=== PATIENT | female | born 1965 | race Caucasian/White ===

== ENCOUNTER → 2019-05-11 12:37 | Outpatient (BNVA) | payer MEDICAID, SELFPAY | PROVIDERS: PCP Family Medicine; Visit Provider Nurse Practitioner | DX: F43.12 Post-traumatic stress disorder, chronic (principal); F15.21 Other stimulant dependence, in remission; F31.81 Bipolar II disorder | CPT/HCPCS: 99214 ==

== ENCOUNTER 2019-11-08 09:47 | Outpatient (CLI) | payer MEDICAID, SELFPAY ==
--- NOTE | 2019-11-08 10:15 | CT_ITS ---
WS: [id number] CT ANGIOGRAPHY OF THE ABDOMINAL AORTA WITH RUNOFF TO THE ANKLES HISTORY: AORTOILIAC OCCLUSIVE DISEASE, ATHEROSCLEROSIS BILAT LOWER EXTREMITIES TECHNIQUE: Arterial injection is performed during imaging to evaluate the aorta and runoff vessels to the ankles. MIP and volume rendering imaging has also been performed. All images are reviewed. CT sc ans at [facility] use at least one of these dose optimization techniques: automated exposu re control; mA and/or kV adjustment per patient size (includes targeted exams where dose is matched t o clinical indication); or iterative reconstruction. Contrast: Omnipaque 350; 95 mL IV. DLP: 1487.16 mGycm COMPARISON: None available. Subsegmental atelectasis RIGHT middle lobe with emphysematous changes at the lung bases. Heart size i s normal. Small hiatal hernia. Liver, gallbladder, pancreas, spleen, adrenal glands and gallbladder are negative. Cortical scarring involving each kidney. There is no obstruction or solid mass. No ascites or adenopathy. No GI tract o bstruction. Abdominal aorta: Small caliber aorta with no aneurysmal dilatation. Calcified plaque is partially enc asing the distal aorta. Diameter of the aorta 8 mm distally. Celiac axis and SMA are intact. No signi ficant renal artery stenosis. RIGHT lower extremity arterial system: Soft appearing plaque or thrombus in the proximal LEFT common iliac artery. Greater than 50% stenosis approaching near occlusion. High-grade stenosis with occlusio n and thrombus extend into the RIGHT external iliac artery. Partial occlusion of the proximal RIGHT i nternal iliac artery. External iliac artery reconstitutes at the femoral artery. Small caliber but pa tent SFA and deep profunda. Popliteal artery is intact. Anterior tibial artery is visualized proximal ly. Below the proximal tibia there is very limited and poor runoff to the ankle with intermittent vis ualization. LEFT lower extremity arterial system: Small amount of plaque in the LEFT common, internal and externa l iliac arteries. Small caliber SFA and deep profunda, SFA and popliteal arteries are intact although small caliber. At the tibioperoneal trunk and distally there is very poor and intermittent visualiza tion of the runoff to the ankle. Anterior and posterior tibial arteries are probably patent. CT/CT angio abd aorta runof 72978 IMPRESSION: 1. Significant thrombus/soft plaque throughout the RIGHT common iliac artery a nd external iliac artery with occlusion of the external iliac artery. Reconstit ution at the femoral artery. 2. Small caliber but patent bilateral superficial femoral arteries and poplite al arteries. 3. Poor runoff to the ankle via a small caliber arteries below the knees. Inte rmittently visualized and small caliber arteries. 4. Mild atherosclerosis aorta with stenosis distally. Minimum diameter distal aorta is 8 mm.
[2019-11-08] MEDS: iohexol 300 mg/mL 100 mL Btl IV (10:54)
[2019-11-08 12:22] LABS: Glomerular Filtration Rate 57.4 mL/min (90-130)
== END 2019-11-08 09:48 | disposition home or self-care (01) ==
PROVIDERS: Family Provider Family Medicine; PCP Family Medicine; Visit Provider Surgery Vascular Surgery
DX: I74.09 Other arterial embolism and thrombosis of abdominal aorta (principal); I70.213 Atherosclerosis of native arteries of extremities with intermittent claudication, bilateral legs; I70.90 Unspecified atherosclerosis
CPT/HCPCS: 75635; 82565; Q9967

== ENCOUNTER → 2020-01-25 08:59 | Outpatient (BNVA) | payer MEDICAID, SELFPAY | PROVIDERS: Family Provider Family Medicine; PCP Family Medicine; Visit Provider Psychiatry & Neurology Psychiatry | DX: F31.81 Bipolar II disorder (principal); F15.21 Other stimulant dependence, in remission; F43.12 Post-traumatic stress disorder, chronic | CPT/HCPCS: 99214 ==

== ENCOUNTER 2020-03-18 13:51 | Outpatient (CLI) | payer MEDICAID, SELFPAY ==
--- NOTE | 2020-03-18 14:03 | CT_ITS ---
WS: [id number] CT scan of the abdominal aorta and its distal branches.. Additional two-dimensional coronal and sagit yomaira reconstruction was performed. MIP images were also performed. 03/18/2020 Clinical Data: AORTOILIAC OCCLUSIVE DISEASE Comparison: CT abdominal aorta and runoff, 11/08/2019. DLP: 1021.[address] scans at [facility] use at least one of these dose optimization techniques: automat ed exposure control; mA and/or kV adjustment per patient size (includes targeted exams where dose is matched to clinical indication); or iterative reconstruction. Findings: Abdominal aorta: The abdominal aorta is normal in size with minimal calcification in the wall. Distally the abdominal aorta and renal arteries, celiac artery, superior mesenteric and inferior mesenteric arteries are see n. Branches into the common iliac vessels. There is a right common iliac artery stent. The left commo n iliac artery is smaller. In both common iliac arteries go to divide into the internal and external iliacs and in the external iliacs become the common femoral arteries. The celiac artery, renal arteries, superior mesenteric and inferior mesenteric arteries are patent. Abdominal and pelvic findings: The right middle lobe, right lower lobe and left lower lobe show minimal patchy opacities which could represent atelectasis and/or minimal pneumonia. There is a groundglass appearance to the opacity in the right middle lobe. The liver, spleen, pancreas and adrenal glands are normal. The gallbladder is unremarkable. The kidneys showed excellent bilateral contrast excretion with a small left cortical cy st. The renal cortical surfaces are irregular from a old infection. The stomach, small bowel and col on show only a large amount of fecal material in the colon. No appendicitis or diverticulitis seen. N o abscess, adenopathy, ascites, mass, obstruction or free air is seen. The bladder shows a thick wall ed but may be underdistended. The uterus is absent. The bones of the lumbar spine show minimal blasti c change and clinical workup may be indicated. CT/CT angio abdomen pelvis 55479 Impression: 1. Atherosclerotic changes of the abdominal aorta without aneurysm. 2. Right iliac artery stent. 3. Small left common iliac artery unchanged. 4. Groundglass and patchy opacifications in the right middle lobe and lower lob es which can indicate mild pneumonia and/or atelectasis. 5. Irregular bilateral renal cortical margins and old infection. 6. Blastic change of the lumbar vertebral bodies and clinical workup to rule ou t metastatic disease is recommended.
[2020-03-18] MEDS: iohexol 350 mg/mL 100 mL Btl IV (14:36)
== END 2020-03-18 13:52 | disposition home or self-care (01) ==
PROVIDERS: PCP Family Medicine; Visit Provider Surgery
DX: I74.09 Other arterial embolism and thrombosis of abdominal aorta (principal); I74.5 Embolism and thrombosis of iliac artery
CPT/HCPCS: 74174; Q9967

== ENCOUNTER → 2020-04-17 07:47 | Outpatient (BNVA) | payer MEDICAID, SELFPAY | PROVIDERS: PCP Family Medicine; Visit Provider Psychiatry & Neurology Psychiatry | DX: F31.81 Bipolar II disorder (principal); F43.12 Post-traumatic stress disorder, chronic | CPT/HCPCS: 99213 ==

== ENCOUNTER → 2020-05-02 12:17 | Outpatient (BNVA) | payer MEDICAID, SELFPAY | PROVIDERS: PCP Family Medicine; Visit Provider Surgery | DX: Z20.828 Contact with and (suspected) exposure to other viral communicable diseases (principal) | CPT/HCPCS: 87635 ==

== ENCOUNTER 2020-05-08 07:30 | Day surgery (SDC) | payer MEDICAID, SELFPAY ==
[2020-05-06 12:04] VITALS: BMI 33.5
[2020-05-08 07:53] VITALS: BP 104/73; PULSE 84; RESP 18; TEMP 36.1; O2SAT 95
[2020-05-08 07:59] LABS: Glucose Point of Care 158 mg/dL (70-110)
[2020-05-08] MEDS: sodium chloride 0.9% 1,000 ML 30 ML IV (08:00)
--- NOTE | 2020-05-08 10:19 | ANES.PREANE2 ---
Pre-Anesthetic Assessment Pre-Anesthetic Assessment: Height/Weight: Height 1.68 m Weight 94.347 kg Temp Pulse Resp BP Pulse Ox 97 F L 84 18 104/73 95 05/08/20 07:53 05/08/20 07:53 05/08/20 07:53 05/08/20 07:53 05/08/20 07:53 Preop Diagnosis: Abdominal pain Proposed Procedure: Operation Date: 05/08/20 08:30 Proposed Procedures p EGD/Colon 56733 R10.9(Not Applicable) - Jerardo Bethea MD s Colonoscopy 42959 R19.4(Not Applicable) - Jerardo Bethea MD Was Beta Lamar taken within 24 hours: N/A Last intake: Intake Last Liquid Date 05/07/20 Last Liquid Time 23:30 Last Solid Date 05/06/20 Last Solid Time 22:00 Social: Social History: Tobacco and No alcohol Exam: Pre-Anes Outpt Exam: alert, oriented x 3 and regular rate & rhythm Additional Exam Findings (including area of procedure): rhonchi Airway: Submandibular: WNL Cervical ROM: WNL MP: 2 Additional comments: Poor dentition, missing several Pulmonary: Pulmonary: COPD CV/HEM: CV/HEM: None reported : : None reported Hepatic: Hepatic: None reported GI: Comments: Chronic abd pain Metabolic: Metabolic: None reported Musc/skel: Comments: Chronic pain Neuropsych: Neuropsych: Anxiety and Bipolar Comments: PTSD Anesthetic Plan: ASA status: 3 Anesthesia: MAC Risk of > 500 ml blood loss (7ml/kg in children): No Meds/Allergies Current Medications: Current Medications Generic Name Dose Route Start Last Admin Trade Name Freq PRN Reason Stop Dose Admin Sodium Chloride 1,000 mls @ 30 ml s/hr 05/08/20 07:45 05/08/20 08:00 Sodium Chloride 0.9% IV 05/09/20 07:44 30 mls/hr .Q24H KATRIN Administration PFSH Anesthesia PFSH: Medical History Adderall use disorder, moderate, in sustained remission, dependence Bipolar II disorder Chronic post-traumatic stress disorder (PTSD) Family History Father Cancer colon Family/Other Cancer maternal grandmother colon Denies family history of CAD (coronary artery disease) Anesthesia complication Bleeding disorder Social History Smoking and tobacco status: current every day smoker Alcohol intake: never Household members: spouse Marital status: Current occupational status: disabled History of recent travel: No Data Anesthesia Other Labs: Laboratory Results - last 48 hr 05/08/20 07:52 POC Glucose 158 H Cardiac Studies: No Data to Display
--- NOTE | 2020-05-08 10:34 | W.PM.OPSUD ---
Surgery/Procedure H&P Update DATE OF PROCEDURE: May 08, 2020 DATE H&P PERFORMED: 04/15/20 H&P UPDATE INFORMATION: I have reviewed H&P completed within last 30 days, I have examined patient prior to procedure and No changes to prior documentation PREOP DIAGNOSIS: Abdominal pain and change in bowel habits PRIMARY INDICATION FOR PROCEDURE: The same PLANNED PROCEDURE: Operation Date: 05/08/20 08:30 Proposed Procedures p EGD/Colon 54144 R10.9(Not Applicable) - Jerardo Bethea MD s Colonoscopy 20395 R19.4(Not Applicable) - Jerardo Bethea MD
[2020-05-08 11:42] VITALS: BP 120/69; PULSE 98; RESP 18; TEMP 36.3; O2SAT 96
--- NOTE | 2020-05-08 11:49 | P.PCN_ITS ---
PACU note PACU note: VSS, Good respiratory effort, report to ECOLOGICAL TECHNICAL OFFICER Post-Anesthesia Exam: awake
--- NOTE | 2020-05-08 11:49 | PM.PACU ---
PACU note PACU note: VSS, Good respiratory effort, report to AGRICULTURAL ENGINEERING TECHNICIANS Post-Anesthesia Exam: awake
--- NOTE | 2020-05-08 11:50 | ANE.PACU2 ---
Inpatient post-anesthesia follow up: Airway intact: Yes Vital signs: Temperature 97 F Pulse Rate 84 Respiratory Rate 18 Blood Pressure 104/73 Pulse Oximetry 95 Oxygen Delivery Me thod Room Air Oxygen Flow Rate Fraction of Inspir ed Oxygen Hydration adequate: Yes Nausea and vomiting: No Pain level: 1 Mental status: Baseline
[2020-05-08 12:04] VITALS: BP 147/70; PULSE 72; RESP 18; O2SAT 96
--- NOTE | 2020-05-08 12:08 | FL_ITS ---
WS: [id number] INDICATION: Unable to complete colonoscopy TECHNIQUE: Single contrast barium enema FLUOROSCOPY TIME 2.9 minutes FINDINGS: Reel Cutter imaging demonstrates adequate bowel prep. Right common iliac and external iliac stent . Pelvic phleboliths. Mild spondylitic changes lumbar spine. Single contrast barium enema was performed under fluoroscopic guidance. Low-lying transverse colon. N o high-grade filling defects or strictures. Contrast rapidly progresses to the ileocecal valve. Monae l hepatic and splenic flexures. Sigmoid diverticulosis. No flow-limiting structures. Ovoid filling defect in the distal one third transverse colon likely represents a pedunculated polyp. This measures approximately 5 mm. Normal postevacuation images. Normal ileocecal valve. No other sig nificant findings. FL/FL barium enema [id number] IMPRESSION: 1. No evidence of high-grade stricture or obstructing mass. 2. Sigmoid diverticulosis. 3. Suspected pedunculated polyp in the distal one third transverse colon measu ring 5 mm. 4. Normal ileocecal valve. 5. Tortuous sigmoid colon. Low-lying transverse colon.
[2020-05-09 10:59] LABS: H. Pylori / CLO Test Negative
== END 2020-05-08 12:30 | disposition home or self-care (01) ==
PROVIDERS: PCP Family Medicine; Visit Provider Surgery
PROC: 0DJ08ZZ Inspection of Upper Intestinal Tract, Via Natural or Artificial Opening Endoscopic (ICD-10-PCS; CPT 43235; 2020-05-08 08:30)
DX: R10.9 Unspecified abdominal pain (principal); R19.4 Change in bowel habit; K31.7 Polyp of stomach and duodenum; K29.70 Gastritis, unspecified, without bleeding; J44.9 Chronic obstructive pulmonary disease, unspecified; F17.210 Nicotine dependence, cigarettes, uncomplicated
CPT/HCPCS: 12345; 36416; 43251; 74270; 82962; 87077; J2704; J7030

== ENCOUNTER → 2020-06-12 08:33 | Outpatient (BNVA) | payer MEDICAID, SELFPAY | PROVIDERS: PCP Family Medicine; Visit Provider Psychiatry & Neurology Psychiatry | DX: F31.81 Bipolar II disorder (principal); F43.12 Post-traumatic stress disorder, chronic; F15.21 Other stimulant dependence, in remission | CPT/HCPCS: 99213 ==

== ENCOUNTER → 2020-10-17 13:14 | Outpatient (BNVA) | payer MEDICAID, SELFPAY | PROVIDERS: PCP Family Medicine; Visit Provider Psychiatry & Neurology Psychiatry | DX: F31.81 Bipolar II disorder (principal); F43.12 Post-traumatic stress disorder, chronic; F15.21 Other stimulant dependence, in remission | CPT/HCPCS: 99214 ==

== ENCOUNTER → 2020-12-03 07:22 | Outpatient (BNVA) | payer MEDICAID, SELFPAY | PROVIDERS: PCP Family Medicine; Visit Provider Psychiatry & Neurology Psychiatry | DX: F31.81 Bipolar II disorder (principal); F15.21 Other stimulant dependence, in remission; F43.12 Post-traumatic stress disorder, chronic | CPT/HCPCS: 99213 ==

== ENCOUNTER 2021-01-02 15:30 | Inpatient (IN) | payer MEDICAID, SELFPAY ==
[2021-01-02 15:48] VITALS: BP 149/63; PULSE 87; RESP 16; TEMP 37; O2SAT 95; BMI 24.2
--- NOTE | 2021-01-02 17:24 | PC.PHAR ---
pt unable to verify medications-medications entered are meds that show has been filled recently on ext med history-notes are made in the pharmacy comments
[2021-01-02 18:23] LABS: Basophils # 0.1 10^3/uL (0.0-0.1); Basophils % 0.5 %; Eosinophils # 0.2 10^3/uL (0.0-0.8); Eosinophils % 1.3 %; Hematocrit 41.2 % (37.0-47.0); Hemoglobin 13.3 g/dL (11.5-15.3); Lymphocytes # 2.8 10^3/uL (0.8-4.8); Lymphocytes % 21.7 %; Mean Corpuscular HGB Conc 32.3 g/dL (30.0-36.0); Mean Corpuscular Hemoglobin 28.4 pg (28.0-34.0); Mean Platelet Volume 9.2 fL (7.4-10.4); Monocytes # 0.8 10^3/uL (0.2-0.9); Monocytes % 6.3 %; Neutrophils # 9.02 10^3/uL (1.8-7.7); Neutrophils % 69.7 %; Nucleated Red Blood Cells % 0 %; Platelet Count 444 10^3/cmm (130-400); Red Blood Count 4.68 10^6/uL (4.1-5.3); Red Cell Distribution Width 14.1 % (12.1-15.1); White Blood Count 12.9 10^3/uL (4.0-10.0)
[2021-01-02 18:49] LABS: Alanine Aminotransferase 22 U/L (0-33); Alkaline Phosphatase 129 IU/L (35-105); Aspartate Amino Transferase 18 U/L (0-32); Blood Urea Nitrogen 11 mg/dL (6-20); Calcium 9.7 mg/dL (8.5-10.5); Carbon Dioxide 22 mmol/L (22-29); Chloride 103 mmol/L (98-107); Globulin 2.7 g/dL (1.3-4.6); Glomerular Filtration Rate 64.5 mL/min (90-130); Glucose 162 mg/dL (65-115); Osmolality Calculated 285 mOsm/kg (285-295); Sodium 136 mmol/L (136-145); Total Bilirubin 0.3 mg/dL (0.15-1.2); Total Protein 6.7 g/dL (6.6-8.7)
[2021-01-02 18:55] LABS: Acetaminophen < 5.0 ug/mL (10-30); Alcohol Level < 10 mg/dL (0-10); Salicylate < 0.3 mg/dL (3-10)
--- NOTE | 2021-01-02 19:58 | PC.NURSE ---
Bedside commode taken into room for urine specimen.
[2021-01-02 20:00] VITALS: BP 130/74; PULSE 86; RESP 16; O2SAT 93
[2021-01-02 20:33] LABS: Add Urine Microscopic? YES; Bilirubin Urine 1+ (Negative); Blood Urine Neg (Negative); Glucose Urine UA Norm (Normal); Ketones Urine 1+ (Negative); Leukocyte Esterase Urine 1+ (Negative); Nitrate Urine Negative (Negative); Protein Urine Neg (Negative); Specific Gravity, Urine 1.025 (1.005-1.030); Urine Appearance Hazy (CLEAR); Urine Color Yellow (Yellow); Urobilinogen Urine Norm (Negative); pH Urine 5 (5-7)
[2021-01-02 20:42] LABS: Amphetamines Screen Urine Negative (Negative); Barbiturates Screen Urine Negative (Negative); Benzodiazepines Screen Urine Negative (Negative); Cocaine Screen Urine Negative (Negative); Opiate Screen Urine Negative (Negative); PCP Screen Urine Negative (Negative); THC Screen Urine Positive (Negative)
[2021-01-02 20:46] LABS: RBC Urine 0-4 /hpf (0-2); WBC Urine >100 /hpf (0-5)
[2021-01-02 20:47] LABS: Add Urine Culture? No; Bacteria Urine 4+ /hpf; Squamous Epithelial Cell Urine 55-80 /hpf (0-5)
--- NOTE | 2021-01-02 21:19 | PC.NURSE ---
FSBS performed; glucose 170
[2021-01-02 21:21] LABS: Glucose Point of Care 170 mg/dL (70-110)
[2021-01-02 21:55] VITALS: BP 131/76; PULSE 80; RESP 16; O2SAT 95
--- NOTE | 2021-01-02 22:44 | W.ED.PSYCH ---
HPI - Psych General: Chief Complaint: Psychiatric Symptoms Stated Complaint: no real complaints/MHE? Time Seen by Provider: 01/02/21 15:33 Source: patient, EMS, RN notes reviewed and old records reviewed Mode of arrival: EMS Limitations: altered mental status History of Present Illness: HPI Narrative: This 55-year-old female patient was brought in by EMS from the [facility] in [place]. They stated that they wanted a mental health evaluation on this patient and that she had mentioned homicidal ideation to them. The patient denied any homicidal ideation to the ambulance crew. The patient is unable to give a coherent history as she cannot maintain a train of thought. She did state that her primary care provider called her today and asked that she go to the hospital to be evaluated or she will . She had been seen at [facility] in [place] emergency department earlier today and while she was there had expressed to the nurse that she did not feel safe at home so did discharge her to the [facility]. While at the [facility] they noted her behavior and so called for an ambulance. The patient states that she got a call from her primary care provider's office and was told she needed to be in the hospital. She does not know why they asked her to come to the hospital, she has no real complaints at this time. She denies suicidal ideation but states that she feels like hurting her . She states that her has dementia and does not recognize her and sometimes is mean to her. She states that he tells lies and so because of all these she has thoughts of hurting him. MD complaint: altered mental status Review of Systems General: Reports: 10 or more systems reviewed and unremarkable except in HPI and below [facility] PFSH: Medical History Adderall use disorder, moderate, in sustained remission, dependence Bipolar II disorder Chronic post-traumatic stress disorder (PTSD) Family History Father Cancer colon Family/Other Cancer maternal grandmother colon Denies family history of CAD (coronary artery disease) Anesthesia complication Bleeding disorder Social History Smoking and tobacco status: current every day smoker Alcohol intake: never Household members: spouse Marital status: Current occupational status: disabled History of recent travel: No Physical Exam Const: COMMON NORMALS: no acute distress, average body habitus, patient oriented x3, no limitations, healthy appearing, alert and well nourished HENMT: COMMON NORMALS: normocephalic, atraumatic and moist oral mucous membranes HEAD & SCALP: normocephalic and atraumatic Neck/C-Spine: COMMON NORMALS: no meningeal signs and no JVD Resp: COMMON NORMALS: normal respiratory effort, No retractions, No use of accessory muscles, clear to auscultation bilaterally and percussion normal AUSCULTATION: clear to auscultation bilaterally PERCUSSION: percussion normal Cardio: COMMON NORMALS: no JVD, regular rate, regular rhythm, S1 normal heart sound present, S2 normal heart sound present, No gallops present (Cardio), No clicks present (Cardio), No murmurs present (Cardio), No rub (Cardio) and Peripheral pulses 2+ throughout RATE: regular rate RHYTHM: regular rhythm HEART SOUNDS: S1 normal heart sound present and S2 normal heart sound present PERIPHERAL PULSES: Peripheral pulses 2+ throughout GI: COMMON NORMALS: Normal to inspection, nondistended, normoactive bowel sounds present, Soft to palpation, non-tender, No hepatosplenomegaly present, no masses and no bruits PALPATION: Yes Soft to palpation and Yes No hepatosplenomegaly present Extremity: COMMON NORMALS: normal to inspection, full ROM, capillary refill normal, no calf tenderness and no pedal edema Neuro: COMMON NORMALS: patient oriented x3 SENSORIUM/ORIENTATION: Yes alert MENINGEAL SIGNS: Yes no meningeal signs Skin: COMMON NORMALS: no rashes or lesions noted, no wounds, turgor normal, no jaundice, no petechiae and no mottling GENERAL SKIN EXAM: no rashes or lesions noted and turgor normal Course Consultations: Consultation #1: Discussed with the patient's primary care provider, Chris Kaur, nurse practitioner. He stated that a nurse at this practice attempted to call the patient because she has bipolar disorder and she has been having frequent episodes of bizarre and abnormal behavior recently. She has been noncompliant with her office visits, noncompliant with her specialist visits, noncompliant with her medications. He feels like at this time she is unstable and will need to be stabilized in the psychiatric unit. Time: 16:09 Consultation #2: Discussed the patient with Dr. Hines, psychiatrist and he kindly accepted the patient to his service. Time: 20:59 Vital Signs: Vital signs: Vital Signs Temperature 98.6 F 01/02/21 15:48 Pulse Rate 80 01/02/21 21:55 Respiratory Rate 16 01/02/21 21:55 Blood Pressure 131/76 01/02/21 21:55 Pulse Oximetry 95 01/02/21 21:55 MDM - Psych MDM Narrative: Medical decision making narrative: This 55-year-old female patient was brought into the emergency department for psychiatric evaluation. Next the patient has bizarre thoughts and is unable to have a linear train of thought. Her speech and ideas are all over the place. She also expressed desires to hurt her who has dementia. She is admitted to the neuropsychiatric unit for further evaluation and management. Medical Records: Attestation: I reviewed the patient's medical records. Lab Data: Attestation: I reviewed the patient's lab results. Labs: Lab Results 01/02/21 01/02/21 01/02/21 Range/Units 18:10 18:10 20:05 WBC 12.9 H (4.0-10.0) 10^3/ uL RBC 4.68 (4.1-5.3) 10^6/u L Hgb 13.3 (11.5-15.3) g/dL Hct 41.2 (37.0-47.0) % MCV 88.0 (81-99) fl MCH 28.4 (28.0-34.0) pg MCHC 32.3 (30.0-36.0) g/dL RDW 14.1 (12.1-15.1) % Plt Count 444 H (130-400) 10^3/c mm MPV 9.2 (7.4-10.4) fL Neut % (Auto) 69.7 % Lymph % (Auto) 21.7 % Scurry % (Auto) 6.3 % Eos % (Auto) 1.3 % Baso % (Auto) 0.5 % Neut # (Auto) 9.02 H (1.8-7.7) 10^3/u L Lymph # (Auto) 2.8 (0.8-4.8) 10^3/u L Scurry # (Auto) 0.8 (0.2-0.9) 10^3/u L Eos # (Auto) 0.2 (0.0-0.8) 10^3/u L Baso # (Auto) 0.1 (0.0-0.1) 10^3/u L Nucleated RBC % (a uto) 0 % Nucleated RBCs # 0.0 /100WBC Sodium 136 (136-145) mmol/L Potassium 4.0 (3.5-5.1) mmol/L Chloride 103 (98-107) mmol/L Carbon Dioxide 22 (22-29) mmol/L Anion Gap 15.0 (5-19) BUN 11 (6-20) mg/dL Creatinine 0.9 (0.5-0.9) mg/dL GFR Calculation 64.5 L (90-130) mL/min Glucose 162 H (65-115) mg/dL POC Glucose (70-110) mg/dL Calculated Osmolal ity 285 (285-295) mOsm/k g Calcium 9.7 (8.5-10.5) mg/dL Total Bilirubin 0.3 (0.15-1.2) mg/dL AST 18 (0-32) U/L ALT 22 (0-33) U/L Alkaline Phosphata se 129 H (35-105) IU/L Total Protein 6.7 (6.6-8.7) g/dL Albumin 4.0 (3.5-5.2) g/dL Globulin 2.7 (1.3-4.6) g/dL Urine Color Yellow (Yellow) Urine Appearance Hazy A (CLEAR) Urine pH 5 (5-7) Ur Specific Gravit y 1.025 (1.005-1.030) Urine Protein Neg (Negative) Urine Glucose (UA) Norm (Normal) Urine Ketones 1+ H (Negative) Urine Blood Neg (Negative) Urine Nitrate Negative (Negative) Urine Bilirubin 1+ H (Negative) Urine Urobilinogen Norm (Negative) mg/dL Ur Leukocyte Pushpa ase 1+ H (Negative) Urine RBC 0-4 H (0-2) /hpf Urine WBC >100 H (0-5) /hpf Ur Squamous Epith Cells 55-80 H (0-5) /hpf Amorphous Sediment Not Reportable Urine Bacteria 4+ H (NONE) /hpf Salicylates < 0.3 L (3-10) mg/dL Urine Opiates Scre en (Negative) ng/mL Acetaminophen < 5.0 L (10-30) ug/mL Ur Barbiturates Sc reen (Negative) ng/mL Ur Phencyclidine S crn (Negative) ng/mL Ur Amphetamines Sc reen (Negative) ng/mL U Benzodiazepines Scrn (Negative) ng/mL Urine Cocaine Scre en (Negative) ng/mL U Marijuana (THC) Screen (Negative) ng/mL Ethyl Alcohol < 10 (0-10) mg/dL 01/02/21 01/02/21 Range/Units 20:05 21:17 WBC (4.0-10.0) 10^3/ uL RBC (4.1-5.3) 10^6/u L Hgb (11.5-15.3) g/dL Hct (37.0-47.0) % MCV (81-99) fl MCH (28.0-34.0) pg MCHC (30.0-36.0) g/dL RDW (12.1-15.1) % Plt Count (130-400) 10^3/c mm MPV (7.4-10.4) fL Neut % (Auto) % Lymph % (Auto) % Scurry % (Auto) % Eos % (Auto) % Baso % (Auto) % Neut # (Auto) (1.8-7.7) 10^3/u L Lymph # (Auto) (0.8-4.8) 10^3/u L Scurry # (Auto) (0.2-0.9) 10^3/u L Eos # (Auto) (0.0-0.8) 10^3/u L Baso # (Auto) (0.0-0.1) 10^3/u L Nucleated RBC % (a uto) % Nucleated RBCs # /100WBC Sodium (136-145) mmol/L Potassium (3.5-5.1) mmol/L Chloride (98-107) mmol/L Carbon Dioxide (22-29) mmol/L Anion Gap (5-19) BUN (6-20) mg/dL Creatinine (0.5-0.9) mg/dL GFR Calculation (90-130) mL/min Glucose (65-115) mg/dL POC Glucose 170 H (70-110) mg/dL Calculated Osmolal ity (285-295) mOsm/k g Calcium (8.5-10.5) mg/dL Total Bilirubin (0.15-1.2) mg/dL AST (0-32) U/L ALT (0-33) U/L Alkaline Phosphata se (35-105) IU/L Total Protein (6.6-8.7) g/dL Albumin (3.5-5.2) g/dL Globulin (1.3-4.6) g/dL Urine Color (Yellow) Urine Appearance (CLEAR) Urine pH (5-7) Ur Specific Gravit y (1.005-1.030) Urine Protein (Negative) Urine Glucose (UA) (Normal) Urine Ketones (Negative) Urine Blood (Negative) Urine Nitrate (Negative) Urine Bilirubin (Negative) Urine Urobilinogen (Negative) mg/dL Ur Leukocyte Pushpa ase (Negative) Urine RBC (0-2) /hpf Urine WBC (0-5) /hpf Ur Squamous Epith Cells (0-5) /hpf Amorphous Sediment Urine Bacteria (NONE) /hpf Salicylates (3-10) mg/dL Urine Opiates Scre en Negative (Negative) ng/mL Acetaminophen (10-30) ug/mL Ur Barbiturates Sc reen Negative (Negative) ng/mL Ur Phencyclidine S crn Negative (Negative) ng/mL Ur Amphetamines Sc reen Negative (Negative) ng/mL U Benzodiazepines Scrn Negative (Negative) ng/mL Urine Cocaine Scre en Negative (Negative) ng/mL U Marijuana (THC) Screen Positive H (Negative) ng/mL Ethyl Alcohol (0-10) mg/dL Discharge Plan Discharge Patient Disposition: Admitted As Inpatient Admit Provider: Edgardo Hines Clinical Impression: Acute psychosis, Bipolar II disorder Condition: Stable Coding Level of Care Code ED Analog Device Designer for Kaushik Ahuja
[2021-01-02 22:59] VITALS: BP 147/70; PULSE 93; RESP 18; TEMP 36.5; O2SAT 96
--- NOTE | 2021-01-03 02:54 | PC.NURSE ---
55/F Psychosis pt is in [facility], was evaluated at [facility] and sent to [facility] for mental evaluation.Pt hears voices. Pt is making unclear statements. In the ED, I want to eat, I'm hungry but I am not allowed to eat, I can't eat. Pt is diabetic and states she takes her blood sugars twice a day. Pt is acting as if she is unable to walk and transfer. She can do her ADL's but is refusing. She will attempt to show you she can not do things but do them anyway.
[2021-01-03 06:00] VITALS: BP 147/70; PULSE 93; RESP 18; TEMP 36.5; O2SAT 96
--- NOTE | 2021-01-03 07:11 | PC.NURSE ---
Accu check refusal pt refused a blood gloucose check at this time. will try again later this morning.
[2021-01-03 07:54] LABS: Glucose Point of Care 174 mg/dL (70-110)
[2021-01-03] MEDS: fluoxetine 20 mg Capsule 80 MG PO (09:00)
[2021-01-03] MEDS: cetirizine 10 mg Tablet PO (09:00)
[2021-01-03] MEDS: FUROsemide 20 mg Tablet PO (09:00)
[2021-01-03] MEDS: duloxetine 30 mg Capsule PO (09:00)
--- NOTE | 2021-01-03 10:36 | P.HP_ITS ---
Providers/Chief Complaint Admitting Physician: Edgardo Hines MD Primary Care Provider: Flaco Gresham Chief Complaint: PSYCH EVAL HPI NPU History of Present Illness Dorina Gamble is a 55 year old female who presented to the emergency department the following report: Chief Complaint: Psychiatric Symptoms Stated Complaint: no real complaints/MHE? Time Seen by Provider: 01/02/21 15:33 Source: patient, EMS, RN notes reviewed and old records reviewed Mode of arrival: EMS Limitations: altered mental status History of Present Illness: HPI Narrative: This 55-year-old female patient was brought in by EMS from the [facility] in [place]. They stated that they wanted a mental health evaluation on this patient and that she had mentioned homicidal ideation to them. The patient denied any homicidal ideation to the ambulance crew. The patient is unable to give a coherent history as she cannot maintain a train of thought. She did state that her primary care provider called her today and asked that she go to the hospital to be evaluated or she will . She had been seen at [facility] in [place] emergency department earlier today and while she was there had expressed to the nurse that she did not feel safe at home so did discharge her to the [facility]. While at the [facility] they noted her behavior and so called for an ambulance. The patient states that she got a call from her primary care provider's office and was told she needed to be in the hospital. She does not know why they asked her to come to the hospital, she has no real complaints at this time. She denies suicidal ideation but states that she feels like hurting her . She states that her has dementia and does not recognize her and sometimes is mean to her. She states that he tells lies and so because of all these she has thoughts of hurting him. complaint: altered mental status. Presented to the neuropsychiatric unit for definitive treatment of those issues. She presents today reporting that she is never been hospitalized psychiatrically but she does not appear to be an accurate historian as she had hospitalization here back in 2007. She seems somewhat confused. She reports that she goes to outpatient treatment at [facility] and denies being on medication though we can clearly see that she is taking Prozac and Cymbalta. She reports she smokes 1 cigarette a day, denies alcohol marijuana or any other illicit drugs, however her UDS was positive for cannabis. She denies ever going to rehab or having a DUI. She reports that her doctor said she should come over here but she did not know why. She did report she felt sick. She answered I do not know a lot and just overall seemed confused. She had told someone that her had dementia and she struggled to take care of them but she told this mortgage underwriter that her 2 or 3 days ago. She denies any history of suicide attempts. Psychiatric history: As above. In May of last year she resumed treatment outpatient at [facility] and has been consistent as recently as last month Substance history: As above. Family history: Patient denies mental health or addiction issues on either side of the family and denies suicide attempts or completions in the family. Developmental history: There were no problems with the , or delivery, learned to walk and talk and met developmental milestones on time, and denies need for speech therapy, learning support, emotional support or special education classes. Psychosocial history: Patient reports that her parents were together she was born but that she is on a product of that union. She reports her mother had 2 girls and a boy other than her and her father and 2 other children. She reports that she is unsure about her childhood and reports the family moved a lot. She denies emotional physical or sexual abuse. She graduated high school and had 2 years of college. She endorsed being heterosexual as well as relation being 25 years. He reports he 4 times 3 times and suggest that he is just . She reports that she has 3 children ages 3130 and 25, has never been in the reports being a Spiritism. She endorses he lives in a trailer with her but not anymore. Legal history: Denied. Medical history: Please see ED note for full details. Meds NPU Home Medications Medication Instructions Recorded Confirmed Last Taken Type cholecalciferol (vitamin D3) 1,250 50,000 unit PO Q7D tab 11/29/19 01/03/21 12/27/20 History mcg (50,000 unit) tablet epinephrine 0.3 mg/0.3 mL 0.3 mg IM ONCE PRN 01/24/20 01/03/21 01/02/21 History injection, auto-injector insulin admin supplies 12/02/20 01/02/21 Unknown History duloxetine 30 mg capsule,delayed 30 mg PO DAILY #30 cap 12/03/20 01/03/21 01/02/21 Rx release albuterol sulfate [ProAir HFA] 2 puff INHALATION Q6H PRN 01/02/21 01/03/21 01/02/21 History cetirizine [Zyrtec] 10 mg PO DAILY 01/02/21 01/03/21 01/02/21 History exenatide microspheres [Bydureon 2 mg SUBCUT Q7D 01/02/21 01/02/21 Unknown History BCise] fluoride (sodium) [Sodium Fluoride 1 applic PO BID 01/02/21 01/02/21 Unknown History 5000 Plus] fluoxetine [Prozac] 80 mg PO DAILY 01/02/21 01/03/21 01/02/21 History furosemide [Lasix] 20 mg PO DAILY 01/02/21 01/03/21 01/02/21 History Allergies Allergy/AdvReac Type Severity Reaction Status Date / Time amoxicillin Allergy Intermediate Hives Verified 12/02/20 11:59 azithromycin Allergy Intermediate Hives Verified 12/02/20 11:59 carbamazepine [From Tegretol] Allergy Intermediate Hives Verified 12/02/20 11:59 cephalexin [From Keflex] Allergy Intermediate Hives Verified 12/02/20 11:59 divalproex sodium Allergy Intermediate Hives Verified 12/02/20 11:59 [From Depakote] erythromycin base Allergy Intermediate hIVES Verified 12/02/20 11:59 lamotrigine [Lamictal] Allergy Unknown Unknown Verified 12/02/20 11:59 metformin Allergy Unknown Unknown Verified 12/02/20 11:59 nystatin Allergy Unknown Unknown Verified 12/02/20 11:59 Sulfa (Sulfonamide Allergy Unknown Unknown Verified 12/02/20 11:59 Antibiotics) tetracycline Allergy Unknown Unknown Verified 12/02/20 11:59 Tricyclic Compounds Allergy Unknown Unknown Verified 12/02/20 11:59 zolpidem [From Ambien] AdvReac Severe Hallucinati Verified 12/02/20 11:59 ons PFSH NPU PFSH: Medical History (Reviewed 01/02/21 @ 22:50 by Carlos Friedman MD, [facility] [place]) Adderall use disorder, moderate, in sustained remission, dependence Bipolar II disorder Chronic post-traumatic stress disorder (PTSD) Family History (Reviewed 01/02/21 @ 22:50 by Carlos Friedman MD, [facility] [place]) Father Cancer colon Family/Other Cancer maternal grandmother colon Denies family history of CAD (coronary artery disease) Anesthesia complication Bleeding disorder Social History (Reviewed 01/02/21 @ 22:50 by Carlos Friedman MD, [facility] [place]) Smoking and tobacco status: current every day smoker Alcohol intake: never Household members: spouse Marital status: Current occupational status: disabled History of recent travel: No Mental Status Exam MSE Comments: This is an overweight white female with hospital scrubs on with limited grooming and eye contact. No abnormal movements but an odd finger wiggling tapping motion. Mostly cooperative with exam in mild to moderate distress. Speech was decreased rate and volume. Mood described as depressed, affect anxious and nervous. Thought process somewhat disorganized, thought content: Patient denied suicidal or homicidal ideation, there were no delusions reported or noted, she denied any auditory or visual hallucinations. Attention and concentration are impaired and memory seems unreliable at times but never formally tested. She is alert and oriented to person and place but not purpose. Insight and judgment are impaired and impulse control impaired. Vitals/I&O/Wt Last Vital Signs Temp 97.7 F 01/02/21 22:59 Pulse 93 01/02/21 22:59 Resp 18 01/02/21 22:59 BP 147/70 01/02/21 22:59 Pulse Ox 96 01/02/21 22:59 Weight last 48 hrs Weight 68.039 kg Data NPU : 01/02/21 18:10 01/02/21 18:10 A&P Assessment and plan (1) Acute psychosis: Status: Acute (2) Adderall use disorder, moderate, in sustained remission, dependence: Status: Acute (3) Chronic post-traumatic stress disorder (PTSD): Status: Acute (4) Bipolar II disorder: Status: Acute (5) Polyp of duodenum: Status: Resolved (6) Gastritis: Status: Chronic (7) Left sided abdominal pain: Status: Acute (8) Change in bowel habits: Status: Acute (9) Cannabis abuse: Status: Acute Additional A&P Information This is a 55-year-old white female with a long history of mental health issues and prescription addiction who presented to her outside doctor with some confusion to a referral to the emergency department and admission who presents now continuing with confusion of unknown etiology. 1. Continue current medication. 2. Continue every 15 minute checks for safety. 3. Encourage individual, group and milieu therapies. 4. Encourage sober living treatment after discharge at the highest level of care to which he is willing to commit. Involuntary Hold Information 96 Hour Hold: 96 Hour Involuntary Admission: No Attestations NPU Medical Necessity Statement*: Inpatient hospitalization is medically necessary and the clinically appropriate intervention at this time. We will monitor medications and make changes as indicated. Patient will be in the hospital for over two midnights. Likely length of stay 3 to 5 days. 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
[2021-01-03 11:30] LABS: Glucose Point of Care 288 mg/dL (70-110)
[2021-01-03 14:00] VITALS: BP 137/78; PULSE 86; RESP 17; TEMP 37.4; O2SAT 94
[2021-01-03 16:54] LABS: Glucose Point of Care 174 mg/dL (70-110)
--- NOTE | 2021-01-03 18:37 | PC.RESP ---
Smoking Cessation information sent to patient.
[2021-01-03 21:24] VITALS: BP 137/78; PULSE 86; RESP 17; TEMP 37.4; O2SAT 94
[2021-01-04 06:00] VITALS: BP 137/78; PULSE 86; RESP 17; TEMP 37.4; O2SAT 94
[2021-01-04 07:21] LABS: Glucose Point of Care 178 mg/dL (70-110)
--- NOTE | 2021-01-04 11:46 | P.PN_ITS ---
Subjective NPU Subjective: Interval history: Patient presents today continuing to the somewhat confused and unclear. She continues to endorse not knowing why she is here or what happened that led her to feeling some sort of way. She had explanation for positive drug screen for cannabis and denied any recent amphetamine use given her history. We agreed that we review the chart and identified her any clear red flags as to what might be causing her current altered mental status. Mental Status Exam MSE Comments: This is an overweight white female with hospital scrubs on with limited grooming and eye contact. No abnormal movements but an odd finger wiggling tapping motion. Mostly cooperative with exam in mild to moderate distress. Speech was decreased rate and volume. Mood described as sad, affect anxious and nervous. Thought process somewhat disorganized, thought content: Patient denied suicidal or homicidal ideation, there were no delusions reported or noted, she denied any auditory or visual hallucinations. Attention and concentration are impaired and memory seems unreliable at times but never formally tested. She is alert and oriented to person and place but not purpose. Insight and judgment are impaired and impulse control impaired. Vitals/I&O/Wt Last Vital Signs Temp 97.8 F 01/04/21 21:40 Pulse 91 01/04/21 21:40 Resp 15 01/04/21 21:40 BP 129/63 01/04/21 21:40 Pulse Ox 96 01/04/21 21:40 Weight last 48 hrs Weight 80.399 kg Data NPU : 01/02/21 18:10 01/02/21 18:10 A&P Additional A&P Information (1) Acute psychosis: (2) Adderall use disorder, moderate, in sustained remission, dependence: (3) Chronic post-traumatic stress disorder (PTSD): (4) Bipolar II disorder: (5) Polyp of duodenum: (6) Gastritis: (7) Left sided abdominal pain: (8) Change in bowel habits: (9) Cannabis abuse: Additional A&P Information This is a 55-year-old white female with a long history of mental health issues and prescription addiction who presented to her outside doctor with some confusion to a referral to the emergency department and admission who presents now continuing with confusion of unknown etiology. 1. Continue current medication. 2. Continue every 15 minute checks for safety. 3. Encourage individual, group and milieu therapies. 4. Encourage sober living treatment after discharge at the highest level of care to which she is willing to commit. Involuntary Hold Information 96 Hour Hold: 96 Hour Involuntary Admission: No Attestations NPU Medical Necessity Statement*: Inpatient hospitalization is medically necessary and the clinically appropriate intervention at this time. We will monitor medications and make changes as indicated. Likely length of stay 3 to 5 days. Coding Level of Care Code Acute Regulatory Services Consultant for Kaushik Ahuja
[2021-01-04 14:00] VITALS: BP 131/69; PULSE 80; RESP 17; TEMP 36.5; O2SAT 95
[2021-01-04 17:03] LABS: Glucose Point of Care 145 mg/dL (70-110)
[2021-01-04 20:21] LABS: Glucose Point of Care 195 mg/dL (70-110)
[2021-01-04 21:40] VITALS: BP 129/63; PULSE 91; RESP 15; TEMP 36.6; O2SAT 96
[2021-01-05 06:00] VITALS: BP 136/80; PULSE 71; RESP 17; TEMP 36.8; O2SAT 96
[2021-01-05 06:56] LABS: Glucose Point of Care 161 mg/dL (70-110)
[2021-01-05] MEDS: duloxetine 30 mg Capsule PO (08:55)
[2021-01-05] MEDS: cetirizine 10 mg Tablet PO (08:55)
[2021-01-05] MEDS: FUROsemide 20 mg Tablet PO (08:55)
[2021-01-05] MEDS: fluoxetine 20 mg Capsule 80 MG PO (08:55)
[2021-01-05 10:10] LABS: Basophils # 0.1 10^3/uL (0.0-0.1); Basophils % 0.4 %; Eosinophils # 0.2 10^3/uL (0.0-0.8); Eosinophils % 1.8 %; Hematocrit 40.8 % (37.0-47.0); Hemoglobin 12.9 g/dL (11.5-15.3); Lymphocytes # 2.5 10^3/uL (0.8-4.8); Lymphocytes % 19.4 %; Mean Corpuscular HGB Conc 31.6 g/dL (30.0-36.0); Mean Corpuscular Hemoglobin 28.5 pg (28.0-34.0); Mean Corpuscular Volume 90.3 fl (81-99); Mean Platelet Volume 9.4 fL (7.4-10.4); Monocytes # 0.8 10^3/uL (0.2-0.9); Monocytes % 6.1 %; Neutrophils # 9.35 10^3/uL (1.8-7.7); Neutrophils % 71.7 %; Nucleated Red Blood Cells % 0 %; Platelet Count 408 10^3/cmm (130-400); Red Blood Count 4.52 10^6/uL (4.1-5.3); Red Cell Distribution Width 14.1 % (12.1-15.1)
[2021-01-05 10:32] LABS: Ammonia 36 umol/L (11-51)
[2021-01-05 11:34] LABS: Glucose Point of Care 243 mg/dL (70-110)
--- NOTE | 2021-01-05 11:49 | P.PN_ITS ---
Subjective NPU Subjective: Interval history: Patient presents today continuing to have significant limitations in her medications. She continued to demonstrate and discuss her being confused as to why she is here. We discussed respite alternatives getting some labs were taken to make sure that the questionable urinalysis with the significant hyaline casts does represent part of the cause of the confusion here. Additionally identified that she is on Seroquel at night and get that restarted. After discussing the risk benefits and alternatives. Mental Status Exam MSE Comments: This is an overweight white female with hospital scrubs on with limited grooming and eye contact. No abnormal movements but an odd finger wiggling tapping motion. Mostly cooperative with exam in mild to moderate dis tress. Speech was decreased rate and volume. Mood described as I do not know, affect anxious and nervous. Thought process somewhat disorganized, thought content: Patient denied suicidal or homicidal ideation, there were no delusions reported or noted, she denied any auditory or visual hallucinations. Attention and concentration are impaired and memory seems unreliable at times but never formally tested. She is alert and oriented to person and place but not purpose. Insight and judgment are impaired and impulse control impaired. Vitals/I&O/Wt Last Vital Signs Temp 98.3 F 01/05/21 06:00 Pulse 71 01/05/21 06:00 Resp 17 01/05/21 06:00 BP 136/80 01/05/21 06:00 Pulse Ox 96 01/05/21 06:00 Weight last 48 hrs Weight 80.739 kg Weight 80.739 kg Data NPU : 01/05/21 09:53 01/02/21 18:10 A&P Additional A&P Information (1) Cannabis abuse: (2) Acute psychosis: (3) Adderall use disorder, moderate, in sustained remission, dependence: (4) Chronic post-traumatic stress disorder (PTSD): (5) Bipolar II disorder: Additional A&P Information This is a 55-year-old white female with a long history of mental health issues a nd prescription addiction who presented to her outside doctor with some confusion to a referral to the emergency department and admission who presents now continuing with confusion of unknown etiology. 1. Continue current medication. 2. Continue every 15 minute checks for safety. 3. Encourage individual, group and milieu therapies. 4. Encourage sober living treatment after discharge at the highest level of care to which she is willing to commit. 5. We will get laboratory studies and evaluate whether or not there is a comorbid medical connection to her current presentation. Involuntary Hold Information 96 Hour Hold: 96 Hour Involuntary Admission: No Attestations NPU Medical Necessity Statement*: Inpatient hospitalization is medically necessary and the clinically appropriate intervention at this time. We will monitor medications and make changes as indicated. Likely length of stay 2 to 4 days. Coding Level of Care Code Acute Bullet Charging Machine Operator for Kaushik Ahuja
[2021-01-05 14:00] VITALS: BP 129/76; PULSE 85; RESP 17; TEMP 36.3; O2SAT 97
[2021-01-05 16:45] LABS: Glucose Point of Care 191 mg/dL (70-110)
[2021-01-05 20:28] LABS: Glucose Point of Care 220 mg/dL (70-110)
[2021-01-05 20:59] VITALS: BP 138/76; PULSE 100; RESP 17; TEMP 36.6; O2SAT 96
[2021-01-05] MEDS: quetiapine 100 mg Tablet 200 MG PO (21:57)
[2021-01-06] MEDS: hyDROXYzine 25 mg Capsule 50 MG PO (00:22)
[2021-01-06] MEDS: OLANZapine 5 mg ODT PO (00:22)
[2021-01-06 06:00] VITALS: BP 130/60; PULSE 105; RESP 16; TEMP 36.6; O2SAT 98
[2021-01-06 06:34] LABS: Glucose Point of Care 152 mg/dL (70-110)
[2021-01-06] MEDS: cetirizine 10 mg Tablet PO (08:52)
[2021-01-06] MEDS: duloxetine 30 mg Capsule PO (08:52)
[2021-01-06] MEDS: FUROsemide 20 mg Tablet PO (08:52)
[2021-01-06] MEDS: fluoxetine 20 mg Capsule 80 MG PO (08:53)
[2021-01-06 11:43] LABS: Glucose Point of Care 176 mg/dL (70-110)
[2021-01-06 14:00] VITALS: BP 96/61; PULSE 87; RESP 16; TEMP 36.2; O2SAT 95
--- NOTE | 2021-01-06 16:57 | PM.NPN ---
Subjective NPU Subjective: Interval history: I discussed the patient's progress with Dr. Hines and then with the multidisciplinary team. She says she is not exactly sure why she is here. However she does feel she is more in touch with reality and yesterday. She says, I am not sure why I said my was . She talked about deciding to split up with her , and that she has made up her mind to do so. This is a painful decision for her, and we talked about how people do not really want to face painful situations. She says that her is different now, mean, and hateful. She says her mood has been a little frazzled. She likes to sleep in cold surroundings, and it is warmer here than she prefers. She does not like the food here. She denies suicidal and homicidal ideation. She denies auditory and visual hallucinations. She says that Prozac causes some heartburn, but otherwise she has no medication side effects. She was quite concerned about how she would get a ride home. She does not have anybody's phone numbers, because they were all in her phone, which she left at home. Finally, as we explored, she remembered that her [id number], Corona Laughlin, works at [employer] nearby. She can look up his phone number and he can help arrange for transportation. Mental Status Exam MSE Comments: This is an overweight white female with hospital scrubs on with improved grooming and eye contact. No abnormal movements. Cooperative with exam in mild distress. Speech was at a normal rate and volume. Mood described as sad, affect anxious and nervous. Thought process more disorganized today. Thought content: Patient denied suicidal or homicidal ideation, there were no delusions reported or noted, she denied any auditory or visual hallucinations. Attention. concentration and memory are improving but not formally tested. She is alert and oriented to person and place and purpose. Insight and judgment are improving and impulse control is improving too. Vitals/I&O/Wt Last Vital Signs Temp 97.8 F 01/07/21 06:00 Pulse 82 01/07/21 06:00 Resp 17 01/07/21 06:00 BP 115/58 01/07/21 06:00 Pulse Ox 95 01/07/21 06:00 Weight last 48 hrs Weight 80.739 kg Data NPU : 01/05/21 09:53 01/02/21 18:10 A&P Assessment and plan (1) Cannabis abuse: Status: Acute (2) Acute psychosis: Status: Acute (3) Adderall use disorder, moderate, in sustained remission, dependence: Status: Acute (4) Chronic post-traumatic stress disorder (PTSD): Status: Acute (5) Bipolar II disorder: Status: Acute Additional A&P Information This is a 55-year-old white female with a long history of mental health issues and prescription addiction who presented to her outside doctor with some confusion to a referral to the emergency department and admission who presents now continuing with confusion of unknown etiology. 1. Continue current medication. 2. Continue every 15 minute checks for safety. 3. Encourage individual, group and milieu therapies. 4. Encourage sober living treatment after discharge at the highest level of care to which she is willing to commit. Involuntary Hold Information 96 Hour Hold: 96 Hour Involuntary Admission: No Attestations NPU Medical Necessity Statement*: Inpatient hospitalization is medically necessary and the clinically appropriate intervention at this time. We will monitor medications and make changes as indicated. Likely length of stay 2 to 4 days. Coding Level of Care Code Acute External Grinder for Kaushik Ahuja Diagnoses Cannabis abuse F12.10 Acute psychosis F23 Adderall use disorder, moderate, in sustained remission, dependence F15.21 Chronic post-traumatic stress disorder (PTSD) F43.12 Bipolar II disorder F31.81
[2021-01-06 16:59] LABS: Glucose Point of Care 175 mg/dL (70-110)
[2021-01-06 21:51] LABS: Glucose Point of Care 245 mg/dL (70-110)
[2021-01-06 21:54] VITALS: BP 147/80; PULSE 102; RESP 14; TEMP 36.4; O2SAT 95
[2021-01-06] MEDS: quetiapine 100 mg Tablet 200 MG PO (22:45)
[2021-01-07 06:00] VITALS: BP 115/58; PULSE 82; RESP 17; TEMP 36.6; O2SAT 95
[2021-01-07 06:44] LABS: Glucose Point of Care 132 mg/dL (70-110)
[2021-01-07] MEDS: fluoxetine 20 mg Capsule 80 MG PO (08:31)
[2021-01-07] MEDS: duloxetine 30 mg Capsule PO (08:31)
[2021-01-07] MEDS: cetirizine 10 mg Tablet PO (08:31)
[2021-01-07] MEDS: FUROsemide 20 mg Tablet PO (08:31)
[2021-01-07 11:53] LABS: Glucose Point of Care 228 mg/dL (70-110)
--- NOTE | 2021-01-07 12:26 | NPU.GN ---
[facility] Group Topic:Thought Processing General Mood of Group: Patient did not go to group today.
[2021-01-07 14:00] VITALS: BP 134/79; PULSE 106; RESP 20; TEMP 36.5; O2SAT 96
--- NOTE | 2021-01-07 15:54 | PM.NPN ---
Subjective NPU Subjective: Interval history: I met with the treatment team to discuss the patient's progress. She says her mood has been okay, and she is feeling better because her indicated that he missed her. She has been feeling like he hates her and has been being mean to her. However she is starting to see that he is impaired and not functioning. She talks about his changes, she becomes quite tearful. She says, at least there is enough of him there to still miss me. We discussed ways of helping him to get evaluated. She says she has been trying to figure things out on her own. She denies suicidal and homicidal ideation. She has no auditory or visual hallucinations. She denies medication side effects. Talked about adding Zyprexa to 7.5 mg at bedtime and discontinuing Seroquel. She would like to do that. Mental Status Exam MSE Comments: This is an overweight white female with hospital scrubs on with improved grooming and eye contact. No abnormal movements. Cooperative with exam in mild distress. Speech was at a normal rate and volume. Mood described as sad, affect anxious and nervous. Thought process more disorganized today. Thought content: Patient denied suicidal or homicidal ideation, there were no delusions reported or noted, she denied any auditory or visual hallucinations. Attention. concentration and memory are improving but not formally tested. She is alert and oriented to person and place and purpose. Insight and judgment are improving and impulse control is improving too. Vitals/I&O/Wt Last Vital Signs Temp 98.1 F 01/08/21 09:43 Pulse 59 L 01/08/21 09:43 Resp 18 01/08/21 09:43 BP 116/66 01/08/21 09:43 Pulse Ox 94 01/08/21 09:43 Data NPU : 01/05/21 09:53 01/02/21 18:10 A&P Assessment and plan (1) Cannabis abuse: Status: Acute (2) Polyp of duodenum: Status: Resolved (3) Gastritis: Status: Chronic (4) Bipolar II disorder: Status: Acute (5) Chronic post-traumatic stress disorder (PTSD): Status: Acute Additional A&P Information This is a 55-year-old white female with a long history of mental health issues and prescription addiction who presented to her outside doctor with some confusion to a referral to the emergency department and admission who presents now continuing with confusion of unknown etiology. 1. Continue current medication. 2. Continue every 15 minute checks for safety. 3. Encourage individual, group and milieu therapies. 4. Encourage sober living treatment after discharge at the highest level of care to which she is willing to commit. Involuntary Hold Information 96 Hour Hold: 96 Hour Involuntary Admission: No Attestations NPU Medical Necessity Statement*: Inpatient hospitalization is medically necessary and the clinically appropriate intervention at this time. We will monitor medications and make changes as indicated. Likely length of stay 1-3 days. Coding Level of Care Code Acute Drilling Plant Operator for [facility] Fwd Diagnoses Cannabis abuse F12.10 Polyp of duodenum K31.7 Gastritis K29.70 Bipolar II disorder F31.81 Chronic post-traumatic stress disorder (PTSD) F43.12
[2021-01-07 16:55] LABS: Glucose Point of Care 252 mg/dL (70-110)
[2021-01-07 20:17] LABS: Glucose Point of Care 147 mg/dL (70-110)
[2021-01-07 20:49] VITALS: BP 114/73; PULSE 88; RESP 14; TEMP 37.2; O2SAT 95
[2021-01-07] MEDS: OLANZapine 5 mg TABLET 7.5 MG PO (21:31)
[2021-01-07] MEDS: hyDROXYzine 25 mg Capsule 50 MG PO (21:31)
[2021-01-08] MEDS: acetaminophen 325 mg Tablet 650 MG PO (01:50)
[2021-01-08 06:00] VITALS: BP 116/66; PULSE 59; RESP 18; TEMP 36.7; O2SAT 94
[2021-01-08 06:59] LABS: Glucose Point of Care 129 mg/dL (70-110)
[2021-01-08] MEDS: fluoxetine 20 mg Capsule 80 MG PO (07:58)
[2021-01-08] MEDS: FUROsemide 20 mg Tablet PO (07:58)
[2021-01-08] MEDS: cetirizine 10 mg Tablet PO (07:58)
[2021-01-08] MEDS: duloxetine 30 mg Capsule PO (07:58)
[2021-01-08] MEDS: ciprofloxacin 500 mg Tablet 250 MG PO (09:34)
[2021-01-08 09:43] VITALS: BP 116/66; PULSE 59; RESP 18; TEMP 36.7; O2SAT 94
[2021-01-08 11:19] LABS: Glucose Point of Care 267 mg/dL (70-110)
--- NOTE | 2021-01-08 15:01 | P.DS_ITS ---
Diagnoses at Discharge Discharge Diagnosis (1) Cannabis abuse: Status: Acute (2) Polyp of duodenum: Status: Resolved (3) Gastritis: Status: Chronic (4) Bipolar II disorder: Status: Acute (5) Chronic post-traumatic stress disorder (PTSD): Status: Acute Reason for Visit Reason for Visit: PSYCH EVAL Brief History: Dorina Gamble is a 55 year old female who presented to the emergency department the following report: Chief Complaint: Psychiatric Symptoms Stated Complaint: no real complaints/MHE? Time Seen by Provider: 01/02/21 15:33 Source: patient, EMS, RN notes reviewed and old records reviewed Mode of arrival: EMS Limitations: altered mental status History of Present Illness: HPI Narrative: This 55-year-old female patient was brought in by EMS from the [facility] in [place]. They stated that they wanted a mental health evaluation on this patient and that she had mentioned homicidal ideation to them. The patient denied any homicidal ideation to the ambulance crew. The patient is unable to give a coherent history as she cannot maintain a train of thought. She did state that her primary care provider called her today and asked that she go to the hospital to be evaluated or she will . She had been seen at [facility] in [place] emergency department earlier today and while she was there had expressed to the nurse that she did not feel safe at home so did discharge her to the [facility]. While at the [facility] they noted her behavior and so called for an ambulance. The patient states that she got a call from her primary care provider's office and was told she needed to be in the hospital. She does not know why they asked her to come to the hospital, she has no real complaints at this time. She denies suicidal ideation but states that she feels like hurting her . She states that her has dementia and does not recognize her and sometimes is mean to her. She states that he tells lies and so because of all these she has thoughts of hurting him. complaint: altered mental status. Presented to the neuropsychiatric unit for definitive treatment of those issues. She presents today reporting that she is never been hospitalized psychiatrically but she does not appear to be an accurate historian as she had hospitalization here back in 2007. She seems somewhat confused. She reports that she goes to outpatient treatment at [facility] and denies being on medication though we can clearly see that she is taking Prozac and Cymbalta. She reports she smokes 1 cigarette a day, denies alcohol marijuana or any other illicit drugs, however her UDS was positive for cannabis. She denies ever going to rehab or having a DUI. She reports that her doctor said she should come over here but she did not know why. She did report she felt sick. She answered I do not know a lot and just overall seemed confused. She had told someone that her had dementia and she struggled to take care of them but she told this creative services writer that her 2 or 3 days ago. She denies any history of suicide attempts. Psychiatric history: As above. In May of last year she resumed treatment outpatient at [facility] and has been consistent as recently as last month Substance history: As above. Family history: Patient denies mental health or addiction issues on either side of the family and denies suicide attempts or completions in the family. Developmental history: There were no problems with the , or delivery, learned to walk and talk and met developmental milestones on time, and denies need for speech therapy, learning support, emotional support or special education classes. Psychosocial history: Patient reports that her parents were together she was born but that she is on a product of that union. She reports her mother had 2 girls and a boy other than her and her father and 2 other children. She reports that she is unsure about her childhood and reports the family moved a lot. She denies emotional physical or sexual abuse. She graduated high school and had 2 years of college. She endorsed being heterosexual as well as relation being 25 years. He reports he 4 times 3 times and suggest that he is just . She reports that she has 3 children ages 3130 and 25, has never been in the reports being a [employer]. She endorses he lives in a trailer with her but not anymore. Legal history: Denied. Medical history: Please see ED note for full details. Hospital Course Hospital Course She was admitted to the neuropsychiatric unit for definitive treatment of these issues. On the unit she slowly acclimated to the individual, group and milieu therapies. There were some depression-induced psychotic symptoms present initially, for example saying that her was , which resolved within the hospital structure and with the medication being restarted and adjusted. She was switched from Seroquel 200 mg daily to Zyprexa 7.5 mg daily She was receptive to treatment team recommendations and showed modest improvement and was able to contract for safety prior to discharge. During the hospitalization, patient had routine laboratory studies which were within normal limits except for few outliers. Additionally there was a general medical evaluation which was also within normal limits and revealed no new acute processes. Discharge Summary: At the time of discharge, psychosis and lethality were denied. Mood and anxiety were well managed. Patient endorsed a plan to avoid all drugs of abuse and follow-up with the aftercare recommendations of the treatment team. Patient was evaluated and deemed to be absent credible lethality, and had achieved the maximum benefit from an inpatient hospitalization, so was discharged. Involuntary Hold Information 96 Hour Hold: 96 Hour Involuntary Admission: No Mental Status Exam MSE Comments: This is an overweight white female with hospital scrubs on with improved grooming and eye contact. No abnormal movements. Cooperative with exam in mild distress. Speech was at a normal rate and volume. Mood described as sad, affect tearful at times. Thought process more organized today. Thought content: Patient denied suicidal or homicidal ideation, there were no delusions reported or noted, she denied any auditory or visual hallucinations. Attention. concentration and memory are improving but not formally tested. She is alert and oriented to person and place and purpose. Insight and judgment are much better and impulse control is improving too. She is now able to make plans to get her evaluated for dementia and to manage his behavior. Discharge Data Data Completed and Pending: Labs from last 24 hours 01/08/21 11:11 POC Glucose 267 H Vitals: Last Vital Signs Temp 98.1 F 01/08/21 09:43 Pulse 59 L 01/08/21 09:43 Resp 18 01/08/21 09:43 BP 116/66 01/08/21 09:43 Pulse Ox 94 01/08/21 09:43 Discharge Plan Discharge Patient Disposition: Home Condition: Stable Prescriptions: New ciprofloxacin HCl 500 mg Tablet 250 mg PO BID@0900,2100 3 Days Qty: 5 RF: 0 olanzapine 5 mg Tablet 7.5 mg PO BEDTIME Qty: 30 RF: 0 Continued (DME) insulin admin supplies Insulin Pen See Rx Instructions .ROUTE RF: 0 duloxetine [Cymbalta] 30 mg capsule,delayed release(DR/EC) 30 mg PO DAILY Qty: 30 RF: 2 cholecalciferol (vitamin D3) 1,250 mcg (50,000 unit) tablet 50,000 unit PO Q7D RF: 0 epinephrine 0.3 mg/0.3 mL auto-injector 0.3 mg IM ONCE PRN (Reason: anaphylaxis) RF: 0 albuterol sulfate [ProAir HFA] 90 mcg/actuation HFA aerosol inhaler 2 puff INHALATION Q6H PRN (Reason: Shortness Of Breath) RF: 0 fluoxetine [Prozac] 40 mg Capsule 80 mg PO DAILY RF: 0 cetirizine [Zyrtec] 10 mg Tablet 10 mg PO DAILY RF: 0 furosemide [Lasix] 20 mg Tablet 20 mg PO DAILY RF: 0 Sodium Fluoride 5000 Plus 1.1 % cream 1 applic PO BID RF: 0 Bydureon BCise 2 mg/0.85 mL Auto-Injector 2 mg SUBCUT Q7D RF: 0 Discharge Orders: Discharge Order (Routine); Ordered 01/08/21 Ordered By: Chaka Jones Referrals: Lino Hollis MD [Physician] - 01/23/21 11:30 am (Follow up appointment with Dr. Hollis on 01/23/21 @ 11:30am. Please check in at 11:15am) Discharge Diet: Usual diet Discharge Activity: Resume usual activity Patient Instructions: Generalized Anxiety Disorder (DC), Opioid Safety Discharge Attestations NPU Time Spent in Discharge Care*: greater than 30 min Specific Discharge Activities: Specific discharge activities: educating patient, discussing with corrections caseworker/social workers/dc planners, documenting/other paperwork and evaluating patient/reviewing data Status at Discharge: Cognitive status at discharge: cognitively intact , Behavioral status at discharge: cooperative , Functional status at discharge: independent ambulation Overall status at discharge: patient is back to baseline Coding Level of Care Code Acute Chg FW DC note Diagnoses Cannabis abuse F12.10 Polyp of duodenum K31.7 Gastritis K29.70 Bipolar II disorder F31.81 Chronic post-traumatic stress disorder (PTSD) F43.12
== END 2021-01-08 11:40 | disposition home or self-care (01) | DRG 885 ==
LOC: ER 15:42 → NP 21:34
PROVIDERS: Admitting Provider Psychiatry & Neurology Psychiatry; Emergency Provider Family Medicine; PCP Family Medicine; Visit Provider Psychiatry & Neurology Child & Adolescent Psychiatry
DX: F31.81 Bipolar II disorder (principal); F43.12 Post-traumatic stress disorder, chronic; F12.10 Cannabis abuse, uncomplicated; F17.210 Nicotine dependence, cigarettes, uncomplicated; F15.21 Other stimulant dependence, in remission; Z63.0 Problems in relationship with spouse or partner
CPT/HCPCS: 36415; 36416; 80053; 80306; 80307; 81001; 82140; 82962; 85025; 96372; 99285; J1815

== ENCOUNTER → 2021-06-04 08:35 | Outpatient (BNVA) | payer MEDICAID, SELFPAY | PROVIDERS: PCP Family Medicine; Visit Provider Psychiatry & Neurology Psychiatry | DX: F31.81 Bipolar II disorder (principal); F43.12 Post-traumatic stress disorder, chronic; F41.1 Generalized anxiety disorder | CPT/HCPCS: 99214 ==

== ENCOUNTER 2021-07-05 09:11 | Inpatient (IN) | payer MEDICAID, SELFPAY ==
[2021-07-05] VITALS (11 sets, daily range): BP systolic 127–169; BP diastolic 49–88; PULSE 84–104; RESP 16–28; TEMP 36.5–37; O2SAT 91–100; BMI 29.0
--- NOTE | 2021-07-05 09:20 | CTR_ITS ---
PROCEDURE INFORMATION: Exam: CT Head Without Contrast Exam date and time: 07/05/2021 9:20 AM Age: 56 years old Clinical indication: Altered mental status/memory loss; Confusion or disorientation; Additional info: AMS TECHNIQUE: Imaging protocol: Computed tomography of the head without contrast. Radiation optimization: All CT scans at this facility use at least one of these dose optimization techniques: automated exposure control; mA and/or kV adjustment per patient size (includes targeted exams where dose is matched to clinical indication); or iterative reconstruction. COMPARISON: CT head wo con* [id number] 11/08/2018 9:47 AM RADIATION DOSE METRICS: Total DLP (mGy-cm): 699.71 FINDINGS: Brain: Normal. No hemorrhage. Unremarkable white matter. No mass effect. Cerebral ventricles: No ventriculomegaly. Paranasal sinuses: Visualized sinuses are unremarkable. No fluid levels. Mastoid air cells: Visualized mastoid air cells are well aerated. Bones/joints: Unremarkable. No acute fracture. Soft tissues: Unremarkable. CT/CT head wo con* [id number] IMPRESSION: No acute intracranial abnormality.
--- NOTE | 2021-07-05 09:20 | W.ED.AMS ---
HPI - Altered Mental Status General: Chief Complaint: Altered Mental Status Stated Complaint: AMS; HYPERGLYCEMIA Time Seen by Provider: 07/05/21 09:17 Source: patient Mode of arrival: EMS Limitations: altered mental status History of Present Illness: 56-year-old female who presents emergency room via EMS. Altered mental status. When initially seen the patient there is no family at the bedside. Report was of was following EMS. When I asked her what was wrong she states the FBI is looking for her when asked her why she simply states her name repeatedly. The nurse was only able to get answers of I don't know from the patient. MD complaint: altered mental status and confusion Onset (ago): unknown Severity: severe Associated symptoms: Reports delusions Review of Systems Const: Denies: fever(s), chills, body aches, change in appetite, fatigue or malaise ENMT: Denies: throat pain, ear or mastoid pain, nasal discharge or nasal congestion Card: Denies: chest pain, edema, dyspnea on exertion or orthopnea Resp: Denies: dyspnea, productive cough or non-productive cough GI: Denies: abdominal pain, nausea, vomiting, hematemesis, coffee ground emesis, diarrhea, constipation, bloating, hematochezia or melena : Denies: flank pain, difficulty voiding, dysuria, urinary frequency or urinary urgency Skin/Breast: Denies: rash or pruritus PFSH ED PFSH: Medical History Adderall use disorder, moderate, in sustained remission, dependence Bipolar II disorder Chronic post-traumatic stress disorder (PTSD) Family History Father Cancer colon Family/Other Cancer maternal grandmother colon Denies family history of CAD (coronary artery disease) Anesthesia complication Bleeding disorder Social History Smoking and tobacco status: current every day smoker Alcohol intake: never Household members: spouse Marital status: Current occupational status: disabled History of recent travel: No Physical Exam Const: EXAM LIMITATIONS: altered mental status GENERAL APPEARANCE: cooperative and comfortable ORIENTATION/CONSCIOUSNESS: Yes awake; not oriented to person, not oriented to place and not oriented to time HENMT: COMMON NORMALS: normocephalic, hearing grossly normal bilaterally, external ears normal, EAC's normal, TM's normal bilaterally and oropharynx normal HEAD & SCALP: normocephalic FACE & SINUS: normal facial exam and face symmetric EXTERNAL EAR: Yes external ears normal EXTERNAL AUDITORY CANAL: EAC's normal TYMPANIC MEMBRANE: TM's normal bilaterally MOUTH: Normal oral and palatal mucosa present Eye: COMMON NORMALS: Equal, round and reactive pupils present, EOMs intact bilaterally and conjunctivae normal CONJUNCTIVA: Yes conjunctivae normal PUPIL: Yes Equal, round and reactive pupils present Neck/C-Spine: COMMON NORMALS: no JVD Lymph: LYMPHATIC: no lymphadenopathy noted Resp: COMMON NORMALS: normal respiratory effort, No retractions, No use of accessory muscles and clear to auscultation bilaterally AUSCULTATION: clear to auscultation bilaterally Cardio: COMMON NORMALS: no JVD, regular rate, regular rhythm, No gallops present (Cardio) and No murmurs present (Cardio) RATE: regular rate RHYTHM: regular rhythm GI: COMMON NORMALS: Normal to inspection, nondistended, normoactive bowel sounds present and No hepatosplenomegaly present PALPATION: Yes Tenderness to palpation present (GI), No Guarding due to palpation present (GI) and Yes No hepatosplenomegaly present : COMMON NORMALS: Yes no CVA tenderness BLADDER/KIDNEY EXAM: Yes no CVA tenderness Back/Pelvis: COMMON NORMALS: no CVA tenderness Extremity: COMMON NORMALS: normal to inspection, full ROM, capillary refill normal, no joint enlargement, no clubbing, cyanosis or edema, no calf tenderness and no pedal edema Neuro: SENSORIUM/ORIENTATION: No oriented to person, No oriented to place, No oriented to time and No Orientation impaired Psych: COMMON NORMALS: speech normal SPEECH: Yes normal speech THOUGHT PROCESS: disorganized, confused and Illogical thought process present THOUGHT CONTENT: Yes delusions Skin: COMMON NORMALS: no rashes or lesions noted GENERAL SKIN EXAM: no rashes or lesions noted Course Vital Signs: Vital signs: Vital Signs Temperature 98.6 F 07/05/21 09:27 Pulse Rate 93 07/05/21 16:24 Respiratory Rate 19 H 07/05/21 16:24 Blood Pressure 161/82 07/05/21 15:25 Pulse Oximetry 96 07/05/21 16:24 MDM - Altered Mental Status Medical Decision Making Patient improved after Geodon and Ativan as well as the fluids. Discussed with the hospitalist he felt that the patient would be appropriate for [facility]. Discussed with Dr. Hines who gave her some fluids and then rechecked her lactate is going down nearly normalized. Discussed Dr. Hines will admit to [facility]. Medical Records I reviewed the patient's medical records. Lab Data I reviewed the patient's lab results. : 07/05/21 11:32 07/05/21 11:[address] 07/05/21 09:20 IMPRESSION: No acute intracranial abnormality. Chest X-Ray 07/05/21 11:57 IMPRESSION: Subsegmental atelectasis in the lung bases. Laboratory Results WBC 13.3 10^3/uL (4.0-10.0) H 07/05/21 11:32 RBC 4.95 10^6/uL (4.1-5.3) 07/05/21 11:32 Hgb 11.7 g/dL (11.5-15.3) 07/05/21 11:32 Hct 39.0 % (37.0-47.0) 07/05/21 11:32 MCV 78.8 fl (81-99) L 07/05/21 11:32 MCH 23.6 pg (28.0-34.0) L 07/05/21 11:32 MCHC 30.0 g/dL (30.0-36.0) 07/05/21 11:32 RDW 17.4 % (12.1-15.1) H 07/05/21 11:32 Plt Count 513 10^3/cmm (130-400) H 07/05/21 11:32 MPV 8.9 fL (7.4-10.4) 07/05/21 11:32 Neut % (Auto) 75.6 % 07/05/21 11:32 Lymph % (Auto) 17.5 % 07/05/21 11:32 [place] % (Auto) 5.0 % 07/05/21 11:32 Eos % (Auto) 1.1 % 07/05/21 11:32 Baso % (Auto) 0.5 % 07/05/21 11:32 Neut # (Auto) 10.01 10^3/uL (1.8-7.7) H 07/05/21 11:32 Lymph # (Auto) 2.3 10^3/uL (0.8-4.8) 07/05/21 11:32 [place] # (Auto) 0.7 10^3/uL (0.2-0.9) 07/05/21 11:32 Eos # (Auto) 0.2 10^3/uL (0.0-0.8) 07/05/21 11:32 Baso # (Auto) 0.1 10^3/uL (0.0-0.1) 07/05/21 11:32 Nucleated RBC % (auto) 0 % 07/05/21 11:32 Nucleated RBCs # 0.0 /100WBC 07/05/21 11:32 Specimen Type Arterial 07/05/21 09:36 Sample Site Radial, right 07/05/21 09:36 ABG pH 7.42 (7.35-7.45) 07/05/21 09:36 ABG pCO2 33.2 mmHg (35-45) L 07/05/21 09:36 ABG pO2 78.0 mmHg (80.0-100.0) L 07/05/21 09:36 ABG HCO3 21.4 mmol/L (22-26) L 07/05/21 09:36 ABG O2 Saturation 97.2 07/05/21 09:36 ABG Base Excess -2.4 mmol/L (-2.0-2.0) L 07/05/21 09:36 Mohsen Test Pos 07/05/21 09:36 A-a O2 Gradient 4.2 mmHg (5-10) L 07/05/21 09:36 Hematocrit 37.5 % (37-47) 07/05/21 09:36 Hgb O2 Saturation 92.4 % (95-100) L 07/05/21 09:36 Carboxyhemoglobin 3.8 %THgb (0.4-20.1) 07/05/21 09:36 Methemoglobin 1.1 % (0.4-1.5) 07/05/21 09:36 Total Hemoglobin 12.2 g/dL (12-16) 07/05/21 09:36 Sodium 136.0 mmol/L (131-143) 07/05/21 09:36 Potassium 4.0 mmol/L (3.5-5.0) 07/05/21 09:36 Glucose 329.0 mg/dL (70-115) H 07/05/21 09:36 Ionized Calcium 1.2 mmol/L (1.1-1.4) 07/05/21 09:36 O2 Delivery Device Room air 07/05/21 09:36 FiO2 21.0 % 07/05/21 09:36 Vibration Engineer ID Ed 07/05/21 09:36 Sodium 135 mmol/L (136-145) L 07/05/21 11:32 Potassium 3.9 mmol/L (3.5-5.1) 07/05/21 11:32 Chloride 100 mmol/L (98-107) 07/05/21 11:32 Carbon Dioxide 22 mmol/L (22-29) 07/05/21 11:32 Anion Gap 16.9 (5-19) 07/05/21 11:32 BUN 11 mg/dL (6-20) 07/05/21 11:32 Creatinine 0.7 mg/dL (0.5-0.9) 07/05/21 11:32 GFR Calculation 85.9 mL/min (90-130) L 07/05/21 11:32 Glucose 317 mg/dL (65-115) H 07/05/21 11:32 POC Glucose 360 mg/dL (70-110) H 07/05/21 09:48 Calculated Osmolality 292 mOsm/kg (285-295) 07/05/21 11:32 Lactic Acid 2.9 mmol/L (0.5-2.2) H 07/05/21 11:32 Lactic Acid (Sepsis) 2.3 mmol/L (0.5-2.2) H 07/05/21 14:10 Calcium 9.6 mg/dL (8.5-10.5) 07/05/21 11:32 Magnesium 1.9 mg/dL (1.7-2.3) 07/05/21 11:32 Total Bilirubin 0.4 mg/dL (0.15-1.2) 07/05/21 11:32 AST 23 U/L (0-32) 07/05/21 11:32 ALT 23 U/L (0-33) 07/05/21 11:32 Alkaline Phosphatase 203 IU/L (35-105) H 07/05/21 11:32 Troponin T Baseline 6 ng/L (0-10) 07/05/21 11:32 Troponin T 120 Minute 6.17 ng/L (0-10) 07/05/21 14:10 Delta Troponin T 0.17 ABS# (0-10) 07/05/21 14:10 Total Protein 6.7 g/dL (6.6-8.7) 07/05/21 11:32 Albumin 4.2 g/dL (3.5-5.2) 07/05/21 11:32 Globulin 2.5 g/dL (1.3-4.6) 07/05/21 11:32 Lipase 63 U/L (13-60) H 07/05/21 11:32 Urine Color Straw (Yellow) 07/05/21 11:17 Urine Appearance Clear (CLEAR) 07/05/21 11:17 Urine pH 7 (5-7) 07/05/21 11:17 Ur Specific [place] 1.000 (1.005-1.030) L 07/05/21 11:17 Urine Protein Neg (Negative) 07/05/21 11:17 Urine Glucose (UA) 4+ (Normal) H 07/05/21 11:17 Urine Ketones 1+ (Negative) H 07/05/21 11:17 Urine Blood Neg (Negative) 07/05/21 11:17 Urine Nitrate Negative (Negative) 07/05/21 11:17 Urine Bilirubin Neg (Negative) 07/05/21 11:17 Urine Urobilinogen Norm mg/dL (Negative) 07/05/21 11:17 Ur Leukocyte Esterase Trace (Negative) H 07/05/21 11:17 Urine RBC None /hpf (0-2) 07/05/21 11:17 Urine WBC 5-10 /hpf (0-5) H 07/05/21 11:17 Ur Squamous Epith Cells 5-10 /hpf (0-5) H 07/05/21 11:17 Amorphous Sediment Not Reportable 07/05/21 11:17 Urine Bacteria Trace /hpf (NONE) 07/05/21 11:17 Urine Opiates Screen Positive ng/mL (Negative) H 07/05/21 11:17 Ur Barbiturates Screen Negative ng/mL (Negative) 07/05/21 11:17 Ur Phencyclidine Scrn Negative ng/mL (Negative) 07/05/21 11:17 Ur Amphetamines Screen Negative ng/mL (Negative) 07/05/21 11:17 U Benzodiazepines Scrn Negative ng/mL (Negative) 07/05/21 11:17 Urine Cocaine Screen Negative ng/mL (Negative) 07/05/21 11:17 U Marijuana (THC) Screen Negative ng/mL (Negative) 07/05/21 11:17 Serum Ketones Negative (Negative) 07/05/21 11:32 Discharge Plan Discharge Patient Disposition: Admitted As Inpatient Clinical Impression: Acute psychosis, Mild dehydration Condition: Stable Prescriptions: No Action (DME) insulin admin supplies Insulin Pen See Rx Instructions .Route 0RF Rx Instructions: As directed cholecalciferol (vitamin D3) 1,250 mcg (50,000 unit) tablet 50,000 unit PO Q7D 0RF epinephrine 0.3 mg/0.3 mL auto-injector 0.3 mg IM ONCE PRN (Reason: anaphylaxis) 0RF olanzapine 5 mg tablet 7.5 mg PO BEDTIME Qty: 45 2RF hydroxyzine HCl 50 mg tablet 50 mg PO QID PRN (Reason: insomnia) Qty: 120 2RF duloxetine [Cymbalta] 30 mg capsule,delayed release(DR/EC) 30 mg PO DAILY Qty: 30 2RF albuterol sulfate [ProAir HFA] 90 mcg/actuation HFA aerosol inhaler 2 puff INHALATION Q6H PRN (Reason: Shortness Of Breath) 0RF cetirizine [Zyrtec] 10 mg Tablet 10 mg PO DAILY 0RF furosemide [Lasix] 20 mg Tablet 20 mg PO DAILY 0RF fluoride (sodium) [Sodium Fluoride 5000 Plus] 1.1 % cream 1 applic PO BID 0RF benzonatate 200 mg capsule 200 mg PO TID PRN (Reason: Cough) 0RF glipizide 10 mg tablet 20 mg PO BID 0RF quetiapine 200 mg tablet 200 mg PO BEDTIME 0RF ciprofloxacin HCl 500 mg tablet 500 mg PO BID 0RF Rx Instructions: x 7 days simvastatin 5 mg tablet 5 mg PO DAILY 0RF omeprazole 20 mg capsule,delayed release(DR/EC) 20 mg PO DAILY 0RF polyethylene glycol 3350 17 gram/dose powder 17 g PO DAILY PRN (Reason: Constipation) 0RF scopolamine base 1 mg over 3 days patch 3 day 1 mg transdermal Q72H PRN (Reason: Nausea) 0RF Novolog Flexpen U-100 Insulin 100 unit/mL (3 mL) insulin pen See Rx Instructions .ROUTE .COMPLEX 0RF Rx Instructions: per sliding scale pregabalin 200 mg capsule 200 mg PO Q8H 0RF Eliquis 5 mg tablet 5 mg PO BID 0RF Mucus Relief ER 600 mg tablet extended release 12hr 600 mg PO BID 0RF Trulicity 0.75 mg/0.5 mL pen injector 0.75 mg SUBCUT Q7D 0RF prazosin 5 mg capsule 5 mg PO BEDTIME 0RF Referrals: Flaco Gresham [Primary Care Provider] - Coding Level of Care Code ED Donation Specialist for Chg Fwd Exam Comprehensive
--- NOTE | 2021-07-05 09:21 | ECG_ITS ---
[facility] Test Date: 2021-07-05 Pat Name: Dorina Gamble Department: Room: Gender: Female Admitting Officer: : 1965 Requested By: Dayday Almaraz Order Number: [id number] Keysha MD: Davina Null M.D. Measurements Intervals Hessel Rate: 87 P: 75 OH: 143 QRS: 7 QRSD: 78 T: 24 QT: 365 QTc: 440 Interpretive Statements SINUS RHYTHM Compared to ECG 11/08/2018 10:15:58 No significant changes Electronically Signed On 07-05-2021 18:03:41 PEDIATRIC DIETICIAN by Davina Null M.D. [id number]
[2021-07-05 09:52] LABS: Glucose Point of Care 360 mg/dL (70-110)
[2021-07-05 09:56] LABS: ABG PCO2 33.2 mmHg (35-45); ABG PH Result 7.42 (7.35-7.45); Alveolar-Arterial Oxygen Gradi 4.2 mmHg (5-10); Arterial Blood Gas Hematocrit 37.5 % (37-47); Base Excess ABG -2.4 mmol/L (-2.0-2.0); Blood Gas Allen Test Pos; Blood Gas Sample Type Arterial; Carboxyhemoglobin 3.8 %THgb (0.4-20.1); HCO3 ABG 21.4 mmol/L (22-26); HGB O2 Sat 92.4 % (95-100); Ionized Calcium Level - ABG 1.2 mmol/L (1.1-1.4); Methemoglobin 1.1 % (0.4-1.5); Oxygen Saturation ABG 97.2; Total Hemoglobin 12.2 g/dL (12-16)
[2021-07-05 09:57] LABS: Blood Gas Operator Identificat ED; Blood Gas Sample Site Radial, right; Oxygen Device ROOM AIR
[2021-07-05] MEDS: LORazepam 2 mg/mL INJ 1 mL IM (10:39)
[2021-07-05] MEDS: ziprasidone 20 mg/mL SDV 5 MG IM (10:39)
--- NOTE | 2021-07-05 10:45 | PC.NURSE ---
IV ATTEMPTED 7 TIMES BY 4 SEPARATE NURSES. IV ULTRASOUND ATTEMPTED BY 5TH NURSE. NOT SUCCESSFUL. PROVIDER NOTIFIED THAT PATIENT IS TO JUMPY TO START IV AND JERKS AT ANY ATTEMPT TO START IV. PROVIDER MEDICATIONS ORDERED.
[2021-07-05 11:35] LABS: Blood Urine Neg (Negative); Glucose Urine UA 4+ (Normal); Ketones Urine 1+ (Negative); Protein Urine Neg (Negative); Urine Appearance Clear (CLEAR); Urine Color Straw (Yellow); pH Urine 7 (5-7)
[2021-07-05 11:36] LABS: Add Urine Culture? No; Add Urine Microscopic? YES; Bacteria Urine TRACE /hpf; Bilirubin Urine Neg (Negative); Leukocyte Esterase Urine Trace (Negative); Nitrate Urine Negative (Negative); Urobilinogen Urine Norm (Negative)
[2021-07-05 11:48] LABS: Basophils # 0.1 10^3/uL (0.0-0.1); Basophils % 0.5 %; Eosinophils # 0.2 10^3/uL (0.0-0.8); Eosinophils % 1.1 %; Hemoglobin 11.7 g/dL (11.5-15.3); Lymphocytes # 2.3 10^3/uL (0.8-4.8); Lymphocytes % 17.5 %; Mean Corpuscular Hemoglobin 23.6 pg (28.0-34.0); Mean Corpuscular Volume 78.8 fl (81-99); Mean Platelet Volume 8.9 fL (7.4-10.4); Monocytes # 0.7 10^3/uL (0.2-0.9); Neutrophils # 10.01 10^3/uL (1.8-7.7); Neutrophils % 75.6 %; Nucleated Red Blood Cells % 0 %; Platelet Count 513 10^3/cmm (130-400); Red Blood Count 4.95 10^6/uL (4.1-5.3); Red Cell Distribution Width 17.4 % (12.1-15.1); White Blood Count 13.3 10^3/uL (4.0-10.0)
[2021-07-05 11:55] LABS: Ketone (Acetest) Serum Negative (Negative)
--- NOTE | 2021-07-05 11:57 | XRR_ITS ---
PROCEDURE INFORMATION: Exam: XR Chest Exam date and time: 07/05/2021 11:57 AM Age: 56 years old Clinical indication: Cough and dyspnea; Additional info: Dyspnea/cough TECHNIQUE: Imaging protocol: XR of the chest. Views: 1 view. COMPARISON: CR Chest 1 view [id number] 11/09/2018 6:19 AM FINDINGS: Lungs: There is mild hazy opacity in the lung bases which is most likely due to subsegmental atelectasis. The upper lung zones are clear. Pleural spaces: Unremarkable. No pleural effusion. No pneumothorax. Heart/Mediastinum: Unremarkable. No cardiomegaly. Bones/joints: Unremarkable. XR/XR chest 1V portable [id number] IMPRESSION: Subsegmental atelectasis in the lung bases.
[2021-07-05 12:09] LABS: Lactic Sepsis W/Reflex 2.9 mmol/L (0.5-2.2)
[2021-07-05 12:10] LABS: Alanine Aminotransferase 23 U/L (0-33); Albumin Level 4.2 g/dL (3.5-5.2); Alkaline Phosphatase 203 IU/L (35-105); Anion Gap 16.9 (5-19); Aspartate Amino Transferase 23 U/L (0-32); Blood Urea Nitrogen 11 mg/dL (6-20); Calcium 9.6 mg/dL (8.5-10.5); Carbon Dioxide 22 mmol/L (22-29); Chloride 100 mmol/L (98-107); Globulin 2.5 g/dL (1.3-4.6); Glomerular Filtration Rate 85.9 mL/min (90-130); Glucose 317 mg/dL (65-115); Lipase 63 U/L (13-60); Magnesium 1.9 mg/dL (1.7-2.3); Osmolality Calculated 292 mOsm/kg (285-295); Potassium 3.9 mmol/L (3.5-5.1); Sodium 135 mmol/L (136-145); Total Bilirubin 0.4 mg/dL (0.15-1.2); Total Protein 6.7 g/dL (6.6-8.7); Troponin(5th) Baseline 6 ng/L (0-10)
[2021-07-05 12:32] LABS: Reflex Lactate Order REFLEX LACTIC ORDERD
[2021-07-05] MEDS: lactated ringers 1,000 ML 999 ML IV ×3 (12:36→17:10)
[2021-07-05 12:38] LABS: Amphetamines Screen Urine Negative (Negative); Barbiturates Screen Urine Negative (Negative); Benzodiazepines Screen Urine Negative (Negative); Cocaine Screen Urine Negative (Negative); Opiate Screen Urine Positive (Negative); PCP Screen Urine Negative (Negative); THC Screen Urine Negative (Negative)
[2021-07-05] MEDS: cefTRIAXone 1,000 MG in sodium chloride 0.9% (plus) 50 ML 100 MG IV (13:12)
--- NOTE | 2021-07-05 13:13 | PC.PHAR ---
pt unable to verify medications due to AMS. pt ext med history has many variances from medication list entered. Added Cipro 500mg BID, Seroquel 200mg at bedtime, Omeprazole 20mg once daily, Mucus Relief 600mg BID, Eliquis 5mg BID, Benzonatate 200mg TID PRN Cough, Glipizide 10mg 2 tablets BID, Miralax 17gm once daily, Simvastatin 5mg once daily, Novolog Per sliding scale, Lyrica 200mg Q8H, Trulicity 0.75mg Q7D, Scopolamine Patch 1mg Q72H. Medications have all been noted on last fill dates and added to patient's home med list. Patient unable to verify if she is actually taking these medications but are current by [facility].
[2021-07-05 14:52] LABS: Lactic Acid level (Lactate) 2.3 mmol/L (0.5-2.2)
[2021-07-05 14:54] LABS: Troponin 5 2HR 6.17 ng/L (0-10)
--- NOTE | 2021-07-05 15:21 | ECG_ITS ---
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 Measurements Intervals [place] Rate: 97 P: 66 MN: 148 QRS: 11 QRSD: 77 T: 14 QT: 358 QTc: 456 Interpretive Statements SINUS RHYTHM LOW QRS VOLTAGE IN PRECORDIAL LEADS [QRS DEFLECTION < 1.0 mV IN CHEST LEADS] Compared to ECG 07/05/2021 09:38:49 Low QRS voltage now present Electronically Signed On 07-05-2021 18:09:30 ENGAGEMENT MGR by Davina Null M.D. [id number]
[2021-07-05 15:38] LABS: Troponin 5 2HR Delta 0.17 ABS# (0-10)
[2021-07-06] MEDS: pregabalin 100 mg Capsule 200 MG PO ×4 (00:37→20:16)
[2021-07-06] MEDS: OLANZapine 5 mg TABLET 7.5 MG PO ×2 (00:37→20:16)
[2021-07-06] MEDS: prazosin 5 mg Capsule PO ×2 (00:38→20:16)
[2021-07-06] MEDS: quetiapine 100 mg Tablet 200 MG PO ×2 (00:39→20:16)
[2021-07-06] MEDS: benzonatate 100 mg Capsule 200 MG PO (00:44)
[2021-07-06 05:59] LABS: Glucose Point of Care 300 mg/dL (70-110)
[2021-07-06 06:00] VITALS: BP 140/74; PULSE 118; RESP 20; TEMP 36.5; O2SAT 94
--- NOTE | 2021-07-06 07:34 | P.NPUHP_ITS ---
Providers/Chief Complaint Admitting Physician: Edgardo Hines MD Primary Care Provider: Flaco Gresham Chief Complaint: AMS; HYPERGLYCEMIA HPI NPU History of Present Illness Dorina Gamble is a 56 year old female who presented to the emergency department the following report: Chief Complaint: Altered Mental Status Stated Complaint: AMS; HYPERGLYCEMIA Time Seen by Provider: 07/05/21 09:17 Source: patient Mode of arrival: EMS Limitations: altered mental status History of Present Illness:??L 56-year-old female who presents emergenc y room via EMS. Altered mental status. When initially seen the patient there is no family at the bedside. Report was of was following EMS. When I asked her what was wrong she states the FBI is looking for her when asked her why she simply states her name repeatedly. The nurse was only able to get answers of I don't know from the patient. complaint: altered mental status and confusion Onset (ago): unknown Severity: severe Associated symptoms: Reports delusions She was admitted to the neuropsychiatric unit for definitive treatment of those issues. She presents today as a poor historian having not eaten today on the unit, had a blood sugar reading of over 300. She could not give good information on why she was here. This is very similar to a hospitalization that she had over a year ago where she presented and was confused and had been brought in by someone at one of the medical buildings that she goes to. We reached out to her who reports she is back in this mode of not taking her medication. He said that she does this from time to time, that he is not sure if she has really eaten or taken her diabetes or any other medication for about a week. She was evaluated and given fluids in the emergency department due to concerns about her presentation, but at that point she was much clearer. Now she is somewhat confused about the circumstances of anything, why she came in, reporting that she just came in for some medical checkup which was not what she reported in the emergency department. We discussed the risks, benefits, and alternatives of getting a medical consult to make some decisions about what to do with her me dications that are not formulary, as well as to get some instruction as to what to do when she does not eat, which sliding scale to use, etc. The had some insight into the medication she had been on and not, but we agreed that we would restart the medications that were appropriate if it has been several days since starting, and then work with the outpatient treatment team tomorrow at [facility] to determine what to do otherwise. An excerpt from her last note is included, but in that note as well, she was having difficulty giving history and throughout that hospitalization she had limited cognitive abilities to assist as a historian. It improved over time, but based on her outpatient documentation, she does have periods of clarity when she is taking her medication as prescribed. Per her 01/03/2021 [facility] inpatient psychiatric evaluation: History of Present Illness Dorina Gamble is a 55 year old female who presented to the emergency department the following report: Chief Complaint: Psychiatric Symptoms Stated Complaint: no real complaints/MHE? Time Seen by Provider: 01/02/21 15:33 Source: patient, EMS, RN notes reviewed and old records reviewed Mode of arrival: EMS Limitations: altered mental status History of Present Illness:?? HPI Narrative: This 55-year-old female patient was brought in by EMS from the [facility] in [place].? They stated that they wanted a mental health evaluation on this patient and that she had mentioned homicidal ideation to them.? The patient denied any homicidal ideation to the ambulance crew.? The patient is unable to give a coherent history as she cannot maintain a train of thought.? She did state that her primary care provider called her today and asked that she go to the hospital to be evaluated or she will . She had been seen at [facility] in [place] emergency department earlier today and while she was there had expressed to the nurse that she did not feel safe at home so did discharge her to the [facility].? While at the [facility] they noted her behavior and so called for an ambulance. The patient states that she got a call from her primary care provider's office and was told she needed to be in the hospital.? She does not know why they asked her to come to the hospital, she has no real complaints at this time.? She denies suicidal ideation but states that she feels like hurting her .? She states that her has dementia and does not recognize her and sometimes is mean to her.? She states that he tells lies and so because of all these she has thoughts of hurting him. complaint: altered mental status. Presented to the neuropsychiatric unit for definitive treatment of those issues.? She presents today reporting that she is never been hospitalized psychiatrically but she does not appear to be an accurate historian as she had hospitalization here back in 2007.? She seems somewhat confused.? She reports that she goes to outpatient treatment at [facility] and denies being on medication th ough we can clearly see that she is taking Prozac and Cymbalta.? She reports she smokes 1 cigarette a day, denies alcohol marijuana or any other illicit drugs, however her UDS was positive for cannabis.? She denies ever going to rehab or having a DUI.? She reports that her doctor said she should come over here but she did not know why.? She did report she felt sick.? She answered I do not know a lot and just overall seemed confused.? She had told someone that her had dementia and she struggled to take care of them but she told this sheet writer that her 2 or 3 days ago.? She denies any history of suicide attempts. Psychiatric history: As above.? In May of last year she resumed treatment outpatient at [facility] and has been consistent as recently as last month Substance history: As above. Family history: Patient denies mental health or addiction issues on either side of the family and denies suicide attempts or completions in the family. Developmental history: There were no problems with the , or delivery, learned to walk and talk and met developmental milestones on time, and denies need for speech therapy, learning support, emotional support or special education classes. Psychosocial history: Patient reports that her parents were together she was born but that she is on a product of that union.? She reports her mother had 2 girls and a boy other than her and her father and 2 other children.? She reports that she is unsure about her childhood and reports the family moved a lot.? She denies emotional physical or sexual abuse.? She graduated high school and had 2 years of college.? She endorsed being heterosexual as well as relation being 25 years.? He reports he 4 times 3 times and suggest that he is just .? She reports that she has 3 children ages 3130 and 25, has never been in the reports being a Latter-[employer].? She endorses he lives in a trailer with her but not anymore. Legal history: Denied. Medical history: Please see ED note for full details. Meds NPU Home Medications Medication Instructions Recorded Confirmed Last Taken Type cholecalciferol (vitamin D3) 1,250 50,000 unit PO Q7D tab 11/29/19 07/05/21 12/27/20 History mcg (50,000 unit) tablet epinephrine 0.3 mg/0.3 mL 0.3 mg IM ONCE PRN 01/24/20 07/05/21 01/02/21 History injection, auto-injector insulin admin supplies 12/02/20 07/05/21 Unknown History albuterol sulfate 90 mcg/actuation 2 puff INHALATION Q6H PRN 01/02/21 07/05/21 01/02/21 History aerosol inhaler (ProAir HFA) cetirizine 10 mg tablet (Zyrtec) 10 mg PO DAILY 01/02/21 07/05/21 01/02/21 History fluoride (sodium) 1.1 % dental 1 applic PO BID 01/02/21 07/05/21 Unknown History cream (Sodium Fluoride 5000 Plus) furosemide 20 mg tablet (Lasix) 20 mg PO DAILY 01/02/21 07/05/21 01/02/21 History duloxetine 30 mg capsule,delayed 30 mg PO DAILY #30 cap 06/04/21 07/05/21 Unknown Rx release (Cymbalta) hydroxyzine HCl 50 mg tablet 50 mg PO QID PRN #120 tab 06/04/21 07/05/21 Unknown Rx olanzapine 5 mg tablet 7.5 mg PO BEDTIME #45 tab 06/04/21 07/05/21 Unknown Rx apixaban 5 mg tablet (Eliquis) 5 mg PO BID 07/05/21 07/05/21 Unknown History benzonatate 200 mg capsule 200 mg PO TID PRN 07/05/21 07/05/21 Unknown History ciprofloxacin HCl 500 mg tablet 500 mg PO BID 07/05/21 07/05/21 Unknown History dulaglutide 0.75 mg/0.5 mL 0.75 mg SUBCUT Q7D 07/05/21 07/05/21 Unknown History subcutaneous pen injector (Trulicity) glipizide 10 mg tablet 20 mg PO BID 07/05/21 07/05/21 Unknown History guaifenesin 600 mg tablet, 600 mg PO BID 07/05/21 07/05/21 Unknown History extended release 12 hr (Mucus Relief ER) insulin aspart U-100 100 unit/mL See Rx Instructions .ROUTE .COMPLEX 07/05/21 07/05/21 Unknown History (3 mL) subcutaneous pen (Novolog Flexpen U-100 Insulin aspart) omeprazole 20 mg capsule,delayed 20 mg PO DAILY 07/05/21 07/05/21 Unknown History release polyethylene glycol 3350 17 17 g PO DAILY PRN 07/05/21 07/05/21 Unknown History gram/dose oral powder prazosin 5 mg capsule 5 mg PO BEDTIME 07/05/21 07/05/21 Unknown History pregabalin 200 mg capsule 200 mg PO Q8H 07/05/21 07/05/21 Unknown History quetiapine 200 mg tablet 200 mg PO BEDTIME 07/05/21 07/05/21 Unknown History scopolamine base 1 mg over 3 days 1 mg TRANSDERMAL Q72H PRN 07/05/21 07/05/21 U nknown History transdermal patch simvastatin 5 mg tablet 5 mg PO DAILY 07/05/21 07/05/21 Unknown History Allergies Allergy/AdvReac Type Severity Reaction Status Date / Time amoxicillin Allergy Intermediate Hives Verified 06/03/21 15:50 azithromycin Allergy Intermediate Hives Verified 06/03/21 15:50 carbamazepine [From Tegretol] Allergy Intermediate Hives Verified 06/03/21 15:50 cephalexin [From Keflex] Allergy Intermediate Hives Verified 06/03/21 15:50 divalproex sodium Allergy Intermediate Hives Verified 06/03/21 15:50 [From Depakote] erythromycin base Allergy Intermediate hIVES Verified 06/03/21 15:50 lamotrigine [Lamictal] Allergy Unknown Unknown Verified 06/03/21 15:50 metformin Allergy Unknown Unknown Verified 06/03/21 15:50 nystatin Allergy Unknown Unknown Verified 06/03/21 15:50 Sulfa (Sulfonamide Allergy Unknown Unknown Verified 06/03/21 15:50 Antibiotics) tetracycline Allergy Unknown Unknown Verified 06/03/21 15:50 Tricyclic Compounds Allergy Unknown Unknown Verified 06/03/21 15:50 zolpidem [From Ambien] AdvReac Severe Hallucinati Verified 06/03/21 15:50 ons PFSH NPU PFSH: Medical History (Updated 07/06/21 @ 14:23 by Randall Bang MD) Adderall use disorder, moderate, in sustained remission, dependence Bipolar II disorder Chronic post-traumatic stress disorder (PTSD) Surgical History (Updated 07/06/21 @ 14:23 by Randall Bang MD) H/O colonoscopy 15-20 yrs ago H/O esophagogastroduodenoscopy 15-20 yrs ago H/O hernia repair Hx of tubal ligation Family History Father Cancer colon Family/Other Cancer maternal grandmother colon Denies family history of CAD (coronary artery disease) Anesthesia complication Bleeding disorder Social History Smoking and tobacco status: current every day smoker Alcohol intake: never Household members: spouse Marital status: Current occupational status: disabled History of recent travel: No Mental Status Exam MSE Comments: This is an obese, white female, looking older than her stated age, with limited grooming, and eye contact. No abnormal movements. She had instability of gait and needed assistance to the bathroom. Semi- cooperative with exam in no acute distress. Mild hirsutism identified; mood described as okay; affect confused. Thought process, linear at times. Thought content: patient denied any suicidal or homicidal ideation, there were no delusions reported but she had some strange thoughts that could represent delusion versus delirium, patient denied any auditory or visual hallucinations but at times appeared she might be having perceptual disturbances. Attention and concentration were limited, and memory was unreliable, but none were formally tested. She is alert and oriented to persons and place. Insight and judgment are impaired. Impulse control is impaired. Vitals/I&O/Wt Last Vital Signs Temp 97.7 F 07/06/21 06:00 Pulse 118 H 07/06/21 06:00 Resp 20 H 07/06/21 06:00 BP 140/74 07/06/21 06:00 Pulse Ox 94 07/06/21 06:00 Weight last 48 hrs Weight 81.647 kg Data NPU : 07/06/21 14:38 07/06/21 14:38 Micro: Microbiology 07/05/21 11:32 Blood Culture - Preliminary Blood SPECIMEN COLLECTED 07/05/21 11:34 Blood Culture - Preliminary Blood SPECIMEN COLLECTED Microbiology 07/05/21 11:32 Blood Blood Culture - Preliminary SPECIMEN COLLECTED 07/05/21 11:34 Blood Blood Culture - Preliminary SPECIMEN COLLECTED A&P Assessment and plan (1) Insulin dependent type 2 diabetes mellitus: Status: Acute (2) UTI (urinary tract infection): Status: Acute (3) Acute encephalopathy: Status: Acute (4) Acute psychosis: Status: Acute (5) Mild dehydration: Status: Acute (6) Generalized anxiety disorder: Status: Acute (7) Cannabis abuse: Status: Acute (8) Bipolar II disorder: Status: Acute (9) Chronic post-traumatic stress disorder (PTSD): Status: Acute Plan This is a 56-year-old, white female, with a documented mental health history, previous hospitalizations here, but once again, presents likely after discontinuing her medication with lack of clarity and medical comorbidities. RECOMMENDATION AND PLAN: 1. Continue current medication, as appropriate. 2. We will work with outpatient team on restarting her regular psychiatric medications by contacting them tomorrow. 3. Encourage individual, group, and milieu therapy. 4. Obtain hospitalist consult to make sure that her medical comorbidities are managed well enough that we can be clear they are not responsible for this decompensation and will follow their recommendations as indicated. Involuntary Hold Information 96 Hour Hold: 96 Hour Involuntary Admission: No Attestations NPU Medical Necessity Statement*: Inpatient hospitalization is medically necessary and the clinically appropriate intervention, at this time. We will monitor medications and make changes as indicated. Patient will be in the hospital for over two midnights. Likely length of stay is four to six days. Coding Level of Care Code Acute Wood Model Builder for Kaushik Parekhd Diagnoses Insulin dependent type 2 diabetes mellitus E11.9; Z79.4 UTI (urinary tract infection) N39.0 Acute encephalopathy G93.40 Acute psychosis F23 Mild dehydration E86.0 Generalized anxiety disorder F41.1 Cannabis abuse F12.10 Bipolar II disorder F31.81 Chronic post-traumatic stress disorder (PTSD) F43.12
[2021-07-06 08:30] LABS: Blood Urea Nitrogen 10 mg/dL (6-20); Calcium 9.5 mg/dL (8.5-10.5); Carbon Dioxide 21 mmol/L (22-29); Chloride 103 mmol/L (98-107); Glomerular Filtration Rate 85.9 mL/min (90-130); Glucose 321 mg/dL (65-115); Osmolality Calculated 293 mOsm/kg (285-295); Sodium 136 mmol/L (136-145)
[2021-07-06 08:31] LABS: Lactate (Lactic Acid level) 2.2 mmol/L (0.5-2.2)
[2021-07-06] MEDS: apixaban 5 mg Tablet PO ×2 (09:05→19:14)
[2021-07-06] MEDS: insulin lispro 100 unit/1 mL SUBCUT (09:06)
[2021-07-06] MEDS: FUROsemide 20 mg Tablet PO (09:06)
[2021-07-06] MEDS: pantoprazole DR 40 mg Tablet PO (09:06)
[2021-07-06] MEDS: cetirizine 10 mg Tablet PO (09:06)
[2021-07-06] MEDS: atorvastatin 40 mg Tablet 20 MG PO (09:06)
[2021-07-06] MEDS: duloxetine 30 mg Capsule PO (09:06)
--- NOTE | 2021-07-06 10:23 | PC.NURSE ---
pt has loose cough, been in bed lethargic, pt mumbles but does not open eyes. rapid covid test obtained, pt sasha well did not wake up for test
[2021-07-06 11:19] LABS: Glucose Point of Care 257 mg/dL (70-110)
[2021-07-06 11:59] LABS: SARS Covid-2 Antigen Negative (Negative)
--- NOTE | 2021-07-06 11:59 | PC.NURSE ---
covid test negative
[2021-07-06 14:00] VITALS: BP 118/72; PULSE 106; RESP 16; TEMP 36.5; O2SAT 96
--- NOTE | 2021-07-06 14:04 | ECG_ITS ---
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 Measurements Intervals [place] Rate: 95 P: 75 MS: 140 QRS: 12 QRSD: 81 T: 11 QT: 361 QTc: 456 Interpretive Statements SINUS RHYTHM LOW QRS VOLTAGE IN PRECORDIAL LEADS [QRS DEFLECTION < 1.0 mV IN CHEST LEADS] Compared to ECG 07/05/2021 14:55:13 No significant changes Electronically Signed On 07-06-2021 21:53:52 STUDIO SET UP WORKER by Davina Null M.D. [id number]
--- NOTE | 2021-07-06 14:18 | P.CONIM_ITS ---
Providers/Reason For Consult Consulting Physician/Specialty*: Psychiatry Reason for Consult*: Poor appetite, hyperglycemia, Attending Physician: Edgardo Hines MD Primary Care Provider: Flaco Gresham History of Present Illness History of Present Illness Dorina Gamble is a 56 year old female with a past medical history of insulin-dependent type 2 diabetes mellitus, history of lower extremity DVT status post IVC filter placement, currently on Eliquis?, Bipolar disorder, PTSD who presents [facility] neuropsychiatric unit for altered mental status, concerns for acute psychosis. Hospitalist team was called as patient does not taking in p.o. medications, she has multiple diabetic medications she cannot take as she is now taking p.o. medications, and they are concerned about giving her insulin as she is not eating. Patient also has had generalized weakness, persistent confusion. Currently patient alert to person, to place, not to time, she tells me that she recently was at [facility] in [place] was diagnosed with a lower extremity DVT, she is put on a blood thinner and what it sounds like she had a surgery she tells me that it was a filter, sounds like an IVC filter, she tells me. Denies any history of strokes. Denies a history of CVA. Does have type 2 diabetes mellitus. Denies any drug use. Does smoke. No shortness of breath. No chest discomfort. Does report decreased urination, increased urinary retention. No fevers. No chills. Does have a cough. Does feel lightheaded currently, nursing staff have helped her up to the commode, during my examination, time she does doze off, does sway due to lightheadedness, no facial droop, slurring of words, no paresthesias Review of Systems Const: Denies: fever(s) or chills Eyes: Denies: change in vision ENMT: Denies: nasal congestion Resp: Denies: dyspnea or wheezing GI: Denies: abdominal pain, nausea, vomiting, hematemesis or diarrhea : Denies: flank pain, dysuria or urinary frequency Skin/Breast: Denies: rash Neuro: Denies: headache(s) Endo: Denies: polyuria or polydipsia Medications/Allergies Home Medications Medication Instructions Recorded Confirmed Last Taken Type cholecalciferol (vitamin D3) 1,250 50,000 unit PO Q7D tab 11/29/19 07/05/21 12/27/20 History mcg (50,000 unit) tablet epinephrine 0.3 mg/0.3 mL 0.3 mg IM ONCE PRN 01/24/20 07/05/21 01/02/21 History injection, auto-injector insulin admin supplies 12/02/20 07/05/21 Unknown History albuterol sulfate 90 mcg/actuation 2 puff INHALATION Q6H PRN 01/02/21 07/05/21 01/02/21 History aerosol inhaler (ProAir HFA) cetirizine 10 mg tablet (Zyrtec) 10 mg PO DAILY 01/02/21 07/05/21 01/02/21 History fluoride (sodium) 1.1 % dental 1 applic PO BID 01/02/21 07/05/21 Unknown History cream (Sodium Fluoride 5000 Plus) furosemide 20 mg tablet (Lasix) 20 mg PO DAILY 01/02/21 07/05/21 01/02/21 Hist ory duloxetine 30 mg capsule,delayed 30 mg PO DAILY #30 cap 06/04/21 07/05/21 Unknown Rx release (Cymbalta) hydroxyzine HCl 50 mg tablet 50 mg PO QID PRN #120 tab 06/04/21 07/05/21 Unknown Rx olanzapine 5 mg tablet 7.5 mg PO BEDTIME #45 tab 06/04/21 07/05/21 Unknown Rx apixaban 5 mg tablet (Eliquis) 5 mg PO BID 07/05/21 07/05/21 Unknown History benzonatate 200 mg capsule 200 mg PO TID PRN 07/05/21 07/05/21 Unknown History ciprofloxacin HCl 500 mg tablet 500 mg PO BID 07/05/21 07/05/21 Unknown History dulaglutide 0.75 mg/0.5 mL 0.75 mg SUBCUT Q7D 07/05/21 07/05/21 Unknown History subcutaneous pen injector (Trulicity) glipizide 10 mg tablet 20 mg PO BID 07/05/21 07/05/21 Unknown History guaifenesin 600 mg tablet, 600 mg PO BID 07/05/21 07/05/21 Unknown History extended release 12 hr (Mucus Relief ER) insulin aspart U-100 100 unit/mL See Rx Instructions .ROUTE .COMPLEX 07/05/21 07/05/21 Unknown History (3 mL) subcutaneous pen (Novolog Flexpen U-100 Insulin aspart) omeprazole 20 mg capsule,delayed 20 mg PO DAILY 07/05/21 07/05/21 Unknown History release polyethylene glycol 3350 17 17 g PO DAILY PRN 07/05/21 07/05/21 Unknown History gram/dose oral powder prazosin 5 mg capsule 5 mg PO BEDTIME 07/05/21 07/05/21 Unknown History pregabalin 200 mg capsule 200 mg PO Q8H 07/05/21 07/05/21 Unknown History quetiapine 200 mg tablet 200 mg PO BEDTIME 07/05/21 07/05/21 Unknown History scopolamine base 1 mg over 3 days 1 mg TRANSDERMAL Q72H PRN 07/05/21 07/05/21 Unknown History transdermal patch simvastatin 5 mg tablet 5 mg PO DAILY 07/05/21 07/05/21 Unknown History Allergies Allergy/AdvReac Type Severity Reaction Status Date / Time amoxicillin Allergy Intermediate Hives Verified 06/03/21 15:50 azithromycin Allergy Intermediate Hives Verified 06/03/21 15:50 carbamazepine [From Tegretol] Allergy Intermediate Hives Verified 06/03/21 15:50 cephalexin [From Keflex] Allergy Intermediate Hives Verified 06/03/21 15:50 divalproex sodium Allergy Intermediate Hives Verified 06/03/21 15:50 [From Depakote] erythromycin base Allergy Intermediate hIVES Verified 06/03/21 15:50 lamotrigine [Lamictal] Allergy Unknown Unknown Verified 06/03/21 15:50 metformin Allergy Unknown Unknown Verified 06/03/21 15:50 nystatin Allergy Unknown Unknown Verified 06/03/21 15:50 Sulfa (Sulfonamide Allergy Unknown Unknown Verified 06/03/21 15:50 Antibiotics) tetracycline Allergy Unknown Unknown Verified 06/03/21 15:50 Tricyclic Compounds Allergy Unknown Unknown Verified 06/03/21 15:50 zolpidem [From Ambien] AdvReac Severe Hallucinati Verified 06/03/21 15:50 ons Current Medications Generic Name Dose Route Start Last Admin Trade Name Freq PRN Reason Stop Dose Admin Apixaban 5 mg 07/06/21 09:00 07/06/21 09:05 Apixaban 5 Mg Tablet PO 5 mg BID KATRIN Administration Atorvastatin Calcium 20 mg 07/06/21 09:00 07/06/21 09:06 Atorvastatin 40 Mg Tablet PO 20 mg DAILY KATRIN Administration Benzonatate 200 mg 07/05/21 21:05 07/06/21 00:44 Benzonatate 100 Mg Capsule PO 200 mg TID PRN Administration COUGH Cetirizine HCl 10 mg 07/06/21 09:00 07/06/21 09:06 Cetirizine 10 Mg Tablet PO 10 mg DAILY KATRIN Administration Duloxetine HCl 30 mg 07/06/21 09:00 07/06/21 09:06 Duloxetine 30 Mg Capsule PO 30 mg DAILY KATRIN Administration Furosemide 20 mg 07/06/21 09:00 07/06/21 09:06 Furosemide 20 Mg Tablet PO 20 mg DAILY KATRIN Administration Insulin Human Lispro 0 unit 07/06/21 08:00 07/06/21 12:19 Insulin Lispro 100 Unit/1 Ml SUBCUT Not Given WM&BEDTIME KATRIN Protocol Olanzapine 7.5 mg 07/05/21 21:00 07/06/21 00:37 Olanzapine 5 Mg Tablet PO 7.5 mg BEDTIME KATRIN Administration Pantoprazole Sodium 40 mg 07/06/21 09:00 07/06/21 09:[address] 40 Mg Tablet PO 40 mg DAILY KATRIN Administration Prazosin HCl 5 mg 07/05/21 21:00 07/06/21 00:38 Prazosin 5 Mg Capsule PO 5 mg BEDTIME KATRIN Administration Pregabalin 200 mg 07/05/21 21:15 07/06/21 13:15 Pregabalin 100 Mg Capsule PO 200 mg Q8H KATRIN Administration Quetiapine Fumarate 200 mg 07/06/21 00:34 07/06/21 00:39 Quetiapine 100 Mg Tablet PO 200 mg BEDTIME KATRIN Administration PFSH Acute PFSH: Medical History (Updated 07/06/21 @ 14:23 by Randall Bang MD) Adderall use disorder, moderate, in sustained remission, dependence Bipolar II disorder Chronic post-traumatic stress disorder (PTSD) Surgical History (Updated 07/06/21 @ 14:23 by Randall Bang MD) H/O colonoscopy 15-20 yrs ago H/O esophagogastroduodenoscopy 15-20 yrs ago H/O hernia repair Hx of tubal ligation Family History Father Cancer colon Family/Other Cancer maternal grandmother colon Denies family history of CAD (coronary artery disease) Anesthesia complication Bleeding disorder Social History Smoking and tobacco status: current every day smoker Alcohol intake: never Household members: spouse Marital status: Current occupational status: disabled History of recent travel: No Vitals/I&O/Wt Last Vital Signs Temp 97.7 F 07/06/21 06:00 Pulse 118 H 07/06/21 06:00 Resp 20 H 07/06/21 06:00 BP 140/74 07/06/21 06:00 Pulse Ox 94 07/06/21 06:00 Weight last 48 hrs Weight 81.647 kg Physical Exam Const: COMMON NORMALS: no acute distress EXAM LIMITATIONS: altered mental status ORIENTATION/CONSCIOUSNESS: Yes awake and Yes oriented to person; not oriented to place and not oriented to time HENMT: COMMON NORMALS: normocephalic HEAD & SCALP: normocephalic Eye: COMMON NORMALS: Equal, round and reactive pupils present PUPIL: Yes Equal, round and reactive pupils present Resp: COMMON NORMALS: normal respiratory effort, No retractions, No use of accessory muscles and clear to auscultation bilaterally AUSCULTATION: clear to auscultation bilaterally Cardio: COMMON NORMALS: regular rate, regular rhythm, S1 normal heart sound present and S2 normal heart sound present RATE: regular rate RHYTHM: regular rhythm HEART SOUNDS: S1 normal heart sound present and S2 normal heart sound present GI: COMMON NORMALS: Normal to inspection, nondistended, normoactive bowel sounds present, Soft to palpation and non-tender PALPATION: Yes Soft to palpation Extremity: COMMON NORMALS: no pedal edema Neuro: SENSORIUM/ORIENTATION: Yes oriented to person, No oriented to place and No oriented to time Data : 07/05/21 11:32 07/06/21 07:53 Micro: Microbiology 07/05/21 11:32 Blood Culture - Preliminary Blood SPECIMEN COLLECTED 07/05/21 11:34 Blood Culture - Preliminary Blood SPECIMEN COLLECTED A&P Assessment and plan (1) Acute psychosis: Status: Acute (2) Mild dehydration: Status: Acute (3) Acute encephalopathy: Status: Acute (4) UTI (urinary tract infection): Status: Acute (5) Insulin dependent type 2 diabetes mellitus: Status: Acute Plan Acute encephalopathy -Etiology unclear at this point -Concern for underlying psychosis -Does have UA evidence of UTI start Cipro -Repeat blood work -No evidence of CVA, facial droop, slurring her words, able to ambulate on her own -Does have a UTI, -Chest x-ray no evidence of pneumonia Dehydration, encourage p.o. intake, will consider movement to [facility] for IV fluids depending on blood work Hyperglycemia -Monitor blood sugars closely -Blood work for possible HHS -Levemir 5 units every 24 hours -Moderate dose sliding scale -Blood work Lower extremity VT on Eliquis -Also reports IVC filter placement? Consult Attestations Medical Necessity Statement: Patient requires hospitalization for dehydration, acute encephalopathy, hyperglycemia Coding Level of Care Code Acute Road Boss for [facility] Fwd Diagnoses Acute psychosis F23 Mild dehydration E86.0 Acute encephalopathy G93.40 UTI (urinary tract infection) N39.0 Insulin dependent type 2 diabetes mellitus E11.9; Z79.4
[2021-07-06 15:17] LABS: Ketone (Acetest) Serum Negative (Negative)
--- NOTE | 2021-07-06 15:22 | PC.NURSE ---
Dr. Hines ordered a hospitalist consult for pt experiencing lower extremities weakness, pt is a poor historian, Dr. Paula has ordered a full work up, will review results. Pt has had very poor food and fluid intake this shift. Verbal prompts needed for pt to drink fluids.
[2021-07-06 15:26] LABS: NT Pro B Type Natriuretic Pept 65 pg/mL (0-125); Procalcitonin 0.08 ng/mL (0-0.5)
[2021-07-06 15:37] LABS: Alanine Aminotransferase 24 U/L (0-33); Albumin Level 3.9 g/dL (3.5-5.2); Alkaline Phosphatase 182 IU/L (35-105); Blood Urea Nitrogen 10 mg/dL (6-20); C Reactive Protein 11.7 mg/L (0.0-4.9); Carbon Dioxide 18 mmol/L (22-29); Chloride 104 mmol/L (98-107); Creatinine Clr Calc Pharmacy 82.5737; Globulin 2.5 g/dL (1.3-4.6); Glomerular Filtration Rate 73.7 mL/min (90-130); Glucose 219 mg/dL (65-115); Lipase 56 U/L (13-60); Magnesium 1.8 mg/dL (1.7-2.3); Osmolality Calculated 292 mOsm/kg (285-295); Phosphorus 4.1 mg/dL (2.5-4.5); Sodium 138 mmol/L (136-145); Total Bilirubin 0.2 mg/dL (0.15-1.2); Total Protein 6.4 g/dL (6.6-8.7)
[2021-07-06 15:49] LABS: Estmated Average Glucose 214; Hemoglobin A1C 9.1 % (4.0-6.0)
[2021-07-06 15:58] LABS: Aspartate Amino Transferase 33 U/L (0-32); Troponin(5th) Baseline 7 ng/L (0-10)
--- NOTE | 2021-07-06 16:04 | ECG_ITS ---
[facility] Test Date: 2021-07-06 Pat Name: Dorina Gamble Department: Room: 151 Gender: Female Health Service Worker: : 1965 Requested By: Randall Bang Order Number: [id number] Keysha MD: Davina Null M.D. Measurements Intervals [place] Rate: 95 P: 68 NE: 139 QRS: 9 QRSD: 77 T: 9 QT: 360 QTc: 453 Interpretive Statements SINUS RHYTHM LOW QRS VOLTAGE IN PRECORDIAL LEADS [QRS DEFLECTION < 1.0 mV IN CHEST LEADS] Compared to ECG 07/06/2021 14:28:16 No significant changes Electronically Signed On 07-07-2021 17:17:48 JUNIOR GRAPHIC DESIGNER by Davina Null M.D. [id number]
[2021-07-06 16:45] LABS: Basophils # 0.1 10^3/uL (0.0-0.1); Basophils % 0.7 %; Eosinophils # 0.3 10^3/uL (0.0-0.8); Eosinophils % 2.4 %; Hematocrit 42.3 % (37.0-47.0); Hemoglobin 13.1 g/dL (11.5-15.3); Lymphocytes # 3.4 10^3/uL (0.8-4.8); Lymphocytes % 32.9 %; Mean Corpuscular Volume 77.6 fl (81-99); Mean Platelet Volume 9.3 fL (7.4-10.4); Monocytes # 0.6 10^3/uL (0.2-0.9); Monocytes % 5.3 %; Neutrophils # 6.07 10^3/uL (1.8-7.7); Neutrophils % 58.4 %; Nucleated Red Blood Cells % 0 %; Platelet Count 382 10^3/cmm (130-400); Red Blood Count 5.45 10^6/uL (4.1-5.3); Red Cell Distribution Width 18.4 % (12.1-15.1); White Blood Count 10.4 10^3/uL (4.0-10.0)
[2021-07-06 18:11] LABS: Troponin 5 2HR 8.49 ng/L (0-10)
[2021-07-06 18:17] LABS: Glucose Point of Care 205 mg/dL (70-110)
[2021-07-06] MEDS: ciprofloxacin 500 mg Tablet PO (19:14)
[2021-07-06 19:26] LABS: Bilirubin Urine Neg (Negative); Blood Urine 2+ (Negative); Glucose Urine UA 4+ (Normal); Ketones Urine Negative (Negative); Leukocyte Esterase Urine 2+ (Negative); Nitrate Urine Negative (Negative); Protein Urine Neg (Negative); Specific Gravity, Urine 1.015 (1.005-1.030); Urine Color Yellow (Yellow); Urobilinogen Urine Norm (Negative); pH Urine 6.5 (5-7)
[2021-07-06 19:27] LABS: Add Urine Microscopic? YES
[2021-07-06 19:29] LABS: Squamous Epithelial Cell Urine 80-100 /hpf (0-5); WBC Urine 55-80 /hpf (0-5)
[2021-07-06 19:30] LABS: Add Urine Culture? No; Amorphous Sediment Urine 1+ /hpf; Bacteria Urine 3+ /hpf
--- NOTE | 2021-07-06 20:04 | ECG_ITS ---
[facility] Test Date: 2021-07-06 Pat Name: Dorina Gamble Department: Room: 151 Gender: Female Metalworking Instructor: : 1965 Requested By: Randall Bang Order Number: [id number] Keysha MD: Davina Null M.D. Measurements Intervals [place] Rate: 92 P: 74 [place]: 141 QRS: 15 QRSD: 82 T: 31 QT: 360 QTc: 447 Interpretive Statements SINUS RHYTHM LOW QRS VOLTAGE IN PRECORDIAL LEADS [QRS DEFLECTION < 1.0 mV IN CHEST LEADS] Compared to ECG 07/06/2021 16:02:09 No significant changes Electronically Signed On 07-07-2021 17:17:59 VACUUM CLEANER ASSEMBLER by Davina Null M.D. [id number]
[2021-07-06 20:16] VITALS: BP 152/81; PULSE 88; RESP 20; TEMP 36.9; O2SAT 95
[2021-07-06 20:21] LABS: Glucose Point of Care 205 mg/dL (70-110)
[2021-07-06 20:26] VITALS: PULSE 95; RESP 16; O2SAT 97
[2021-07-06 20:44] LABS: Troponin 5 6HR 9.33 ng/L (0-10)
[2021-07-07 00:53] LABS: Glucose Point of Care 210 mg/dL (70-110)
--- NOTE | 2021-07-07 03:12 | PC.NURSE ---
Patient lethargic throughout assessment, barely able to keep eyes open and hold a conversation. Did give short answers to questions. Endorsed trouble eating solid food and requested soft diet. Patients short-acting insulin was held due to reports from previous nurse that patient had not eaten all day due to lethargy. Patient did sit up after assessment and ate yogurt, sugar free jello, steamed broccoli and a roll, drank water and diet sprite and took medications. Encouraged fluid intake but patient fell asleep soon after eating and slept throughout night.
[2021-07-07] MEDS: ciprofloxacin 500 mg Tablet PO ×2 (05:26→17:27)
[2021-07-07] MEDS: pregabalin 100 mg Capsule 200 MG PO ×3 (05:26→19:46)
[2021-07-07 06:00] VITALS: BP 141/76; PULSE 93; RESP 22; TEMP 36.6; O2SAT 93
[2021-07-07 06:35] LABS: Glucose Point of Care 293 mg/dL (70-110)
[2021-07-07] MEDS: duloxetine 30 mg Capsule PO (08:12)
[2021-07-07] MEDS: atorvastatin 40 mg Tablet 20 MG PO (08:13)
[2021-07-07] MEDS: cetirizine 10 mg Tablet PO (08:13)
[2021-07-07] MEDS: FUROsemide 20 mg Tablet PO (08:13)
[2021-07-07] MEDS: insulin lispro 100 unit/1 mL SUBCUT ×4 (08:14→19:56)
[2021-07-07] MEDS: pantoprazole DR 40 mg Tablet PO (08:14)
[2021-07-07] MEDS: apixaban 5 mg Tablet PO ×2 (08:14→17:27)
--- NOTE | 2021-07-07 09:52 | PC.OT ---
OT EVALUATION ATTEMPTED TWICE; PATIENT SLEEPING SOUNDLY; SNORING. WILL ATTEMPT AGAIN AT A LATER TIME.
[2021-07-07 11:47] LABS: Glucose Point of Care 274 mg/dL (70-110)
[2021-07-07 14:00] VITALS: BP 120/58; PULSE 110; RESP 20; TEMP 37.4; O2SAT 93
--- NOTE | 2021-07-07 15:47 | P.PN_ITS ---
Subjective Subjective: States she is very thirsty and hungry. She is not sure whether she had urinated, but her roommate states she has gone at least several times since overnight/the morning. Vitals/I&O/Wt Last Vital Signs Temp 99.4 F 07/07/21 14:00 Pulse 110 H 07/07/21 14:00 Resp 20 H 07/07/21 14:00 BP 120/58 07/07/21 14:00 Pulse Ox 93 07/07/21 14:00 Physical Exam Const: GENERAL APPEARANCE: cooperative NUTRITIONAL APPEARANCE: overweight ORIENTATION/CONSCIOUSNESS: Yes awake OTHER: Napping. Wakes up to voice. HENMT: COMMON NORMALS: oropharynx normal Neck/C-Spine: COMMON NORMALS: no JVD Resp: COMMON NORMALS: normal respiratory effort and clear to auscultation bilaterally AUSCULTATION: clear to auscultation bilaterally Cardio: COMMON NORMALS: no JVD, regular rhythm, S1 normal heart sound present, S2 normal heart sound present and No murmurs present (Cardio) RHYTHM: regular rhythm HEART SOUNDS: S1 normal heart sound present and S2 normal heart sound present GI: COMMON NORMALS: Normal to inspection, nondistended, normoactive bowel sounds present and Soft to palpation PALPATION: Yes Soft to palpation and Yes Tenderness to palpation present (GI) (Multiple occasions, reports worst right mid abdomen) Extremity: COMMON NORMALS: no joint enlargement and no pedal edema Neuro: COMMON NORMALS: moves all extremities Skin: COMMON NORMALS: no rashes or lesions noted GENERAL SKIN EXAM: no rashes or lesions noted Data : 07/06/21 14:38 07/06/21 14:38 Micro: Microbiology 07/05/21 11:34 Blood Culture - Preliminary Blood NEGATIVE TO DATE 07/05/21 11:32 Blood Culture - Preliminary Blood NEGATIVE TO DATE A&P Assessment and plan (1) Acute psychosis: Continue assessment of management of acute psychosis, neuropsychiatric and, with possible superimposed encephalopathy due to urinary tract infection. Status: Acute (2) Mild dehydration: Status: Acute (3) Acute encephalopathy: Perhaps doing slightly better. Has been drinking water. Has eaten a bit earlier today. Continue assessment management of acute psychosis. With encephalopathy possible secondary to urinary tract infection, continue treatment for this. Follow-up urine culture. Status: Acute (4) UTI (urinary tract infection): Continue current antibiotic. Follow-up urine culture. Some abdominal tenderness noted, but nonspecific, will reassess. Has been producing urine. Will recheck chemistry. Status: Acute (5) Insulin dependent type 2 diabetes mellitus: Continue sliding scale insulin, consistent carbohydrate diet. Status: Acute Plan Abdominal tenderness: Mild tenderness in multiple locations. Nonspecific, she states worst in her right mid abdomen. Dehydration: she is drinking water Lower extremity VT on Eliquis -Also reports IVC filter placement? Attestations Medical Necessity Statement*: Continue admission for assessment management of acute psychosis, acute encephalopathy. Coding Level of Care Code Acute Ride Assembly Supervisor for [facility] Fwd Diagnoses Acute psychosis F23 Mild dehydration E86.0 Acute encephalopathy G93.40 UTI (urinary tract infection) N39.0 Insulin dependent type 2 diabetes mellitus E11.9; Z79.4
--- NOTE | 2021-07-07 16:49 | W.PM.NPUPNS ---
Subjective NPU Subjective: Interval history: Patient presents today again as a limited historian she is expressing not feeling well, feeling hungry and tired. Denies any plaints. Her roommate had a rough time because she is clearly confused she took a number off of her roommates nightstand and call that friend, touching her food in toiletries and at one point had urinated on the floor. 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 She expressed no answers for or recollection of these behaviors. Mental Status Exam MSE Comments: This is an obese, white female, looking older than her stated age, with limited grooming, and eye contact. No abnormal movements. She had instability of gait and needed assistance to the bathroom. Semi-cooperative with exam in no acute distress. Mild hirsutism identified; mood described as not good; affect confused. Thought process, linear at times. Thought content: patient denied any suicidal or homicidal ideation, there were no delusions reported but she had some strange thoughts that could represent delusion versus delirium, patient denied any auditory or visual hallucinations but at times appeared she might be having perceptual disturbances.? Attention and concentration were limited, and memory was unreliable, but none were formally tested. She is alert and oriented to persons and place. Insight and judgment are impaired. Impulse control is impaired. Vitals/I&O/Wt Last Vital Signs Temp 98.4 F 07/07/21 20:07 Pulse 110 H 07/07/21 20:07 Resp 20 H 07/07/21 20:07 BP 114/63 07/07/21 20:07 Pulse Ox 95 07/07/21 20:07 Data NPU : 07/06/21 14:38 07/06/21 14:38 A&P Assessment and plan (1) Insulin dependent type 2 diabetes mellitus: Status: Acute (2) UTI (urinary tract infection): Status: Acute (3) Acute encephalopathy: Status: Acute (4) Acute psychosis: Status: Acute (5) Mild dehydration: Status: Acute (6) Generalized anxiety disorder: Status: Acute (7) Cannabis abuse: Status: Acute (8) Polyp of duodenum: Status: Resolved (9) Bipolar II disorder: Status: Acute (10) Chronic post-traumatic stress disorder (PTSD): Status: Acute Plan This is a 56-year-old, white female, with a documented mental health history, previous hospitalizations here, but once again, presents likely after discontinuing her medication with lack of clarity and medical comorbidities. RECOMMENDATION AND PLAN: 1. Continue current medication, as appropriate. 2. We will work with outpatient team on restarting her regular psychiatric medications by contacting them tomorrow. 3. Encourage individual, group, and milieu therapy. 4. Appreciate hospitalist consult and will follow their recommendations as indicated. We'll explore today whether she might not need to be a hospital patient with a psychiatric consult instead of the current psychiatric patient with a hospitalist consult. Involuntary Hold Information 96 Hour Hold: 96 Hour Involuntary Admission: No Attestations NPU Medical Necessity Statement*: Inpatient hospitalization is medically necessary and the clinically appropriate intervention, at this time. We will monitor medications and make changes as indicated. Likely length of stay is 3-5 days. Coding Level of Care Code Acute Guard Dance Hall for g Fwd Diagnoses Insulin dependent type 2 diabetes mellitus E11.9; Z79.4 UTI (urinary tract infection) N39.0 Acute encephalopathy G93.40 Acute psychosis F23 Mild dehydration E86.0 Generalized anxiety disorder F41.1 Cannabis abuse F12.10 Polyp of duodenum K31.7 Bipolar II disorder F31.81 Chronic post-traumatic stress disorder (PTSD) F43.12
[2021-07-07 17:25] LABS: Glucose Point of Care 209 mg/dL (70-110)
[2021-07-07] MEDS: quetiapine 100 mg Tablet 200 MG PO (19:46)
[2021-07-07] MEDS: prazosin 5 mg Capsule PO (19:46)
[2021-07-07] MEDS: OLANZapine 5 mg TABLET 7.5 MG PO (19:46)
[2021-07-07 19:56] LABS: Glucose Point of Care 238 mg/dL (70-110)
[2021-07-07 20:07] VITALS: BP 114/63; PULSE 110; RESP 20; TEMP 36.9; O2SAT 95
[2021-07-08] MEDS: pregabalin 100 mg Capsule 200 MG PO ×3 (05:26→19:57)
[2021-07-08] MEDS: ciprofloxacin 500 mg Tablet PO ×2 (05:26→17:31)
[2021-07-08 06:00] VITALS: BP 128/77; PULSE 94; RESP 20; TEMP 36.5; O2SAT 93
[2021-07-08 06:53] LABS: Glucose Point of Care 265 mg/dL (70-110)
[2021-07-08] MEDS: insulin lispro 100 unit/1 mL SUBCUT ×4 (07:49→21:44)
[2021-07-08] MEDS: apixaban 5 mg Tablet PO ×2 (08:07→17:32)
[2021-07-08] MEDS: duloxetine 30 mg Capsule PO (08:07)
[2021-07-08] MEDS: pantoprazole DR 40 mg Tablet PO (08:07)
[2021-07-08] MEDS: cetirizine 10 mg Tablet PO (08:07)
[2021-07-08] MEDS: FUROsemide 20 mg Tablet PO (08:07)
[2021-07-08] MEDS: atorvastatin 40 mg Tablet 20 MG PO (08:07)
[2021-07-08 08:27] LABS: Basophils # 0.1 10^3/uL (0.0-0.1); Basophils % 0.8 %; Eosinophils # 0.3 10^3/uL (0.0-0.8); Eosinophils % 3.9 %; Hematocrit 39.4 % (37.0-47.0); Hemoglobin 11.4 g/dL (11.5-15.3); Lymphocytes # 2.2 10^3/uL (0.8-4.8); Lymphocytes % 30.1 %; Mean Corpuscular HGB Conc 28.9 g/dL (30.0-36.0); Mean Corpuscular Hemoglobin 23.6 pg (28.0-34.0); Mean Corpuscular Volume 81.4 fl (81-99); Mean Platelet Volume 9.7 fL (7.4-10.4); Monocytes # 0.7 10^3/uL (0.2-0.9); Monocytes % 9.5 %; Neutrophils # 4.09 10^3/uL (1.8-7.7); Neutrophils % 55.4 %; Nucleated Red Blood Cells % 0 %; Platelet Count 399 10^3/cmm (130-400); Red Blood Count 4.84 10^6/uL (4.1-5.3); Red Cell Distribution Width 17.6 % (12.1-15.1); White Blood Count 7.4 10^3/uL (4.0-10.0)
[2021-07-08 10:02] LABS: Alanine Aminotransferase 30 U/L (0-33); Albumin Level 3.6 g/dL (3.5-5.2); Alkaline Phosphatase 156 IU/L (35-105); Anion Gap 17.9 (5-19); Aspartate Amino Transferase 29 U/L (0-32); Blood Urea Nitrogen 15 mg/dL (6-20); Calcium 9.3 mg/dL (8.5-10.5); Carbon Dioxide 21 mmol/L (22-29); Chloride 100 mmol/L (98-107); Creatinine Clr Calc Pharmacy 82.5737; Globulin 2.6 g/dL (1.3-4.6); Glomerular Filtration Rate 73.7 mL/min (90-130); Glucose 331 mg/dL (65-115); Osmolality Calculated 294 mOsm/kg (285-295); Potassium 3.9 mmol/L (3.5-5.1); Sodium 135 mmol/L (136-145); Total Bilirubin 0.2 mg/dL (0.15-1.2); Total Protein 6.2 g/dL (6.6-8.7)
[2021-07-08 10:16] VITALS: PULSE 106; RESP 16; O2SAT 97
--- NOTE | 2021-07-08 10:37 | CT_ITS ---
WS: [id number] CT ABDOMEN PELVIS TECHNIQUE: Noncontrast CT of the abdomen and pelvis with coronal and sagittal reformatted images. CLINICAL INFORMATION: uti, poor oral intake, abdominal discomfort COMPARISON: CT abdomen pelvis March 18, 2020 DLP: 1687.[address] scans at [facility] use at least one of these dose optimization techniques: automated e xposure control; mA and/or kV adjustment per patient size (includes targeted exams where dose is matc hed to clinical indication); or iterative reconstruction. FINDINGS: Subsegmental atelectasis in the lung bases. Bronchiectasis in the lung bases. Noncontrast liver is no rmal. Gallbladder is contracted. Small esophageal hiatal hernia. Fatty atrophy of the pancreas. Monae l noncontrast spleen. Normal caliber abdominal aorta. Mild aortic calcification aortic endograft with biiliac extension. RIGHT iliac stent. Adrenal glands are normal. No hydronephrosis in either kidney. No obstructing renal or ureteral calcu li calculi. A few pelvic phleboliths. Urine distended bladder. Normal sigmoid colon. A few diverticul i. Inspissated secretions in the appendix. No evidence of acute appendicitis. Appendicolith in distal appendix. No evidence of acute diverticulitis. Normal lumbar spine. CT/CT kidney stone [id number] IMPRESSION: 1. No hydronephrosis in either kidney. No obstructing renal or ureteral calcul i. 2. Small esophageal hiatal hernia. 3. Mild hepatomegaly. 4. Aortic endograft with biiliac extension. No evidence of abdominal aortic an eurysm. RIGHT iliac artery stent. 5. Urine distended bladder. 6. Sigmoid diverticuli. 7. No acute findings in the abdomen or pelvis.
[2021-07-08 10:48] LABS: Glucose Point of Care 319 mg/dL (70-110)
[2021-07-08 14:00] VITALS: BP 120/70; PULSE 101; RESP 17; TEMP 37.4; O2SAT 94
--- NOTE | 2021-07-08 14:22 | P.NPUPN_ITS ---
Subjective NPU Subjective: Interval history: Patient presents today continuing to have the same symptoms and reports. She reports being thirsty, hungry and not feeling well. She is taking her me dication including her antibiotic. She is mostly listless and laying in bed. Continue to collaborate with hospitalist on best location for her treatment. We discussed with her that we are trying to decide whether she would be better served on the hospital floor with a psychiatric consult or on the psychiatric floor with a hospital consult but that there is a plan for CT scan and we will make that decision once the CT scan is resulted. Otherwise there is no changes reported. Mental Status Exam MSE Comments: This is an obese, white female, looking older than her stated age, with limited grooming, and eye contact. No abnormal movements. She had less instability of gait but still somewhat unsteady. More cooperative with exam in no acute distress. Mild hirsutism identified; mood described as not feeling great; affect somewhat confused. Thought process, linear at times. Thought content: patient denied any suicidal or homicidal ideation, there were no delusions reported but she had some strange thoughts that could represent delusion versus delirium, patient denied any auditory or visual hallucinations but at times appeared she might be having perceptual disturbances.? Attention and concentration were limited, and memory was unreliable, but none were formally tested. She is alert and oriented to persons and place. Insight and judgment are impaired. Impulse control is impaired. Vitals/I&O/Wt Last Vital Signs Temp 99.4 F 07/08/21 18:07 Pulse 101 H 07/08/21 18:07 Resp 17 07/08/21 18:07 BP 120/70 07/08/21 18:07 Pulse Ox 94 07/08/21 18:07 Data NPU : 07/09/21 04:43 07/09/21 04:43 Micro: Microbiology 07/06/21 18:28 Urine Culture - Final Urine Catheterized Microbiology 07/06/21 18:28 Urine Catheterized Urine Culture - Final A&P Assessment and plan (1) Insulin dependent type 2 diabetes mellitus: Status: Acute (2) UTI (urinary tract infection): Status: Acute (3) Acute encephalopathy: Status: Acute (4) Acute psychosis: Status: Acute (5) Mild dehydration: Status: Acute (6) Generalized anxiety disorder: Status: Acute (7) Cannabis abuse: Status: Acute (8) Polyp of duodenum: Status: Resolved (9) Bipolar II disorder: Status: Acute (10) Chronic post-traumatic stress disorder (PTSD): Status: Acute Plan This is a 56-year-old, white female, with a documented mental health history, previous hospitalizations here, but once again, presents likely after disc ontinuing her medication with lack of clarity and medical comorbidities. RECOMMENDATION AND PLAN: 1. Continue current medication, as appropriate. 2. We will work with outpatient team on restarting her regular psychiatric medications by contacting them tomorrow. 3. Encourage individual, group, and milieu therapy. 4. Appreciate hospitalist consult and will follow their recommendations as indicated.? We'll explore today whether she might not need to be a hospital patient with a psychiatric consult instead of the current psychiatric patient with a hospitalist consult based on the findings of the CT. Involuntary Hold Information 96 Hour Hold: 96 Hour Involuntary Admission: No Attestations NPU Medical Necessity Statement*: Inpatient hospitalization is medically necessary and the clinically appropriate intervention, at this time. We will monitor medications and make changes as indicated.? Likely length of stay is 2-4 days. But we will work with the hospitalist on medical necessity with possible transfer to medical floor for primary care. Coding Level of Care Code Acute Special Loan Officer for g Fwd Diagnoses Insulin dependent type 2 diabetes mellitus E11.9; Z79.4 UTI (urinary tract infection) N39.0 Acute encephalopathy G93.40 Acute psychosis F23 Mild dehydration E86.0 Generalized anxiety disorder F41.1 Cannabis abuse F12.10 Polyp of duodenum K31.7 Bipolar II disorder F31.81 Chronic post-traumatic stress disorder (PTSD) F43.12
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
[2021-07-08 16:55] LABS: Glucose Point of Care 357 mg/dL (70-110)
[2021-07-08 18:07] VITALS: BP 120/70; PULSE 101; RESP 17; TEMP 37.4; O2SAT 94
[2021-07-08 18:52] VITALS: BP 137/76; PULSE 101; RESP 18; TEMP 37.4; O2SAT 97
[2021-07-08] MEDS: OLANZapine 5 mg TABLET 7.5 MG PO (19:56)
[2021-07-08] MEDS: quetiapine 100 mg Tablet 200 MG PO (19:56)
[2021-07-08] MEDS: trazodone 50 mg Tablet PO (19:57)
[2021-07-08] MEDS: acetaminophen 325 mg Tablet 650 MG PO (19:57)
[2021-07-08 20:00] VITALS: BP 129/53; PULSE 97; RESP 20; TEMP 36.8; O2SAT 97
[2021-07-08] MEDS: nicotine 21 mg Patch 1 PATCH TRANSDERMA (20:08)
[2021-07-08] MEDS: prazosin 5 mg Capsule PO (21:45)
[2021-07-09] VITALS (7 sets, daily range): BP systolic 110–145; BP diastolic 72–86; PULSE 84–96; RESP 18–20; TEMP 36.6–37; O2SAT 94–97
[2021-07-09 05:07] LABS: Basophils # 0.1 10^3/uL (0.0-0.1); Basophils % 1.2 %; Eosinophils # 0.2 10^3/uL (0.0-0.8); Eosinophils % 4.3 %; Hematocrit 34.8 % (37.0-47.0); Hemoglobin 10.3 g/dL (11.5-15.3); Lymphocytes % 39.6 %; Mean Corpuscular HGB Conc 29.6 g/dL (30.0-36.0); Mean Corpuscular Hemoglobin 23.8 pg (28.0-34.0); Mean Corpuscular Volume 80.4 fl (81-99); Mean Platelet Volume 9.4 fL (7.4-10.4); Monocytes # 0.6 10^3/uL (0.2-0.9); Neutrophils # 2.21 10^3/uL (1.8-7.7); Neutrophils % 43.5 %; Nucleated Red Blood Cells % 0 %; Platelet Count 350 10^3/cmm (130-400); Red Blood Count 4.33 10^6/uL (4.1-5.3); Red Cell Distribution Width 17.5 % (12.1-15.1); White Blood Count 5.1 10^3/uL (4.0-10.0)
[2021-07-09 05:23] LABS: Alanine Aminotransferase 26 U/L (0-33); Albumin Level 3.5 g/dL (3.5-5.2); Alkaline Phosphatase 146 IU/L (35-105); Anion Gap 19.4 (5-19); Aspartate Amino Transferase 20 U/L (0-32); Blood Urea Nitrogen 16 mg/dL (6-20); Calcium 8.9 mg/dL (8.5-10.5); Carbon Dioxide 22 mmol/L (22-29); Chloride 100 mmol/L (98-107); Creatinine Clr Calc Pharmacy 82.5737; Globulin 2.5 g/dL (1.3-4.6); Glomerular Filtration Rate 73.7 mL/min (90-130); Glucose 357 mg/dL (65-115); Osmolality Calculated 300 mOsm/kg (285-295); Potassium 4.4 mmol/L (3.5-5.1); Sodium 137 mmol/L (136-145); Total Bilirubin 0.2 mg/dL (0.15-1.2)
[2021-07-09] MEDS: ciprofloxacin 500 mg Tablet PO ×2 (05:50→17:45)
[2021-07-09] MEDS: pregabalin 100 mg Capsule 200 MG PO ×3 (05:50→20:34)
[2021-07-09 06:06] LABS: Glucose Point of Care 313 mg/dL (70-110)
[2021-07-09 06:06] LABS: Glucose Point of Care 285 mg/dL (70-110)
[2021-07-09] MEDS: cetirizine 10 mg Tablet PO (08:05)
[2021-07-09] MEDS: apixaban 5 mg Tablet PO ×2 (08:05→17:45)
[2021-07-09] MEDS: atorvastatin 40 mg Tablet 20 MG PO (08:05)
[2021-07-09] MEDS: duloxetine 30 mg Capsule PO (08:05)
[2021-07-09] MEDS: pantoprazole DR 40 mg Tablet PO (08:06)
[2021-07-09] MEDS: insulin lispro 100 unit/1 mL SUBCUT ×3 (08:06→20:35)
[2021-07-09] MEDS: acetaminophen 325 mg Tablet 650 MG PO ×2 (08:07→17:45)
[2021-07-09 09:21] LABS: Ketone (Acetest) Serum Negative (Negative)
[2021-07-09 09:30] LABS: Lactate (Lactic Acid level) 2.2 mmol/L (0.5-2.2)
[2021-07-09 10:19] LABS: Add Urine Microscopic? YES; Bilirubin Urine Neg (Negative); Blood Urine Neg (Negative); Glucose Urine UA 4+ (Normal); Ketones Urine Negative (Negative); Leukocyte Esterase Urine Trace (Negative); Nitrate Urine Negative (Negative); Protein Urine Neg (Negative); Specific Gravity, Urine 1.015 (1.005-1.030); Urine Appearance Clear (CLEAR); Urine Color Yellow (Yellow); Urobilinogen Urine Norm (Negative); pH Urine 6 (5-7)
[2021-07-09] MEDS: lactated ringers 1,000 ML 75 ML IV ×2 (10:21→22:04)
[2021-07-09 10:22] LABS: Add Urine Culture? Yes; Bacteria Urine 1+ /hpf; RBC Urine 0-4 /hpf (0-2); Transitional Epi Cells Urine 0-4 /hpf; WBC Urine 15-25 /hpf (0-5)
[2021-07-09 11:25] LABS: Glucose Point of Care 112 mg/dL (70-110)
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
[2021-07-09 17:41] LABS: Creatine Phosphokinase 44 U/L (26-192)
[2021-07-09] MEDS: OLANZapine 5 mg TABLET 7.5 MG PO (20:33)
[2021-07-09] MEDS: quetiapine 100 mg Tablet 200 MG PO (20:34)
--- NOTE | 2021-07-09 20:55 | W.PM.NPUPNS ---
Subjective NPU Subjective: Interval history: Patient presents today reporting that the day went fine. She continued to say the pain she is been saying the last few days which is that she is thirsty and hungry. However today she did not report not feeling well. She reports that it is been good not having a full bladder. She denies having any major issues. She reports that eating and sleeping fine. She reports that she spoke with her and that he seemed to think she was doing better as well. Mental Status Exam MSE Comments: This is an obese, white female, looking older than her stated age, with limited grooming, and eye contact. No abnormal movements. She had less instability of gait but still somewhat unsteady.? More cooperative with exam in no acute distress. Mild hirsutism identified; mood described as feeling better; affect somewhat confused. Thought process, linear at times. Thought content: patient denied any suicidal or homicidal ideation, there were no delusions reported but she had some strange thoughts that could represent delusion versus delirium, patient denied any auditory or visual hallucinations but at times appeared she might be having perceptual disturbances.? Attention and concentration were limited, and memory was unreliable, but none were formally tested. She is alert and oriented to persons and place. Insight and judgment are impaired. Impulse control is impaired. Vitals/I&O/Wt Last Vital Signs Temp 98.2 F 07/09/21 20:28 Pulse 86 07/09/21 20:28 Resp 18 07/09/21 20:28 BP 145/86 07/09/21 20:28 Pulse Ox 96 07/09/21 20:28 07/09/21 14:59 Intake Total 360 / 360 Output Total 350 / 350 Balance Physical Exam Urinary Catheter Management: Sanchez: Cath Placed During This Visit: yes Reason for Continuing Indwelling Catheter: Acute Urinary Retention or Obstruction Urinary Catheter Date of Insertion: 07/08/21 Urinary Catheter Time of Insertion: 18:26 Data NPU : 07/10/21 02:45 07/10/21 02:45 A&P Assessment and plan (1) Generalized muscle ache: Status: Acute (2) Muscle ache: Status: Acute (3) Insulin dependent type 2 diabetes mellitus: Status: Acute (4) UTI (urinary tract infection): Status: Acute (5) Acute encephalopathy: Status: Acute (6) Acute psychosis: Status: Acute (7) Mild dehydration: Status: Acute (8) Generalized anxiety disorder: Status: Acute (9) Cannabis abuse: Status: Acute (10) Polyp of duodenum: Status: Resolved (11) Bipolar II disorder: Status: Acute (12) Chronic post-traumatic stress disorder (PTSD): Status: Acute Plan This is a 56-year-old, white female, with a documented mental health history, previous hospitalizations here, but once again, presents likely after discontinuing her medication with lack of clarity and medical comorbidities. RECOMMENDATION AND PLAN: 1. Continue current medication, as appropriate. 2. We will work with outpatient team on restarting her regular psychiatric medications by contacting them tomorrow. 3. Encourage individual, group, and milieu therapy. Involuntary Hold Information 96 Hour Hold: 96 Hour Involuntary Admission: No Attestations NPU Medical Necessity Statement*: N/A. Please see primary team note for medical necessity but will continue to follow. Coding Level of Care Code Acute Delivery Crew Member for [facility] Diagnoses Generalized muscle ache M79.10 Muscle ache M79.10 Insulin dependent type 2 diabetes mellitus E11.9; Z79.4 UTI (urinary tract infection) N39.0 Acute encephalopathy G93.40 Acute psychosis F23 Mild dehydration E86.0 Generalized anxiety disorder F41.1 Cannabis abuse F12.10 Polyp of duodenum K31.7 Bipolar II disorder F31.81 Chronic post-traumatic stress disorder (PTSD) F43.12
[2021-07-09] MEDS: prazosin 5 mg Capsule PO (21:54)
[2021-07-09] MEDS: nicotine 21 mg Patch 1 PATCH TRANSDERMA (21:59)
[2021-07-09] MEDS: benzonatate 100 mg Capsule 200 MG PO (22:03)
[2021-07-10] VITALS (8 sets, daily range): BP systolic 107–150; BP diastolic 45–82; PULSE 85–106; RESP 16–18; TEMP 36.3–37.1; O2SAT 93–96
[2021-07-10 03:06] LABS: Basophils # 0.1 10^3/uL (0.0-0.1); Basophils % 1.1 %; Eosinophils # 0.3 10^3/uL (0.0-0.8); Eosinophils % 4.7 %; Hematocrit 33.5 % (37.0-47.0); Hemoglobin 9.8 g/dL (11.5-15.3); Lymphocytes # 2.7 10^3/uL (0.8-4.8); Lymphocytes % 49.3 %; Mean Corpuscular HGB Conc 29.3 g/dL (30.0-36.0); Mean Corpuscular Hemoglobin 23.6 pg (28.0-34.0); Mean Corpuscular Volume 80.7 fl (81-99); Mean Platelet Volume 9.6 fL (7.4-10.4); Monocytes # 0.6 10^3/uL (0.2-0.9); Monocytes % 10.6 %; Neutrophils # 1.86 10^3/uL (1.8-7.7); Neutrophils % 33.9 %; Nucleated Red Blood Cells % 0 %; Platelet Count 344 10^3/cmm (130-400); Red Blood Count 4.15 10^6/uL (4.1-5.3); Red Cell Distribution Width 17.2 % (12.1-15.1); White Blood Count 5.5 10^3/uL (4.0-10.0)
[2021-07-10 03:11] LABS: Erythrocyte Sedimentation Rate 19 mm/hr (0-15)
[2021-07-10 03:30] LABS: Alanine Aminotransferase 28 U/L (0-33); Albumin Level 3.5 g/dL (3.5-5.2); Alkaline Phosphatase 148 IU/L (35-105); Anion Gap 15.7 (5-19); Aspartate Amino Transferase 24 U/L (0-32); Blood Urea Nitrogen 18 mg/dL (6-20); Calcium 9.2 mg/dL (8.5-10.5); Carbon Dioxide 24 mmol/L (22-29); Chloride 103 mmol/L (98-107); Globulin 2.5 g/dL (1.3-4.6); Glomerular Filtration Rate 64.3 mL/min (90-130); Glucose 217 mg/dL (65-115); Osmolality Calculated 294 mOsm/kg (285-295); Potassium 4.7 mmol/L (3.5-5.1); Sodium 138 mmol/L (136-145); Total Bilirubin 0.2 mg/dL (0.15-1.2)
[2021-07-10] MEDS: acetaminophen 325 mg Tablet 650 MG PO ×2 (04:58→12:40)
[2021-07-10] MEDS: pregabalin 100 mg Capsule 200 MG PO ×3 (04:58→21:30)
[2021-07-10] MEDS: ciprofloxacin 500 mg Tablet PO ×2 (05:00→17:30)
[2021-07-10 07:46] LABS: Glucose Point of Care 195 mg/dL (70-110)
[2021-07-10 07:46] LABS: Glucose Point of Care 291 mg/dL (70-110)
[2021-07-10] MEDS: apixaban 5 mg Tablet PO ×2 (08:49→17:31)
[2021-07-10] MEDS: cetirizine 10 mg Tablet PO (08:49)
[2021-07-10] MEDS: pantoprazole DR 40 mg Tablet PO (08:49)
[2021-07-10] MEDS: insulin lispro 100 unit/1 mL SUBCUT ×4 (08:49→21:28)
[2021-07-10] MEDS: duloxetine 30 mg Capsule PO (08:49)
[2021-07-10 12:19] LABS: Glucose Point of Care 331 mg/dL (70-110)
[2021-07-10 12:21] LABS: Glucose Point of Care 251 mg/dL (70-110)
--- NOTE | 2021-07-10 15:14 | P.PN_ITS ---
Subjective Subjective: Says she still does not feel well. Generalized ache has improved. Still abdominal discomfort. Feels thirsty. Has been drinking quite a bit. States she has not been to work because she has a Sanchez. Discussed with her Sanchez was placed to prevent urinary retention, and that we want her to get up and get around. Encouraged to work with therapy. Vitals/I&O/Wt Last Vital Signs Temp 97.6 F 07/10/21 11:57 Pulse 89 07/10/21 11:57 Resp 16 07/10/21 11:57 BP 126/81 07/10/21 11:57 Pulse Ox 95 07/10/21 11:57 07/10/21 07/10/21 07/10/21 06:59 14:59 22:59 Intake Total 960 / 2678.75 1840 / 1840 Output Total 1450 / 3130 2049 / 2049 Balance -490 / -451.25 -210 / -210 Physical Exam Const: GENERAL APPEARANCE: cooperative NUTRITIONAL APPEARANCE: overweight ORIENTATION/CONSCIOUSNESS: Yes awake OTHER: Awake, finishing breakfast. HENMT: COMMON NORMALS: oropharynx normal Neck/C-Spine: COMMON NORMALS: no JVD Resp: COMMON NORMALS: normal respiratory effort and clear to auscultation bilaterally AUSCULTATION: clear to auscultation bilaterally Cardio: COMMON NORMALS: no JVD, regular rhythm, S1 normal heart sound present, S2 normal heart sound present and No murmurs present (Cardio) RHYTHM: regular rhythm HEART SOUNDS: S1 normal heart sound present and S2 normal heart sound present GI: COMMON NORMALS: Normal to inspection, nondistended, normoactive bowel sounds present and Soft to palpation PALPATION: Yes Soft to palpation and Yes Tenderness to palpation present (GI) (Mild general) Extremity: COMMON NORMALS: no joint enlargement and no pedal edema Neuro: COMMON NORMALS: moves all extremities Skin: COMMON NORMALS: no rashes or lesions noted GENERAL SKIN EXAM: no rashes or lesions noted Urinary Catheter Management: Sanchez: Cath Placed During This Visit: yes Reason for Continuing Indwelling Catheter: Acute Urinary Retention or Obstruction Urinary Catheter Date of Insertion: 07/08/21 Urinary Catheter Time of Insertion: 18:26 Data : 07/10/21 02:45 07/10/21 02:45 Micro: Microbiology 07/05/21 11:32 Blood Culture - Final Blood NO GROWTH AFTER 5 DAYS 07/05/21 11:34 Blood Culture - Final Blood NO GROWTH AFTER 5 DAYS A&P Assessment and plan (1) Polyuria: UOP 4830. Lasix had been held. Received IV fluid infusion. Will discontinue infusion. Monitor urine output. She has still been drinking quite a bit. If still polyuria after holding IV fluids and Lasix will request additional urine studies. Possible hospice or psychogenic polydipsia. Osmotic diuresis secondary to hyperglycemia possible as well, although glucose highest was 357 this morning. Insulin level increased, continue to optimize. Status: Acute (2) Acute psychosis: Discussed with psychiatry. At this time is not felt to be due to primary psychiatric illness, but she does have some bizarre ideation as discussed. Consideration of acute encephalopathy possibly due to infection, UTI, or metabolic. Scheduled to review her medications in case anything can be causing anticholinergic symptoms. With some persistent abdominal discomfort assessed by CT abdomen pelvis largely unremarkable, with noted urine distended bladder. The same time she reports feeling dry/thirsty. We will moved to medical floor, decompressed with Sanchez, continue treatment of UTI. Psychiatry will adjust her medicines. Status: Acute (3) Acute encephalopathy: Somewhat more alert. Mostly staying bed. Encouraged her to mobilize, work with PT, OT Had previously reported bizarre ideation feeling like she has been stomped on by somebody at home. Not felt to be primary psychiatric problem by psychiatry with more consideration of delirium. As above. Denies any visual or auditory hallucinations. Anion improving. Bicarb improved.. Check lactic acid, 2.2. No urine or serum ketones. Status: Acute (4) Generalized muscle ache: Possible statin induced myopathy. Statin stopped. Generalized body ache improved. Still reports abdominal tenderness/discomfort. No obvious causes noted on CT abdomen pelvis. CK normal ESR mildly elevated at 15. Status: Acute (5) Mild dehydration: Continues to complain that she is thirsty, drinking quite a lot, tremor of wa ter, multiple soda cans, Glucerna. Lasix have been held. Received day off IV hydration with LR. Stopped. Additional assessment of polyuria as above. Status: Acute (6) UTI (urinary tract infection): Discontinue antibiotic from tomorrow. Urine culture unrevealing. Urine distended bladder. Decompressed with Sanchez. Some persistence of abdominal tenderness, but with improvement. Status: Acute (7) Insulin dependent type 2 diabetes mellitus: Continue sliding scale insulin, consistent carbohydrate diet. Status: Acute Plan Abdominal tenderness: With improvement. Possibly in part from urine distended bladder. Decompressed with Sanchez. No hydronephrosis. But appears to have diffuse muscle ache, as above. Lower extremity VT on Eliquis -Also reports IVC filter placement? Attestations Medical Necessity Statement*: Continue admission for additional assessment and management of acute psychosis/encephalopathy, polyuria. Coding Level of Care Code Acute Band Bias Machine Operator for g Fwd Exam Comprehensive Diagnoses Acute psychosis F23 Acute encephalopathy G93.40 Generalized muscle ache M79.10 Mild dehydration E86.0 UTI (urinary tract infection) N39.0 Insulin dependent type 2 diabetes mellitus E11.9; Z79.4 Polyuria R35.89
[2021-07-10 17:20] LABS: Glucose Point of Care 221 mg/dL (70-110)
--- NOTE | 2021-07-10 19:00 | W.PM.NPUPNS ---
Subjective NPU Subjective: Interval history: Patient presents today seeming much more with her dad several days ago we met the neuropsychiatric unit. The first time she did not report being thirsty or hungry during the interview. She spoke very recently about her and their communications. She talked very recently about her son and their interactions. She talked about her wondering about when she would be able to come home and her reporting that it would be up to the doctors at her continued recovery from her urinary tract infection. No negative speak about anybody in her cervical or anybody being a problem to her. Mental Status Exam MSE Comments: This is an obese, white female, looking older than her stated age, with limited grooming, and eye contact. No abnormal movements. Not observed ambulating so unsure of any change in gait. More cooperative with exam in no acute distress. Mild hirsutism identified; mood described as better; affect appeared congruent. Thought process, more organized. Thought content: patient denied any suicidal or homicidal ideation, there were no delusions reported or noted, patient denied any auditory or visual hallucinations.? Attention and concentration were improving, and memory was more reliable, but none were formally tested. She is alert and oriented x3. Insight and judgment are improving. Impulse control is improving. Vitals/I&O/Wt Last Vital Signs Temp 98.8 F 07/10/21 16:00 Pulse 85 07/10/21 16:00 Resp 16 07/10/21 16:00 BP 136/79 07/10/21 16:00 Pulse Ox 95 07/10/21 16:00 07/10/21 14:59 Intake Total 1840 / 1840 Output Total 2049 / 2049 Balance -210 / -210 Physical Exam Urinary Catheter Management: Sanchez: Cath Placed During This Visit: yes Reason for Continuing Indwelling Catheter: Acute Urinary Retention or Obstruction Urinary Catheter Date of Insertion: 07/08/21 Urinary Catheter Time of Insertion: 18:26 Data NPU : 07/11/21 01:50 07/11/21 01:50 Micro: Microbiology 07/05/21 11:32 Blood Culture - Final Blood NO GROWTH AFTER 5 DAYS 07/05/21 11:34 Blood Culture - Final Blood NO GROWTH AFTER 5 DAYS Microbiology 07/05/21 11:32 Blood Blood Culture - Final NO GROWTH AFTER 5 DAYS 07/05/21 11:34 Blood Blood Culture - Final NO GROWTH AFTER 5 DAYS A&P Assessment and plan (1) Polyuria: Status: Acute (2) Generalized muscle ache: Status: Acute (3) Insulin dependent type 2 diabetes mellitus: Status: Acute (4) UTI (urinary tract infection): Status: Acute (5) Acute encephalopathy: Status: Acute (6) Acute psychosis: Status: Acute (7) Mild dehydration: Status: Acute (8) Generalized anxiety disorder: Status: Acute (9) Cannabis abuse: Status: Acute (10) Polyp of duodenum: Status: Resolved (11) Bipolar II disorder: Status: Acute (12) Chronic post-traumatic stress disorder (PTSD): Status: Acute Plan This is a 56-year-old, white female, with a documented mental health history, previous hospitalizations here, but once again, presents likely after discontinuing her medication with lack of clarity and medical comorbidities. 1. Continue current medication. 2. Appears delirious resolving. 3. Likely can go home when medically cleared. 4. We will continue to follow. Involuntary Hold Information 96 Hour Hold: 96 Hour Involuntary Admission: No Attestations NPU Medical Necessity Statement*: N/A. Please see primary team note for medical necessity but will continue to follow. 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
[2021-07-10 20:59] LABS: Glucose Point of Care 220 mg/dL (70-110)
[2021-07-10] MEDS: OLANZapine 5 mg TABLET 7.5 MG PO (21:29)
[2021-07-10] MEDS: prazosin 5 mg Capsule PO (21:30)
[2021-07-10] MEDS: quetiapine 100 mg Tablet 200 MG PO (21:30)
[2021-07-10] MEDS: hyDROXYzine 25 mg Capsule 50 MG PO (21:54)
[2021-07-11] VITALS (8 sets, daily range): BP systolic 115–160; BP diastolic 56–88; PULSE 80–109; RESP 16–18; TEMP 36.4–36.8; O2SAT 93–98
[2021-07-11] MEDS: acetaminophen 325 mg Tablet 650 MG PO ×2 (00:10→09:03)
[2021-07-11 03:01] LABS: Basophils # 0.1 10^3/uL (0.0-0.1); Basophils % 0.7 %; Eosinophils # 0.3 10^3/uL (0.0-0.8); Eosinophils % 3.7 %; Hematocrit 35.1 % (37.0-47.0); Hemoglobin 10.3 g/dL (11.5-15.3); Lymphocytes # 3.1 10^3/uL (0.8-4.8); Lymphocytes % 39.9 %; Mean Corpuscular HGB Conc 29.3 g/dL (30.0-36.0); Mean Corpuscular Hemoglobin 23.8 pg (28.0-34.0); Mean Corpuscular Volume 81.3 fl (81-99); Mean Platelet Volume 9.8 fL (7.4-10.4); Monocytes # 0.6 10^3/uL (0.2-0.9); Monocytes % 7.7 %; Neutrophils # 3.65 10^3/uL (1.8-7.7); Neutrophils % 47.6 %; Nucleated Red Blood Cells % 0 %; Platelet Count 357 10^3/cmm (130-400); Red Blood Count 4.32 10^6/uL (4.1-5.3); Red Cell Distribution Width 17.1 % (12.1-15.1); White Blood Count 7.7 10^3/uL (4.0-10.0)
[2021-07-11 03:23] LABS: Alanine Aminotransferase 26 U/L (0-33); Albumin Level 3.5 g/dL (3.5-5.2); Alkaline Phosphatase 154 IU/L (35-105); Anion Gap 17.5 (5-19); Aspartate Amino Transferase 19 U/L (0-32); Blood Urea Nitrogen 18 mg/dL (6-20); Calcium 9.5 mg/dL (8.5-10.5); Carbon Dioxide 24 mmol/L (22-29); Chloride 101 mmol/L (98-107); Creatinine Clr Calc Pharmacy 82.5737; Globulin 2.8 g/dL (1.3-4.6); Glomerular Filtration Rate 73.7 mL/min (90-130); Glucose 217 mg/dL (65-115); Osmolality Calculated 294 mOsm/kg (285-295); Potassium 4.5 mmol/L (3.5-5.1); Sodium 138 mmol/L (136-145); Total Bilirubin 0.2 mg/dL (0.15-1.2); Total Protein 6.3 g/dL (6.6-8.7)
[2021-07-11] MEDS: ciprofloxacin 500 mg Tablet PO (06:26)
[2021-07-11] MEDS: pregabalin 100 mg Capsule 200 MG PO ×2 (06:26→16:16)
[2021-07-11 06:38] LABS: Glucose Point of Care 204 mg/dL (70-110)
[2021-07-11] MEDS: duloxetine 30 mg Capsule PO (08:16)
[2021-07-11] MEDS: cetirizine 10 mg Tablet PO (08:16)
[2021-07-11] MEDS: insulin lispro 100 unit/1 mL SUBCUT ×2 (08:17→12:17)
[2021-07-11] MEDS: pantoprazole DR 40 mg Tablet PO (08:17)
[2021-07-11] MEDS: apixaban 5 mg Tablet PO (08:17)
[2021-07-11 11:02] LABS: Glucose Point of Care 292 mg/dL (70-110)
[2021-07-11] MEDS: nicotine 21 mg Patch 1 PATCH TRANSDERMA (12:17)
[2021-07-11 17:04] LABS: Glucose Point of Care 339 mg/dL (70-110)
--- NOTE | 2021-07-11 18:18 | PC.NURSE ---
discussed discharge paperwork and follow up appointments patient needs to call and make. Medications and further issues. Verbalized understanding.
--- NOTE | 2021-07-11 22:33 | PM.DCS ---
Discharge Providers Date of Admission: 07/05/21 16:45 Date of Discharge: July 11, 2021 Attending Provider at Admission: Edgardo Hines MD Attending Provider at Discharge: Edgardo Hines MD Primary Care Provider: Flaco Gresham Diagnoses at Discharge Discharge Diagnosis (1) Polyuria: Status: Acute (2) Generalized muscle ache: Status: Acute (3) Insulin dependent type 2 diabetes mellitus: Status: Acute (4) UTI (urinary tract infection): Status: Acute (5) Acute encephalopathy: Status: Acute (6) Acute psychosis: Status: Acute (7) Mild dehydration: Status: Acute (8) Generalized anxiety disorder: Status: Acute (9) Cannabis abuse: Status: Acute (10) Polyp of duodenum: Status: Resolved (11) Bipolar II disorder: Status: Acute (12) Chronic post-traumatic stress disorder (PTSD): Status: Acute Reason for Visit Reason for Visit: AMS; HYPERGLYCEMIA Hospital Course Hospital Course 56-year-old lady with history of bipolar disorder, PTSD, remote history of Adderall dependence, DM2, no history of DVT, status post IVC filter, on Eliquis, MANOLO was admitted on 07/06, to neuropsychiatric antibiotic ER after presenting with confusion, bizarre ideation, concerns of psychosis, stating [employer] was looking for her, poor historian, with also noted hyperglycemia over 300, similar presentation to ER earlier at which time was also confused, with reporting she is acting similarly, has not been taking her medications. Received IV hydration for dehydration. Was restarted on her psychiatric medicines. Medicine was consulted for hyperglycemia, was restarted on insulin sliding scale and started on long-acting insulin with detemir. During hospitalization complaining of generalized weakness, noted with poor motivation, not getting out of bed, persistent confusional statements, stating she was hurting all over, and that she remembers somebody stomping on her at home, although denies that her would ever do that. Later did not remember the statements. Repeatedly reiterated she was not in harm's way for her and felt safe at home. CT of the head on presentation without acute abnormality. Nonacute chest x-ray with some atelectasis. On initial assessment also found to have signs of urinary tract infection on UA. Underwent 5-day course of treatment with ciprofloxacin. Urine culture ultimately unrevealing. Endorsed feeling hungry, dry, was drinking quite a bit. Endorsed abdominal tenderness for which was additionally assessed by CT abdomen pelvis. No noted hydronephrosis or obstructing renal calculi. Small esophageal hiatal hernia. Mild hepatomegaly. Aortic endograft with by iliac extensions. No evidence of abdominal aortic aneurysm. Right iliac artery stent. Noted urine distended bladder. Sigmoid diverticuli. With possible anticholinergic symptoms considered. With scopolamine patch at home. This was not continued. Was transferred to medical floor for additional decompression of urinary bladder with Sanchez catheter, IV hydration. With generalized body ache statin was discontinued due to possible statin induced myopathy. CK was normal. Statin discontinued for now at discharge until reassessment, discussed with her at a later date may consider initiating different/lower intensity agent. Transient metabolic acidosis noted, lactic acid negative, not in ketoacidosis. This resolved. Her mental status was gradually clearing up. Etiology still unclear. In the hospital dehydration noted resolving. Today she is feeling better, weight is thirsty. History noted polyuria, today slightly better. He is not continued on Lasix, please appear to have improved after stopping IV fluids. Today we did collect urine osmolality and serum osmolality. However, these are send out test will not be available for several days. She has been tolerating food and drink without issue. Today she is more alert, much more interactive. Relays information regarding her prior condition and medical history. is at bedside. Earlier assessment by PT yielded recommendation for return home as she is noted mostly independent, with minimal standby assist. Her is not in the best health, and would not be able to assist in case needing significant assistance, but she is doing quite well. He knows to seek help in case of worsening condition. Currently she is replacing her fluid losses it appears. Abdominal tenderness is gone. However, the cause of the polyuria is not entirely clear. Please follow-up osmolality lab work, and in case of persistence of polyuria consider additional assessment to assess DI versus possible psychogenic polydipsia. She is asked to follow-up with nephrology. Likely also component secondary to hyperglycemia, with glucose now improving. Given prescription for also long-acting insulin. Home health is requested for help with restorative therapy, reassessment of mental status, help with medications. She is asked to resume follow-up with behavioral health care. provides his phone number for the future, cell phone [phone]. home [phone]. Physical Exam Narrative: at bedside. Const: GENERAL APPEARANCE: cooperative NUTRITIONAL APPEARANCE: overweight ORIENTATION/CONSCIOUSNESS: Yes awake OTHER: Awake, more energetic and interactive. HENMT: COMMON NORMALS: oropharynx normal Neck/C-Spine: COMMON NORMALS: no JVD Resp: COMMON NORMALS: normal respiratory effort and clear to auscultation bilaterally AUSCULTATION: clear to auscultation bilaterally Cardio: COMMON NORMALS: no JVD, regular rhythm, S1 normal heart sound present, S2 normal heart sound present and No murmurs present (Cardio) RHYTHM: regular rhythm HEART SOUNDS: S1 normal heart sound present and S2 normal heart sound present GI: COMMON NORMALS: Normal to inspection, nondistended, normoactive bowel sounds present, Soft to palpation and non-tender (Abdominal tenderness resolved.) PALPATION: Yes Soft to palpation Extremity: COMMON NORMALS: no joint enlargement and no pedal edema Neuro: COMMON NORMALS: moves all extremities Skin: COMMON NORMALS: no rashes or lesions noted GENERAL SKIN EXAM: no rashes or lesions noted Urinary Catheter Management: Sanchez: Cath Placed During This Visit: yes, but has since been removed by the nurse Reason for Continuing Indwelling Catheter: Other Urinary Catheter Date of Insertion: 07/08/21 Urinary Catheter Time of Insertion: 18:26 Date Urinary Catheter Removed: 07/11/21 Time Urinary Catheter Discontinued: 17:54 Discharge Data Studies Completed and Pending Completed Studies During Hospitalization Category Date Time Status CT abdomen renal stone [CT kidney stone [id number]] Routine Cat Scan 07/08/21 10:[address] head wo con* [id number] Stat Cat Scan 07/05/21 09:20 Completed XR chest 1V portable [id number] Stat Exams 07/05/21 11:57 Completed Pending at discharge Category Date Time Status Osmolality Serum Routine Lab 07/11/21 08:50 Received Osmolality Urine Routine Lab 07/11/21 15:40 Received Radiology Impressions Head CT 07/05/21 09:20 IMPRESSION: No acute intracranial abnormality. Chest X-Ray 07/05/21 11:57 IMPRESSION: Subsegmental atelectasis in the lung bases. Abdomen/Pelvis CT 07/08/21 10:37 IMPRESSION: 1. No hydronephrosis in either kidney. No obstructing renal or ureteral calculi. 2. Small esophageal hiatal hernia. 3. Mild hepatomegaly. 4. Aortic endograft with biiliac extension. No evidence of abdominal aortic aneurysm. RIGHT iliac artery stent. 5. Urine distended bladder. 6. Sigmoid diverticuli. 7. No acute findings in the abdomen or pelvis. Laboratory Results WBC 7.7 10^3/uL (4.0-10.0) 07/11/21 01:50 RBC 4.32 10^6/uL (4.1-5.3) 07/11/21 01:50 Hgb 10.3 g/dL (11.5-15.3) L 07/11/21 01:50 Hct 35.1 % (37.0-47.0) L 07/11/21 01:50 MCV 81.3 fl (81-99) 07/11/21 01:50 MCH 23.8 pg (28.0-34.0) L 07/11/21 01:50 MCHC 29.3 g/dL (30.0-36.0) L 07/11/21 01:50 RDW 17.1 % (12.1-15.1) H 07/11/21 01:50 Plt Count 357 10^3/cmm (130-400) 07/11/21 01:50 MPV 9.8 fL (7.4-10.4) 07/11/21 01:50 Neut % (Auto) 47.6 % 07/11/21 01:50 Lymph % (Auto) 39.9 % 07/11/21 01:50 [place] % (Auto) 7.7 % 07/11/21 01:50 Eos % (Auto) 3.7 % 07/11/21 01:50 Baso % (Auto) 0.7 % 07/11/21 01:50 Neut # (Auto) 3.65 10^3/uL (1.8-7.7) 07/11/21 01:50 Lymph # (Auto) 3.1 10^3/uL (0.8-4.8) 07/11/21 01:50 [place] # (Auto) 0.6 10^3/uL (0.2-0.9) 07/11/21 01:50 Eos # (Auto) 0.3 10^3/uL (0.0-0.8) 07/11/21 01:50 Baso # (Auto) 0.1 10^3/uL (0.0-0.1) 07/11/21 01:50 Nucleated RBC % (auto) 0 % 07/11/21 01:50 Nucleated RBCs # 0.0 /100WBC 07/11/21 01:50 ESR 19 mm/hr (0-15) H 07/10/21 02:45 Specimen Type Arterial 07/05/21 09:36 Sample Site Radial, right 07/05/21 09:36 ABG pH 7.42 (7.35-7.45) 07/05/21 09:36 ABG pCO2 33.2 mmHg (35-45) L 07/05/21 09:36 ABG pO2 78.0 mmHg (80.0-100.0) L 07/05/21 09:36 ABG HCO3 21.4 mmol/L (22-26) L 07/05/21 09:36 ABG O2 Saturation 97.2 07/05/21 09:36 ABG Base Excess -2.4 mmol/L (-2.0-2.0) L 07/05/21 09:36 Mohsen Test Pos 07/05/21 09:36 A-a O2 Gradient 4.2 mmHg (5-10) L 07/05/21 09:36 Hematocrit 37.5 % (37-47) 07/05/21 09:36 Hgb O2 Saturation 92.4 % (95-100) L 07/05/21 09:36 Carboxyhemoglobin 3.8 %THgb (0.4-20.1) 07/05/21 09:36 Methemoglobin 1.1 % (0.4-1.5) 07/05/21 09:36 Total Hemoglobin 12.2 g/dL (12-16) 07/05/21 09:36 Sodium 136.0 mmol/L (131-143) 07/05/21 09:36 Potassium 4.0 mmol/L (3.5-5.0) 07/05/21 09:36 Glucose 329.0 mg/dL (70-115) H 07/05/21 09:36 Ionized Calcium 1.2 mmol/L (1.1-1.4) 07/05/21 09:36 O2 Delivery Device Room air 07/05/21 09:36 FiO2 21.0 % 07/05/21 09:36 Mop Worker ID Ed 07/05/21 09:36 Sodium 138 mmol/L (136-145) 07/11/21 01:50 Potassium 4.5 mmol/L (3.5-5.1) 07/11/21 01:50 Chloride 101 mmol/L (98-107) 07/11/21 01:50 Carbon Dioxide 24 mmol/L (22-29) 07/11/21 01:50 Anion Gap 17.5 (5-19) 07/11/21 01:50 BUN 18 mg/dL (6-20) 07/11/21 01:50 Creatinine 0.8 mg/dL (0.5-0.9) 07/11/21 01:50 GFR Calculation 73.7 mL/min (90-130) L 07/11/21 01:50 Glucose 217 mg/dL (65-115) H 07/11/21 01:50 POC Glucose 339 mg/dL (70-110) H 07/11/21 16:52 Estimat Average Glucose 214 07/06/21 14:38 Hemoglobin A1c 9.1 % (4.0-6.0) H 07/06/21 14:38 Calculated Osmolality 294 mOsm/kg (285-295) 07/11/21 01:50 Lactic Acid 2.9 mmol/L (0.5-2.2) H 07/05/21 11:32 Lactic Acid (Sepsis) 2.3 mmol/L (0.5-2.2) H 07/05/21 14:10 Lactate 2.2 mmol/L (0.5-2.2) 07/09/21 08:56 Calcium 9.5 mg/dL (8.5-10.5) 07/11/21 01:50 Phosphorus 4.1 mg/dL (2.5-4.5) 07/06/21 14:38 Magnesium 1.8 mg/dL (1.7-2.3) 07/06/21 14:38 Total Bilirubin 0.2 mg/dL (0.15-1.2) 07/11/21 01:50 AST 19 U/L (0-32) 07/11/21 01:50 ALT 26 U/L (0-33) 07/11/21 01:50 Alkaline Phosphatase 154 IU/L (35-105) H 07/11/21 01:50 Creatine Kinase 44 U/L (26-192) 07/09/21 08:56 Troponin T Baseline 7 ng/L (0-10) 07/06/21 14:38 Troponin T 120 Minute 8.49 ng/L (0-10) 07/06/21 17:26 Delta Troponin T Not Reportable 07/06/21 17:26 Troponin T Hi Sens 6Hr 9.33 ng/L (0-10) 07/06/21 20:10 Troponin T Hi Sens 6Hr Delta Not Reportable 07/06/21 20:10 C-Reactive Protein 11.7 mg/L (0.0-4.9) H 07/06/21 14:38 NT-Pro-B Natriuret Pep 65 pg/mL (0-125) 07/06/21 14:38 Total Protein 6.3 g/dL (6.6-8.7) L 07/11/21 01:50 Albumin 3.5 g/dL (3.5-5.2) 07/11/21 01:50 Globulin 2.8 g/dL (1.3-4.6) 07/11/21 01:50 Lipase 56 U/L (13-60) 07/06/21 14:38 Procalcitonin 0.08 ng/mL (0-0.5) 07/06/21 14:38 Urine Color Yellow (Yellow) 07/09/21 Unknown Urine Appearance Clear (CLEAR) 07/09/21 Unknown Urine pH 6 (5-7) 07/09/21 Unknown Ur Specific [place] 1.015 (1.005-1.030) 07/09/21 Unknown Urine Protein Neg (Negative) 07/09/21 Unknown Urine Glucose (UA) 4+ (Normal) H 07/09/21 Unknown Urine Ketones Negative (Negative) 07/09/21 Unknown Urine Blood Neg (Negative) 07/09/21 Unknown Urine Nitrate Negative (Negative) 07/09/21 Unknown Urine Bilirubin Neg (Negative) 07/09/21 Unknown Urine Urobilinogen Norm mg/dL (Negative) 07/09/21 Unknown Ur Leukocyte Esterase Trace (Negative) H 07/09/21 Unknown Urine RBC 0-4 /hpf (0-2) H 07/09/21 Unknown Urine WBC 15-25 /hpf (0-5) H 07/09/21 Unknown Ur Squamous Epith Cells 5-10 /hpf (0-5) H 07/09/21 Unknown Ur Transition Epith Cell 0-4 /hpf 07/09/21 Unknown Amorphous Sediment Not Reportable 07/09/21 Unknown Urine Bacteria 1+ /hpf (NONE) H 07/09/21 Unknown Urine Yeast 2+ /hpf H 07/09/21 Unknown Urine Opiates Screen Positive ng/mL (Negative) H 07/05/21 11:17 Ur Barbiturates Screen Negative ng/mL (Negative) 07/05/21 11:17 Ur Phencyclidine Scrn Negative ng/mL (Negative) 07/05/21 11:17 Ur Amphetamines Screen Negative ng/mL (Negative) 07/05/21 11:17 U Benzodiazepines Scrn Negative ng/mL (Negative) 07/05/21 11:17 Urine Cocaine Screen Negative ng/mL (Negative) 07/05/21 11:17 U Marijuana (THC) Screen Negative ng/mL (Negative) 07/05/21 11:17 Serum Ketones Negative (Negative) 07/09/21 08:56 SARS-CoV-2 Ag (Rapid) Negative (Negative) 07/06/21 10:25 Vitals Last Vital Signs Temp 98.2 F 07/11/21 11:21 Pulse 109 H 07/11/21 18:41 Resp 18 07/11/21 18:41 BP 134/79 07/11/21 18:41 Pulse Ox 96 07/11/21 18:41 Discharge Plan Discharge Patient Disposition: Home Health Service Condition: Stable Prescriptions: New acetaminophen 325 mg Tablet 650 mg PO Q4H PRN (Reason: Mild Pain) Qty: 90 0RF nicotine 21 mg/24 hr Patch 24 Hour 1 patch transdermal DAILY PRN (Reason: Nicotine Withdrawal) Qty: 90 0RF nicotine (polacrilex) 2 mg Gum 2 mg buccal Q2H PRN (Reason: Nicotine Withdrawal) Qty: 90 2RF insulin detemir U-100 100 unit/mL (3 mL) insulin pen 15 unit SUBCUT QPM Qty: 15 0RF Continued (DME) insulin admin supplies Insulin Pen See Rx Instructions .Route 0RF Rx Instructions: As directed cholecalciferol (vitamin D3) 1,250 mcg (50,000 unit) tablet 50,000 unit PO Q7D 0RF epinephrine 0.3 mg/0.3 mL auto-injector 0.3 mg IM ONCE PRN (Reason: anaphylaxis) 0RF olanzapine 5 mg tablet 7.5 mg PO BEDTIME Qty: 45 2RF hydroxyzine HCl 50 mg tablet 50 mg PO QID PRN (Reason: insomnia) Qty: 120 2RF duloxetine [Cymbalta] 30 mg capsule,delayed release(DR/EC) 30 mg PO DAILY Qty: 30 2RF albuterol sulfate [ProAir HFA] 90 mcg/actuation HFA aerosol inhaler 2 puff INHALATION Q6H PRN (Reason: Shortness Of Breath) 0RF cetirizine [Zyrtec] 10 mg Tablet 10 mg PO DAILY 0RF fluoride (sodium) [Sodium Fluoride 5000 Plus] 1.1 % cream 1 applic PO BID 0RF benzonatate 200 mg capsule 200 mg PO TID PRN (Reason: Cough) 0RF glipizide 10 mg tablet 20 mg PO BID 0RF quetiapine 200 mg tablet 200 mg PO BEDTIME 0RF omeprazole 20 mg capsule,delayed release(DR/EC) 20 mg PO DAILY 0RF polyethylene glycol 3350 17 gram/dose powder 17 g PO DAILY PRN (Reason: Constipation) 0RF insulin aspart U-100 [Novolog Flexpen U-100 Insulin] 100 unit/mL (3 mL) insulin pen See Rx Instructions .ROUTE .COMPLEX 0RF Rx Instructions: per sliding scale pregabalin 200 mg capsule 200 mg PO Q8H 0RF Eliquis 5 mg tablet 5 mg PO BID 0RF guaifenesin [Mucus Relief ER] 600 mg tablet extended release 12hr 600 mg PO BID 0RF Trulicity 0.75 mg/0.5 mL pen injector 0.75 mg SUBCUT Q7D 0RF prazosin 5 mg capsule 5 mg PO BEDTIME 0RF Discontinued furosemide [Lasix] 20 mg Tablet 20 mg PO DAILY 0RF ciprofloxacin HCl 500 mg tablet 500 mg PO BID 0RF Rx Instructions: x 7 days simvastatin 5 mg tablet 5 mg PO DAILY 0RF scopolamine base 1 mg over 3 days patch 3 day 1 mg transdermal Q72H PRN (Reason: Nausea) 0RF Discharge Orders: Discharge Order (Routine); Ordered 07/11/21 Ordered By: Virgil Felipe Other Ambulatory Orders: DME: Jaime (Order) Location: None Selected Ordered By: Virgil Felipe Referrals: [facility] [place] [Outside] [facility] – [place] [facility] [Outside] (REFERRAL MADE FOR THERAPY SERVICES) [facility] – [place] Home Care ([facility]) [Outside] Rob Brush DO [Referring] - 4-7 days Chinedu Dodd MD [Referring] - 1 week (Dr. Dodd's office will call you with an appointment. If you haven't heard from them by Wednesday07/16/21, please call them. Polyuria) Flaco Gresham [Primary Care Provider] - (Please call and schedule an appointment to see Dr. Gresham) Lino Hollis MD [Physician] - 07/23/21 10:15 am (FOR AN IN OFFICE VISIT) Discharge Diet: Cardiac and Diabetic Discharge Activity: Resume usual activity, Increase activity as tolerated, Use walker/crutches as instructed and As per PT/OT instructions Patient Instructions: Nicotine (Absorbed through the skin), Insulin Glargine (By injection), How to Stop Smoking (GEN), Cigarette Smoking and Your Health (GEN), How to Give an Insulin Injection (GEN), Diabetic Hyperglycemia (GEN), Type 2 Diabetes Management for Adults (GEN), Opioid Safety Activity Restrictions/Additional Instructions: Please monitor blood glucose at home 4 times daily, write down values to bring to your appointment. Continue to target blood glucose 100-150. You are started on long-acting insulin in addition to sliding scale as discussed. Continue consistent carbohydrate diet. Optimize blood glucose control will help avoid dehydration, excessive urination among other complications. Due to large amount of urine produced, when thirsty stay hydrated, please do follow-up with with your primary doctor and nephrology For additional assessment. Urine osmolality and serum osmolality have been requested, but the studies are send outs and takes several days. Additional studies may be needed if you still have persistence of large amount of urine production. Return to the hospital in case of any worsening her condition any confusion, lethargy, or other concerning symptoms. Continue follow-up with behavioral health care. Please stop smoking, continued smoking increases your risk of lung disease, heart attack, stroke, cancer and other complications. Discharge Attestations Time Spent in Discharge Care*: greater than 30 min Status at Discharge: Cognitive status at discharge: cognitively intact, Behavioral status at discharge: cooperative, Quality Metrics Clinical Quality Measures [ No reported AMI, CVA or VTE this stay] Coding Level of Care Code Acute Chg FW DC note Diagnoses Polyuria R35.89 Generalized muscle ache M79.10 Insulin dependent type 2 diabetes mellitus E11.9; Z79.4 UTI (urinary tract infection) N39.0 Acute encephalopathy G93.40 Acute psychosis F23 Mild dehydration E86.0 Generalized anxiety disorder F41.1 Cannabis abuse F12.10 Polyp of duodenum K31.7 Bipolar II disorder F31.81 Chronic post-traumatic stress disorder (PTSD) F43.12
[2021-07-14 16:17] LABS: Osmolality Urine 251 mOsm/kg (50-1200)
[2021-07-14 16:17] LABS: Osmolality Serum 292 mOsm/kg (278-305)
== END 2021-07-11 18:10 | disposition home health service (06) | DRG 637 ==
LOC: ER 17:20 → NP 07-06 07:01 → MEDSURG 07-08 18:20
PROVIDERS: Family Medicine; Internal Medicine; Admitting Provider Psychiatry & Neurology Psychiatry; Emergency Provider Family Medicine; PCP Family Medicine; Visit Provider Psychiatry & Neurology Psychiatry
DX: E11.65 Type 2 diabetes mellitus with hyperglycemia (principal); G93.41 Metabolic encephalopathy; F31.81 Bipolar II disorder; N39.0 Urinary tract infection, site not specified; F05 Delirium due to known physiological condition; F43.12 Post-traumatic stress disorder, chronic; F17.210 Nicotine dependence, cigarettes, uncomplicated; E86.0 Dehydration; Z79.4 Long term (current) use of insulin; F41.1 Generalized anxiety disorder; F12.10 Cannabis abuse, uncomplicated; Z86.718 Personal history of other venous thrombosis and embolism; Z95.828 Presence of other vascular implants and grafts; Z79.01 Long term (current) use of anticoagulants; Z79.84 Long term (current) use of oral hypoglycemic drugs; N32.89 Other specified disorders of bladder; M79.10 Myalgia, unspecified site; R33.9 Retention of urine, unspecified
CPT/HCPCS: 36415; 36416; 51701; 51702; 70450; 71045; 74176; 80048; 80051; 80053; 80306; 81001; 82009; 82330; 82550; 82805; 82962; 83036; 83605; 83690; 83735; 83880; 83930; 83935; 84100; 84145; 84484; 85025; 85651; 86140; 87040; 87086; 87426; 93005; 96361; 96365; 96372; 97116; 97161; 97165; 97530; 99285; J0696; J1815; J2060; J3486

== ENCOUNTER 2021-07-16 11:06 | Inpatient (IN) | payer MEDICAID, SELFPAY ==
[2021-07-16] VITALS (9 sets, daily range): BP systolic 107–180; BP diastolic 63–90; PULSE 71–107; RESP 16–20; TEMP 36.6–36.8; O2SAT 94–99; BMI 28.7
--- NOTE | 2021-07-16 11:29 | ECG_ITS ---
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 Measurements Intervals [place] Rate: 63 P: 40 RI: 148 QRS: 13 QRSD: 82 T: 27 QT: 407 QTc: 418 Interpretive Statements SINUS RHYTHM Compared to ECG 07/06/2021 20:21:26 No significant changes Electronically Signed On 07-16-2021 23:08:19 VP COMMUNICATIONS by Davina Null M.D. [id number]
--- NOTE | 2021-07-16 11:29 | XR_ITS ---
WS: [id number] PORTABLE CHEST HISTORY: dyspnea/cough COMPARISON: 07/05/2021 Curvilinear atelectasis or scar over the medial RIGHT lower lung field. Nodule in the central LEFT chloé ng corresponds to a prominent vessel seen on end. Normal on 07/05/2021. No pneumonia. No pleural effus ion or pneumothorax. Cardiac size: Normal. Mediastinum/Aorta: Mild atherosclerosis aorta. No osseous abnormality seen. XR/XR chest 1V portable [id number] IMPRESSION: 1. No pneumonia. 2. Curvilinear atelectasis or scar over the medial RIGHT lower lung field.
--- NOTE | 2021-07-16 11:30 | ED_ITS ---
HPI - Abdominal Pain General: Chief Complaint: Abdominal Pain Stated Complaint: Abd Pain, cant eat or use restroom Time Seen by Provider: 07/16/21 11:26 Source: patient Mode of arrival: ambulatory Limitations: altered mental status History of Present Illness: 48-year-old female presents emergency roomWith complaints of altered mental status and nausea and vomiting. No chest pain no respiratory distress. Patient has had similar presentations in the past once previously was admitted to psych and then ended up being transferred to the medical floor. She denies chest pain. Patient refers to abdominal pain. She repeatedly states that she is having chronic kidney disease and also tells me she has liver disease. As per kidney disease she states she has stage III kidney disease and that she is not urinated or had a bowel movement in the last few weeks. Patient has other delusional thoughts which she is quite adamant of. Her is at the bedside and she has not been taking her medications at home on any kind of regular basis. MD elicited complaint: abdominal pain Onset (ago): hour(s) Location: Diffuse Severity: severe Quality: cramping Radiation: none Migration to: no migration Exacerbating factors: nothing Relieving factors: nothing Associated Symptoms: Reports anorexia, GI cramping and loose stools; Denies belching, change in bowel habits, change in stool character, chills, coffee ground emesis, constipation, diarrhea, dyspepsia, dysuria, excessive flatus, fever(s), heartburn, hematochezia, hematuria, hematemesis, fecal incontinence, melena, nausea, poor appetite, syncope and vomiting Review of Systems General: Reports: Other (Limited due to altered mental status unreliable, assisted) Const: Denies: fever(s) or chills Card: Denies: chest pain or syncope Resp: Denies: dyspnea, productive cough, non-productive cough or wheezing GI: Reports: GI cramping; Denies: nausea, vomiting, hematemesis, coffee ground emesis, heartburn, diarrhea, constipation, belching, excessive flatus, fecal incontinence, change in bowel habits, change in stool character, hematochezia or melena : Denies: dysuria or hematuria PFSH ED PFSH: Medical History Acute encephalopathy Adderall use disorder, moderate, in sustained remission, dependence Bipolar II disorder Cannabis abuse Chronic post-traumatic stress disorder (PTSD) Generalized anxiety disorder Generalized muscle ache Polyp of duodenum Psychiatric care Surgical History H/O colonoscopy 15-20 yrs ago H/O esophagogastroduodenoscopy 15-20 yrs ago H/O hernia repair Hx of tubal ligation Family History Father Cancer colon Family/Other Cancer maternal grandmother colon Denies family history of CAD (coronary artery disease) Anesthesia complication Bleeding disorder Social History Smoking and tobacco status: current every day smoker Alcohol intake: never Household members: spouse Marital status: Current occupational status: disabled History of recent travel: No Physical Exam Const: GENERAL APPEARANCE: cooperative ORIENTATION/CONSCIOUSNESS: Yes awake HENMT: COMMON NORMALS: normocephalic, atraumatic, hearing grossly normal bilaterally, external ears normal, EAC's normal, TM's normal bilaterally, Normal nasal mucous membranes and turbinates present, moist oral mucous membranes and oropharynx normal HEAD & SCALP: normocephalic and atraumatic NOSE: Normal nasal mucous membranes and turbinates present EXTERNAL EAR: Yes external ears normal EXTERNAL AUDITORY CANAL: EAC's normal TYMPANIC MEMBRANE: TM's normal bilaterally Eye: COMMON NORMALS: Equal, round and reactive pupils present, EOMs intact bilaterally, conjunctivae normal and no scleral icterus CONJUNCTIVA: Yes conjunctivae normal PUPIL: Yes Equal, round and reactive pupils present Neck/C-Spine: COMMON NORMALS: full ROM, no lymphadenopathy, supple and no JVD Lymph: LYMPHATIC: no lymphadenopathy noted and no lymphedema noted Resp: COMMON NORMALS: normal respiratory effort, No retractions, No use of accessory muscles and clear to auscultation bilaterally AUSCULTATION: clear to auscultation bilaterally Cardio: COMMON NORMALS: no JVD, regular rate, regular rhythm and No murmurs present (Cardio) RATE: regular rate RHYTHM: regular rhythm GI: COMMON NORMALS: Soft to palpation and No hepatosplenomegaly present AUSCULTATION: Yes normoactive bowel sounds PALPATION: Yes Soft to palpation, No Tenderness to palpation present (GI), No Guarding due to palpation present ( GI) and Yes No hepatosplenomegaly present Extremity: COMMON NORMALS: normal to inspection, capillary refill normal, no clubbing, cyanosis or edema, no calf tenderness and no pedal edema Skin: COMMON NORMALS: no rashes or lesions noted GENERAL SKIN EXAM: no rashes or lesions noted Course Vital Signs: Vital signs: Vital Signs Temperature 97.8 F 07/17/21 14:54 Pulse Rate 94 07/17/21 14:54 Respiratory Rate 17 07/17/21 14:54 Blood Pressure 155/87 07/17/21 14:54 Pulse Oximetry 97 07/17/21 14:54 MDM - Abdominal Pain Medical Decision Making Patient has altered mental status positive ketones elevated blood sugars her lactic acid is elevated but her pH is normal. She could be in early DKA some this may just be dehydration will admit. Discussed with hospitalist orders written she has been given fluids and insulin. One-point patient crawled out of bed and then sat on the floor essentially crawled to the door of the exam room and then laid down on the floor. Eyewitnesses directly we called for help and got her back into the bed and then had a sitter watch her from that point on while she was in the emergency room. Because of her history of previous similar presentation will consult psychiatry as well. Although she will need her lactic acidosis and hyperglycemia corrected prior to seeing them to get a meaningful evaluation. Medical Records I reviewed the patient's medical records. Lab Data I reviewed the patient's lab results. : 07/17/21 04:08 07/17/21 04:08 Labs/Radiology: Radiology Impressions Chest X-Ray 07/16/21 11:29 IMPRESSION: 1. No pneumonia. 2. Curvilinear atelectasis or scar over the medial RIGHT lower lung field. Abdomen/Pelvis CT 07/16/21 14:12 IMPRESSION: 1. No acute abdominal or pelvic abnormalities are identified. Next line small hiatal hernia. 2. Bilateral cortical thinning and scarring lower poles of each kidney. 3. 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 4. Moderate diffuse constipation and fecal retention. 5. Small amount of air in the urinary bladder is probably from a recent catheterization. Alternative etiologies are gas producing organisms or fistula. 6. No ascites or adenopathy. Head CT 07/16/21 15:57 IMPRESSION: 1. No acute intracranial abnormality. 2. Evaluation is limited by motion artifact. Laboratory Results WBC 9.6 10^3/uL (4.0-10.0) 07/16/21 12:00 RBC 4.92 10^6/uL (4.1-5.3) 07/16/21 12:00 Hgb 11.7 g/dL (11.5-15.3) 07/16/21 12:00 Hct 39.2 % (37.0-47.0) 07/16/21 12:00 MCV 79.7 fl (81-99) L 07/16/21 12:00 MCH 23.8 pg (28.0-34.0) L 07/16/21 12:00 MCHC 29.8 g/dL (30.0-36.0) L 07/16/21 12:00 RDW 17.1 % (12.1-15.1) H 07/16/21 12:00 Plt Count 448 10^3/cmm (130-400) H 07/16/21 12:00 MPV 9.4 fL (7.4-10.4) 07/16/21 12:00 Neut % (Auto) 65.2 % 07/16/21 12:00 Lymph % (Auto) 26.8 % 07/16/21 12:00 [place] % (Auto) 5.1 % 07/16/21 12:00 Eos % (Auto) 2.0 % 07/16/21 12:00 Baso % (Auto) 0.6 % 07/16/21 12:00 Neut # (Auto) 6.29 10^3/uL (1.8-7.7) 07/16/21 12:00 Lymph # (Auto) 2.6 10^3/uL (0.8-4.8) 07/16/21 12:00 [place] # (Auto) 0.5 10^3/uL (0.2-0.9) 07/16/21 12:00 Eos # (Auto) 0.2 10^3/uL (0.0-0.8) 07/16/21 12:00 Baso # (Auto) 0.1 10^3/uL (0.0-0.1) 07/16/21 12:00 Nucleated RBC % (auto) 0 % 07/16/21 12:00 Nucleated RBCs # 0.0 /100WBC 07/16/21 12:00 ESR 58 mm/hr (0-15) H 07/16/21 12:00 Specimen Type Arterial 07/16/21 14:04 Sample Site Radial, left 07/16/21 14:04 ABG pH 7.44 (7.35-7.45) 07/16/21 14:04 ABG pCO2 28.6 mmHg (35-45) L 07/16/21 14:04 ABG pO2 92.5 mmHg (80.0-100.0) 07/16/21 14:04 ABG HCO3 19.5 mmol/L (22-26) L 07/16/21 14:04 ABG O2 Saturation 98.2 07/16/21 14:04 ABG Base Excess -3.6 mmol/L (-2.0-2.0) L 07/16/21 14:04 Mohsen Test Pos 07/16/21 14:04 A-a O2 Gradient 2.6 mmHg (5-10) L 07/16/21 14:04 Hematocrit 33.8 % (37-47) L 07/16/21 14:04 Hgb O2 Saturation 95.8 % (95-100) 07/16/21 14:04 Carboxyhemoglobin 2.2 %THgb (0.4-20.1) 07/16/21 14:04 Methemoglobin 0.4 % (0.4-1.5) 07/16/21 14:04 Total Hemoglobin 11.0 g/dL (12-16) L 07/16/21 14:04 Sodium 139.0 mmol/L (131-143) 07/16/21 14:04 Potassium 4.4 mmol/L (3.5-5.0) 07/16/21 14:04 Glucose 254.0 mg/dL (70-115) H 07/16/21 14:04 Ionized Calcium 1.2 mmol/L (1.1-1.4) 07/16/21 14:04 O2 Delivery Device Room air 07/16/21 14:04 FiO2 21.0 % 07/16/21 14:04 Religious Assistant ID Ed 07/16/21 14:04 Sodium 135 mmol/L (136-145) L 07/16/21 12:00 Potassium 4.8 mmol/L (3.5-5.1) 07/16/21 12:00 Chloride 100 mmol/L (98-107) 07/16/21 12:00 Carbon Dioxide 20 mmol/L (22-29) L 07/16/21 12:00 Anion Gap 19.8 (5-19) H 07/16/21 12:00 BUN 10 mg/dL (6-20) 07/16/21 12:00 Creatinine 0.7 mg/dL (0.5-0.9) 07/16/21 12:00 GFR Calculation 85.9 mL/min (90-130) L 07/16/21 12:00 Glucose 319 mg/dL (65-115) H 07/16/21 12:00 POC Glucose 274 mg/dL (70-110) H 07/16/21 13:04 Calculated Osmolality 291 mOsm/kg (285-295) 07/16/21 12:00 Lactic Acid 4.7 mmol/L (0.5-2.2) H* 07/16/21 12:00 Lactic Acid (Sepsis) 1.9 mmol/L (0.5-2.2) 07/16/21 15:10 Calcium 10.0 mg/dL (8.5-10.5) 07/16/21 12:00 Magnesium 2.1 mg/dL (1.7-2.3) 07/16/21 12:00 Total Bilirubin 0.2 mg/dL (0.15-1.2) 07/16/21 12:00 AST 28 U/L (0-32) 07/16/21 12:00 ALT 29 U/L (0-33) 07/16/21 12:00 Alkaline Phosphatase 179 IU/L (35-105) H 07/16/21 12:00 Creatine Kinase 41 U/L (26-192) 07/16/21 12:00 Total Protein 7.3 g/dL (6.6-8.7) 07/16/21 12:00 Albumin 4.2 g/dL (3.5-5.2) 07/16/21 12:00 Globulin 3.1 g/dL (1.3-4.6) 07/16/21 12:00 Lipase 89 U/L (13-60) H 07/16/21 12:00 Serum Ketones Positive (Negative) H 07/16/21 12:00 Discharge Plan Discharge Patient Disposition: Admitted As Inpatient Admit Provider: Randall Bang Clinical Impression: DKA (diabetic ketoacidosis), Insulin dependent type 2 diabetes mellitus, Acidosis, lactic, Altered mental status Condition: Stable Discharge Diet: Diabetic Discharge Activity: Resume usual activity Coding Level of Care Code ED Director Software Quality Assurance for Kaushik Ahuja
[2021-07-16 12:10] LABS: Basophils # 0.1 10^3/uL (0.0-0.1); Basophils % 0.6 %; Eosinophils # 0.2 10^3/uL (0.0-0.8); Hematocrit 39.2 % (37.0-47.0); Hemoglobin 11.7 g/dL (11.5-15.3); Lymphocytes # 2.6 10^3/uL (0.8-4.8); Lymphocytes % 26.8 %; Mean Corpuscular HGB Conc 29.8 g/dL (30.0-36.0); Mean Corpuscular Hemoglobin 23.8 pg (28.0-34.0); Mean Corpuscular Volume 79.7 fl (81-99); Mean Platelet Volume 9.4 fL (7.4-10.4); Monocytes # 0.5 10^3/uL (0.2-0.9); Monocytes % 5.1 %; Neutrophils # 6.29 10^3/uL (1.8-7.7); Neutrophils % 65.2 %; Nucleated Red Blood Cells % 0 %; Platelet Count 448 10^3/cmm (130-400); Red Blood Count 4.92 10^6/uL (4.1-5.3); Red Cell Distribution Width 17.1 % (12.1-15.1); White Blood Count 9.6 10^3/uL (4.0-10.0)
[2021-07-16] MEDS: sodium chloride 0.9% 1,000 ML 999 ML IV ×2 (12:17→14:57)
[2021-07-16 12:41] LABS: Alanine Aminotransferase 29 U/L (0-33); Albumin Level 4.2 g/dL (3.5-5.2); Alkaline Phosphatase 179 IU/L (35-105); Anion Gap 19.8 (5-19); Aspartate Amino Transferase 28 U/L (0-32); Blood Urea Nitrogen 10 mg/dL (6-20); Carbon Dioxide 20 mmol/L (22-29); Chloride 100 mmol/L (98-107); Creatine Phosphokinase 41 U/L (26-192); Globulin 3.1 g/dL (1.3-4.6); Glomerular Filtration Rate 85.9 mL/min (90-130); Glucose 319 mg/dL (65-115); Lipase 89 U/L (13-60); Magnesium 2.1 mg/dL (1.7-2.3); Osmolality Calculated 291 mOsm/kg (285-295); Potassium 4.8 mmol/L (3.5-5.1); Sodium 135 mmol/L (136-145); Total Bilirubin 0.2 mg/dL (0.15-1.2); Total Protein 7.3 g/dL (6.6-8.7)
[2021-07-16 12:44] LABS: Ketone (Acetest) Serum Positive (Negative)
[2021-07-16 12:46] LABS: Lactic Sepsis W/Reflex 4.7 mmol/L (0.5-2.2)
[2021-07-16] MEDS: quetiapine 25 mg Tablet 200 MG PO (12:52)
--- NOTE | 2021-07-16 13:05 | PC.NURSE ---
PATIENT REFUSES INSULIN AND WANTS TO LEAVE AMA. PROVIDER NOTIFIED.
[2021-07-16 13:55] LABS: Reflex Lactate Order REFLEX LACTIC ORDERD
--- NOTE | 2021-07-16 13:56 | PC.NURSE ---
PATIENT GIVEN SEROQUEL. PATIENT REFUSES INTERVENTIONS BY NURSE AND RT. PATIENT STATES THAT SHE WILL NOT DO ANYTHING WITHOUT HER PRESENT. PROVIDER NOTIFIED.
--- NOTE | 2021-07-16 14:03 | PC.NURSE ---
NURSE IN SEPARATE ROOM WHEN PROVIDER ASKED FOR HELP. PATIENT LAYING IN FLOOR BETWEEN ROOM AND HALLWAY. SHEET ROLLED UNDER PATIENT. PATIENT LIFTED BACK ON BED.
--- NOTE | 2021-07-16 14:12 | CT_ITS ---
WS: [id number] CT ABDOMEN AND PELVIS WITH CONTRAST HISTORY: Abdominal pain. TECHNIQUE: Imaging performed of the abdomen and pelvis with IV contrast. Single phase imaging of the abdomen. Coronal and sagittal reformats are submitted. All CT scans at [facility] use at [address] one of these dose optimization techniques: automated exposure control; mA and/or kV adjustment per patient size (includes targeted exams where dose is matched to clinical indication); or iterative re construction. IV CONTRAST: Omnipaque 300; 95 mL IV. Oral contrast: No DLP: 1910.6 mGy.cm COMPARISON: 07/08/2021 Lower thorax: Dependent changes at the lung bases. Heart is normal size. Moderate size hiatal hernia. Liver/biliary system: Normal size with no intrahepatic dilatation. Normal portal vein. Gallbladder: Normal. No gallstones or wall thickening. No pericholecystic fluid. Pancreas: Normal size pancreas and pancreatic duct. No adjacent inflammation. Spleen: Normal size spleen. No mass or infarct. Adrenal glands: Normal. Right kidney: Normal size kidney. Numerous areas of cortical thinning and scarring. No mass or obstru ction. Left kidney: Normal size kidney with mild cortical thinning and scarring in the lower pole. Cortical cyst at the lower pole measures 16 mm. No hydronephrosis. 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 SMA and celiac axi s are patent. Renal arteries are patent. Lymphadenopathy: None. Free fluid: None. GI tract: Normal distended stomach. Normal small bowel. The appendix is not definitely identified. No inflammatory process in the RIGHT lower quadrant or secondary findings of appendicitis. There is mod erate diffuse fecal retention and constipation but greatest in the sigmoid and rectum. There is also significant fecal retention at the cecum. No inflammation or wall thickening. There are a few scatter ed diverticula in the distal colon. Abdominal wall: Unremarkable abdominal wall. No hernia. Pelvis: Well-distended urinary bladder. There is air in the urinary bladder which may be from recent catheterization. No free fluid in the pelvis. The uterus has been removed. Bones: Unremarkable. CT/CT abdomen pelvis w con* [id number] IMPRESSION: 1. No acute abdominal or pelvic abnormalities are identified. Next line small hiatal hernia. 2. Bilateral cortical thinning and scarring lower poles of each kidney. 3. 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 4. Moderate diffuse constipation and fecal retention. 5. Small amount of air in the urinary bladder is probably from a recent cathet erization. Alternative etiologies are gas producing organisms or fistula. 6. No ascites or adenopathy.
[2021-07-16 14:13] LABS: ABG PCO2 28.6 mmHg (35-45); ABG PH Result 7.44 (7.35-7.45); Alveolar-Arterial Oxygen Gradi 2.6 mmHg (5-10); Arterial Blood Gas Hematocrit 33.8 % (37-47); Base Excess ABG -3.6 mmol/L (-2.0-2.0); Blood Gas Allen Test Pos; Blood Gas Sample Type Arterial; Carboxyhemoglobin 2.2 %THgb (0.4-20.1); HCO3 ABG 19.5 mmol/L (22-26); HGB O2 Sat 95.8 % (95-100); Ionized Calcium Level - ABG 1.2 mmol/L (1.1-1.4); Methemoglobin 0.4 % (0.4-1.5); Oxygen Saturation ABG 98.2; PO2 ABG 92.5 mmHg (80.0-100.0); Potassium Level - ABG 4.4 mmol/L (3.5-5.0)
[2021-07-16 14:14] LABS: Blood Gas Operator Identificat ED; Blood Gas Sample Site Radial, left; Oxygen Device ROOM AIR
[2021-07-16] MEDS: iohexol 300 mg/mL 100 mL Btl IV (14:27)
[2021-07-16] MEDS: insulin regular-human 100 units/1 mL 15 UNIT IVP (14:56)
--- NOTE | 2021-07-16 15:07 | PC.PHAR ---
pt unable to verify - unavailable via phone. Pravastatin 10mg once daily filled on 07/11/21. pt dc'd lasix on 07/11/21.
[2021-07-16 15:30] LABS: Lactic Acid level (Lactate) 1.9 mmol/L (0.5-2.2)
--- NOTE | 2021-07-16 15:57 | CTR_ITS ---
PROCEDURE INFORMATION: Exam: CT Head Without Contrast Exam date and time: 07/16/2021 3:57 PM Age: 56 years old Clinical indication: Altered mental status/memory loss; Additional info: AMS TECHNIQUE: Imaging protocol: Computed tomography of the head without contrast. Radiation optimization: All CT scans at this facility use at least one of these dose optimization techniques: automated exposure control; mA and/or kV adjustment per patient size (includes targeted exams where dose is matched to clinical indication); or iterative reconstruction. COMPARISON: CT head wo con* [id number] 07/05/2021 11:02 AM RADIATION DOSE METRICS: Total DLP (mGy-cm): 1684.7 FINDINGS: Brain: Normal. No hemorrhage. Unremarkable white matter. No mass effect. Cerebral ventricles: No ventriculomegaly. Paranasal sinuses: Visualized sinuses are unremarkable. No fluid levels. Mastoid air cells: Visualized mastoid air cells are well aerated. Bones/joints: Unremarkable. No acute fracture. Soft tissues: Unremarkable. CT/CT head wo con* [id number] IMPRESSION: 1. No acute intracranial abnormality. 2. Evaluation is limited by motion artifact.
--- NOTE | 2021-07-16 16:06 | P.HP_ITS ---
Providers/Chief Complaint Primary Care Provider: Flaco Gresham Chief Complaint: Abd Pain, cant eat or use restroom History of Present Illness Dorina Gamble is a 56 year old female with a past medical history of insulin-dependent type 2 diabetes mellitus, anxiety and depression, history of acute psychosis, history of cannabis abuse, history of bipolar disorder, history of PTSD who had a recent hospitalization for acute psychosis, who presents to [facility] due to decreased oral intake, generalized weakness, increased confusion, not taking her medication for the last 2 weeks, and threats against her . Currently patient is alert to person, not to place, not to time, she does follow commands, her reason for coming to the hospital is because she is in chronic kidney disease stage III she tells me, that she is here to fix that, she tells me that the last time she was here in the hospital, she was given the wrong diet, she would like chili while she is here in the hospital, she tells me that that has only thing that she can need, she wants us to fix her kidneys, she tells me she hurts all over, she is weak, she is not eating well, she tells me that she has not urinated in 2 weeks, she has not stooled in 2 weeks, she denies suicidal ideation, denies homicidal ideation, her at bedside tells me that today she made homicidal threats towards him. She actively denies suicidal ideation, denies homicidal ideation, denies seeing or hearing things are not there. tells me that she has not taken her medications since her hospital discharge. She tells me that she does check her blood sugars at home, typically they run in the 200s. Prior to her last admission typically the run in the 500s. Denies any cough. No fevers. In the emergency room she was found to have blood sugars in the 319's, ketones positive, pH within normal limits, anion gap 19, she was given 30 units of insulin, her anion gap is now 17.4. Hospitalist team was called for admission to general medical floors as she is likely dehydrated, she did have an elevated lactic acid 4.7, but now it is 1.9. In addition the psychiatry service has been consulted given her acute psychosis. Her review of system is all positive, she she gives a yes answer to all the review of systems Review of Systems Const: Reports: body aches and fatigue Eyes: Reports: change in vision Card: Reports: chest pain, edema, lightheadedness and pre-syncope Resp: Reports: dyspnea and non-productive cough GI: Reports: abdominal pain, nausea, vomiting, diarrhea and constipation : Reports: flank pain, difficulty voiding and dysuria Musc: Reports: neck pain, back pain, joint pain and muscle weakness Skin/Breast: Reports: rash Neuro: Reports: headache(s), weakness in extremities and dizziness Medications/Allergies Home Medications Medication Instructions Recorded Confirmed Last Taken Type cholecalciferol (vitamin D3) 1,250 50,000 unit PO Q7D tab 11/29/19 07/16/21 12/27/20 History mcg (50,000 unit) tablet epinephrine 0.3 mg/0.3 mL 0.3 mg IM ONCE PRN 01/24/20 07/16/21 01/02/21 History injection, auto-injector insulin admin supplies 12/02/20 07/16/21 Unknown History albuterol sulfate 90 mcg/actuation 2 puff INHALATION Q6H PRN 01/02/21 07/16/21 01/02/21 History aerosol inhaler (ProAir HFA) cetirizine 10 mg tablet (Zyrtec) 10 mg PO DAILY 01/02/21 07/16/21 01/02/21 History fluoride (sodium) 1.1 % dental 1 applic PO BID 01/02/21 07/16/21 Unknown History cream (Sodium Fluoride 5000 Plus) duloxetine 30 mg capsule,delayed 30 mg PO DAILY #30 cap 06/04/21 07/16/21 Unknown Rx release (Cymbalta) hydroxyzine HCl 50 mg tablet 50 mg PO QID PRN #120 tab 06/04/21 07/16/21 Unknown Rx olanzapine 5 mg tablet 7.5 mg PO BEDTIME #45 tab 06/04/21 07/16/21 Unknown Rx apixaban 5 mg tablet (Eliquis) 5 mg PO BID 07/05/21 07/16/21 Unknown History benzonatate 200 mg capsule 200 mg PO TID PRN 07/05/21 07/16/21 Unknown History dulaglutide 0.75 mg/0.5 mL 0.75 mg SUBCUT Q7D 07/05/21 07/16/21 Unknown History subcutaneous pen injector (Trulicity) glipizide 10 mg tablet 20 mg PO BID 07/05/21 07/16/21 Unknown History guaifenesin 600 mg tablet, 600 mg PO BID 07/05/21 07/16/21 Unknown History extended release 12 hr (Mucus Relief ER) insulin aspart U-100 100 unit/mL See Rx Instructions .ROUTE .COMPLEX 07/05/21 07/16/21 Unknown History (3 mL) subcutaneous pen (Novolog Flexpen U-100 Insulin aspart) omeprazole 20 mg capsule,delayed 20 mg PO DAILY 07/05/21 07/16/21 Unknown History release polyethylene glycol 3350 17 17 g PO DAILY PRN 07/05/21 07/16/21 Unknown History gram/dose oral powder prazosin 5 mg capsule 5 mg PO BEDTIME 07/05/21 07/16/21 Unknown History pregabalin 200 mg capsule 200 mg PO Q8H 07/05/21 07/16/21 Unknown History quetiapine 200 mg tablet 200 mg PO BEDTIME 07/05/21 07/16/21 Unknown History acetaminophen 325 mg tablet 650 mg PO Q4H PRN #90 tab 07/11/21 07/16/21 Unknown Rx insulin detemir U-100 100 unit/mL 15 unit (0.15 mL) SUBCUT QPM #15 ml 07/11/21 07/16/21 Unknown Rx (3 mL) subcutaneous pen nicotine (polacrilex) 2 mg gum 2 mg BUCCAL Q2H PRN #90 ea 07/11/21 07/16/21 Unknown Rx nicotine 21 mg/24 hr daily 1 patch TRANSDERMAL DAILY PRN #90 07/11/21 07/16/21 Unknown Rx transdermal patch ea pravastatin 10 mg tablet 10 mg PO DAILY 07/16/21 07/16/21 Unknown History Allergies Allergy/AdvReac Type Severity Reaction Status Date / Time amoxicillin Allergy Intermediate Hives Verified 07/16/21 10:17 azithromycin Allergy Intermediate Hives Verified 07/16/21 10:17 carbamazepine [From Tegretol] Allergy Intermediate Hives Verified 07/16/21 10:17 cephalexin [From Keflex] Allergy Intermediate Hives Verified 07/16/21 10:17 divalproex sodium Allergy Intermediate Hives Verified 07/16/21 10:17 [From Depakote] erythromycin base Allergy Intermediate hIVES Verified 07/16/21 10:17 lamotrigine [Lamictal] Allergy Unknown Unknown Verified 07/16/21 10:17 metformin Allergy Unknown Unknown Verified 07/16/21 10:17 nystatin Allergy Unknown Unknown Verified 07/16/21 10:17 Sulfa (Sulfonamide Allergy Unknown Unknown Verified 07/16/21 10:17 Antibiotics) tetracycline Allergy Unknown Unknown Verified 07/16/21 10:17 Tricyclic Compounds Allergy Unknown Unknown Verified 07/16/21 10:17 zolpidem [From Ambien] AdvReac Severe Hallucinati Verified 07/16/21 10:17 ons PFSH Acute PFSH: Medical History (Updated 07/16/21 @ 16:13 by Randall Bang MD) Acute encephalopathy Adderall use disorder, moderate, in sustained remission, dependence Bipolar II disorder Cannabis abuse Chronic post-traumatic stress disorder (PTSD) Generalized anxiety disorder Generalized muscle ache Polyp of duodenum Psychiatric care Surgical History H/O colonoscopy 15-20 yrs ago H/O esophagogastroduodenoscopy 15-20 yrs ago H/O hernia repair Hx of tubal ligation Family History Father Cancer colon Family/Other Cancer maternal grandmother colon Denies family history of CAD (coronary artery disease) Anesthesia complication Bleeding disorder Social History Smoking and tobacco status: current every day smoker Alcohol intake: never Household members: spouse Marital status: Current occupational status: disabled History of recent travel: No Vitals/I&O/Wt Last Vital Signs Temp 98.3 F 07/16/21 11:12 Pulse 71 07/16/21 13:55 Resp 20 H 07/16/21 13:55 BP 168/81 07/16/21 13:55 Pulse Ox 95 07/16/21 13:55 07/16/21 07/16/21 07/16/21 06:59 14:59 22:59 Intake Total 1000 / 1000 Balance 1000 / 1000 Weight last 48 hrs Weight 80.739 kg Physical Exam Const: COMMON NORMALS: no acute distress ORIENTATION/CONSCIOUSNESS: Yes awake, Yes oriented to person and Yes confused; not oriented to place and not oriented to time HENMT: COMMON NORMALS: normocephalic HEAD & SCALP: normocephalic Neck/C-Spine: COMMON NORMALS: no JVD Resp: COMMON NORMALS: normal respiratory effort, No retractions, No use of accessory muscles and clear to auscultation bilaterally AUSCULTATION: clear to auscultation bilaterally Cardio: COMMON NORMALS: no JVD, regular rate, regular rhythm, S1 normal heart sound present and S2 normal heart sound present RATE: regular rate RHYTHM: regular rhythm HEART SOUNDS: S1 normal heart sound present and S2 normal heart sound present GI: COMMON NORMALS: Normal to inspection, nondistended, normoactive bowel sounds present, Soft to palpation, non-tender, No hepatosplenomegaly present, no masses and no bruits PALPATION: Yes Soft to palpation and Yes No hepatosplenomegaly present Extremity: COMMON NORMALS: capillary refill normal, no clubbing, cyanosis or edema, no calf tenderness and no pedal edema Psych: APPEARANCE: Yes unkempt ATTITUDE: Yes bizarre ACTIVITY/MOTOR BEHAVIOR: Yes psychomotor agitation and Yes hyperactivity SPEECH: Yes excessive MOOD & AFFECT: Yes elevated mood THOUGHT PROCESS: disorganized ATTENTION/CONCENTRATION: Yes attention grossly impaired and Yes concentration grossly impaired Data : 07/16/21 12:00 07/16/21 12:00 A&P Assessment and plan (1) Altered mental status: Status: Acute (2) Insulin dependent type 2 diabetes mellitus: Status: Acute (3) DKA (diabetic ketoacidosis): Status: Acute (4) Generalized anxiety disorder: Status: Acute (5) Cannabis abuse: Status: Acute (6) Bipolar II disorder: Status: Acute Plan Diabetic ketoacidosis versus dehydration -Ketones are positive, likely dehydration, however cannot fully rule out DKA -Patient has borderline clinical criteria, her serum blood sugars have improved with insulin, anion gap has improved to 17.4, ketones are positive, pH 7.44 -For now we will hold off on insulin drip -Start subcu insulin -Levemir 8 units twice daily -Monitor blood sugars every hour -Monitor anion gap, serum potassium -We will avoid insulin drip for now Altered mental status -Likely secondary acute psychosis -Chest x-ray no focal pneumonia -CT head ordered -UA pending Type 2 diabetes mellitus, as above Dehydration, IV fluids Lactic acidosis likely secondary to dehydration, resolved to 1.9 Acute psychosis, psychiatry on consult, given her reported homicidal ideation, no active suicidal ideation, no active homicidal ideation, denies feeling down depressed or sad, denies hearing or hearing things are not there has a o ne-to-one sitter Attestations Medical Necessity Statement*: Patient requires hospitalization, inpatient, greater than 2 midnights, for acute psychosis, altered mental status, hyperglycemia, dehydration Coding Level of Care Code 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
[2021-07-16 16:07] LABS: Anion Gap 17.4 (5-19); Blood Urea Nitrogen 10 mg/dL (6-20); Calcium 9.3 mg/dL (8.5-10.5); Carbon Dioxide 19 mmol/L (22-29); Chloride 103 mmol/L (98-107); Glomerular Filtration Rate 73.7 mL/min (90-130); Glucose 242 mg/dL (65-115); Osmolality Calculated 287 mOsm/kg (285-295); Potassium 4.4 mmol/L (3.5-5.1); Sodium 135 mmol/L (136-145)
[2021-07-16 16:31] LABS: Erythrocyte Sedimentation Rate 58 mm/hr (0-15)
[2021-07-16 16:38] LABS: C Reactive Protein 13.8 mg/L (0.0-4.9)
[2021-07-16 16:45] LABS: Procalcitonin 0.08 ng/mL (0-0.5)
[2021-07-16 20:18] LABS: Glucose Point of Care 274 mg/dL (70-110)
[2021-07-16 20:27] LABS: Glucose Point of Care 71 mg/dL (70-110)
[2021-07-16] MEDS: apixaban 5 mg Tablet PO (20:29)
[2021-07-16] MEDS: famotidine 20 mg Tablet PO (20:29)
[2021-07-16] MEDS: docusate sodium 100 mg Capsule PO (20:30)
[2021-07-16] MEDS: pregabalin 100 mg Capsule 200 MG PO (20:30)
[2021-07-16] MEDS: quetiapine 100 mg Tablet 200 MG PO (20:30)
[2021-07-16] MEDS: OLANZapine 5 mg TABLET 7.5 MG PO (20:31)
[2021-07-16] MEDS: sodium chloride 0.9% 1,000 ML 100 ML IV (20:32)
[2021-07-16 21:15] LABS: Glucose Point of Care 162 mg/dL (70-110)
[2021-07-16] MEDS: albuterol 8 gm MDI 2 PUFF INHALATION (21:28)
[2021-07-16] MEDS: lanolin oint 7 gm 1 APPLIC TOPICAL (23:08)
[2021-07-16 23:10] LABS: Anion Gap 16.6 (5-19); Blood Urea Nitrogen 8 mg/dL (6-20); Calcium 9.1 mg/dL (8.5-10.5); Carbon Dioxide 22 mmol/L (22-29); Chloride 106 mmol/L (98-107); Glomerular Filtration Rate 73.7 mL/min (90-130); Glucose 191 mg/dL (65-115); Osmolality Calculated 295 mOsm/kg (285-295); Potassium 3.6 mmol/L (3.5-5.1); Sodium 141 mmol/L (136-145); Thyroid Stimulating Hormone 1.02 uIU/mL (0.27-4.20)
[2021-07-17] MEDS: pregabalin 100 mg Capsule 200 MG PO ×2 (04:05→12:02)
[2021-07-17 04:28] LABS: Basophils # 0.1 10^3/uL (0.0-0.1); Basophils % 0.9 %; Eosinophils # 0.3 10^3/uL (0.0-0.8); Eosinophils % 3.7 %; Hematocrit 31.4 % (37.0-47.0); Hemoglobin 9.4 g/dL (11.5-15.3); Lymphocytes # 2.7 10^3/uL (0.8-4.8); Lymphocytes % 39.5 %; Mean Corpuscular HGB Conc 29.9 g/dL (30.0-36.0); Mean Corpuscular Hemoglobin 23.8 pg (28.0-34.0); Mean Corpuscular Volume 79.5 fl (81-99); Mean Platelet Volume 9.3 fL (7.4-10.4); Monocytes # 0.4 10^3/uL (0.2-0.9); Monocytes % 6.2 %; Neutrophils # 3.34 10^3/uL (1.8-7.7); Neutrophils % 49.4 %; Nucleated Red Blood Cells % 0 %; Platelet Count 332 10^3/cmm (130-400); Red Blood Count 3.95 10^6/uL (4.1-5.3); Red Cell Distribution Width 17.2 % (12.1-15.1); White Blood Count 6.8 10^3/uL (4.0-10.0)
[2021-07-17 04:46] LABS: Alanine Aminotransferase 23 U/L (0-33); Albumin Level 3.6 g/dL (3.5-5.2); Alkaline Phosphatase 135 IU/L (35-105); Anion Gap 14.1 (5-19); Aspartate Amino Transferase 22 U/L (0-32); Blood Urea Nitrogen 8 mg/dL (6-20); Calcium 9.4 mg/dL (8.5-10.5); Carbon Dioxide 22 mmol/L (22-29); Chloride 110 mmol/L (98-107); Globulin 2.1 g/dL (1.3-4.6); Glomerular Filtration Rate 73.7 mL/min (90-130); Glucose 247 mg/dL (65-115); Magnesium 1.9 mg/dL (1.7-2.3); Osmolality Calculated 301 mOsm/kg (285-295); Phosphorus 4.1 mg/dL (2.5-4.5); Potassium 4.1 mmol/L (3.5-5.1); Sodium 142 mmol/L (136-145); Total Bilirubin 0.2 mg/dL (0.15-1.2); Total Protein 5.7 g/dL (6.6-8.7)
[2021-07-17 06:20] LABS: Glucose Point of Care 251 mg/dL (70-110)
[2021-07-17 07:24] VITALS: BP 160/72; PULSE 100; RESP 17; TEMP 37.1; O2SAT 94
[2021-07-17 09:13] VITALS: BP 160/72
[2021-07-17] MEDS: duloxetine 30 mg Capsule PO (09:13)
[2021-07-17] MEDS: cloNIDine 0.1 mg Tablet PO (09:13)
[2021-07-17] MEDS: atorvastatin 40 mg Tablet 10 MG PO (09:13)
[2021-07-17] MEDS: ciprofloxacin 500 mg Tablet PO (09:13)
[2021-07-17] MEDS: famotidine 20 mg Tablet PO (09:14)
[2021-07-17] MEDS: apixaban 5 mg Tablet PO (09:19)
--- NOTE | 2021-07-17 09:49 | PC.NURSE ---
Patient is not Suicidal.
--- NOTE | 2021-07-17 09:51 | PC.NURSE ---
Patient pulled out her IV.
[2021-07-17] MEDS: insulin lispro 100 unit/1 mL SUBCUT ×2 (10:08→13:13)
[2021-07-17 10:20] LABS: Protein Urine Neg (Negative); Urine Appearance Clear (CLEAR); Urine Color Yellow (Yellow); pH Urine 6.5 (5-7)
[2021-07-17 10:21] LABS: Add Urine Microscopic? YES; Bilirubin Urine Neg (Negative); Blood Urine Neg (Negative); Glucose Urine UA 2+ (Normal); Ketones Urine Negative (Negative); Leukocyte Esterase Urine Trace (Negative); Nitrate Urine Negative (Negative); Urobilinogen Urine Norm (Negative)
[2021-07-17 10:32] LABS: Bacteria Urine TRACE /hpf; RBC Urine 0-4 /hpf (0-2)
[2021-07-17 10:33] LABS: Add Urine Culture? No
--- NOTE | 2021-07-17 10:57 | PC.CHAP ---
Pastoral Care Encounter/Spiritual Assessment Type of Contact [] Declined metal gauge maker visit [] Patient/Family/Request visit [] Outpatient visit [] Follow-up visit [] Physician referral [] Code/Alert [x] Routine visit [] Staff referral [] Actively dying [] Patient sleeping [] Family support [] [] Out of room [] Palliative care [] [x] Receiving care in room [] Pre-surgical visit [] Trauma [x] Long length of stay [] ICU visit [] Other: Relational/Emotional Strength [x] Patient feels connected with others/family/visitors/staff [] Distress [] Loneliness/isolation [] Abandonment Spirituality of Patient [x] Person of Romana [] Attends Scientology of their Romana [x] Believes in Prayer [] Reads Bible or Evangelical materials [] There are Spiritual issues to be addressed Sheet Ironworker Interventions [x] Prayer [x] Active listening [x] Non-anxious presence [x] Spiritual/emotional support [] Crisis/trauma care [x] Spiritual counseling [] Bereavement support [] Provided bereavement packet [] Provided Bible/devotional materials [] Provided toy/stuffed animal, coloring book to patient or family member [] Provided Communion [] Anointing/[place] [] Salvation [x] Completed spiritual assessment [] Other: Impact on Illness or Injury [] Angry [] Fearful [] Anxious [] Often cries [] Exhaustion [] Unable to work [] Unable to attend adventist [] Unable to walk/stand [] Unable to read [] Unable to drive [] Unable to eat/drink [] Unable to sleep [] Unable to be with family [] Patient intubated [] Other: Summary has been dealing with stonack problems ror about a year, this someting new she is with staff care negative health Time spent with patient 10 mins
--- NOTE | 2021-07-17 11:23 | P.PN_ITS ---
Subjective Subjective: Patient was seen this morning, she is alert to person, to place, to time, her speech is pressured, she tells me that why is she here in the hospital, she wants to go home, but is holding her discharge, she denies suicidal ideation, denies homicidal ideation, denies seeing or hearing things are not there, she tells me that she was only joking when she said that she would stab her , she tells me that she does not want to see psychiatry, she wants to see her psychiatrist who [place] Vitals/I&O/Wt Last Vital Signs Temp 98.7 F 07/17/21 07:24 Pulse 100 07/17/21 07:24 Resp 17 07/17/21 07:24 BP 160/72 07/17/21 09:13 Pulse Ox 94 07/17/21 07:24 07/16/21 07/17/21 07/17/21 22:59 06:59 14:59 Intake Total 1240 / 2240 480 / 480 Output Total 620 / 620 Balance 1240 / 2240 -620 / 1620 480 / 480 Weight last 48 hrs Weight 80.739 kg Physical Exam Const: COMMON NORMALS: no acute distress and patient oriented x3 Resp: COMMON NORMALS: normal respiratory effort, No retractions, No use of accessory muscles and clear to auscultation bilaterally AUSCULTATION: clear to auscultation bilaterally Cardio: COMMON NORMALS: regular rate, regular rhythm, S1 normal heart sound present and S2 normal heart sound present RATE: regular rate RHYTHM: regular rhythm HEART SOUNDS: S1 normal heart sound present and S2 normal heart sound present GI: COMMON NORMALS: Normal to inspection, nondistended, normoactive bowel sounds present, Soft to palpation, non-tender and No hepatosplenomegaly present PALPATION: Yes Soft to palpation and Yes No hepatosplenomegaly present Extremity: COMMON NORMALS: no pedal edema Neuro: COMMON NORMALS: patient oriented x3 Psych: COMMON NORMALS: denies hallucinations, denies homicidal ideation and denies suicidal ideation ACTIVITY/MOTOR BEHAVIOR: Yes psychomotor agitation and Yes hyperactivity SPEECH: Yes excessive and Yes rapid Data : 07/17/21 04:08 07/17/21 04:08 Micro: Microbiology 07/16/21 16:37 Blood Culture - Preliminary Blood SPECIMEN COLLECTED 07/16/21 16:37 Blood Culture - Preliminary Blood SPECIMEN COLLECTED A&P Assessment and plan (1) Altered mental status: Status: Acute (2) Insulin dependent type 2 diabetes mellitus: Status: Acute (3) DKA (diabetic ketoacidosis): Status: Acute (4) Generalized anxiety disorder: Status: Acute (5) Cannabis abuse: Status: Acute (6) Bipolar II disorder: Status: Acute Plan Diabetic ketoacidosis versus dehydration likely DKA -Ketones are positive, likely dehydration, unlikely DKA -Patient has borderline clinical criteria, her serum blood sugars have improved with insulin, anion gap has improved to 17.4, ketones are positive, pH 7.44 -Start subcu insulin -Levemir 12 units twice daily -Monitor blood sugars every hour -Monitor anion gap, serum potassium -We will avoid insulin drip for now Altered mental status, resolved -Likely secondary acute psychosis -Chest x-ray no focal pneumonia -CT head ordered -UA UTI, on Cipro stop IV fluids Type 2 diabetes mellitus, as above Dehydration, stop Lactic acidosis likely secondary to dehydration, resolved to 1.9 Acute psychosis, psychiatry on consult, given her reported homicidal ideation, no active suicidal ideation, no active homicidal ideation, denies feeling down depressed or sad, denies hearing or hearing things are not there has a one-to-one sitter patient okay to proceed to discharge or n.p.u. 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
[2021-07-17 11:47] VITALS: BP 155/87; PULSE 94; RESP 17; TEMP 36.6; O2SAT 97
--- NOTE | 2021-07-17 12:32 | P.NPUCON_ITS ---
Providers/Reason for Consult Consulting Physican/Specialty*: Tonny Resendiz MD/Psychiatist Reason for Consult*: Altered mental status Attending Physician: Randall Bang MD Primary Care Provider: [facility] Psych Consult HPI History of Present Illness Dorina Gamble is a 56 year old female who is admitted to the medical surgical floor with the following report: Dorina Gamble is a 56 year old female with a past medical history of insulin-dependent type 2 diabetes mellitus, anxiety and depression, history of acute psychosis, history of cannabis abuse, history of bipolar disorder, history of PTSD who had a recent hospitalization for acute psychosis, who presents to [facility] due to decreased oral intake, generalized weakness, increased confusion, not taking her medication for the last 2 weeks, and threats against her .? Currently patient is alert to person, not to place, not to time, she does follow commands, her reason for coming to the hospital is because she is in chronic kidney disease stage III she tells me, that she is here to fix that, she tells me that the last time she was here in the hospital, she was given the wrong diet, she would like chili while she is here in the hospital, she tells me that that has only thing that she can need, she wants us to fix her kidneys, she tells me she hurts all over, she is weak, she is not eating well, she tells me that she has not urinated in 2 weeks, she has not stooled in 2 weeks, she denies suicidal ideation, denies homicidal ideation, her at bedside tells me that today she made homicidal threats towards him.? She actively denies suicidal ideation, denies homicidal ideation, denies seeing or hearing things are not there.? tells me that she has not taken her medi cations since her hospital discharge.? She tells me that she does check her blood sugars at home, typically they run in the 200s.? Prior to her last admission typically the run in the 500s.? Denies any cough.? No fevers.? In the emergency room she was found to have blood sugars in the 319's, ketones positive, pH within normal limits, anion gap 19, she was given 30 units of insulin, her anion gap is now 17.4.? Hospitalist team was called for admission to general medical floors as she is likely dehydrated, she did have an elevated lactic acid 4.7, but now it is 1.9.? In addition the psychiatry service has been consulted given her acute psychosis.? Her review of system is all positive, she she gives a yes answer to all the review of systems She is doing much better. She was pleasant and cooperative with the evaluation. He says that she has been compliant with the olanzapine 7.5 mg daily and Cymbalta 30 mg daily. She says that the Seroquel has been discontinued by her psychiatrist about 6 months ago. She says that the prazosin was just started last week and she has not taken it because she wants to get clearance from her primary care provider. She says that she talks with a psychiatrist on the phone about every 3 months but would like to start seeing a provider in person again. She also would like to see a therapist. She promised to call the clinic to schedule an appointment with the therapist and try to see if she could see one of the psychotropic medication providers in person rather than the virtual doctor. She denies ever having any intention of harming her . She says that he has his own mental health problems. She says that the Zyprexa and Cymbalta are helpful for her anxiety and depression. She would like for the Cymbalta would be increased to 60 mg daily. Meds Home Medications and Allergies Home Medications Medication Instructions Recorded Confirmed Last Taken Type cholecalciferol (vitamin D3) 1,250 50,000 unit PO Q7D tab 11/29/19 07/16/21 0 12/27/20 History mcg (50,000 unit) tablet epinephrine 0.3 mg/0.3 mL 0.3 mg IM ONCE PRN 01/24/20 07/16/21 01/02/21 History injection, auto-injector insulin admin supplies 12/02/20 07/16/21 Unknown History albuterol sulfate 90 mcg/actuation 2 puff INHALATION Q6H PRN 01/02/21 07/16/21 01/02/21 History aerosol inhaler (ProAir HFA) cetirizine 10 mg tablet (Zyrtec) 10 mg PO DAILY 01/02/21 07/16/21 01/02/21 History fluoride (sodium) 1.1 % dental 1 applic PO BID 01/02/21 07/16/21 Unknown History cream (Sodium Fluoride 5000 Plus) duloxetine 30 mg capsule,delayed 30 mg PO DAILY #30 cap 06/04/21 07/16/21 Unknown Rx release (Cymbalta) hydroxyzine HCl 50 mg tablet 50 mg PO QID PRN #120 tab 06/04/21 07/16/21 Unknown Rx olanzapine 5 mg tablet 7.5 mg PO BEDTIME #45 tab 06/04/21 07/16/21 Unknown Rx apixaban 5 mg tablet (Eliquis) 5 mg PO BID 07/05/21 07/16/21 Unknown History benzonatate 200 mg capsule 200 mg PO TID PRN 07/05/21 07/16/21 Unknown History dulaglutide 0.75 mg/0.5 mL 0.75 mg SUBCUT Q7D 07/05/21 07/16/21 Unknown History subcutaneous pen injector (Trulicity) glipizide 10 mg tablet 20 mg PO BID 07/05/21 07/16/21 Unknown History guaifenesin 600 mg tablet, 600 mg PO BID 07/05/21 07/16/21 Unknown History extended release 12 hr (Mucus Relief ER) insulin aspart U-100 100 unit/mL See Rx Instructions .ROUTE .COMPLEX 07/05/21 07/16/21 Unknown History (3 mL) subcutaneous pen (Novolog Flexpen U-100 Insulin aspart) omeprazole 20 mg capsule,delayed 20 mg PO DAILY 07/05/21 07/16/21 Unknown History release polyethylene glycol 3350 17 17 g PO DAILY PRN 07/05/21 07/16/21 Unknown History gram/dose oral powder prazosin 5 mg capsule 5 mg PO BEDTIME 07/05/21 07/16/21 Unknown History pregabalin 200 mg capsule 200 mg PO Q8H 07/05/21 07/16/21 Unknown History quetiapine 200 mg tablet 200 mg PO BEDTIME 07/05/21 07/16/21 Unknown History acetaminophen 325 mg tablet 650 mg PO Q4H PRN #90 tab 07/11/21 07/16/21 Unknown Rx insulin detemir U-100 100 unit/mL 15 unit (0.15 mL) SUBCUT QPM #15 ml 07/11/21 07/16/21 Unknown Rx (3 mL) subcutaneous pen nicotine (polacrilex) 2 mg gum 2 mg BUCCAL Q2H PRN #90 ea 07/11/21 07/16/21 Unknown Rx nicotine 21 mg/24 hr daily 1 patch TRANSDERMAL DAILY PRN #90 07/11/21 07/16/21 Unknown Rx transdermal patch ea pravastatin 10 mg tablet 10 mg PO DAILY 07/16/21 07/16/21 Unknown History Allergies Allergy/AdvReac Type Severity Reaction Status Date / Time amoxicillin Allergy Intermediate Hives Verified 07/16/21 10:17 azithromycin Allergy Intermediate Hives Verified 07/16/21 10:17 carbamazepine [From Tegretol] Allergy Intermediate Hives Verified 07/16/21 10:17 cephalexin [From Keflex] Allergy Intermediate Hives Verified 07/16/21 10:17 divalproex sodium Allergy Intermediate Hives Verified 07/16/21 10:17 [From Depakote] erythromycin base Allergy Intermediate hIVES Verified 07/16/21 10:17 lamotrigine [Lamictal] Allergy Unknown Unknown Verified 07/16/21 10:17 metformin Allergy Unknown Unknown Verified 07/16/21 10:17 nystatin Allergy Unknown Unknown Verified 07/16/21 10:17 Sulfa (Sulfonamide Allergy Unknown Unknown Verified 07/16/21 10:17 Antibiotics) tetracycline Allergy Unknown Unknown Verified 07/16/21 10:17 Tricyclic Compounds Allergy Unknown Unknown Verified 07/16/21 10:17 zolpidem [From Ambien] AdvReac Severe Hallucinati Verified 07/16/21 10:17 ons Current Medications Current Medications Generic Name Dose Route Start Last Admin Trade Name Freq PRN Reason Stop Dose Admin Albuterol Sulfate 2 puff 07/16/21 18:34 07/16/21 21:28 Albuterol 8 Gm Mdi INHALATION 2 puff Q6H PRN Administration Shortness Of Breath Apixaban 5 mg 07/16/21 18:34 07/17/21 09:19 Apixaban 5 Mg Tablet PO 5 mg BID KATRIN Administration Atorvastatin Calcium 10 mg 07/17/21 09:00 07/17/21 09:13 Atorvastatin 40 Mg Tablet PO 10 mg DAILY KATRIN Administration Ciprofloxacin HCl 500 mg 07/17/21 09:00 07/17/21 09:13 Ciprofloxacin 500 Mg Tablet PO 500 mg BID@0900,2100 KATRIN Administration Protocol Clonidine HCl 0.1 mg 07/17/21 09:00 07/17/21 09:13 Clonidine 0.1 Mg Tablet PO 0.1 mg BID KATRIN Administration Docusate Sodium 100 mg 07/16/21 18:34 07/17/21 09:14 Docusate Sodium 100 Mg Capsule PO Not Given BID KATRIN Duloxetine HCl 30 mg 07/17/21 09:00 07/17/21 09:13 Duloxetine 30 Mg Capsule PO 30 mg DAILY KATRIN Administration Famotidine 20 mg 07/16/21 18:34 07/17/21 09:14 Famotidine 20 Mg Tablet PO 20 mg BID KATRIN Administration Sodium Chloride 1,000 mls @ 100 mls/hr 07/16/21 18:34 07/17/21 10:09 Sodium Chloride 0.9% IV Not Given .Q10H KATRIN Insulin Detemir 12 unit 07/17/21 09:00 07/17/21 09:20 Insulin Detemir 100 Units/1 Ml SUBCUT 12 unit Q12H KATRIN Administration Insulin Human Lispro 0 unit 07/17/21 08:00 07/17/21 10:08 Insulin Lispro 100 Unit/1 Ml SUBCUT 8 unit WM&BEDTIME KATRIN Administration Protocol Lanolin 1 applic 07/16/21 22:43 07/16/21 23:08 Lanolin Oint 7 Gm TOPICAL 1 tube PRN PRN Administration DRYNESS Olanzapine 7.5 mg 07/16/21 21:00 07/16/21 20:31 Olanzapine 5 Mg Tablet PO 7.5 mg BEDTIME KATRIN Administration Polyethylene Glycol 17 gm 07/16/21 18:34 07/17/21 09:27 Polyethylene Glycol 3350 Pkt 17 Gm PO Not Given DAILY KATRIN Prazosin HCl 5 mg 07/16/21 21:00 07/16/21 21:56 Prazosin 5 Mg Capsule PO Not Given BEDTIME KATRIN Pregabalin 200 mg 07/16/21 19:00 07/17/21 12:02 Pregabalin 100 Mg Capsule PO 200 mg Q8H KATRIN Administration Quetiapine Fumarate 200 mg 07/16/21 21:00 07/16/21 20:30 Quetiapine 100 Mg Tablet PO 200 mg BEDTIME KATRIN Administration PFSH NPU PFSH: Medical History (Updated 07/17/21 @ 12:43 by Tonny Resendiz MD) Acute encephalopathy Adderall use disorder, moderate, in sustained remission, dependence Bipolar II disorder Cannabis abuse Chronic post-traumatic stress disorder (PTSD) Generalized anxiety disorder Generalized muscle ache Polyp of duodenum Psychiatric care Surgical History H/O colonoscopy 15-20 yrs ago H/O esophagogastroduodenoscopy 15-20 yrs ago H/O hernia repair Hx of tubal ligation Family History Father Cancer colon Family/Other Cancer maternal grandmother colon Denies family history of CAD (coronary artery disease) Anesthesia complication Bleeding disorder Social History Smoking and tobacco status: current every day smoker Alcohol intake: never Household members: spouse Marital status: Current occupational status: disabled History of recent travel: No Mental Status Exam MSE Comments: This is a 56-year old overweight female who appears approximately her stated age. She is pleasant and cooperative evaluation. She has fair grooming and is dressed in a hospital gown. She is in no acute dist ress. psychomotor activity mildly decreased. Speech is at a regular rate and rhythm, normal volume, good articulation, not pressured. Alert, oriented X3 Attention and concentration approximately normal.. Memory is intact Mood is mildly depressed and anxious. Affect is mildly dysphoric. Thought process is logical and goal-directed. Thought content: Denies auditory and visual hallucinations. No delusions or paranoia are noted. No current suicidal ideation, and no homicidal ideation. Fund of knowledge is average. Insight and judgment appear to be fair. Impulse control is fair. Vitals/I&O/Wt Last Vital Signs Temp 97.8 F 07/17/21 11:47 Pulse 94 07/17/21 11:47 Resp 17 07/17/21 11:47 BP 155/87 07/17/21 11:47 Pulse Ox 97 07/17/21 11:47 07/16/21 07/17/21 07/17/21 22:59 06:59 14:59 Intake Total 1240 / 2240 480 / 480 Output Total 620 / 620 Balance 1240 / 2240 -620 / 1620 480 / 480 Weight last 48 hrs Weight 80.739 kg Data NPU : 07/17/21 04:08 07/17/21 04:08 Micro: Microbiology 07/16/21 16:37 Blood Culture - Preliminary Blood SPECIMEN COLLECTED 07/16/21 16:37 Blood Culture - Preliminary Blood SPECIMEN COLLECTED Microbiology 07/16/21 16:37 Blood Blood Culture - Preliminary SPECIMEN COLLECTED 07/16/21 16:37 Blood Blood Culture - Preliminary SPECIMEN COLLECTED A&P Assessment and plan (1) Generalized anxiety disorder: Status: Acute (2) Bipolar II disorder: Status: Acute (3) Altered mental status: Status: Acute (4) Cannabis abuse: Status: Acute (5) Chronic post-traumatic stress disorder (PTSD): Status: Acute Plan This is a 56-year old female followed in the behavioral health clinic for bipolar 2 disorder, PTSD and general anxiety disorder. Her current mental status seems to be significantly improved. She appears to probably be close to baseline at this point. She says that she has been compliant with her olanzapine in Cymbalta but would like to have the Cymbalta increased to 60 mg which I feel is appropriate. She has cleared to go home when medically cleared. I have increased her Cymbalta to 60 mg daily. Involuntary Hold Information 96 Hour Hold: 96 Hour Involuntary Admission: No Attestations NPU Medical Necessity Statement*: See attending physician's statements on medical necessity. Coding Level of Care Code Acute Central Processing Technician for Kaushik Ahuja Diagnoses Generalized anxiety disorder F41.1 Bipolar II disorder F31.81 Altered mental status R41.82 Cannabis abuse F12.10 Chronic post-traumatic stress disorder (PTSD) F43.12
[2021-07-17 13:03] LABS: Glucose Point of Care 313 mg/dL (70-110)
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
[2021-07-17 14:54] VITALS: BP 155/87; PULSE 94; RESP 17; TEMP 36.6; O2SAT 97
--- NOTE | 2021-07-17 14:55 | PC.NURSE ---
Reviewed discharge instructions with patient at this time. Spoke to patient about the importance of checking her blood sugar and taking her medications appropriately. Patient talked continually while this nurse was trying to explain the medications. This nurse asked her to wait until I was finished explaining the discharge before she began talking again unless she had a question about what I was discussing. Patient stopped talking and let me we reviewed the discharge together. Patient verbalized understanding of follow up appointments and how to take medications. Patient wheel chaired to private car.
== END 2021-07-17 15:00 | disposition home or self-care (01) | DRG 690 ==
LOC: ER 15:45 → MEDSURG 16:31
PROVIDERS: Admitting Provider Family Medicine; Emergency Provider Family Medicine; PCP Family Medicine; Visit Provider Family Medicine
DX: N39.0 Urinary tract infection, site not specified (principal); F31.81 Bipolar II disorder; N18.30 Chronic kidney disease, stage 3 unspecified; E11.22 Type 2 diabetes mellitus with diabetic chronic kidney disease; Z91.14 Patient's other noncompliance with medication regimen; F12.10 Cannabis abuse, uncomplicated; F43.12 Post-traumatic stress disorder, chronic; F41.1 Generalized anxiety disorder; F17.210 Nicotine dependence, cigarettes, uncomplicated; E86.0 Dehydration; R45.850 Homicidal ideations; Z79.4 Long term (current) use of insulin; Z79.01 Long term (current) use of anticoagulants
CPT/HCPCS: 36415; 36416; 36600; 70450; 71045; 74177; 80048; 80051; 80053; 81001; 82009; 82330; 82550; 82805; 82962; 83605; 83690; 83735; 84100; 84145; 84443; 85025; 85651; 86140; 87040; 93005; 94640; 94664; 96361; 96372; 96374; 97165; 99285; J1815; J3535; J7030; Q9967

== ENCOUNTER 2021-08-26 14:59 | Inpatient (IN) | payer MEDICAID, SELFPAY ==
[2021-08-26 15:10] VITALS: BP 176/74; PULSE 116; RESP 18; TEMP 36.6; O2SAT 97; BMI 31.4
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
[2021-08-26 15:44] LABS: Basophils # 0.1 10^3/uL (0.0-0.1); Basophils % 0.5 %; Eosinophils # 0.1 10^3/uL (0.0-0.8); Eosinophils % 1.2 %; Hematocrit 37.8 % (37.0-47.0); Hemoglobin 11.3 g/dL (11.5-15.3); Mean Corpuscular HGB Conc 29.9 g/dL (30.0-36.0); Mean Corpuscular Hemoglobin 23.7 pg (28.0-34.0); Mean Corpuscular Volume 79.4 fl (81-99); Mean Platelet Volume 9.1 fL (7.4-10.4); Monocytes # 0.5 10^3/uL (0.2-0.9); Neutrophils # 8.11 10^3/uL (1.8-7.7); Neutrophils % 74.8 %; Nucleated Red Blood Cells % 0 %; Platelet Count 364 10^3/cmm (130-400); Red Blood Count 4.76 10^6/uL (4.1-5.3); Red Cell Distribution Width 19.9 % (12.1-15.1); White Blood Count 10.8 10^3/uL (4.0-10.0)
[2021-08-26 16:13] LABS: Alanine Aminotransferase 41 U/L (0-33); Albumin Level 4.1 g/dL (3.5-5.2); Alkaline Phosphatase 147 IU/L (35-105); Anion Gap 18.3 (5-19); Aspartate Amino Transferase 34 U/L (0-32); Blood Urea Nitrogen 10 mg/dL (6-20); Calcium 10.2 mg/dL (8.5-10.5); Carbon Dioxide 22 mmol/L (22-29); Chloride 101 mmol/L (98-107); Free T4 Free Thyroxine 1.17 ng/dL (0.82-1.77); Globulin 2.6 g/dL (1.3-4.6); Glomerular Filtration Rate 102.7 mL/min (90-130); Glucose 218 mg/dL (65-115); Lipase 28 U/L (13-60); Osmolality Calculated 292 mOsm/kg (285-295); Potassium 3.3 mmol/L (3.5-5.1); Sodium 138 mmol/L (136-145); Thyroid Stimulating Hormone 0.87 uIU/mL (0.27-4.20); Total Bilirubin 0.3 mg/dL (0.15-1.2); Total Protein 6.7 g/dL (6.6-8.7)
[2021-08-26 16:14] LABS: Acetaminophen < 5.0 ug/mL (10-30); Salicylate < 0.3 mg/dL (3-10)
--- NOTE | 2021-08-26 16:31 | PC.NURSE ---
Pt is upset, becoming agitated, states she wants to leave. Contacted Dr. Resendiz, PRN order obtained.
[2021-08-26] MEDS: OLANZapine 5 mg TABLET 2.5 MG PO (16:35)
[2021-08-26 16:37] VITALS: BP 142/77; PULSE 78; RESP 18; O2SAT 92
--- NOTE | 2021-08-26 17:12 | PC.PHAR ---
PT UNABLE TO VERIFY MEDICATIONS. PT IN ROOM WITH PT AND STATES SHE SOMETIMES DOES HER MEDICATIONS HERSELF AND HE HELPS HER SOMETIMES. PT AND CAN NOT AGREE ON WHAT AND WHEN SHE LAST TOOK HER MEDICATIONS. STATES HE HAS NOT BEEN ABLE TO FIND PT'S ELIQUIS FOR A FEW DAYS BUT THINKS SHE HAD IT 2-4 DAYS AGO. ALSO STATES MOST OF HER PRESCRIPTIONS INCLUDING PT MAINTENANCE DRUGS AND SOME OF PT INSULIN ARE PRN. VERIFIED USING EXT. MED LIST AND PT AND HUSBANDS ACCOUNT OF WHAT PT TAKES.
[2021-08-26 20:26] VITALS: BP 131/73; PULSE 120; RESP 20; TEMP 36.9; O2SAT 97
[2021-08-26 20:50] LABS: Glucose Point of Care 280 mg/dL (70-110)
[2021-08-26 22:00] VITALS: BP 131/73; PULSE 120; RESP 20; TEMP 36.9; O2SAT 97
--- NOTE | 2021-08-27 04:36 | PC.ADMIT ---
[id number] Admission Note: The patient,Dorina Gamble,56 y/o, was given written information regarding hospital policies, unit procedures and contact persons. Patient's smoking status: current every day smoker. Vital Signs - 8 hr 08/26/21 22:00 Temperature 98.5 F Pulse Rate 120 H Respiratory Rate 20 H Blood Pressure 131/73 Pulse Oximetry 97 Patient states I was brought in by Ashwin charles because he is worried about memory problems. When asking patient who Ashwin is, she states I don't know. But he helps me. Patient also states she sleeps all the time and that she can't seem to stay awake alot and doesn't know why. Patient endorses marijuana use daily and smokes 1/2 pack of cigarettes daily. Patient denies all other substance abuse and has not yet provided a urine sampe for UA and UDS. Patient is slow to answer assessment questions and falling asleep during assessment. Denies SI/HI/AVH.
[2021-08-27 06:00] VITALS: BP 121/63; PULSE 94; RESP 19; TEMP 36.6; O2SAT 95
[2021-08-27 06:30] LABS: Glucose Point of Care 247 mg/dL (70-110)
[2021-08-27] MEDS: pregabalin 100 mg Capsule 200 MG PO ×2 (06:41→13:48)
[2021-08-27] MEDS: apixaban 5 mg Tablet PO (09:31)
[2021-08-27] MEDS: atorvastatin 40 mg Tablet 20 MG PO (09:32)
[2021-08-27] MEDS: cetirizine 10 mg Tablet PO (09:32)
[2021-08-27] MEDS: pantoprazole DR 40 mg Tablet PO (09:32)
[2021-08-27] MEDS: duloxetine 30 mg Capsule 60 MG PO (09:32)
[2021-08-27] MEDS: guaiFENesin 600 mg Tablet PO (09:32)
[2021-08-27] MEDS: FUROsemide 20 mg Tablet PO (09:32)
[2021-08-27] MEDS: insulin lispro 100 unit/1 mL SUBCUT ×2 (09:33→11:45)
--- NOTE | 2021-08-27 09:35 | PC.NURSE ---
REFUSED SCHEDULED LEVEMIR, PT STATES SHE TAKES IT AT NIGHT TIME ONLY
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
[2021-08-27 11:31] LABS: Glucose Point of Care 304 mg/dL (70-110)
[2021-08-27 11:38] VITALS: BP 121/63; PULSE 94; RESP 19; TEMP 36.6; O2SAT 95
[2021-08-27] MEDS: nicotine 2 mg Gum BUCCAL (11:45)
[2021-08-27] MEDS: ergocalciferol (vitamin D2) 50,000 Unit Capsule 50000 UNIT PO (12:28)
== END 2021-08-27 14:08 | disposition home or self-care (01) | DRG 885 ==
LOC: ER 16:00 → NP 08-27 06:15
PROVIDERS: Admitting Provider Psychiatry & Neurology Psychiatry; Emergency Provider Emergency Medicine; PCP Family Medicine; Visit Provider Psychiatry & Neurology Psychiatry
DX: F31.9 Bipolar disorder, unspecified (principal); F17.200 Nicotine dependence, unspecified, uncomplicated
CPT/HCPCS: 36416; 80053; 80307; 82962; 83690; 84439; 84443; 85025; 96372; 99285; J1815

== ENCOUNTER → 2021-10-14 12:20 | Outpatient (BNVA) | payer MEDICAID, SELFPAY | PROVIDERS: PCP Family Medicine; Visit Provider Psychiatry & Neurology Psychiatry | DX: F41.1 Generalized anxiety disorder (principal); F31.81 Bipolar II disorder; F43.12 Post-traumatic stress disorder, chronic | CPT/HCPCS: 99214 ==

== ENCOUNTER → 2022-01-22 08:12 | Outpatient (BNVA) | payer MEDICAID, SELFPAY | PROVIDERS: PCP Family Medicine; Visit Provider Podiatrist Foot & Ankle Surgery | DX: E11.9 Type 2 diabetes mellitus without complications (principal); Z79.4 Long term (current) use of insulin; G62.9 Polyneuropathy, unspecified; I73.9 Peripheral vascular disease, unspecified; M79.672 Pain in left foot; L84 Corns and callosities; L85.3 Xerosis cutis | CPT/HCPCS: 99203 ==

== ENCOUNTER 2022-03-26 16:48 | Inpatient (IN) | payer MEDICAID, SELFPAY ==
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
[2022-03-26 16:56] VITALS: BP 147/93; PULSE 114; RESP 22; TEMP 37.1; O2SAT 97; BMI 29.0
--- NOTE | 2022-03-26 17:23 | CTR_ITS ---
PROCEDURE INFORMATION: Exam: CT Head Without Contrast Exam date and time: 03/26/2022 6:31 PM Age: 57 years old Clinical indication: Altered mental status/memory loss and other: Confusion, hallucinations; Additional info: AMS TECHNIQUE: Imaging protocol: Computed tomography of the head without contrast. Radiation optimization: All CT scans at this facility use at least one of these dose optimization techniques: automated exposure control; mA and/or kV adjustment per patient size (includes targeted exams where dose is matched to clinical indication); or iterative reconstruction. COMPARISON: CT head wo con* [id number] 07/16/2021 6:07 PM RADIATION DOSE METRICS: Total DLP (mGy-cm): 1174.58 FINDINGS: Brain: Normal. No hemorrhage. Unremarkable white matter. No mass effect. Cerebral ventricles: No ventriculomegaly. Paranasal sinuses: Visualized sinuses are unremarkable. No fluid levels. Mastoid air cells: Visualized mastoid air cells are well aerated. Bones/joints: Unremarkable. No acute fracture. Soft tissues: Unremarkable. CT/CT head wo con* [id number] IMPRESSION: No acute intracranial abnormality.
--- NOTE | 2022-03-26 17:23 | CTR_ITS ---
PROCEDURE INFORMATION: Exam: CT Abdomen And Pelvis With Contrast Exam date and time: 03/26/2022 6:35 PM Age: 57 years old Clinical indication: Abdominal tenderness; Additional info: Abd pain, AMS TECHNIQUE: Imaging protocol: Computed tomography of the abdomen and pelvis with contrast. Radiation optimization: All CT scans at this facility use at least one of these dose optimization techniques: automated exposure control; mA and/or kV adjustment per patient size (includes targeted exams where dose is matched to clinical indication); or iterative reconstruction. Contrast material: OMNIPAQUE 350; Contrast volume: 95 ml; Contrast route: INTRAVENOUS (IV); COMPARISON: CT abdomen pelvis w con* [id number] 07/16/2021 2:27 PM RADIATION DOSE METRICS: Total DLP (mGy-cm): 970.85 FINDINGS: Liver: Normal. No mass. Gallbladder and bile ducts: Normal. No calcified stones. No ductal dilation. Pancreas: Normal. No ductal dilation. Spleen: Normal. No splenomegaly. Adrenal glands: Normal. No mass. Kidneys and ureters: Left renal cyst, Hounsfield units less than 20. No follow-up imaging recommended. Lobulated contour in both kidneys is unchanged and most likely an anatomic variant. No calculus or hydronephrosis. Stomach and bowel: Small hiatal hernia. No obstruction. No mucosal thickening. Appendix: The appendix is visualized and is normal. Intraperitoneal space: Unremarkable. No free air. No significant fluid collection. Vasculature: Arterial calcifications. Aorto bi-iliac stents. No aneurysm. Lymph nodes: Unremarkable. No enlarged lymph nodes. Urinary bladder: Unremarkable as visualized. Reproductive: The uterus and ovaries are absent. Bones/joints: Unremarkable. No acute fracture. Soft tissues: Unremarkable. CT/CT abdomen pelvis w con* [id number] IMPRESSION: 1. No acute findings. COMMENTS: Consistent with the [employer]'s Incidental Findings Committee white paper (J Am Phong Radiol 2018): Any incidental renal lesion less than 1 cm or classified as too small to characterize, or any incidental cystic renal lesion characterized as simple-appearing, is likely benign. No follow-up imaging is recommended for these lesions per consensus recommendations based on imaging criteria.
[2022-03-26 17:37] LABS: Basophils # 0.1 10^3/uL (0.0-0.1); Basophils % 0.4 %; Eosinophils # 0.1 10^3/uL (0.0-0.8); Eosinophils % 0.9 %; Hematocrit 47.1 % (37.0-47.0); Hemoglobin 16.2 g/dL (11.5-15.3); Lymphocytes # 2.5 10^3/uL (0.8-4.8); Lymphocytes % 19.1 %; Mean Corpuscular HGB Conc 34.4 g/dL (30.0-36.0); Mean Corpuscular Hemoglobin 29.9 pg (28.0-34.0); Mean Corpuscular Volume 86.9 fl (81-99); Mean Platelet Volume 9.2 fL (7.4-10.4); Monocytes # 0.9 10^3/uL (0.2-0.9); Monocytes % 6.7 %; Neutrophils # 9.34 10^3/uL (1.8-7.7); Neutrophils % 72.4 %; Nucleated Red Blood Cells % 0 %; Platelet Count 435 10^3/cmm (130-400); Red Blood Count 5.42 10^6/uL (4.1-5.3); Red Cell Distribution Width 12.8 % (12.1-15.1); White Blood Count 12.9 10^3/uL (4.0-10.0)
[2022-03-26] MEDS: sodium chloride 0.9% 1,000 ML 999 ML IV (18:03)
[2022-03-26] MEDS: diphenhydrAMINE 50 mg/mL SDV 1mL 25 MG IVP (18:03)
[2022-03-26] MEDS: midazolam 1 mg/mL INJ 2 mL IVP (18:04)
[2022-03-26 18:06] LABS: Alanine Aminotransferase 35 U/L (0-33); Albumin Level 4.2 g/dL (3.5-5.2); Alkaline Phosphatase 135 U/L (35-105); Anion Gap 26.2 (5-19); Aspartate Amino Transferase 42 U/L (0-32); Blood Urea Nitrogen 29 mg/dL (6-20); Calcium 9.9 mg/dL (8.5-10.5); Carbon Dioxide 20 mmol/L (22-29); Chloride 87 mmol/L (98-107); Globulin 3.9 g/dL (1.3-4.6); Glomerular Filtration Rate 50.8 mL/min (90-130); Glucose 309 mg/dL (65-115); Osmolality Calculated 288 mOsm/kg (285-295); Potassium 3.2 mmol/L (3.5-5.1); Sodium 130 mmol/L (136-145); Thyroid Stimulating Hormone 0.55 uIU/mL (0.27-4.20); Total Bilirubin 0.6 mg/dL (0.15-1.2); Total Protein 8.1 g/dL (6.6-8.7)
[2022-03-26] MEDS: haloperidol inj 5 mg/mL INJ 1 mL 2 MG IVP (18:06)
[2022-03-26 18:07] LABS: Acetaminophen < 5.0 ug/mL (10-30); Alcohol Level < 10 mg/dL (0-10); Salicylate < 0.3 mg/dL (3-10)
[2022-03-26 18:20] LABS: Ketone (Acetest) Serum Negative (Negative)
[2022-03-26 18:23] LABS: ABG PCO2 29.8 mmHg (35-45); ABG PH Result 7.46 (7.35-7.45); Arterial Blood Gas Hematocrit 47.7 % (37-47); Base Excess ABG -1.4 mmol/L (-2.0-2.0); Blood Gas Allen Test Pos; Blood Gas Operator Identificat CAK; Blood Gas Sample Site Brachial, right; Blood Gas Sample Type Arterial; HCO3 ABG 21.2 mmol/L (22-26); Oxygen Device ROOM AIR; PO2 ABG 80.8 mmHg (80.0-100.0)
[2022-03-26 18:36] LABS: Lactate (Lactic Acid level) 3.5 mmol/L (0.5-2.2)
--- NOTE | 2022-03-26 18:43 | XRR_ITS ---
PROCEDURE INFORMATION: Exam: XR Chest Exam date and time: 03/26/2022 7:56 PM Age: 57 years old Clinical indication: Other: Psych eval; Additional info: AMS TECHNIQUE: Imaging protocol: Radiologic exam of the chest. Views: 1 view. COMPARISON: CR XR chest 1V portable [id number] 07/16/2021 11:42 AM FINDINGS: Lungs: Unremarkable. No consolidation. Pleural spaces: Unremarkable. No pleural effusion. No pneumothorax. Heart/Mediastinum: Unremarkable. No cardiomegaly. Bones/joints: Unremarkable. Other findings: Thoracic curvature. XR/XR chest 1V portable [id number] IMPRESSION: No acute findings.
[2022-03-26] MEDS: iohexol 350 mg/mL 500 mL Btl (per mL) IV (18:44)
[2022-03-26 19:12] LABS: Creatine Phosphokinase 896 U/L (26-192)
--- NOTE | 2022-03-26 19:13 | ECG_ITS ---
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 Measurements Intervals [place] Rate: 85 P: 44 IN: 143 QRS: 10 QRSD: 84 T: 27 QT: 410 QTc: 490 Interpretive Statements SINUS RHYTHM WITH OCCASIONAL VENTRICULAR PREMATURE COMPLEXES Compared to ECG 07/16/2021 12:24:40 Ventricular premature complex(es) now present Electronically Signed On 03-27-2022 6:23:46 SYNTHETIC STAPLE EXTRUDER by Praful Schreiber M.D. [id number]
[2022-03-26 19:31] LABS: Glucose Point of Care 229 mg/dL (70-110)
[2022-03-26 19:45] LABS: Urine Appearance Clear (CLEAR); Urine Color Yellow (Yellow); pH Urine 5 (5-7)
[2022-03-26 19:46] LABS: Add Urine Microscopic? YES; Bilirubin Urine Neg (Negative); Blood Urine Neg (Negative); Glucose Urine UA 4+ (Normal); Ketones Urine 1+ (Negative); Leukocyte Esterase Urine Negative (Negative); Nitrate Urine Negative (Negative); Protein Urine Trace (Negative); Urobilinogen Urine Norm (Negative)
[2022-03-26 19:52] LABS: Add Urine Culture? No; Bacteria Urine TRACE /hpf; RBC Urine 0-4 /hpf (0-2); Squamous Epithelial Cell Urine 0-4 /hpf (0-5)
[2022-03-26 19:58] LABS: Amphetamines Screen Urine Negative (Negative); Barbiturates Screen Urine Negative (Negative); Benzodiazepines Screen Urine Negative (Negative); Cocaine Screen Urine Negative (Negative); Opiate Screen Urine Negative (Negative); PCP Screen Urine Negative (Negative); THC Screen Urine Positive (Negative)
[2022-03-26 21:00] VITALS: BP 152/66; PULSE 98; RESP 18; TEMP 37.1; O2SAT 97
[2022-03-26 21:13] VITALS: BP 152/66; PULSE 98; RESP 18; TEMP 37.1; O2SAT 97
[2022-03-26 21:30] VITALS: BP 178/73; PULSE 100; RESP 17; TEMP 37.1; O2SAT 96
[2022-03-26 22:12] VITALS: BMI 28.8
--- NOTE | 2022-03-26 22:29 | PC.NURSE ---
PATIENT ASKED IF SHE LIVES AT HOME. PATIENT STATED NOT ANYMORE, AND STATES HER CHIEF COMPLAINT FOR COMING TO THE HOSPITAL IS BECAUSE SHE DOESN'T HAVE A HOME ANYMORE. PATIENT STATES THAT SHE WILL PROSECUTE HER , BUT REASONS UNCLEAR. PATIENT RAMBLING AND NOT MAKING COHERENT STATEMENTS.
--- NOTE | 2022-03-26 22:33 | PC.NURSE ---
DURING SUICIDE ASSESSMENT, WHEN PATIENT ASKED IF SHE WISHED SHE WERE , PATIENT LAUGHED AND STATED ONLY HIM.
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
[2022-03-26 23:55] VITALS: BP 147/70; PULSE 97; RESP 17; TEMP 36.9; O2SAT 93
[2022-03-27] MEDS: lidocaine 1% 5 ML in potassium chloride premix 100 ML 25 ML IV (00:43)
[2022-03-27] MEDS: sodium chloride 0.9% 1,000 ML 150 ML IV (00:45)
--- NOTE | 2022-03-27 01:46 | PC.NURSE ---
PATIENT'S PINK BOX WITH HOME MEDICATIONS PLACED IN [facility]. HOME MEDS RECORDED ON HOME MEDICATION LIST.
[2022-03-27] MEDS: sodium chlor 0.9% + KCl 20 mEq 20 MEQ/1,000 ML BAG 75 MEQ IV (03:28)
[2022-03-27 04:00] VITALS: BP 124/70; PULSE 102; RESP 17; TEMP 37.1; O2SAT 96
--- NOTE | 2022-03-27 04:39 | PC.NURSE ---
PATIENT TRIED TO HAVE SMALL BM, A SMALL RED JELLY-LIKE STOOL WAS FOUND IN BEDSIDE COMMODE. DR PARIKH INSPECTED STOOL, SUSPECTS POSSIBLE HEMERROIDS. THIS NURSE INFORMED DR PARIKH THAT SHE WOULD MESSAGE HER ABOUT NEXT BM. PATIENT HAD ANOTHER BM, THIS STOOL LOOSE AND DARK GREEN BUT NOT BLOODY.
--- NOTE | 2022-03-27 05:30 | PC.NURSE ---
Patient had 3 small bms in the past hour. All 3 were watery liquid, loose consistency and dark brown color. The 1st and the 3rd bm had dark red blood visible. Dr. Conner observed the first one thinking it maybe hemorrhoids. Dr. Conner told the nurse to watch if the blood is in the toilet or on the paper. Blood is present in the toilet with the stool.
[2022-03-27 05:41] LABS: Basophils # 0.1 10^3/uL (0.0-0.1); Basophils % 0.5 %; Eosinophils # 0.1 10^3/uL (0.0-0.8); Hematocrit 45.1 % (37.0-47.0); Hemoglobin 14.8 g/dL (11.5-15.3); Lymphocytes # 2.3 10^3/uL (0.8-4.8); Lymphocytes % 15.4 %; Mean Corpuscular HGB Conc 32.8 g/dL (30.0-36.0); Mean Corpuscular Hemoglobin 29.7 pg (28.0-34.0); Mean Corpuscular Volume 90.6 fl (81-99); Mean Platelet Volume 9.5 fL (7.4-10.4); Monocytes # 1.1 10^3/uL (0.2-0.9); Monocytes % 7.7 %; Neutrophils # 10.99 10^3/uL (1.8-7.7); Nucleated Red Blood Cells % 0 %; Platelet Count 368 10^3/cmm (130-400); Red Blood Count 4.98 10^6/uL (4.1-5.3); Red Cell Distribution Width 13.1 % (12.1-15.1); White Blood Count 14.6 10^3/uL (4.0-10.0)
[2022-03-27 05:54] LABS: Alanine Aminotransferase 30 U/L (0-33); Albumin Level 3.9 g/dL (3.5-5.2); Alkaline Phosphatase 112 U/L (35-105); Anion Gap 20.7 (5-19); Aspartate Amino Transferase 32 U/L (0-32); Blood Urea Nitrogen 20 mg/dL (6-20); Calcium 9.1 mg/dL (8.5-10.5); Carbon Dioxide 22 mmol/L (22-29); Chloride 94 mmol/L (98-107); Glomerular Filtration Rate 73.4 mL/min (90-130); Glucose 209 mg/dL (65-115); Osmolality Calculated 285 mOsm/kg (285-295); Potassium 3.7 mmol/L (3.5-5.1); Sodium 133 mmol/L (136-145); Total Bilirubin 0.7 mg/dL (0.15-1.2); Total Protein 6.9 g/dL (6.6-8.7)
--- NOTE | 2022-03-27 05:58 | PC.NURSE ---
Patient is complaining of left lower iliac region feeling hot and compressing pain. Patient says she started hurting after her first bowel movement started less than 3 hours and now she needs to keep going but can't pass it all through at one time.
--- NOTE | 2022-03-27 06:04 | PC.NURSE ---
Patient is on a carbohydrate consistent diet but says she needs a mechanical soft diet as she has trouble chewing. She has talked about eating jello only when describing how she can not chew.
[2022-03-27] MEDS: pregabalin 100 mg Capsule 200 MG PO ×3 (06:22→21:50)
[2022-03-27 06:42] LABS: Glucose Point of Care 256 mg/dL (70-110)
[2022-03-27 07:11] LABS: Lactate (Lactic Acid level) 1.7 mmol/L (0.5-2.2)
[2022-03-27 07:20] VITALS: BP 117/67; PULSE 88; RESP 16; TEMP 36.6; O2SAT 94
[2022-03-27] MEDS: insulin lispro 100 unit/1 mL SUBCUT ×3 (09:35→21:50)
[2022-03-27] MEDS: aspirin 325 mg Tablet PO (09:36)
[2022-03-27] MEDS: atorvastatin 40 mg Tablet 20 MG PO (09:36)
[2022-03-27] MEDS: apixaban 5 mg Tablet PO (09:36)
[2022-03-27] MEDS: insulin glargine 100 units/1 mL 10 UNIT SUBCUT (09:37)
[2022-03-27] MEDS: fenofibrate 48 mg Tablet PO (09:37)
[2022-03-27] MEDS: duloxetine 60 mg Capsule 120 MG PO (09:37)
[2022-03-27] MEDS: FUROsemide 20 mg Tablet PO (09:37)
[2022-03-27] MEDS: pantoprazole DR 40 mg Tablet PO (09:38)
--- NOTE | 2022-03-27 09:41 | PC.NURSE ---
patient refused ordered insulin
--- NOTE | 2022-03-27 11:08 | PC.CHAP ---
Pastoral Care Encounter/Spiritual Assessment Type of Contact [] Declined infusion nurse visit [] Patient/Family/Request visit [] Outpatient visit [] Follow-up visit [] Physician referral [] Code/Alert [x] Routine visit [] Staff referral [] Actively dying [] Patient sleeping [] Family support [] [] Out of room [] Palliative care [] [x] Receiving care in room [] Pre-surgical visit [] Trauma [] Long length of stay [] ICU visit [] Other: Relational/Emotional Strength [] Patient feels connected with others/family/visitors/staff [] Distress [] Loneliness/isolation [] Abandonment Spirituality of Patient [] Person of Romana [] Attends Latter Day of their Romana [] Believes in Prayer [] Reads Bible or Alevism materials [] There are Spiritual issues to be addressed 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 Interventions [x] Prayer [] Active listening [] Non-anxious presence [] Spiritual/emotional support [] Crisis/trauma care [] Spiritual counseling [] Bereavement support [] Provided bereavement packet [] Provided Bible/devotional materials [] Provided toy/stuffed animal, coloring book to patient or family member [] Provided Communion [] Anointing/[place] [] Salvation [] Completed spiritual assessment [] Other: Impact on Illness or Injury [] Angry [] Fearful [] Anxious [] Often cries [] Exhaustion [] Unable to work [] Unable to attend adventism [] Unable to walk/stand [] Unable to read [] Unable to drive [] Unable to eat/drink [] Unable to sleep [] Unable to be with family [] Patient intubated [] Other: Summary Time spent with patient
[2022-03-27 11:19] LABS: Glucose Point of Care 286 mg/dL (70-110)
[2022-03-27 11:21] VITALS: BP 113/65; PULSE 82; RESP 17; TEMP 36.7; O2SAT 95
--- NOTE | 2022-03-27 11:46 | PM.PN ---
Subjective Subjective: Patient was awake and alert Stating that she is sleepy and would like to catch up on her sleep first human relations manager updated Will involve social sciences professor to see if she would like to file charges against her Vitals/I&O/Wt Last Vital Signs Temp 98.1 F 03/27/22 11:21 Pulse 82 03/27/22 11:21 Resp 17 03/27/22 11:21 BP 113/65 03/27/22 11:21 Pulse Ox 95 03/27/22 11:21 O2 Del Method 03/27/22 11:21 03/26/22 03/27/22 03/27/22 22:59 06:59 14:59 Intake Total 412.5 / 412.5 Output Total 750 / 750 Balance -337.5 / -337.5 Weight last 48 hrs Weight 80.881 kg Weight 81.647 kg Physical Exam Narrative: Patient is awake and alert Oriented to time place and person Able to follow commands Looks slightly dehydrated Abdomen soft nontender Lower extremity no edema Doing well on room air Hemodynamically stable Urinary Catheter Management: Sanchez: Cath Placed During This Visit: yes Reason for Continuing Indwelling Catheter: Not indwelling catheter Urinary Catheter Date of Insertion: 03/26/22 Urinary Catheter Time of Insertion: 19:40 Data 03/27/22 04:22 03/27/22 04:22 Micro: Microbiology 03/27/22 05:50 Blood Culture - Preliminary Blood SPECIMEN COLLECTED 03/27/22 05:53 Blood Culture - Preliminary Blood SPECIMEN COLLECTED A&P Assessment and plan (1) CHERI (acute kidney injury): (2) Hyperglycemia: (3) Acute alteration in mental status: (4) Acidosis, lactic: (5) Dehydration: (6) Rhabdomyolysis: (7) Xerosis of skin: (8) Bipolar II disorder: (9) Insulin dependent type 2 diabetes mellitus: (10) Cannabis abuse: (11) Generalized anxiety disorder: Plan Continue IV fluids for mild rhabdo Hyperglycemia, continue sliding scale, check A1c, I will add long-acting insulin CHERI related to dehydration: Continue IV fluids Generalized anxiety:-Continue anxiolytics and antidepressants Patient is full code UTI continue antibiotics Attestations Medical Necessity Statement*: Management to be continued for 1 more day Time Spent in Patient Care: 30 Coding Level of Care Code Acute Supervisor [place] for Kaushik Ahuja Diagnoses CHREI (acute kidney injury) N17.9 Hyperglycemia R73.9 Acute alteration in mental status R41.82 Acidosis, lactic E87.20 Dehydration E86.0 Rhabdomyolysis M62.82 Xerosis of skin L85.3 Bipolar II disorder F31.81 Insulin dependent type 2 diabetes mellitus E11.9; Z79.4 Cannabis abuse F12.10 Generalized anxiety disorder F41.1
[2022-03-27] MEDS: sodium chloride 0.9% 1,000 ML 75 ML IV (13:25)
[2022-03-27 15:25] VITALS: BP 110/71; PULSE 85; RESP 18; TEMP 36.8; O2SAT 96
[2022-03-27 15:25] LABS: Glucose Point of Care 185 mg/dL (70-110)
--- NOTE | 2022-03-27 16:50 | PC.NURSE ---
Patient wanting to leave AMA, Dr Garcia notified HCP advised he will not D/C the patient, she is AO so she can choose to leave AMA. paticara now trying to get ahold of family, and decide to stay or leave
[2022-03-27 16:55] LABS: Glucose Point of Care 186 mg/dL (70-110)
--- NOTE | 2022-03-27 17:11 | PC.NURSE ---
Patient refusing 1800 meds
[2022-03-27 20:30] VITALS: BP 128/75; PULSE 86; RESP 24; TEMP 36.6; O2SAT 95
--- NOTE | 2022-03-27 20:32 | PC.NURSE ---
REPORT TAKEN FROM MARCIA MORGAN. PATIENT THIS EVENING A&OX4, STATES THAT SHE IS ADMITTED TO HOSPITAL BECAUSE THAT IS WHAT THEY DECIDED DOWN STAIRS, BUT IS ALERT TO NAME, , DATE, AND LOCATION. PATIENT REPORTS HER THROAT FEELS DRY AND SCRATCHY AND HAS FAN BLOWING ON HER, REQUESTING SOUP. PATIENT IS RESTING IN BED, WATCHING TV. BED LOCKED IN LOWEST POSITION, BOTH SIDE RAILS UP, CALL LIGHT WITHIN REACH. SITTER AT BEDSIDE. NO FURTHER NEEDS AT THIS TIME.
[2022-03-27 21:07] LABS: Glucose Point of Care 220 mg/dL (70-110)
[2022-03-27] MEDS: prazosin 5 mg Capsule PO (21:51)
[2022-03-27 23:20] VITALS: BP 103/60; PULSE 82; RESP 22; TEMP 36.8; O2SAT 94
[2022-03-28] MEDS: sodium chloride 0.9% 1,000 ML 75 ML IV (00:11)
--- NOTE | 2022-03-28 00:49 | PC.NURSE ---
PATIENT RESTING SOUNDLY IN BED. ONE RAIL UP, BEDSIDE TABLE ON THE OTHER SIDE OF BED WHERE OTHER RAIL SHOULD BE. BED LOCKED IN LOWEST POSITION. NO FURTHER NEEDS AT THIS TIME.
[2022-03-28 04:00] VITALS: BP 121/64; PULSE 87; RESP 96; TEMP 36.7; O2SAT 96
[2022-03-28 04:00] LABS: Basophils % 0.3 %; Eosinophils # 0.2 10^3/uL (0.0-0.8); Eosinophils % 1.6 %; Hemoglobin 13.1 g/dL (11.5-15.3); Lymphocytes # 2.6 10^3/uL (0.8-4.8); Lymphocytes % 22.9 %; Mean Corpuscular HGB Conc 32.8 g/dL (30.0-36.0); Mean Corpuscular Hemoglobin 29.9 pg (28.0-34.0); Mean Corpuscular Volume 91.3 fl (81-99); Mean Platelet Volume 9.5 fL (7.4-10.4); Monocytes # 0.7 10^3/uL (0.2-0.9); Monocytes % 6.3 %; Neutrophils # 7.89 10^3/uL (1.8-7.7); Neutrophils % 68.5 %; Nucleated Red Blood Cells % 0 %; Platelet Count 305 10^3/cmm (130-400); Red Blood Count 4.38 10^6/uL (4.1-5.3); Red Cell Distribution Width 12.9 % (12.1-15.1); White Blood Count 11.5 10^3/uL (4.0-10.0)
--- NOTE | 2022-03-28 04:09 | PC.NURSE ---
PATIENT COMPLAINING OF DIARRHEA AND REQUESTING SOMETHING FOR IT. DR PARIKH NOTIFIED.
[2022-03-28 04:28] LABS: Blood Urea Nitrogen 9 mg/dL (6-20); Calcium 9.2 mg/dL (8.5-10.5); Carbon Dioxide 25 mmol/L (22-29); Chloride 99 mmol/L (98-107); Glomerular Filtration Rate 102.3 mL/min (90-130); Glucose 242 mg/dL (65-115); Osmolality Calculated 287 mOsm/kg (285-295); Sodium 135 mmol/L (136-145)
[2022-03-28 04:29] LABS: Anion Gap 14.6 (5-19); Potassium 3.6 mmol/L (3.5-5.1)
[2022-03-28 04:30] LABS: Creatine Phosphokinase 355 U/L (26-192)
--- NOTE | 2022-03-28 04:33 | PC.NURSE ---
CRITICAL LAB REPORTED TO DR PARIKH VIA SECURE MESSAGING, CREATINE KINASE 355
[2022-03-28] MEDS: pregabalin 100 mg Capsule 200 MG PO ×2 (05:20→15:12)
[2022-03-28 07:02] LABS: Glucose Point of Care 221 mg/dL (70-110)
[2022-03-28 08:00] VITALS: BP 118/52; PULSE 82; PULSE 88; RESP 16; RESP 18; TEMP 36.8; O2SAT 98
[2022-03-28 08:04] VITALS: PULSE 82; RESP 18; O2SAT 99
[2022-03-28] MEDS: fenofibrate 48 mg Tablet PO (08:29)
[2022-03-28] MEDS: duloxetine 60 mg Capsule 120 MG PO (08:29)
[2022-03-28] MEDS: apixaban 5 mg Tablet PO ×2 (08:29→17:39)
[2022-03-28] MEDS: pantoprazole DR 40 mg Tablet PO (08:29)
[2022-03-28] MEDS: insulin lispro 100 unit/1 mL SUBCUT ×2 (08:30→17:46)
[2022-03-28] MEDS: insulin glargine 100 units/1 mL 10 UNIT SUBCUT (08:30)
[2022-03-28] MEDS: FUROsemide 20 mg Tablet PO (08:30)
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
[2022-03-28 12:00] VITALS: BP 122/58; PULSE 96; RESP 16; TEMP 36.8; O2SAT 96
--- NOTE | 2022-03-28 15:19 | PC.NURSE ---
1149: discharge instructions given to patient who voiced compliance. patient instructed to notify her ride to come pick her up. Patient voiced she would. 1215 Patient refused blood sugar check and insulin because she is discharging.
--- NOTE | 2022-03-28 15:24 | PC.NURSE ---
1330 patient asked per nursing if she had heard from her ride and she stated that she had called numerous times and no one would answer the phone. this nurse asked for phone number so staff could attempt to contact patients sister. Core Finisher notified. 1400 event services manager contacted nursing and stated they had gotten in touch with her family and they would be here later this afternoon. Patient notified.
[2022-03-28 16:00] VITALS: BP 122/73; PULSE 93; RESP 16; TEMP 36.8; O2SAT 98
[2022-03-28 16:47] LABS: Glucose Point of Care 270 mg/dL (70-110)
[2022-03-28 19:08] VITALS: BP 122/73; PULSE 93; RESP 16; O2SAT 98
--- NOTE | 2022-03-28 19:12 | PC.NURSE ---
1800 Patients sister here and patient discharged to home with family patient in stable condition. Patient taken to private car per wheelchair and with personal belongings, home meds and discharge paperwork
== END 2022-03-28 18:00 | disposition home or self-care (01) | DRG 683 ==
LOC: ER 19:21 → MEDSURG 19:52
PROVIDERS: Admitting Provider Student in an Organized Health Care Education/Training Program; Emergency Provider Emergency Medicine; PCP Family Medicine; Visit Provider Internal Medicine
DX: N17.9 Acute kidney failure, unspecified (principal); E87.20 Acidosis, unspecified; M62.82 Rhabdomyolysis; F31.81 Bipolar II disorder; R41.82 Altered mental status, unspecified; E11.43 Type 2 diabetes mellitus with diabetic autonomic (poly)neuropathy; K31.84 Gastroparesis; E11.65 Type 2 diabetes mellitus with hyperglycemia; E86.0 Dehydration; E87.6 Hypokalemia; L85.3 Xerosis cutis; F41.1 Generalized anxiety disorder; F12.10 Cannabis abuse, uncomplicated; F43.12 Post-traumatic stress disorder, chronic; F17.210 Nicotine dependence, cigarettes, uncomplicated; Z63.0 Problems in relationship with spouse or partner; Z79.4 Long term (current) use of insulin; Z86.718 Personal history of other venous thrombosis and embolism; Z79.01 Long term (current) use of anticoagulants
CPT/HCPCS: 36415; 36416; 36600; 51702; 70450; 71045; 74177; 80048; 80053; 80306; 80307; 81001; 82009; 82550; 82803; 82962; 83605; 84443; 85025; 87040; 93005; 96361; 96372; 96374; 96375; 99285; J1200; J1630; J1815; J2250; J3480; J7030; Q9967

== ENCOUNTER → 2022-04-23 09:17 | Outpatient (BNVA) | payer MEDICAID, SELFPAY | PROVIDERS: PCP Family Medicine; Visit Provider Podiatrist Foot & Ankle Surgery | DX: E11.9 Type 2 diabetes mellitus without complications (principal); Z79.4 Long term (current) use of insulin; G62.9 Polyneuropathy, unspecified; I73.9 Peripheral vascular disease, unspecified; L84 Corns and callosities; L85.3 Xerosis cutis | CPT/HCPCS: 11721 ==

== ENCOUNTER 2022-04-28 15:28 | Emergency (ER) | payer MEDICAID, SELFPAY ==
[2022-04-28 15:40] VITALS: BP 156/123; PULSE 102; RESP 18; TEMP 37.4; O2SAT 98; BMI 32.3
--- NOTE | 2022-04-28 16:23 | XR_ITS ---
WS: [id number] Exam: XR femur LT min 2V* [id number] Date/Time of Exam: 04/28/2022 4:25 PM Reason For Exam: pain No fracture or dislocation. Normal soft tissues. XR/XR femur LT min 2V* [id number] IMPRESSION: 1. Negative left femur.
--- NOTE | 2022-04-28 16:23 | XR_ITS ---
WS: [id number] Exam: XR pelvis 1-2V* [id number] Date/Time of Exam: 04/28/2022 4:25 PM Reason For Exam: pain left pelvis No acute pelvic fracture. Mild DJD of both hips. A bifurcated lower abdominal aortic graft is noted. A stent noted in the region of the right common iliac artery. XR/XR pelvis 1-2V* [id number] IMPRESSION: 1. No pelvic fracture or bone destruction. 2. Additional findings as noted above.
--- NOTE | 2022-04-28 16:24 | ED_ITS ---
HPI - Altered Mental Status General: Chief Complaint: Altered Mental Status Stated Complaint: PSYCH ISSUE/ POSIBLE HIP FX Time Seen by Provider: 04/28/22 15:33 Source: patient and EMS Mode of arrival: EMS History of Present Illness: [facility]. Patient apparently stated that she had fallen several days ago and was there because of pain in her left hip. She would not stand for the personnel at the clinic and therefore EMS was notified to bring her to the emergency department for evaluation. In route the EMS reported that she seemed to move all extremities including her left hip without difficulty. Upon arrival she states that she fell approximately 5 days ago. She states she did not have syncope but had a trip and fall. She states that her left hip and upper leg hurt. She denies other injuries. Review of Systems Const: Denies: fever(s) or chills Eyes: Denies: change in vision ENMT: Denies: throat pain, odynophagia, nasal discharge or nasal congestion Card: Denies: chest pain or palpitations Resp: Denies: dyspnea, productive cough or non-productive cough GI: Denies: abdominal pain, nausea, vomiting or hematochezia : Denies: difficulty voiding, dysuria or urinary frequency Skin/Breast: Denies: rash Neuro: Denies: headache(s), numbness in extremities or weakness in extremities Psych: Reports: anxiety and sleeping less Endo: Denies: polyuria or polydipsia PFSH ED PFSH: Medical History Abdominal pain Acidosis, lactic Acute alteration in mental status Acute encephalopathy Adderall use disorder, moderate, in sustained remission, dependence CHERI (acute kidney injury) Bipolar II disorder Cannabis abuse Chronic post-traumatic stress disorder (PTSD) Dehydration Generalized anxiety disorder Generalized muscle ache Hyperglycemia Hypokalemia Insulin dependent type 2 diabetes mellitus Leukocytosis Polyp of duodenum Psychiatric care Rhabdomyolysis Xerosis of skin Surgical History H/O colonoscopy 15-20 yrs ago H/O esophagogastroduodenoscopy 15-20 yrs ago H/O hernia repair Hx of tubal ligation Family History Father Cancer colon Family/Other Cancer maternal grandmother colon Denies family history of CAD (coronary artery disease) Anesthesia complication Bleeding disorder Social History Smoking and tobacco status: current every day smoker cigarettes Packs smoked per day: 1 Years cigarettes smoked: 15 Quit status (tobacco): has tried quititng Number of times tried to quit tobacco: 7 Second hand smoke exposure: Yes Alcohol intake: never Household members: spouse Marital status: Current occupational status: disabled History of recent travel: No Physical Exam Narrative: The patient is alert and responds to questions. Her speech speech is fluent but only short and declarative and answers. She is rather fidgety and moves about the examination cot. Const: COMMON NORMALS: alert GENERAL APPEARANCE: cooperative, disheveled and appears older than stated age HENMT: COMMON NORMALS: normocephalic, atraumatic, Normal nasal mucous membranes and turbinates present and moist oral mucous membranes HEAD & SCALP: normocephalic and atraumatic NOSE: Normal nasal mucous membranes and turbinates present TEETH & GINGIVA: Yes poor dentition Eye: COMMON NORMALS: Equal, round and reactive pupils present, EOMs intact bilaterally and conjunctivae normal CONJUNCTIVA: Yes conjunctivae normal PUPIL: Yes Equal, round and reactive pupils present Neck/C-Spine: COMMON NORMALS: full ROM and no JVD CERVICAL SPINE: Yes cervical ROM normal, No Cervical spine tenderness and No step off deformity Chest: COMMONS NORMALS: normal inspection of the chest Resp: COMMON NORMALS: normal respiratory effort, No use of accessory muscles and clear to auscultation bilaterally EFFORT & INSPECTION: Yes able to speak in complete sentences AUSCULTATION: clear to auscultation bilaterally Cardio: COMMON NORMALS: no JVD, regular rate, regular rhythm, No murmurs present (Cardio) and Peripheral pulses 2+ throughout RATE: regular rate RHYTHM: regular rhythm PERIPHERAL PULSES: Peripheral pulses 2+ throughout GI: COMMON NORMALS: Soft to palpation and non-tender PALPATION: Yes Soft to palpation : COMMON NORMALS: Yes no CVA tenderness BLADDER/KIDNEY EXAM: Yes no CVA tenderness Back/Pelvis: COMMON NORMALS: no CVA tenderness, thoracic and lumbar spine normal to inspection, no thoracic nor lumbar tenderness, thoraco-lumbar ROM normal and straight leg raise negative bilaterally PELVIS: Yes no pain with anterior-posterior compression and Yes no pain with lateral compression SACROILIAC JOINTS: Yes SI joints normal Extremity: COMMON NORMALS: capillary refill normal, no calf tenderness and no pedal edema NARRATIVE EXTREMITY EXAM: Examination of the lower extremities revealed no bony deformity, swelling, ecchymosis. Mild tenderness around the left posterior hip soft tissue region but again no ecchymosis, laceration etc. Range of motion at the hip knee and ankle joints was normal without any restriction crepitance etc. Remainder of her musculoskeletal examination to include axial spine, right left upper extremities as well as the right lower extremity were all unremarkable for any deformity tenderness or other findings. LEFT LOWER EXTREMITY: Yes upper leg Neuro: COMMON NORMALS: moves all extremities, no focal motor deficits and no sensory deficits noted SENSORIUM/ORIENTATION: Yes alert CRANIAL NERVES: Yes CN normal except as noted SPEECH: speech normal Psych: COMMON NORMALS: cooperative APPEARANCE: Yes unkempt ACTIVITY/MOTOR BEHAVIOR: Yes appropriate eye contact, Yes fidgeting and Yes restless SPEECH: Yes rapid THOUGHT PROCESS: Circumstantial thought process present Skin: COMMON NORMALS: no rashes or lesions noted and no wounds GENERAL SKIN EXAM: no rashes or lesions noted Course Reevaluation(s): Reevaluation #1: Patient's radiographs were reviewed no evidence of fracture or other bony injury. No other new or focal findings on repeat examination. Response readily to spoken voice and answers questions appropriately. No evidence at this time of acute or subacute hip pelvis or femur fracture at this time. She has somewhat bizarre behavior but again responds to me appropriately and has no indication that she is suicidal, homicidal or otherwise risk to herself or others. We have contacted her to come to the emergency department provide any additional necessary illuminating history and plan on discharging her to his care if that is appropriate. Time: 18:34 Reevaluation #2: is now here to meat pickler his spouse. I reviewed her current findings with him as well while she was present. We also reviewed her history and he also acknowledges that their only concern at this time was that she is having pain from her fall and they want to ensure that she did not have any kind of broken bone or dislocation to her left hip pelvis or upper leg. I reassured him that there did not appear to be the case at this time. Consistent with soft tissue injury without any evidence of other concerns at this time. He voiced understanding acknowledgment and was comfortable taking her home at this time. We should add that she interacted appropriately with him during his time with her and he did not express any concerns about any other conditions at this time. Time: 20:04 Vital Signs: Vital signs: Vital Signs Temperature 99.4 F 04/28/22 15:40 Pulse Rate 102 H 04/28/22 15:40 Respiratory Rate 18 04/28/22 15:40 Blood Pressure 156/123 04/28/22 15:40 Pulse Oximetry 98 04/28/22 15:40 Oxygen Delivery Me thod 04/28/22 15:40 MDM - Altered Mental Status Medical Decision Making Patient transported here by EMS from a clinic for radiographic evaluation of left extremity. She presented at the clinic stating that she had fallen 5 days ago and was having pain in her left hip. She did not want to stand for ra diographs at their facility and therefore she was transferred here. Clinical examination did not reveal any evidence of bony deformity, joint deformity etc. Does not soft tissue tenderness to palpation in the left lateral upper thigh. No ecchymosis noted. No other clinical findings on her physical examination. Radiographs were obtained which revealed no evidence of pelvic fracture, left hip fracture, left femur fracture. Her evaluation today does not reveal any evidence of serious injury in the areas of concern or any other clinical findings that suggest other acute injury. Likely consistent with soft tissue injury related to her fall. Discussed expected course and reasons to return with both patient and spouse who is now present. Medical Records I reviewed the patient's medical records. Imaging Data Other Xray: I personally reviewed and interpreted this imaging study as follows: My impression: Radiographs of pelvis and left femur do not reveal any obvious acute bony injury to include fracture, dislocation etc. Discharge Plan Discharge Patient Disposition: Home Clinical Impression: Soft tissue injury of left thigh Condition: Stable Prescriptions: No Action duloxetine 60 mg capsule,delayed release(DR/EC) 120 mg PO DAILY Qty: 60 2RF prazosin 5 mg capsule 5 mg PO BEDTIME Qty: 30 2RF (DME) Diabetic Shoes See Rx Instructions .Route .MEDSUPPLY Qty: 1 0RF Rx Instructions: As directed metoclopramide HCl [Reglan] 5 mg tablet 5 mg PO DAILY PRN (Reason: nausea and vomiting) 14 Days Qty: 14 0RF albuterol sulfate [ProAir HFA] 90 mcg/actuation HFA aerosol inhaler 2 puff INHALATION Q6H PRN (Reason: Shortness Of Breath) cetirizine [Zyrtec] 10 mg Tablet 10 mg PO DAILY pravastatin 10 mg Tablet 10 mg PO DAILY omeprazole 20 mg capsule,delayed release(DR/EC) 20 mg PO DAILY insulin aspart U-100 [Novolog Flexpen U-100 Insulin] 100 unit/mL (3 mL) insulin pen See Rx Instructions .ROUTE .COMPLEX Rx Instructions: per sliding scale pregabalin 200 mg capsule 200 mg PO Q8H Eliquis 5 mg tablet 5 mg PO BID guaifenesin [Mucus Relief ER] 600 mg tablet extended release 12hr 600 mg PO BID clonidine HCl 0.1 mg tablet 0.1 mg PO BID PRN (Reason: Blood Pressure) benzonatate 200 mg capsule 200 mg PO TID PRN (Reason: Cough) docusate sodium 100 mg capsule 100 mg PO BID PRN (Reason: Constipation) furosemide 20 mg tablet 20 mg PO DAILY Hold Instructions: Resume on 04/06/22. ergocalciferol (vitamin D2) 1,250 mcg (50,000 unit) capsule 1,250 mcg PO Q7D fluticasone propionate 50 mcg/actuation spray,suspension 2 spray INTRANASAL DAILY PRN (Reason: Allergy Symptoms) lubiprostone [Amitiza] 24 mcg capsule 24 mcg PO DAILY PRN (Reason: Constipation) Trulicity 1.5 mg/0.5 mL Pen Injector 1.5 mg SUBCUT Q7D aspirin 325 mg Tablet 325 mg PO DAILY pantoprazole 40 mg Tablet,Delayed Release (Dr/Ec) 40 mg PO DAILY montelukast [Singulair] 10 mg Tablet 10 mg PO DAILY scopolamine base 1 mg over 3 days patch 3 day 1 mg transdermal Q72H fenofibrate nanocrystallized 48 mg Tablet 48 mg PO DAILY Januvia 100 mg Tablet 100 mg PO DAILY insulin glargine [Lantus Solostar U-100 Insulin] 100 unit/mL (3 mL) insulin pen 15 unit SUBCUT DAILY Qty: 15 3RF Discharge Orders: Discharge ED (Routine); Ordered 04/28/22 Ordered By: Gentry Ceron Referrals: Flaco Gresham [Primary Care Provider] - Discharge Diet: Usual diet Discharge Activity: Increase activity as tolerated Patient Instructions: Opioid Safety, Pain Management Activity Restrictions/Additional Instructions: As we discussed there was no evidence during her clinical or radiographic examination this evening to suggest broken or dislocated bones or joints in your left hip pelvis or upper leg. You should increase activity as tolerated. You can use ice massage to the area to help with pain as well as either ibuprofen or acetaminophen in the usual [id number] doses. It is important to increase activity as tolerated. If your pain does not improve in the next 2-3 days or worsens at any time return to this or the nearest emergency department for reevaluation. Coding Level of Care Code ED Aircraft Armorer for Kaushik Ahuja Exam Comprehensive
--- NOTE | 2022-04-28 16:28 | PC.PHAR ---
pt unable to verify due to AMS
--- NOTE | 2022-04-28 20:23 | ED_ITS ---
HPI - Altered Mental Status General: Chief Complaint: Altered Mental Status Stated Complaint: PSYCH ISSUE/ POSIBLE HIP FX Time Seen by Provider: 04/28/22 15:33 Source: patient and EMS Mode of arrival: EMS PFSH ED PFSH: Medical History Abdominal pain Acidosis, lactic Acute alteration in mental status Acute encephalopathy Adderall use disorder, moderate, in sustained remission, dependence CHERI (acute kidney injury) Bipolar II disorder Cannabis abuse Chronic post-traumatic stress disorder (PTSD) Dehydration Generalized anxiety disorder Generalized muscle ache Hyperglycemia Hypokalemia Insulin dependent type 2 diabetes mellitus Leukocytosis Polyp of duodenum Psychiatric care Rhabdomyolysis Xerosis of skin Surgical History H/O colonoscopy 15-20 yrs ago H/O esophagogastroduodenoscopy 15-20 yrs ago H/O hernia repair Hx of tubal ligation Family History Father Cancer colon Family/Other Cancer maternal grandmother colon Denies family history of CAD (coronary artery disease) Anesthesia complication Bleeding disorder Social History Smoking and tobacco status: current every day smoker cigarettes Packs smoked per day: 1 Years cigarettes smoked: 15 Quit status (tobacco): has tried quititng Number of times tried to quit tobacco: 7 Second hand smoke exposure: Yes Alcohol intake: never Household members: spouse Marital status: Current occupational status: disabled History of recent travel: No Course Vital Signs: Vital signs: Vital Signs Temperature 99.4 F 04/28/22 15:40 Pulse Rate 102 H 04/28/22 15:40 Respiratory Rate 18 04/28/22 15:40 Blood Pressure 156/123 04/28/22 15:40 Pulse Oximetry 98 04/28/22 15:40 Oxygen Delivery Me thod 04/28/22 15:40 MDM - Altered Mental Status Lab Data Radiology Impressions Femur X-Ray 04/28/22 16:23 IMPRESSION: 1. Negative left femur. Pelvis X-Ray 04/28/22 16:23 IMPRESSION: 1. No pelvic fracture or bone destruction. 2. Additional findings as noted above. Discharge Plan Discharge Patient Disposition: Home Clinical Impression: Soft tissue injury of left thigh Condition: Stable Prescriptions: No Action duloxetine 60 mg capsule,delayed release(DR/EC) 120 mg PO DAILY Qty: 60 2RF prazosin 5 mg capsule 5 mg PO BEDTIME Qty: 30 2RF (DME) Diabetic Shoes See Rx Instructions .Route .MEDSUPPLY Qty: 1 0RF Rx Instructions: As directed metoclopramide HCl [Reglan] 5 mg tablet 5 mg PO DAILY PRN (Reason: nausea and vomiting) 14 Days Qty: 14 0RF albuterol sulfate [ProAir HFA] 90 mcg/actuation HFA aerosol inhaler 2 puff INHALATION Q6H PRN (Reason: Shortness Of Breath) cetirizine [Zyrtec] 10 mg Tablet 10 mg PO DAILY pravastatin 10 mg Tablet 10 mg PO DAILY omeprazole 20 mg capsule,delayed release(DR/EC) 20 mg PO DAILY insulin aspart U-100 [Novolog Flexpen U-100 Insulin] 100 unit/mL (3 mL) insulin pen See Rx Instructions .ROUTE .COMPLEX Rx Instructions: per sliding scale pregabalin 200 mg capsule 200 mg PO Q8H Eliquis 5 mg tablet 5 mg PO BID guaifenesin [Mucus Relief ER] 600 mg tablet extended release 12hr 600 mg PO BID clonidine HCl 0.1 mg tablet 0.1 mg PO BID PRN (Reason: Blood Pressure) benzonatate 200 mg capsule 200 mg PO TID PRN (Reason: Cough) docusate sodium 100 mg capsule 100 mg PO BID PRN (Reason: Constipation) furosemide 20 mg tablet 20 mg PO DAILY Hold Instructions: Resume on 04/06/22. ergocalciferol (vitamin D2) 1,250 mcg (50,000 unit) capsule 1,250 mcg PO Q7D fluticasone propionate 50 mcg/actuation spray,suspension 2 spray INTRANASAL DAILY PRN (Reason: Allergy Symptoms) lubiprostone [Amitiza] 24 mcg capsule 24 mcg PO DAILY PRN (Reason: Constipation) Trulicity 1.5 mg/0.5 mL Pen Injector 1.5 mg SUBCUT Q7D aspirin 325 mg Tablet 325 mg PO DAILY pantoprazole 40 mg Tablet,Delayed Release (Dr/Ec) 40 mg PO DAILY montelukast [Singulair] 10 mg Tablet 10 mg PO DAILY scopolamine base 1 mg over 3 days patch 3 day 1 mg transdermal Q72H fenofibrate nanocrystallized 48 mg Tablet 48 mg PO DAILY Januvia 100 mg Tablet 100 mg PO DAILY insulin glargine [Lantus Solostar U-100 Insulin] 100 unit/mL (3 mL) insulin pen 15 unit SUBCUT DAILY Qty: 15 3RF Discharge Orders: Discharge ED (Routine); Ordered 04/28/22 Ordered By: Gentry Ceron Referrals: Flaco Gresham [Primary Care Provider] - Discharge Diet: Usual diet Discharge Activity: Increase activity as tolerated Patient Instructions: Opioid Safety, Pain Management Activity Restrictions/Additional Instructions: As we discussed there was no evidence during her clinical or radiographic examination this evening to suggest broken or dislocated bones or joints in your left hip pelvis or upper leg. You should increase activity as tolerated. You can use ice massage to the area to help with pain as well as either ibuprofen or acetaminophen in the usual [id number] doses. It is important to increase activity as tolerated. If your pain does not improve in the next 2-3 days or worsens at any time return to this or the nearest emergency department for reevaluation. 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
== END 2022-04-28 20:57 | disposition home or self-care (01) ==
PROVIDERS: Emergency Provider Emergency Medicine; PCP Family Medicine
DX: S79.822A Other specified injuries of left thigh, initial encounter (principal); W19.XXXA Unspecified fall, initial encounter
CPT/HCPCS: 72170; 73552; 99283

== ENCOUNTER 2022-05-06 19:10 | Emergency (ER) | payer MEDICAID, SELFPAY ==
[2022-05-06 19:20] VITALS: BP 154/77; PULSE 104; RESP 22; TEMP 37.2; O2SAT 99
--- NOTE | 2022-05-06 19:52 | CTR_ITS ---
PROCEDURE INFORMATION: Exam: CTA Abdominal Aorta and Bilateral Lower Extremities (Run-off) Without and With Contrast Exam date and time: 05/06/2022 9:13 PM Age: 57 years old Clinical indication: Condition or disease; Peripheral vascular disease; Prior surgery; Surgery type: Hernia repair. Tubal ligation. Aortic/iliac stent. Patient HX: Feet purple and cold to touch. No pedal pulses. History of severe pad. ; Additional info: Cold, purple, pulseless legs TECHNIQUE: Imaging protocol: Computed tomographic angiography of the abdominal aorta, pelvis and bilateral lower extremities without and with contrast. 3D rendering (Not supervised by radiologist): MIP and/or 3D reconstructed images were created by the technologist. Radiation optimization: All CT scans at this facility use at least one of these dose optimization techniques: automated exposure control; mA and/or kV adjustment per patient size (includes targeted exams where dose is matched to clinical indication); or iterative reconstruction. 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 Both common iliac arteries are completely occluded. Both external iliac arteries are completely occluded. Celiac trunk and mesenteric arteries: No occlusion or significant stenosis. Renal arteries: No occlusion or significant stenosis. Right iliac arteries: No occlusion or significant stenosis. Right femoral/popliteal arteries: A diminutive right superficial femoral artery is patent. The right popliteal artery is patent. Right infrapopliteal arteries: The 3 vessels of the right calf are proximally patent but the contrast bolus extinguishes in the mid calf and more distally vascular patency cannot be assessed. . Left iliac arteries: No occlusion or significant stenosis. Left femoral/popliteal arteries: The left common femoral artery reconstitutes. A small left superficial femoral artery is patent. The left popliteal artery is proximally patent but occludes distally. However the 3 vessels of the trifurcation reconstitute and are patent at least to the distal 3rd of the calf. However contrast bolus extinguishes and the distal portions of the vessels cannot be assessed. Left infrapopliteal arteries: No occlusion or significant stenosis. Liver: No mass. Gallbladder and bile ducts: Unremarkable. No calcified stones. No ductal dilation. Pancreas: Unremarkable. No mass. No ductal dilation. Spleen: Normal. No splenomegaly. Adrenal glands: Normal. No mass. 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 Chronic simple 1.5 cm cyst in the left kidney. Stomach and bowel: There may be mild wall thickening in the rectosigmoid colon. No surrounding inflammation. The finding could be mimicked by under distention. Appendix: No evidence of appendicitis. Urinary bladder: Unremarkable. No mass. Reproductive: The uterus is absent and the ovaries are not seen. Intraperitoneal space: Unremarkable. No free air. No significant fluid collection. Lymph nodes: No lymphadenopathy. Bones/joints: A small right profundus femoral is is patent. A small left profundus femoral is is patent. Soft tissues: Unremarkable. CT/CT angio abd aorta runof [id number] IMPRESSION: 1. 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 2. Both common femoral arteries reconstitute and the SFA is are patent. 3. Short segment occlusion of the distal left popliteal artery. The calf vessels reconstitute. 4. Bilateral calf vessels are patent to at least the mid calf. However the contrast bolus extinguishes and more distally the vessels cannot be assessed.
--- NOTE | 2022-05-06 19:55 | W.ED.PSYCHS ---
Documented by User: Mishel Davidson MD 05/06/22 23:58 HPI - Psych General: Chief Complaint: Psychiatric Symptoms Stated Complaint: 96 HOUR HOLD Time Seen by Provider: 05/06/22 19:19 History of Present Illness: Patient is a 57-year-old female with a history of peripheral vascular disease, bipolar disorder diabetes previous DVT who presents today on a 96-hour hold. Reportedly the patient has been refusing to take care of her self, refusing to shower, defecating on herself and not cleaning herself up, taking her insulin erratically and not managing her blood sugars. 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 She has been sleeping outside in the cold with an attempt to harm herself. Patient is somewhat inappropriate and how she answers questions with somewhat flight of ideas and hyper activity. She denies suicidal or homicidal ideations. She states that earlier in the morning she had gone to tell her children go by suggesting the intent to them at that time that she wanted to commit suicide. She denies thoughts or plan at this time. Review of Systems General: Reports: ROS unobtainable due to mental status PFSH ED PFSH: Medical History Abdominal pain Acidosis, lactic Acute alteration in mental status Acute encephalopathy Adderall use disorder, moderate, in sustained remission, dependence CHERI (acute kidney injury) Bipolar II disorder Cannabis abuse Chronic post-traumatic stress disorder (PTSD) Dehydration Generalized anxiety disorder Generalized muscle ache Hyperglycemia Hypokalemia Insulin dependent type 2 diabetes mellitus Leukocytosis Polyp of duodenum Psychiatric care Rhabdomyolysis Xerosis of skin Surgical History H/O colonoscopy 15-20 yrs ago H/O esophagogastroduodenoscopy 15-20 yrs ago H/O hernia repair Hx of tubal ligation Family History Father Cancer colon Family/Other Cancer maternal grandmother colon Denies family history of CAD (coronary artery disease) Anesthesia complication Bleeding disorder Social History Smoking and tobacco status: current every day smoker cigarettes Packs smoked per day: 1 Years cigarettes smoked: 15 Quit status (tobacco): has tried quititng Number of times tried to quit tobacco: 7 Second hand smoke exposure: Yes Alcohol intake: never Household members: spouse Marital status: Current occupational status: disabled History of recent travel: No Physical Exam Const: COMMON NORMALS: alert GENERAL APPEARANCE: well developed and anxious HENMT: COMMON NORMALS: normocephalic and atraumatic HEAD & SCALP: normocephalic and atraumatic Eye: COMMON NORMALS: conjunctivae normal CONJUNCTIVA: Yes conjunctivae normal SCLERA: sclerae normal Neck/C-Spine: COMMON NORMALS: supple GENERAL: Yes trachea midline Resp: COMMON NORMALS: clear to auscultation bilaterally EFFORT & INSPECTION: Yes able to speak in complete sentences AUSCULTATION: clear to auscultation bilaterally Cardio: COMMON NORMALS: regular rhythm RATE: tachycardic RHYTHM: regular rhythm GI: COMMON NORMALS: Soft to palpation PALPATION: Yes Soft to palpation, Yes Tenderness to palpation present (GI), Yes Guarding due to palpation present (GI) and No Rigid due to palpation Extremity: GENERAL: No edema OTHER: both feet are cold to the touch, purple in color; no palpable pulses DP / PT bilaterally. Cyanotic appearance extends up to knees bilaterally (Left worse than right) Neuro: SENSORIUM/ORIENTATION: Yes alert and No Orientation impaired SENSORY EXAM: Yes other (Decree sensation in the lower extremities bilaterally.) OTHER: Weakened but present motor function to the lower extremities bilaterally. Psych: APPEARANCE: Yes unkempt ATTITUDE: Yes bizarre ACTIVITY/MOTOR BEHAVIOR: Yes fidgeting and Yes hyperactivity THOUGHT PROCESS: disorganized and Tangential thought process present INSIGHT: Poor insight present (Psych) JUDGEMENT: Poor judgement present (Psych) Course ED course: Had an IV placed and labs obtained. She was given Zyprexa 10 mg IM as well as Ativan 2 mg IM for her agitation. She is much improved. She has had an IV fluid bolus initiated. Labs have been obtained. She does have a leukocytosis with a white blood cell count of 17.4. Hemoglobin 14.1, hematocrit 43.5. Platelets 516. Lactic acid 6 slightly elevated at 2.6. BUN is 17, creatinine 0.6. Potassium is 4.5. 2356 - care transferred to Dr. Black Reevaluation(s): Reevaluation #1: Patient's CPK significantly elevated at 12,617. Will initiate IV saline bolus with sodium bicarbonate. Patient will need admission. Still waiting to determine the arterial flow to the lower extremities by CTA. Patient is resting quietly after the Zyprexa and Ativan. Reevaluation #2: CT aortogram with lower extremity runoff shows total occlusion of the infrarenal aorta and common iliac arteries bilaterally. Patient will need transfer to a facility with interventional radiology and vascular surgery. We will start the patient on a heparin and give her heparin bolus. Discussed with [facility] and they do not have any beds available. They are on ER divert. We will continue to look for facility to transfer the patient to. Vital Signs: Vital signs: Vital Signs Temperature 101.7 F H 05/07/22 03:30 Pulse Rate 96 05/07/22 05:25 Respiratory Rate 32 H 05/07/22 05:25 Blood Pressure 130/55 05/07/22 05:25 Pulse Oximetry 95 05/07/22 05:25 Oxygen Delivery Me thod 05/07/22 03:30 MDM - Psych Medical Decision Making 57-year-old female who comes in with bilateral cold pulseless purple feet, concern for arterial occlusion versus frostbite. Patient is also agitated, very disorganized and hypervigilant and is on a 96-hour hold because of self-harm. We will start an IV, give her IV fluids. We will plan for CTA of the aorta with lower extremity runoff. We will obtain labs. I am going to give her Zyprexa 10 mg IM as well as Ativan 2 mg IM for her agitation. Differential Diagnosis Likely acute psychosis, suicidal ideation, bipolar disorder, depression and drug-induced psychotic disorder Lab Data 05/06/22 20:15 05/06/22 20:15 Radiology Impressions Aorta w/Runoff CTA 05/06/22 19:52 IMPRESSION: 1. 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 2. Both common femoral arteries reconstitute and the SFA is are patent. 3. Short segment occlusion of the distal left popliteal artery. The calf vessels reconstitute. 4. Bilateral calf vessels are patent to at least the mid calf. However the contrast bolus extinguishes and more distally the vessels cannot be assessed. Duplex Scan Lower Extremity Artery 05/07/22 01:08 IMPRESSION: 1. The proximal to mid bilateral leg arteries have decreased monophasic flow with severe inflow disease likely. See the prior day CTA report from 5 hours ago. There is known complete occlusion of the lower abdominal aorta and bilateral common iliac arteries/Leriche. 2. There is no flow seen in the bilateral DELICATESSEN STORE MANAGER or DPA calf vessels. Advise correlation. These findings are similar to the prior day CTA. 3. Advise vascular consultation. Laboratory Results WBC 17.4 10^3/uL (4.0-10.0) H 05/06/22 20:15 RBC 4.74 10^6/uL (4.1-5.3) 05/06/22 20:15 Hgb 14.1 g/dL (11.5-15.3) 05/06/22 20:15 Hct 43.5 % (37.0-47.0) 05/06/22 20:15 MCV 91.8 fl (81-99) 05/06/22 20:15 MCH 29.7 pg (28.0-34.0) 05/06/22 20:15 MCHC 32.4 g/dL (30.0-36.0) 05/06/22 20:15 RDW 13.0 % (12.1-15.1) 05/06/22 20:15 Plt Count 516 10^3/cmm (130-400) H 05/06/22 20:15 MPV 9.7 fL (7.4-10.4) 05/06/22 20:15 Neut % (Auto) 82.0 % 05/06/22 20:15 Lymph % (Auto) 11.4 % 05/06/22 20:15 [place] % (Auto) 5.1 % 05/06/22 20:15 Eos % (Auto) 0.2 % 05/06/22 20:15 Baso % (Auto) 0.3 % 05/06/22 20:15 Neut # (Auto) 14.23 10^3/uL (1.8-7.7) H 05/06/22 20:15 Lymph # (Auto) 2.0 10^3/uL (0.8-4.8) 05/06/22 20:15 [place] # (Auto) 0.9 10^3/uL (0.2-0.9) 05/06/22 20:15 Eos # (Auto) 0.0 10^3/uL (0.0-0.8) 05/06/22 20:15 Baso # (Auto) 0.1 10^3/uL (0.0-0.1) 05/06/22 20:15 Nucleated RBC % (auto) 0 % 05/06/22 20:15 Nucleated RBCs # 0.0 /100WBC 05/06/22 20:15 PT 14.40 SECONDS (12.1-14.9) 05/07/22 03:11 INR 1.09 (0.8-1.2) 05/07/22 03:11 APTT 20.5 SECONDS (23.9-36.7) L 05/07/22 03:11 Sodium 130 mmol/L (136-145) L 05/06/22 20:15 Potassium 4.5 mmol/L (3.5-5.1) 05/06/22 20:15 Chloride 97 mmol/L (98-107) L 05/06/22 20:15 Carbon Dioxide 18 mmol/L (22-29) L 05/06/22 20:15 Anion Gap 19.5 (5-19) H 05/06/22 20:15 BUN 17 mg/dL (6-20) 05/06/22 20:15 Creatinine 0.6 mg/dL (0.5-0.9) 05/06/22 20:15 GFR Calculation 102.3 mL/min (90-130) 05/06/22 20:15 Glucose 318 mg/dL (65-115) H 05/06/22 20:15 Calculated Osmolality 284 mOsm/kg (285-295) L 05/06/22 20:15 Lactate 1.2 mmol/L (0.5-2.2) 05/07/22 04:50 Calcium 9.4 mg/dL (8.5-10.5) 05/06/22 20:15 Magnesium 2.0 mg/dL (1.7-2.3) 05/06/22 20:15 Total Bilirubin 0.7 mg/dL (0.15-1.2) 05/06/22 20:15 AST 204 U/L (0-32) H 05/06/22 20:15 ALT 122 U/L (0-33) H 05/06/22 20:15 Alkaline Phosphatase 150 U/L (35-105) H 05/06/22 20:15 Creatine Kinase 36193 U/L (26-192) H* 05/06/22 20:15 Total Protein 7.3 g/dL (6.6-8.7) 05/06/22 20:15 Albumin 3.8 g/dL (3.5-5.2) 05/06/22 20:15 Globulin 3.5 g/dL (1.3-4.6) 05/06/22 20:15 TSH 0.86 uIU/mL (0.27-4.20) 05/06/22 20:15 Urine Color Yellow (Yellow) 05/06/22 21:43 Urine Appearance Clear (CLEAR) 05/06/22 21:43 Urine pH 6.5 (5-7) 05/06/22 21:43 Ur Specific [place] 1.015 (1.005-1.030) 05/06/22 21:43 Urine Protein 1+ (Negative) H 05/06/22 21:43 Urine Glucose (UA) 4+ (Normal) H 05/06/22 21:43 Urine Ketones 1+ (Negative) H 05/06/22 21:43 Urine Blood Neg (Negative) 05/06/22 21:43 Urine Nitrate Negative (Negative) 05/06/22 21:43 Urine Bilirubin 1+ (Negative) H 05/06/22 21:43 Urine Urobilinogen Norm mg/dL (Negative) 05/06/22 21:43 Ur Leukocyte Esterase Trace (Negative) H 05/06/22 21:43 Urine RBC 0-4 /hpf (0-2) H 05/06/22 21:43 Urine WBC 0-4 /hpf (0-5) H 05/06/22 21:43 Ur Squamous Epith Cells 0-4 /hpf (0-5) H 05/06/22 21:43 Amorphous Sediment Not Reportable 05/06/22 21:43 Urine Bacteria None /hpf (NONE) 05/06/22 21:43 Urine Mucus 1+ /hpf 05/06/22 21:43 Salicylates < 0.3 mg/dL (3-10) L 05/06/22 20:15 Urine Opiates Screen Negative ng/mL (Negative) 05/06/22 21:43 Acetaminophen < 5.0 ug/mL (10-30) L 05/06/22 20:15 Ur Barbiturates Screen Negative ng/mL (Negative) 05/06/22 21:43 Ur Phencyclidine Scrn Negative ng/mL (Negative) 05/06/22 21:43 Ur Amphetamines Screen Negative ng/mL (Negative) 05/06/22 21:43 U Benzodiazepines Scrn Negative ng/mL (Negative) 05/06/22 21:43 Urine Cocaine Screen Negative ng/mL (Negative) 05/06/22 21:43 U Marijuana (THC) Screen Positive ng/mL (Negative) H 05/06/22 21:43 Ethyl Alcohol < 10 mg/dL (0-10) 05/06/22 20:15 Serum Ketones Negative (Negative) 05/06/22 20:15 SARS-CoV-2 Ag (Rapid) negative (Negative) 05/06/22 20:43 Critical Care Time Critical Care Time: Critical Care Time: Yes Total Critical Care Time: 75 Attestation: Critical care time includes interviewing the patient, interviewing me please that brought the patient in, reviewing her affidavits as well as ordering studies and laboratory work and evaluating those as well as assessment of treatment and discussion with consultants and transferring facilities. Discharge Plan Discharge Patient Disposition: Xfer Short-Term Hosp Clinical Impression: Rhabdomyolysis, Occluded aorta, History of suicidal ideation Condition: Critical Referrals: Flaco Gresham [Primary Care Provider] - Coding Level of Care Code ED Assembler Brazer for Chg Fwd Exam Comprehensive Documented by User: Khloe Black MD 05/07/22 05:28 HPI - Psych General: Chief Complaint: Psychiatric Symptoms Stated Complaint: 96 HOUR HOLD Time Seen by Provider: 05/06/22 19:19 [facility] PFSH: Medical History Abdominal pain Acidosis, lactic Acute alteration in mental status Acute encephalopathy Adderall use disorder, moderate, in sustained remission, dependence CHERI (acute kidney injury) Bipolar II disorder Cannabis abuse Chronic post-traumatic stress disorder (PTSD) Dehydration Generalized anxiety disorder Generalized muscle ache Hyperglycemia Hypokalemia Insulin dependent type 2 diabetes mellitus Leukocytosis Polyp of duodenum Psychiatric care Rhabdomyolysis Xerosis of skin Surgical History H/O colonoscopy 15-20 yrs ago H/O esophagogastroduodenoscopy 15-20 yrs ago H/O hernia repair Hx of tubal ligation Family History Father Cancer colon Family/Other Cancer maternal grandmother colon Denies family history of CAD (coronary artery disease) Anesthesia complication Bleeding disorder Social History Smoking and tobacco status: current every day smoker cigarettes Packs smoked per day: 1 Years cigarettes smoked: 15 Quit status (tobacco): has tried quititng Number of times tried to quit tobacco: 7 Second hand smoke exposure: Yes Alcohol intake: never Household members: spouse Marital status: Current occupational status: disabled History of recent travel: No Course Vital Signs: Vital signs: Vital Signs Temperature 101.7 F H 05/07/22 03:30 Pulse Rate 96 05/07/22 05:25 Respiratory Rate 32 H 05/07/22 05:25 Blood Pressure 130/55 05/07/22 05:25 Pulse Oximetry 95 05/07/22 05:25 Oxygen Delivery Me thod 05/07/22 03:30 [facility] - Psych Medical Decision Making 57-year-old female who comes in with bilateral cold pulseless purple feet, concern for arterial occlusion versus frostbite. Patient is also agitated, very disorganized and hypervigilant and is on a 96-hour hold because of self-harm. We will start an IV, give her IV fluids. We will plan for CTA of the aorta with lower extremity runoff. We will obtain labs. I am going to give her Zyprexa 10 mg IM as well as Ativan 2 mg IM for her agitation. Patient presents here initially with suicidal ideation she is on a 96-hour hold she does have pulseless feet her CTA shows an aortic occlusion ultrasound showed bilateral no flow to DP and PT arteries in the feet we had had to lay on train to get her transfers with called multiple facilities and they were on divert I was able to get her accepted at [facility] in [place] and will transfer there Lab Data 05/06/22 20:15 05/06/22 20:15 Radiology Impressions Aorta w/Runoff CTA 05/06/22 19:52 IMPRESSION: 1. 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 2. Both common femoral arteries reconstitute and the SFA is are patent. 3. Short segment occlusion of the distal left popliteal artery. The calf vessels reconstitute. 4. Bilateral calf vessels are patent to at least the mid calf. However the contrast bolus extinguishes and more distally the vessels cannot be assessed. Duplex Scan Lower Extremity Artery 05/07/22 01:08 IMPRESSION: 1. The proximal to mid bilateral leg arteries have decreased monophasic flow with severe inflow disease likely. See the prior day CTA report from 5 hours ago. There is known complete occlusion of the lower abdominal aorta and bilateral common iliac arteries/Leriche. 2. There is no flow seen in the bilateral DELICATESSEN STORE MANAGER or DPA calf vessels. Advise correlation. These findings are similar to the prior day CTA. 3. Advise vascular consultation. Laboratory Results WBC 17.4 10^3/uL (4.0-10.0) H 05/06/22 20:15 RBC 4.74 10^6/uL (4.1-5.3) 05/06/22 20:15 Hgb 14.1 g/dL (11.5-15.3) 05/06/22 20:15 Hct 43.5 % (37.0-47.0) 05/06/22 20:15 MCV 91.8 fl (81-99) 05/06/22 20:15 MCH 29.7 pg (28.0-34.0) 05/06/22 20:15 MCHC 32.4 g/dL (30.0-36.0) 05/06/22 20:15 RDW 13.0 % (12.1-15.1) 05/06/22 20:15 Plt Count 516 10^3/cmm (130-400) H 05/06/22 20:15 MPV 9.7 fL (7.4-10.4) 05/06/22 20:15 Neut % (Auto) 82.0 % 05/06/22 20:15 Lymph % (Auto) 11.4 % 05/06/22 20:15 [place] % (Auto) 5.1 % 05/06/22 20:15 Eos % (Auto) 0.2 % 05/06/22 20:15 Baso % (Auto) 0.3 % 05/06/22 20:15 Neut # (Auto) 14.23 10^3/uL (1.8-7.7) H 05/06/22 20:15 Lymph # (Auto) 2.0 10^3/uL (0.8-4.8) 05/06/22 20:15 [place] # (Auto) 0.9 10^3/uL (0.2-0.9) 05/06/22 20:15 Eos # (Auto) 0.0 10^3/uL (0.0-0.8) 05/06/22 20:15 Baso # (Auto) 0.1 10^3/uL (0.0-0.1) 05/06/22 20:15 Nucleated RBC % (auto) 0 % 05/06/22 20:15 Nucleated RBCs # 0.0 /100WBC 05/06/22 20:15 PT 14.40 SECONDS (12.1-14.9) 05/07/22 03:11 INR 1.09 (0.8-1.2) 05/07/22 03:11 APTT 20.5 SECONDS (23.9-36.7) L 05/07/22 03:11 Sodium 130 mmol/L (136-145) L 05/06/22 20:15 Potassium 4.5 mmol/L (3.5-5.1) 05/06/22 20:15 Chloride 97 mmol/L (98-107) L 05/06/22 20:15 Carbon Dioxide 18 mmol/L (22-29) L 05/06/22 20:15 Anion Gap 19.5 (5-19) H 05/06/22 20:15 BUN 17 mg/dL (6-20) 05/06/22 20:15 Creatinine 0.6 mg/dL (0.5-0.9) 05/06/22 20:15 GFR Calculation 102.3 mL/min (90-130) 05/06/22 20:15 Glucose 318 mg/dL (65-115) H 05/06/22 20:15 Calculated Osmolality 284 mOsm/kg (285-295) L 05/06/22 20:15 Lactate 1.2 mmol/L (0.5-2.2) 05/07/22 04:50 Calcium 9.4 mg/dL (8.5-10.5) 05/06/22 20:15 Magnesium 2.0 mg/dL (1.7-2.3) 05/06/22 20:15 Total Bilirubin 0.7 mg/dL (0.15-1.2) 05/06/22 20:15 AST 204 U/L (0-32) H 05/06/22 20:15 ALT 122 U/L (0-33) H 05/06/22 20:15 Alkaline Phosphatase 150 U/L (35-105) H 05/06/22 20:15 Creatine Kinase 33581 U/L (26-192) H* 05/06/22 20:15 Total Protein 7.3 g/dL (6.6-8.7) 05/06/22 20:15 Albumin 3.8 g/dL (3.5-5.2) 05/06/22 20:15 Globulin 3.5 g/dL (1.3-4.6) 05/06/22 20:15 TSH 0.86 uIU/mL (0.27-4.20) 05/06/22 20:15 Urine Color Yellow (Yellow) 05/06/22 21:43 Urine Appearance Clear (CLEAR) 05/06/22 21:43 Urine pH 6.5 (5-7) 05/06/22 21:43 Ur Specific [place] 1.015 (1.005-1.030) 05/06/22 21:43 Urine Protein 1+ (Negative) H 05/06/22 21:43 Urine Glucose (UA) 4+ (Normal) H 05/06/22 21:43 Urine Ketones 1+ (Negative) H 05/06/22 21:43 Urine Blood Neg (Negative) 05/06/22 21:43 Urine Nitrate Negative (Negative) 05/06/22 21:43 Urine Bilirubin 1+ (Negative) H 05/06/22 21:43 Urine Urobilinogen Norm mg/dL (Negative) 05/06/22 21:43 Ur Leukocyte Esterase Trace (Negative) H 05/06/22 21:43 Urine RBC 0-4 /hpf (0-2) H 05/06/22 21:43 Urine WBC 0-4 /hpf (0-5) H 05/06/22 21:43 Ur Squamous Epith Cells 0-4 /hpf (0-5) H 05/06/22 21:43 Amorphous Sediment Not Reportable 05/06/22 21:43 Urine Bacteria None /hpf (NONE) 05/06/22 21:43 Urine Mucus 1+ /hpf 05/06/22 21:43 Salicylates < 0.3 mg/dL (3-10) L 05/06/22 20:15 Urine Opiates Screen Negative ng/mL (Negative) 05/06/22 21:43 Acetaminophen < 5.0 ug/mL (10-30) L 05/06/22 20:15 Ur Barbiturates Screen Negative ng/mL (Negative) 05/06/22 21:43 Ur Phencyclidine Scrn Negative ng/mL (Negative) 05/06/22 21:43 Ur Amphetamines Screen Negative ng/mL (Negative) 05/06/22 21:43 U Benzodiazepines Scrn Negative ng/mL (Negative) 05/06/22 21:43 Urine Cocaine Screen Negative ng/mL (Negative) 05/06/22 21:43 U Marijuana (THC) Screen Positive ng/mL (Negative) H 05/06/22 21:43 Ethyl Alcohol < 10 mg/dL (0-10) 05/06/22 20:15 Serum Ketones Negative (Negative) 05/06/22 20:15 SARS-CoV-2 Ag (Rapid) negative (Negative) 05/06/22 20:43 Discharge Plan Discharge Patient Disposition: Xfer Short-Term Hosp Clinical Impression: Rhabdomyolysis, Occluded aorta, History of suicidal ideation Condition: Critical Referrals: Flaco Gresham [Primary Care Provider] - Coding Level of Care Code ED Assembler Brazer for Chg Fwd Exam Comprehensive
--- NOTE | 2022-05-06 19:56 | ECG_ITS ---
[facility] Test Date: 2022-05-06 Pat Name: Dorina Gamble Department: Room: Gender: Female Experimental Physicist: : [id number] Requested By: Mishel Davidson Order Number: [id number] Keysha MD: Davina Null M.D. Measurements Intervals [place] Rate: 99 P: 68 MS: 138 QRS: 15 QRSD: 77 T: 55 QT: 346 QTc: 446 Interpretive Statements SINUS RHYTHM Compared to ECG 03/26/2022 19:13:38 Ventricular premature complex(es) no longer present Electronically Signed On 05-07-2022 21:02:23 PEELER OPERATOR by Davina Null M.D. [email or web address] [id number]
[2022-05-06 20:32] LABS: Basophils # 0.1 10^3/uL (0.0-0.1); Basophils % 0.3 %; Eosinophils % 0.2 %; Hematocrit 43.5 % (37.0-47.0); Hemoglobin 14.1 g/dL (11.5-15.3); Lymphocytes % 11.4 %; Mean Corpuscular HGB Conc 32.4 g/dL (30.0-36.0); Mean Corpuscular Hemoglobin 29.7 pg (28.0-34.0); Mean Corpuscular Volume 91.8 fl (81-99); Mean Platelet Volume 9.7 fL (7.4-10.4); Monocytes # 0.9 10^3/uL (0.2-0.9); Monocytes % 5.1 %; Neutrophils # 14.23 10^3/uL (1.8-7.7); Nucleated Red Blood Cells % 0 %; Platelet Count 516 10^3/cmm (130-400); Red Blood Count 4.74 10^6/uL (4.1-5.3); White Blood Count 17.4 10^3/uL (4.0-10.0)
[2022-05-06 20:43] LABS: Lactate (Lactic Acid level) 2.6 mmol/L (0.5-2.2)
[2022-05-06 20:48] LABS: Ketone (Acetest) Serum Negative (Negative)
[2022-05-06 20:55] LABS: Alanine Aminotransferase 122 U/L (0-33); Albumin Level 3.8 g/dL (3.5-5.2); Alkaline Phosphatase 150 U/L (35-105); Anion Gap 19.5 (5-19); Aspartate Amino Transferase 204 U/L (0-32); Blood Urea Nitrogen 17 mg/dL (6-20); Calcium 9.4 mg/dL (8.5-10.5); Carbon Dioxide 18 mmol/L (22-29); Chloride 97 mmol/L (98-107); Globulin 3.5 g/dL (1.3-4.6); Glomerular Filtration Rate 102.3 mL/min (90-130); Glucose 318 mg/dL (65-115); Osmolality Calculated 284 mOsm/kg (285-295); Potassium 4.5 mmol/L (3.5-5.1); Sodium 130 mmol/L (136-145); Thyroid Stimulating Hormone 0.86 uIU/mL (0.27-4.20); Total Bilirubin 0.7 mg/dL (0.15-1.2); Total Protein 7.3 g/dL (6.6-8.7)
[2022-05-06] MEDS: LORazepam 2 mg/mL INJ 1 mL IM (20:59)
[2022-05-06] MEDS: sodium chloride 0.9% 1,000 ML 999 ML IV ×2 (20:59→22:53)
[2022-05-06] MEDS: OLANZapine 10 mg VIAL IM (21:00)
[2022-05-06] MEDS: iohexol 350 mg/mL 500 mL Btl (per mL) IV (21:13)
[2022-05-06 21:19] LABS: Acetaminophen < 5.0 ug/mL (10-30); Alcohol Level < 10 mg/dL (0-10); Creatine Phosphokinase 12617 U/L (26-192); Salicylate < 0.3 mg/dL (3-10)
[2022-05-06 22:25] LABS: SARS Covid-2 Antigen negative (Negative)
[2022-05-06 22:34] LABS: Add Urine Microscopic? YES; Bilirubin Urine 1+ (Negative); Blood Urine Neg (Negative); Glucose Urine UA 4+ (Normal); Ketones Urine 1+ (Negative); Leukocyte Esterase Urine Trace (Negative); Nitrate Urine Negative (Negative); Protein Urine 1+ (Negative); Specific Gravity, Urine 1.015 (1.005-1.030); Urine Appearance Clear (CLEAR); Urine Color Yellow (Yellow); Urobilinogen Urine Norm (Negative); pH Urine 6.5 (5-7)
[2022-05-06 22:35] LABS: Add Urine Culture? No; Mucus Urine 1+ /hpf; RBC Urine 0-4 /hpf (0-2); Squamous Epithelial Cell Urine 0-4 /hpf (0-5); WBC Urine 0-4 /hpf (0-5)
[2022-05-06 22:36] LABS: Amphetamines Screen Urine Negative (Negative); Barbiturates Screen Urine Negative (Negative); Benzodiazepines Screen Urine Negative (Negative); Cocaine Screen Urine Negative (Negative); Opiate Screen Urine Negative (Negative); PCP Screen Urine Negative (Negative); THC Screen Urine Positive (Negative)
[2022-05-06 23:32] VITALS: BP 137/81; PULSE 111; RESP 30; TEMP 37.8; O2SAT 98
[2022-05-06] MEDS: sodium bicarbonate 50 MEQ in sodium chloride 0.45% 1,000 ML 100 MEQ IV (23:57)
[2022-05-06 23:59] VITALS: BP 143/56; PULSE 108; RESP 25; O2SAT 96
[2022-05-07] VITALS (9 sets, daily range): BP systolic 99–160; BP diastolic 53–70; PULSE 96–108; RESP 29–36; TEMP 37.8–38.7; O2SAT 94–98
--- NOTE | 2022-05-07 01:08 | USR_ITS ---
PROCEDURE INFORMATION: Exam: US Duplex Lower Extremity Arteries Exam date and time: 05/07/2022 2:23 AM Age: 57 years old Clinical indication: Other: Cold bilateral feet, areas of hyperemia on the soles of bilateral feet, toes blue and mottled. ; Additional info: Iscehmic limb TECHNIQUE: Imaging protocol: Real-time ultrasound scan of the arteries of the bilateral lower extremities with 2-D jiang scale, color Doppler flow and spectral waveform analysis. Images documented and saved. COMPARISON: CT angio abd aorta runof [id number] 05/06/2022 9:13 PM FINDINGS: Right common femoral artery: Monophasic flow with a large amount of vascular disease. Right superficial femoral artery: Monophasic flow with a large amount of vascular disease. Right popliteal artery: Monophasic flow with a large amount of vascular disease. Right calf/foot arteries: No flow seen in HOUSING ASSISTANT PROPERTY MANAGER. No flow seen in DPA. Left common femoral artery: Monophasic flow with a large amount of vascular disease. Left superficial femoral artery: Monophasic flow with a large amount of vascular disease. Left popliteal artery: Monophasic flow with a large amount of vascular disease. Left calf/foot arteries: No flow seen in HOUSING ASSISTANT PROPERTY MANAGER. No flow seen in DPA. Other findings: All patent bilateral leg arteries have very decreased velocity. See the prior day CT report. From that time the findings are very similar. US/[place] [id number] IMPRESSION: 1. The proximal to mid bilateral leg arteries have decreased monophasic flow with severe inflow disease likely. See the prior day CTA report from 5 hours ago. There is known complete occlusion of the lower abdominal aorta and bilateral common iliac arteries/Leriche. 2. There is no flow seen in the bilateral HOUSING ASSISTANT PROPERTY MANAGER or DPA calf vessels. Advise correlation. These findings are similar to the prior day CTA. 3. Advise vascular consultation.
[2022-05-07 03:29] LABS: INR 1.09 (0.8-1.2)
[2022-05-07 03:30] LABS: Partial Thromboplastin Time 20.5 SECONDS (23.9-36.7)
[2022-05-07] MEDS: heparin drip 25,000 UNIT/500 ML PREMIX 20.45 UNIT IV (03:43)
[2022-05-07] MEDS: acetaminophen 500 mg Tablet 1000 MG PO (04:29)
[2022-05-07] MEDS: vancomycin 1,000 MG in sodium chloride 0.9% 250 ML 250 MG IV (04:58)
[2022-05-07 05:14] LABS: Lactate (Lactic Acid level) 1.2 mmol/L (0.5-2.2)
[2022-05-07 05:34] LABS: Glucose Point of Care 260 mg/dL (70-110)
== END 2022-05-07 07:40 | disposition short-term general hospital (02) ==
PROVIDERS: Emergency Medicine; Emergency Provider Emergency Medicine; PCP Family Medicine
DX: M62.82 Rhabdomyolysis (principal); Z91.51 Personal history of suicidal behavior; Z20.822 Contact with and (suspected) exposure to COVID-19; E11.9 Type 2 diabetes mellitus without complications; F17.210 Nicotine dependence, cigarettes, uncomplicated; I77.89 Other specified disorders of arteries and arterioles
CPT/HCPCS: 36416; 75635; 80053; 80306; 80307; 81001; 82009; 82550; 82962; 83605; 83735; 84443; 85025; 85610; 85730; 87040; 87426; 93005; 93925; 96372; 96374; 96375; 99291; J1644; J2060; J3370; J3490; J7030; J7050; Q9967

== ENCOUNTER → 2022-07-13 13:03 | Outpatient (BNVA) | payer MEDICAID, SELFPAY | PROVIDERS: PCP Family Medicine; Visit Provider Thoracic Surgery (Cardiothoracic Vascular Surgery) | DX: I96 Gangrene, not elsewhere classified (principal); E11.621 Type 2 diabetes mellitus with foot ulcer; L97.419 Non-pressure chronic ulcer of right heel and midfoot with unspecified severity | CPT/HCPCS: 99213 ==

== ENCOUNTER → 2022-08-03 13:03 | Outpatient (BNVA) | payer MEDICAID, SELFPAY | PROVIDERS: PCP Family Medicine; Visit Provider Thoracic Surgery (Cardiothoracic Vascular Surgery) | DX: I96 Gangrene, not elsewhere classified (principal); E11.621 Type 2 diabetes mellitus with foot ulcer; L97.412 Non-pressure chronic ulcer of right heel and midfoot with fat layer exposed | CPT/HCPCS: 11042; 11045 ==

== ENCOUNTER → 2022-08-18 14:13 | Outpatient (BNVA) | payer MEDICAID, SELFPAY | PROVIDERS: PCP Family Medicine; Visit Provider Nurse Practitioner Family | DX: E11.621 Type 2 diabetes mellitus with foot ulcer (principal); L97.414 Non-pressure chronic ulcer of right heel and midfoot with necrosis of bone | CPT/HCPCS: 11042; 11045; 97597 ==

== ENCOUNTER 2022-08-18 16:55 | Outpatient (CLI) | payer MEDICAID, SELFPAY ==
--- NOTE | 2022-08-18 17:06 | XR_ITS ---
WS: [id number] EXAMINATION: XR foot RT min 3V* [id number] REASON FOR EXAM: DFU; R/O Osteo COMPARISON: None available. ORDER DATE: 08/18/2022 5:07 PM TECHNIQUE: 3 views of the right foot were obtained. X-RAY FINDINGS: There are no fractures or dislocations. No focal abnormal soft tissue swelling. There is moderate mariam rowing of the first MTP joint consistent with degenerative change XR/XR foot RT min 3V* [id number] IMPRESSION: No fractures or dislocations of the right foot.
== END 2022-08-18 16:56 | disposition home or self-care (01) ==
PROVIDERS: PCP Family Medicine; Visit Provider Nurse Practitioner Family
DX: E11.621 Type 2 diabetes mellitus with foot ulcer (principal); I73.9 Peripheral vascular disease, unspecified; L97.509 Non-pressure chronic ulcer of other part of unspecified foot with unspecified severity
CPT/HCPCS: 73630; 87070; 87176; 87205

== ENCOUNTER → 2022-08-26 10:19 | Outpatient (BNVA) | payer MEDICAID, SELFPAY | PROVIDERS: PCP Family Medicine; Visit Provider Thoracic Surgery (Cardiothoracic Vascular Surgery) | DX: I96 Gangrene, not elsewhere classified (principal); E11.621 Type 2 diabetes mellitus with foot ulcer; L97.413 Non-pressure chronic ulcer of right heel and midfoot with necrosis of muscle | CPT/HCPCS: 11043; 11046; 97597; A6248 ==

== ENCOUNTER → 2022-09-02 10:32 | Outpatient (BNVA) | payer MEDICAID, SELFPAY | PROVIDERS: PCP Family Medicine; Visit Provider Thoracic Surgery (Cardiothoracic Vascular Surgery) | DX: I96 Gangrene, not elsewhere classified (principal); E11.621 Type 2 diabetes mellitus with foot ulcer; L97.415 Non-pressure chronic ulcer of right heel and midfoot with muscle involvement without evidence of necrosis | CPT/HCPCS: 11042; 11045; 97597; A6248 ==

== ENCOUNTER → 2022-09-16 10:14 | Outpatient (BNVA) | payer MEDICAID, SELFPAY | PROVIDERS: PCP Family Medicine; Visit Provider Thoracic Surgery (Cardiothoracic Vascular Surgery) | DX: E11.621 Type 2 diabetes mellitus with foot ulcer (principal); I96 Gangrene, not elsewhere classified; L97.413 Non-pressure chronic ulcer of right heel and midfoot with necrosis of muscle; L97.412 Non-pressure chronic ulcer of right heel and midfoot with fat layer exposed | CPT/HCPCS: 11043; 97597; A6210; A6248 ==

== ENCOUNTER → 2022-09-30 08:50 | Outpatient (BNVA) | payer MEDICAID, SELFPAY | PROVIDERS: PCP Family Medicine; Visit Provider Thoracic Surgery (Cardiothoracic Vascular Surgery) | DX: I96 Gangrene, not elsewhere classified (principal); E11.621 Type 2 diabetes mellitus with foot ulcer; L97.415 Non-pressure chronic ulcer of right heel and midfoot with muscle involvement without evidence of necrosis | CPT/HCPCS: 11043; 11046; 97597; A6021 ==

== ENCOUNTER → 2022-10-07 09:08 | Outpatient (BNVA) | payer MEDICAID, SELFPAY | PROVIDERS: PCP Family Medicine; Visit Provider Thoracic Surgery (Cardiothoracic Vascular Surgery) | DX: I96 Gangrene, not elsewhere classified (principal); E11.621 Type 2 diabetes mellitus with foot ulcer; L97.413 Non-pressure chronic ulcer of right heel and midfoot with necrosis of muscle | CPT/HCPCS: 11043; A6021; A6248 ==

== ENCOUNTER → 2022-10-12 08:08 | Outpatient (BNVA) | payer MEDICAID, SELFPAY | PROVIDERS: PCP Family Medicine; Visit Provider Podiatrist Foot & Ankle Surgery | DX: I70.244 Atherosclerosis of native arteries of left leg with ulceration of heel and midfoot (principal); E11.621 Type 2 diabetes mellitus with foot ulcer; L97.419 Non-pressure chronic ulcer of right heel and midfoot with unspecified severity; L97.519 Non-pressure chronic ulcer of other part of right foot with unspecified severity; Z79.4 Long term (current) use of insulin; I96 Gangrene, not elsewhere classified; E11.51 Type 2 diabetes mellitus with diabetic peripheral angiopathy without gangrene | CPT/HCPCS: 99213 ==

== ENCOUNTER → 2022-10-14 09:58 | Outpatient (BNVA) | payer MEDICAID, SELFPAY | PROVIDERS: PCP Family Medicine; Visit Provider Thoracic Surgery (Cardiothoracic Vascular Surgery) | DX: I96 Gangrene, not elsewhere classified (principal); E11.621 Type 2 diabetes mellitus with foot ulcer; L97.413 Non-pressure chronic ulcer of right heel and midfoot with necrosis of muscle | CPT/HCPCS: 11043; 97597; A6021; A6212; A6248 ==

== ENCOUNTER → 2022-10-21 09:53 | Outpatient (BNVA) | payer MEDICAID, SELFPAY | PROVIDERS: PCP Family Medicine; Visit Provider Thoracic Surgery (Cardiothoracic Vascular Surgery) | DX: E11.52 Type 2 diabetes mellitus with diabetic peripheral angiopathy with gangrene (principal); L97.414 Non-pressure chronic ulcer of right heel and midfoot with necrosis of bone | CPT/HCPCS: 11043; 11046; 97605; A6237 ==

== ENCOUNTER → 2022-10-23 15:11 | Outpatient (BNVA) | payer MEDICAID, SELFPAY | PROVIDERS: PCP Family Medicine; Visit Provider Thoracic Surgery (Cardiothoracic Vascular Surgery) | DX: E11.52 Type 2 diabetes mellitus with diabetic peripheral angiopathy with gangrene (principal); L97.414 Non-pressure chronic ulcer of right heel and midfoot with necrosis of bone | CPT/HCPCS: 97605 ==

== ENCOUNTER → 2022-10-26 09:16 | Outpatient (BNVA) | payer MEDICAID, SELFPAY | PROVIDERS: PCP Family Medicine; Visit Provider Thoracic Surgery (Cardiothoracic Vascular Surgery) | DX: E11.52 Type 2 diabetes mellitus with diabetic peripheral angiopathy with gangrene (principal); L97.413 Non-pressure chronic ulcer of right heel and midfoot with necrosis of muscle | CPT/HCPCS: 11043; 97605; A6237 ==

== ENCOUNTER → 2022-10-29 11:14 | Outpatient (BNVA) | payer MEDICAID, SELFPAY | PROVIDERS: PCP Family Medicine; Visit Provider Nurse Practitioner Family | DX: E11.52 Type 2 diabetes mellitus with diabetic peripheral angiopathy with gangrene (principal); L97.415 Non-pressure chronic ulcer of right heel and midfoot with muscle involvement without evidence of necrosis | CPT/HCPCS: 97605; A6237; A6250 ==

== ENCOUNTER → 2022-11-02 15:57 | Outpatient (BNVA) | payer MEDICAID, SELFPAY | PROVIDERS: PCP Family Medicine; Visit Provider Thoracic Surgery (Cardiothoracic Vascular Surgery) | DX: E11.52 Type 2 diabetes mellitus with diabetic peripheral angiopathy with gangrene (principal); L97.415 Non-pressure chronic ulcer of right heel and midfoot with muscle involvement without evidence of necrosis | CPT/HCPCS: 11042; 97605; A6237 ==

== ENCOUNTER 2022-11-03 08:20 | Outpatient (CLI) | payer MEDICAID, SELFPAY ==
--- NOTE | 2022-11-03 08:30 | USCV_ITS ---
[place], [place] Age: 57 Gender: F : 1965 Exam Date: 11/03/2022 08:38 Ordering Phys: Yosi Pedroza MD (Andy) ([email or web address]) Technologist: Aleisha Simmons Exam Location: [facility] [place] Indication: Non Healing Ulcer Rt lower leg and foot Risk Factors: DM AND CURRENT SMOKER 1 PACK A DAY 20+ YEARS DM AND CURRENT SMOKER 1 PACK A DAY SMOKER Previous Vascular Surgery: INTERVENTION AO AND ILIACS RIGHT LEFT BP: 118.0 / 57.00 BP: 120.0/ 55.00 0 0 Waveform Velocity (cm/s) Velocity (cm/s) Waveform Monophasic 269.8 Iliac Prox Monophasic 280.4 Iliac Mid Monophasic 91.7 Iliac Distal Monophasic 68.4 SHINGLES ROOFER Biphasic 98.5 SFA Prox Biphasic 98.5 SFA Mid Biphasic 100.5 SFA Dist Biphasic 78.4 POP Monophasic 78.4 SENIOR GRANT WRITER Monophasic 34.2 DPA 0.5 KIM FINDINGS RT SENIOR GRANT WRITER 60 RT DPA 50 Patent right iliac, femoral, popliteal and infrapopliteal vessels. Monophasic Doppler waveform in the proximal and mid iliac artery and in the infrapopliteal vessels with a biphasic waveforms in the femoral and popliteal arteries. Resting KIM of 0.5. CONCLUSIONS 1. Abnormal resting KIM on the right side, suggesting moderately severe peripheral artery disease, possibly multisegmental 2. Compared to the study from 05/07/2022, infrapopliteal vessels appeared to be patent at this time with improved blood flow in the iliac and femoral arteries Dr Davina Null MD [facility] (Electronically Signed) Final Date: 03 November 2022 19:11 S
== END 2022-11-03 08:21 | disposition home or self-care (01) ==
LOC: RAD 08:23
PROVIDERS: PCP Family Medicine; Visit Provider Thoracic Surgery (Cardiothoracic Vascular Surgery)
DX: E11.621 Type 2 diabetes mellitus with foot ulcer (principal); L97.918 Non-pressure chronic ulcer of unspecified part of right lower leg with other specified severity; R93.6 Abnormal findings on diagnostic imaging of limbs
CPT/HCPCS: 93926

== ENCOUNTER → 2022-11-05 10:58 | Outpatient (BNVA) | payer MEDICAID, SELFPAY | PROVIDERS: PCP Family Medicine; Visit Provider Nurse Practitioner Family | DX: E11.52 Type 2 diabetes mellitus with diabetic peripheral angiopathy with gangrene (principal); L97.413 Non-pressure chronic ulcer of right heel and midfoot with necrosis of muscle | CPT/HCPCS: 97605; A6237; A6250 ==

== ENCOUNTER → 2022-11-09 15:53 | Outpatient (BNVA) | payer MEDICAID, SELFPAY | PROVIDERS: PCP Family Medicine; Visit Provider Thoracic Surgery (Cardiothoracic Vascular Surgery) | DX: E11.52 Type 2 diabetes mellitus with diabetic peripheral angiopathy with gangrene (principal); L97.413 Non-pressure chronic ulcer of right heel and midfoot with necrosis of muscle | CPT/HCPCS: 11043 ==

== ENCOUNTER → 2022-11-12 15:57 | Outpatient (BNVA) | payer MEDICAID, SELFPAY | PROVIDERS: PCP Family Medicine; Visit Provider Nurse Practitioner Family | DX: E11.52 Type 2 diabetes mellitus with diabetic peripheral angiopathy with gangrene (principal); L97.413 Non-pressure chronic ulcer of right heel and midfoot with necrosis of muscle | CPT/HCPCS: 97605 ==

== ENCOUNTER → 2022-11-16 13:08 | Outpatient (BNVA) | payer MEDICAID, SELFPAY | PROVIDERS: PCP Family Medicine; Visit Provider Thoracic Surgery (Cardiothoracic Vascular Surgery) | DX: E11.52 Type 2 diabetes mellitus with diabetic peripheral angiopathy with gangrene (principal); L97.413 Non-pressure chronic ulcer of right heel and midfoot with necrosis of muscle | CPT/HCPCS: 11043; 97605; A6237; A6250 ==

== ENCOUNTER → 2022-11-19 11:05 | Outpatient (BNVA) | payer MEDICAID, SELFPAY | PROVIDERS: PCP Family Medicine; Visit Provider Nurse Practitioner Family | DX: E11.52 Type 2 diabetes mellitus with diabetic peripheral angiopathy with gangrene (principal); L97.413 Non-pressure chronic ulcer of right heel and midfoot with necrosis of muscle | CPT/HCPCS: 97605; A6237; A6250 ==

== ENCOUNTER → 2022-11-24 14:32 | Outpatient (BNVA) | payer MEDICAID, SELFPAY | PROVIDERS: PCP Family Medicine; Visit Provider Nurse Practitioner Family | DX: E11.52 Type 2 diabetes mellitus with diabetic peripheral angiopathy with gangrene (principal); L97.415 Non-pressure chronic ulcer of right heel and midfoot with muscle involvement without evidence of necrosis | CPT/HCPCS: 11043 ==

== ENCOUNTER → 2022-11-26 10:52 | Outpatient (BNVA) | payer MEDICAID, SELFPAY | PROVIDERS: PCP Family Medicine; Visit Provider Nurse Practitioner Family | DX: E11.52 Type 2 diabetes mellitus with diabetic peripheral angiopathy with gangrene (principal); L97.415 Non-pressure chronic ulcer of right heel and midfoot with muscle involvement without evidence of necrosis | CPT/HCPCS: 97605; A6237; A6250 ==

== ENCOUNTER → 2022-11-30 08:13 | Outpatient (BNVA) | payer MEDICAID, SELFPAY | PROVIDERS: PCP Family Medicine; Visit Provider Thoracic Surgery (Cardiothoracic Vascular Surgery) | DX: E11.52 Type 2 diabetes mellitus with diabetic peripheral angiopathy with gangrene (principal); L97.413 Non-pressure chronic ulcer of right heel and midfoot with necrosis of muscle | CPT/HCPCS: 11043; 97605; A6237; A6250 ==

== ENCOUNTER → 2022-12-03 13:39 | Outpatient (BNVA) | payer MEDICAID, SELFPAY | PROVIDERS: PCP Family Medicine; Visit Provider Nurse Practitioner Family | DX: E11.52 Type 2 diabetes mellitus with diabetic peripheral angiopathy with gangrene (principal); L97.413 Non-pressure chronic ulcer of right heel and midfoot with necrosis of muscle | CPT/HCPCS: 97605; A6237; A6250 ==

== ENCOUNTER → 2022-12-10 15:22 | Outpatient (BNVA) | payer MEDICAID, SELFPAY | PROVIDERS: PCP Family Medicine; Visit Provider Nurse Practitioner Family | DX: E11.52 Type 2 diabetes mellitus with diabetic peripheral angiopathy with gangrene (principal); L97.413 Non-pressure chronic ulcer of right heel and midfoot with necrosis of muscle | CPT/HCPCS: 97605; A6237; A6250 ==

== ENCOUNTER → 2022-12-14 08:49 | Outpatient (BNVA) | payer MEDICAID, SELFPAY | PROVIDERS: PCP Family Medicine; Visit Provider Podiatrist Foot & Ankle Surgery | DX: I70.239 Atherosclerosis of native arteries of right leg with ulceration of unspecified site (principal); I96 Gangrene, not elsewhere classified; E11.51 Type 2 diabetes mellitus with diabetic peripheral angiopathy without gangrene; L60.3 Nail dystrophy; Z79.4 Long term (current) use of insulin; E11.52 Type 2 diabetes mellitus with diabetic peripheral angiopathy with gangrene; L97.413 Non-pressure chronic ulcer of right heel and midfoot with necrosis of muscle | CPT/HCPCS: 11043; 11721; 97605; A6237; A6250 ==

== ENCOUNTER → 2022-12-17 14:52 | Outpatient (BNVA) | payer MEDICAID, SELFPAY | PROVIDERS: PCP Nurse Practitioner Family; Visit Provider Thoracic Surgery (Cardiothoracic Vascular Surgery) | DX: E11.52 Type 2 diabetes mellitus with diabetic peripheral angiopathy with gangrene (principal); L97.413 Non-pressure chronic ulcer of right heel and midfoot with necrosis of muscle | CPT/HCPCS: 97605; A6237; A6250 ==

== ENCOUNTER → 2023-03-08 13:17 | Outpatient (BNVA) | payer MEDICAID, SELFPAY | PROVIDERS: PCP Nurse Practitioner Family; Visit Provider Podiatrist Foot & Ankle Surgery | DX: E11.8 Type 2 diabetes mellitus with unspecified complications (principal); I73.9 Peripheral vascular disease, unspecified; E11.51 Type 2 diabetes mellitus with diabetic peripheral angiopathy without gangrene; L60.8 Other nail disorders; E11.621 Type 2 diabetes mellitus with foot ulcer; L97.412 Non-pressure chronic ulcer of right heel and midfoot with fat layer exposed; Z79.4 Long term (current) use of insulin | CPT/HCPCS: 11721; 99213 ==

== ENCOUNTER 2023-09-16 11:48 | Inpatient (IN) | payer MEDICAID, SELFPAY ==
[2023-09-16] VITALS (9 sets, daily range): BP systolic 130–145; BP diastolic 55–82; PULSE 90–104; RESP 18–20; TEMP 36.4–36.9; O2SAT 92–99; BMI 25.1
--- NOTE | 2023-09-16 12:00 | ED_ITS ---
HPI - Altered Mental Status 2 General: Chief Complaint: Altered Mental Status Stated Complaint: ams Time Seen by Provider: 09/16/23 11:50 History of Present Illness: 58-year-old female with a history of ins ulin-dependent diabetes, COPD, bipolar disorder, anxiety, PTSD who presents to the emergency room with altered mental status. Apparently she has not taken her medications or slept in 3 days. Her says she gets like this whenever this happens. When asked her name she tells overall name. She does get the right month of her birthday. Appears quite confused and is making some repetitive movements. No other history able to be obtained at this time. Review of Systems 2 General: Reports: ROS unobtainable due to medical condition and ROS unobtainable due to mental status PFSH ED 2 PFSH: Medical History CHERI (acute kidney injury) Hyperglycemia Rhabdomyolysis Hypokalemia Leukocytosis Abdominal pain Dehydration Acidosis, lactic Acute alteration in mental status Xerosis of skin Generalized muscle ache Insulin dependent type 2 diabetes mellitus Acute encephalopathy Generalized anxiety disorder Cannabis abuse Polyp of duodenum Bipolar II disorder Adderall use disorder, moderate, in sustained remission, dependence Chronic post-traumatic stress disorder (PTSD) Surgical History H/O colonoscopy 15-20 yrs ago H/O hernia repair Hx of tubal ligation H/O esophagogastroduodenoscopy 15-20 yrs ago Family History Father Cancer colon Family/Other Cancer maternal grandmother colon Denies family history of CAD (coronary artery disease) Anesthesia complication Bleeding disorder Social History Smoking and tobacco/nicotine status: current every day tobacco/nicotine user cigarettes Packs smoked per day: 1 Years cigarettes smoked: 15 Quit status (tobacco/nicotine): has tried quititng Number of times tried to quit tobacco: 7 Second hand smoke exposure: Yes Alcohol intake: never Substance/Drug Use: current Household members: spouse Marital status: Current occupational status: disabled Physical Exam 2 Narrative: General: Alert, no acute distress. Skin: Warm, dry. Head: Normocephalic, atraumatic. Neck: Supple, trachea midline. Eye: Extraocular movements are intact. Ears, nose, mouth and throat: Very dry oral mucosa Cardiovascular: Regular, Normal peripheral perfusion. Respiratory: Lungs are clear to auscultation, respirations are non-labored, breath sounds are equal, Symmetrical chest wall expansion. Gastrointestinal: Soft, Nontender, Non distended, Normal bowel sounds. Musculoskeletal: Left BKA. No other deformities Neurological: Alert, appears quite confused, has some repetitive movements, No focal neurological deficit observed. Psychiatric: Unable to assess Course 2 Vital Signs: Vital signs: Vital Signs Temperature 97.5 F L 09/16/23 11:49 Pulse Rate 90 09/16/23 11:49 Respiratory Rate 18 09/16/23 11:49 Blood Pressure 130/80 09/16/23 12:48 Pulse Oximetry 97 09/16/23 14:45 Oxygen Delivery Me thod Room Air 09/16/23 14:45 MDM - Altered Mental Status Medical Decision Making Medical decision making: Differential diagnosis including but not limited to and based on the above HPI, review of systems and physical exam: In this patient with altered mental status: Stroke. Hypoglycemia. Metabolic encephalopathy. Infections such as pneumonia, urinary tract infection, Covid-19, Influenza. Electrolyte abnormalities such as hypernatremia. Renal failure / uremia. Hepatic encephalopathy. Hypoxemia. Hypercapnic respiratory failure. Psychosis. Drug or alcohol intoxication. Medication overdose. Orders placed to evaluate differential diagnosis based on the above differential, HPI and physical exam Lab Review: Laboratory results were reviewed and interpreted by myself the emergency room physician. Patient has some leukocytosis with a white count of 17,000. Hemoglobin is stable at 14. BUN and creatinine are 21 and 0.7. Blood sugar is a little elevated at 180. Urinalysis shows UTI. At the point this was reported I added lactate and blood cultures and ordered IV antibiotics. EKG: Time 1256 rate 95. PVCs. Normal sinus rhythm, No ST-T changes, normal ND & QRS intervals, This was reviewed and interpreted by myself the ER physician at 1:00 Chest x-ray: No acute process. No infiltrate. No pneumothorax. No cardiomegaly. This was reviewed and interpreted by myself the ER physician. CT head: No acute intracranial process. no intracranial hemorrhage, no evidence of infarct. no evidence of acute fracture.This was reviewed and interpreted by myself the ER physician. I reviewed the patient's medical record. Reexamination: Patient is more talkative but still has not making any sense at all. No focal motor deficits. No increased work of breathing. Assessment and plan: Urinary tract infection Metabolic encephalopathy Dehydration -IV ciprofloxacin. Patient is allergic to penicillins and Keflex. -Possible sepsis. She has a UTI and is encephalopathic. I have added a lactate and blood cultures. Her vitals are stable though. -2 L normal saline bolus. Fluid volumes based on ideal body weight. -Sepsis quality measures. -I discussed the patient with the hospitalist on-call who is admitting the patient. - Discussed findings and plan with patient. Answered any questions. - All laboratory values were reviewed and interpreted personally by myself, the ER physician - All imaging was reviewed and interpreted personally by myself, the ER physician. - Evaluation and treatment of this problem were appropriate in the emergency setting -I spent a total of >35 minutes of critical care time managing the patient, independent of any other practitioner. -The time involved in the performance of separately reportable procedures was not counted towards critical care time. Lab Data 09/16/23 12:25 09/16/23 12:[address] 09/16/23 14:20 IMPRESSION: 1. Technically limited evaluation of the brain. Motion artifact. 2. No large areas of hemorrhage or edema. 3. Very mild small vessel ischemic disease. No acute findings. Laboratory Results WBC 17.41 10^3/uL (3.29-11.43) H 09/16/23 12:25 RBC 5.35 10^6/uL (3.85-5.65) 09/16/23 12:25 Hgb 14.40 g/dL (11.27-16.99) 09/16/23 12:25 Hct 43.9 % (36-47) 09/16/23 12:25 MCV 82.1 fl (85-98) L 09/16/23 12:25 MCH 26.9 pg (27-33) L 09/16/23 12:25 MCHC 32.8 g/dL (30-55) 09/16/23 12:25 RDW 15.4 % (12.1-15.1) H 09/16/23 12:25 Plt Count 450 10^3/cmm (157-399) H 09/16/23 12:25 MPV 9.4 fL (7.4-10.4) 09/16/23 12:25 Neut % (Auto) 81.4 % 09/16/23 12:25 Lymph % (Auto) 12.6 % 09/16/23 12: Casey % (Auto) 4.6 % 09/16/23 12:25 Eos % (Auto) 0.2 % 09/16/23 12:25 Baso % (Auto) 0.5 % 09/16/23 12:25 Neut # (Auto) 14.17 10^3/uL (1.8-7.7) H 09/16/23 12:25 Lymph # (Auto) 2.2 10^3/uL (0.8-4.8) 09/16/23 12:25 Casey # (Auto) 0.8 10^3/uL (0.2-0.9) 09/16/23 12:25 Eos # (Auto) 0.0 10^3/uL (0.0-0.8) 09/16/23 12:25 Baso # (Auto) 0.1 10^3/uL (0.0-0.1) 09/16/23 12: Nucleated RBC % (auto) 0 % 09/16/23 12: Nucleated RBCs # 0.0 /100WBC 09/16/23 12:25 Specimen Type Arterial 09/16/23 12:37 Sample Site Radial, left 09/16/23 12:37 ABG pH 7.45 (7.35-7.45) 09/16/23 12:37 ABG pCO2 27.0 mmHg (35-45) L 09/16/23 12:37 ABG pO2 75.3 mmHg (80.0-100.0) L 09/16/23 12:37 ABG PO2/FiO2 Ratio 0 09/16/23 12:37 ABG HCO3 18.9 mmol/L (22-26) L 09/16/23 12:37 ABG O2 Saturation 93.0 09/16/23 12:37 ABG Base Excess -3.5 mmol/L (-2.0-2.0) L 09/16/23 12:37 Mohsen Test Pos 09/16/23 12:37 A-a O2 Gradient 5.0 mmHg (5-10) 09/16/23 12:37 Hematocrit 46.0 % (37-47) 09/16/23 12:37 Hgb O2 Saturation 91.8 % (95-100) L 09/16/23 12:37 Carboxyhemoglobin 1.1 %THgb (0.4-20.1) 09/16/23 12:37 Methemoglobin 0.1 % (0.4-1.5) L 09/16/23 12:37 Total Hemoglobin 15.0 g/dL (12-16) 09/16/23 12:37 Sodium 142.0 mmol/L (131-143) 09/16/23 12:37 Potassium 3.3 mmol/L (3.5-5.0) L 09/16/23 12:37 Glucose 186.0 mg/dL (70-115) H 09/16/23 12:37 Ionized Calcium 1.2 mmol/L (1.1-1.4) 09/16/23 12:37 O2 Delivery Device Room air 09/16/23 12:37 FiO2 21.0 % 09/16/23 12:37 Order Entry Technician ID Cak 09/16/23 12:37 Sodium 139 mmol/L (136-145) 09/16/23 12:25 Potassium 3.5 mmol/L (3.5-5.1) 09/16/23 12:25 Chloride 100 mmol/L (98-107) 09/16/23 12:25 Carbon Dioxide 19 mmol/L (22-29) L 09/16/23 12:25 Anion Gap 23.5 (5-19) H 09/16/23 12:25 BUN 21 mg/dL (8-23) 09/16/23 12:25 Creatinine 0.7 mg/dL (0.5-0.9) 09/16/23 12:25 GFR Calculation 85.4 mL/min (90-130) L 09/16/23 12:25 Glucose 180 mg/dL (65-115) H 09/16/23 12:25 Calculated Osmolality 296 mOsm/kg (285-295) H 09/16/23 12:25 Lactic Acid 2.7 mmol/L (0.5-2.2) H 09/16/23 12:25 Calcium 9.3 mg/dL (8.5-10.5) 09/16/23 12:25 Total Bilirubin 0.7 mg/dL (0.15-1.2) 09/16/23 12:25 AST 15 U/L (0-32) 09/16/23 12:25 ALT 15 U/L (0-33) 09/16/23 12:25 Alkaline Phosphatase 101 U/L (35-105) 09/16/23 12:25 Total Protein 6.9 g/dL (6.6-8.7) 09/16/23 12: Albumin 3.8 g/dL (3.5-5.2) 09/16/23 12: Globulin 3.1 g/dL (1.3-4.6) 09/16/23 12: TSH 0.71 uIU/mL (0.27-4.20) 09/16/23 12: Ser , Semi-Qnt 1.00 mIU/mL 09/16/23 12:25 Urine Color Yellow (Yellow) 09/16/23 12:45 Urine Appearance Sl hazy (CLEAR) A 09/16/23 12:45 Urine pH 6.5 (5-7) 09/16/23 12:45 Ur Specific Holcomb 1.015 (1.005-1.030) 09/16/23 12:45 Urine Protein 1+ (Negative) H 09/16/23 12:45 Urine Glucose (UA) Norm (Normal) 09/16/23 12:45 Urine Ketones 1+ (Negative) H 09/16/23 12:45 Urine Blood Neg (Negative) 09/16/23 12:45 Urine Nitrate Negative (Negative) 09/16/23 12:45 Urine Bilirubin 1+ (Negative) H 09/16/23 12:45 Urine Urobilinogen 8 mg/dL (Negative) H 09/16/23 12:45 Ur Leukocyte Esterase 1+ (Negative) H 09/16/23 12:45 Urine RBC 0-4 /hpf (0-2) H 09/16/23 12:45 Urine WBC 40-55 /hpf (0-5) H 09/16/23 12:45 Ur Squamous Epith Cells 0-4 /hpf (0-5) H 09/16/23 12:45 Ur Transition Epith Cell 0-4 /hpf 09/16/23 12:45 Ur Renal Epithelial Cell 0-4 /hpf 09/16/23 12:45 Amorphous Sediment Not Reportable 09/16/23 12:45 Urine Bacteria None /hpf (NONE) 09/16/23 12:45 Urine Mucus 1+ /hpf 09/16/23 12:45 Salicylates < 0.3 mg/dL (3-10) L 09/16/23 12:25 Urine Opiates Screen Positive ng/mL (Negative) H 09/16/23 12:45 Acetaminophen < 5.0 ug/mL (10-30) L 09/16/23 12:25 Ur Barbiturates Screen Negative ng/mL (Negative) 09/16/23 12:45 Ur Phencyclidine Scrn Negative ng/mL (Negative) 09/16/23 12:45 Ur Amphetamines Screen Negative ng/mL (Negative) 09/16/23 12:45 U Benzodiazepines Scrn Negative ng/mL (Negative) 09/16/23 12:45 Urine Cocaine Screen Negative ng/mL (Negative) 09/16/23 12:45 U Marijuana (THC) Screen Positive ng/mL (Negative) H 09/16/23 12:45 Ethyl Alcohol < 10 mg/dL (0-10) 09/16/23 12:25 Serum Ketones Negative (Negative) 09/16/23 12:25 No radiology studies performed this visit Discharge Plan Discharge Patient Disposition: Admitted As Inpatient Admit Provider: Paulina Samuels Clinical Impression: Urinary tract infection, Metabolic encephalopathy, Dehydration Condition: Stable Coding Level of Care Code ED Aircraft Charter Dispatcher for Kaushik Ahuja
[2023-09-16 12:47] LABS: Basophils # 0.1 10^3/uL (0.0-0.1); Basophils % 0.5 %; Eosinophils % 0.2 %; Hematocrit 43.9 % (36-47); Lymphocytes # 2.2 10^3/uL (0.8-4.8); Lymphocytes % 12.6 %; Mean Corpuscular HGB Conc 32.8 g/dL (30-55); Mean Corpuscular Hemoglobin 26.9 pg (27-33); Mean Corpuscular Volume 82.1 fl (85-98); Mean Platelet Volume 9.4 fL (7.4-10.4); Monocytes # 0.8 10^3/uL (0.2-0.9); Monocytes % 4.6 %; Neutrophils # 14.17 10^3/uL (1.8-7.7); Neutrophils % 81.4 %; Nucleated Red Blood Cells % 0 %; Platelet Count 450 10^3/cmm (157-399); Red Blood Count 5.35 10^6/uL (3.85-5.65); Red Cell Distribution Width 15.4 % (12.1-15.1); White Blood Count 17.41 10^3/uL (3.29-11.43)
[2023-09-16 12:49] LABS: ABG PH Result 7.45 (7.35-7.45); Base Excess ABG -3.5 mmol/L (-2.0-2.0); Blood Gas Allen Test Pos; Blood Gas Operator Identificat CAK; Blood Gas Sample Site Radial, left; Blood Gas Sample Type Arterial; Carboxyhemoglobin 1.1 %THgb (0.4-20.1); HCO3 ABG 18.9 mmol/L (22-26); HGB O2 Sat 91.8 % (95-100); Ionized Calcium Level - ABG 1.2 mmol/L (1.1-1.4); Methemoglobin 0.1 % (0.4-1.5); Oxygen Device ROOM AIR; PO2 ABG 75.3 mmHg (80.0-100.0); PO2 FiO2 Ratio Arterial Blood 0; Potassium Level - ABG 3.3 mmol/L (3.5-5.0)
--- NOTE | 2023-09-16 12:56 | ECG_ITS ---
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 Measurements Intervals [place] Rate: 95 P: 81 AK: 132 QRS: 43 QRSD: 82 T: 46 QT: 385 QTc: 486 Interpretive Statements SINUS RHYTHM WITH FREQUENT VENTRICULAR PREMATURE COMPLEXES Compared to ECG 05/06/2022 19:56:47 Ventricular premature complex(es) now present Electronically Signed On 09-16-2023 17:12:14 CDT by Praful Schreiber M.D. [id number]
--- NOTE | 2023-09-16 13:03 | PC.PHAR ---
PT UNABLE TO VERIFY ANY OF HER MEDICATIONS. REMOVED ALL MEDS NOT REFILLED RECENTLY AND OVER 2 YEARS OLD. ENTERED ALL NEW MEDICATIONS WRITTEN THIS YEAR ALONG WITH FILL DATES AND CURRENT DIRECTIONS. LOTS OF NEW MEDICATIONS IN JUNE AND NON COMPLIANCE IS AN ISSUE.
[2023-09-16 13:10] LABS: Amphetamines Screen Urine Negative (Negative); Barbiturates Screen Urine Negative (Negative); Benzodiazepines Screen Urine Negative (Negative); Cocaine Screen Urine Negative (Negative); Opiate Screen Urine Positive (Negative); PCP Screen Urine Negative (Negative); THC Screen Urine Positive (Negative)
[2023-09-16 13:13] LABS: Specific Gravity, Urine 1.015 (1.005-1.030); Urine Appearance SL Hazy (CLEAR); Urine Color Yellow (Yellow); pH Urine 6.5 (5-7)
[2023-09-16 13:14] LABS: Bilirubin Urine 1+ (Negative); Blood Urine Neg (Negative); Glucose Urine UA Norm (Normal); Ketones Urine 1+ (Negative); Leukocyte Esterase Urine 1+ (Negative); Nitrate Urine Negative (Negative); Protein Urine 1+ (Negative); Urobilinogen Urine 8 mg/dL (Negative)
[2023-09-16 13:19] LABS: Alanine Aminotransferase 15 U/L (0-33); Albumin Level 3.8 g/dL (3.5-5.2); Alkaline Phosphatase 101 U/L (35-105); Anion Gap 23.5 (5-19); Aspartate Amino Transferase 15 U/L (0-32); Blood Urea Nitrogen 21 mg/dL (8-23); Calcium 9.3 mg/dL (8.5-10.5); Carbon Dioxide 19 mmol/L (22-29); Chloride 100 mmol/L (98-107); Globulin 3.1 g/dL (1.3-4.6); Glomerular Filtration Rate 85.4 mL/min (90-130); Glucose 180 mg/dL (65-115); Osmolality Calculated 296 mOsm/kg (285-295); Potassium 3.5 mmol/L (3.5-5.1); Sodium 139 mmol/L (136-145); Thyroid Stimulating Hormone 0.71 uIU/mL (0.27-4.20); Total Bilirubin 0.7 mg/dL (0.15-1.2); Total Protein 6.9 g/dL (6.6-8.7)
[2023-09-16 13:22] LABS: Acetaminophen < 5.0 ug/mL (10-30); Alcohol Level < 10 mg/dL (0-10); Salicylate < 0.3 mg/dL (3-10)
[2023-09-16 13:25] LABS: Add Urine Culture? Yes; Mucus Urine 1+ /hpf; RBC Urine 0-4 /hpf (0-2); Renal Epithelial Cells Urine 0-4 /hpf; Squamous Epithelial Cell Urine 0-4 /hpf (0-5); Transitional Epi Cells Urine 0-4 /hpf; WBC Urine 40-55 /hpf (0-5)
[2023-09-16] MEDS: sodium chloride 0.9% 1,000 ML 999 ML IV ×2 (13:44→14:55)
[2023-09-16] MEDS: LORazepam 2 mg/mL INJ 10 mL MDV 1 MG IV (13:44)
--- NOTE | 2023-09-16 14:20 | CT_ITS ---
WS: [id number] CT HEAD NONCONTRAST HISTORY: Encephalopathy, altered mental status TECHNIQUE: Contiguous axial imaging performed through the brain in 2.5 mm imaging. Bone and soft tiss ue windows. Sagittal and coronal reformats reviewed. All CT scans at [facility] use at least one of these dose optimization techniques: automated exposure control; mA and/or kV adjustment per pa tient size (includes targeted exams where dose is matched to clinical indication); or iterative recon struction. DLP: 1165.68 mGy.cm COMPARISON: 03/26/2022 Motion artifact. Small areas of edema and blood would easily be obscured. There is no significant mid line shift and no mass effect. Mild small vessel ischemic disease. No atrophy or prior infarcts or herniation. Ventricles: Normal size with no hydrocephalus. Paranasal sinuses: As visualized are clear. Mastoid air cells: Well pneumatized. Calvarium and scalp: Skull is intact with no soft tissue edema or swelling. CT/CT head wo con* [id number] IMPRESSION: 1. Technically limited evaluation of the brain. Motion artifact. 2. No large areas of hemorrhage or edema. 3. Very mild small vessel ischemic disease. No acute findings.
[2023-09-16 14:25] LABS: Ketone (Acetest) Serum Negative (Negative)
--- NOTE | 2023-09-16 14:29 | XR_ITS ---
WS: [id number] AP upright chest, 09/16/2023 Clinical Data: shortness of breath Comparison: Portable chest, 03/26/2022 Findings: No nodules, masses or effusions are seen. The heart is normal. The pulmonary vascularity is not increased. No pneumonia or pneumothorax is seen. XR/XR chest 1V [id number] Impression: Negative chest.
[2023-09-16 14:34] LABS: Lactic Sepsis W/Reflex 2.7 mmol/L (0.5-2.2)
[2023-09-16] MEDS: ciprofloxacin 400 MG/200 ML PREMIX 200 MG IV (14:55)
--- NOTE | 2023-09-16 15:05 | P.HP_ITS ---
Providers/Chief Complaint 2 Admitting Physician: Paulina Samuels MD Primary Care Provider: Marichuy Hopper NP Chief Complaint: ams History of Present Illness Dorina Gamble is a 58 year old female present to the hospital via EMS for confusion. Patient is delusional suffering from dementia as well talking about bird and brown eye of Andrew. She is not able to give straight answers. She is asking for food and water. Clinically looks dehydrated malnourished unkept appearance. Hand covered with dirt and feces. Workup in the ER revealed significant leukocytosis, hemoconcentration, signs of UTI with positive drug screen for marijuana and opioids, significant pyuria, will request CT renal stone protocol. I have tried to call her numbers going busy Review of Systems 2 General: Reports: ROS unobtainable due to medical condition Medications/Allergies Home Medications Medication Instructions Recorded Confirmed Last Taken Type albuterol sulfate 90 mcg/actuation 2 puff inhalation Q6H PRN 01/02/21 09/16/23 01/02/21 History aerosol inhaler (ProAir HFA) Shortness Of Breath apixaban 5 mg tablet (Eliquis) 5 mg PO BID 07/05/21 09/16/23 08/23/21 History see rx coments omeprazole 20 mg capsule,delayed 20 mg PO DAILY 07/05/21 09/16/23 08/24/21 History release pregabalin 200 mg capsule 200 mg PO Q8H 07/05/21 09/16/23 08/24/21 History docusate sodium 100 mg capsule 100 mg PO BID PRN Constipation 08/26/21 09/16/23 Unknown History ergocalciferol (vitamin D2) 1,250 1,250 mcg PO Q7D 08/26/21 09/16/23 Unknown History mcg (50,000 unit) capsule furosemide 20 mg tablet 20 mg PO DAILY 08/26/21 09/16/23 08/24/21 History metoclopramide HCl 5 mg tablet 5 mg PO DAILY PRN nausea and 10/08/21 09/16/23 Unknown Rx (Reglan) vomiting 2 weeks #14 tabs Diabetic Shoes #1 ea 01/22/22 09/16/23 Unknown Rx fenofibrate nanocrystallized 48 mg 48 mg PO DAILY 03/26/22 09/16/23 Unknown History tablet pantoprazole 40 mg tablet,delayed 40 mg PO DAILY 03/26/22 09/16/23 Unknown History release sitagliptin phosphate 100 mg 100 mg PO DAILY 03/26/22 09/16/23 Unknown History tablet (Januvia) insulin glargine 100 unit/mL (3 15 unit (0.15 mL) SUBCUT DAILY #15 03/28/22 09/16/23 Unknown Rx mL) subcutaneous pen (Lantus mL Solostar U-100 Insulin) dulaglutide 1.5 mg/0.5 mL 1.5 mg SUBCUT Q7D 04/28/22 09/16/23 Unknown History subcutaneous pen injector (Trulicity) duloxetine 60 mg capsule,delayed 120 mg (2 x 60 mg) PO DAILY #60 06/24/22 09/16/23 Unknown Rx release caps Prevalon heel protector boot #1 ea 10/12/22 09/16/23 Unknown Rx budesonide-formoterol HFA 160 2 puff inhalation BID 09/16/23 09/16/23 Unknown History mcg-4.5 mcg/actuation aerosol inhaler (Symbicort) buprenorphine HCl 2 mg sublingual 2 mg sublingual Q8H 09/16/23 09/16/23 Unknown History tablet clopidogrel 75 mg tablet 75 mg PO DAILY 09/16/23 09/16/23 Unknown History levothyroxine 25 mcg tablet 25 mcg PO DAILY 09/16/23 09/16/23 Unknown History loratadine 10 mg tablet 10 mg PO DAILY 09/16/23 09/16/23 Unknown History naloxone 4 mg/actuation nasal See Rx Instructions .Route .COMPLEX 09/16/23 09/16/23 Unknown History spray (Narcan) ondansetron 4 mg disintegrating See Rx Instructions .Route .COMPLEX 09/16/23 09/16/23 Unknown History tablet quetiapine 300 mg tablet 300 mg PO BEDTIME 09/16/23 09/16/23 Unknown History quetiapine 50 mg tablet 150 mg PO QAM 09/16/23 09/16/23 Unknown History sucralfate 1 gram tablet 1 g PO BID 09/16/23 09/16/23 Unknown History tamsulosin 0.4 mg capsule 0.4 mg PO DAILY 09/16/23 09/16/23 Unknown History Allergies Allergy/AdvReac Type Severity Reaction Status Date / Time amoxicillin Allergy Intermediate Hives Verified 10/30/23 13:35 azithromycin Allergy Intermediate Hives Verified 03/08/23 13:35 carbamazepine [From Tegretol] Allergy Intermediate Hives Verified 03/08/23 13:35 divalproex sodium Allergy Intermediate Hives Verified 03/08/23 13:35 [From Depakote] erythromycin base Allergy Intermediate hIVES Verified 03/08/23 13:35 lamotrigine [Lamictal] Allergy Unknown Unknown Verified 03/08/23 13:35 metformin Allergy Unknown Unknown Verified 03/08/23 13:35 nystatin Allergy Unknown Unknown Verified 03/08/23 13:35 Sulfa (Sulfonamide Allergy Unknown Unknown Verified 03/08/23 13:35 Antibiotics) tetracycline Allergy Unknown Unknown Verified 03/08/23 13:35 Tricyclic Antidepressants Allergy Unknown Unknown Verified 03/08/23 13:35 and Tricy [Tricyclic Compounds] zolpidem [From Ambien] AdvReac Severe Hallucinati Verified 03/08/23 13:35 ons PFSH Acute 2 PFSH: Medical History CHERI (acute kidney injury) Hyperglycemia Rhabdomyolysis Hypokalemia Leukocytosis Abdominal pain Dehydration Acidosis, lactic Acute alteration in mental status Xerosis of skin Generalized muscle ache Insulin dependent type 2 diabetes mellitus Acute encephalopathy Generalized anxiety disorder Cannabis abuse Polyp of duodenum Bipolar II disorder Adderall use disorder, moderate, in sustained remission, dependence Chronic post-traumatic stress disorder (PTSD) Surgical History H/O colonoscopy 15-20 yrs ago H/O hernia repair Hx of tubal ligation H/O esophagogastroduodenoscopy 15-20 yrs ago Family History Father Cancer colon Family/Other Cancer maternal grandmother colon Denies family history of CAD (coronary artery disease) Anesthesia complication Bleeding disorder Social History Smoking and tobacco/nicotine status: current every day tobacco/nicotine user cigarettes Packs smoked per day: 1 Years cigarettes smoked: 15 Quit status (tobacco/nicotine): has tried quititng Number of times tried to quit tobacco: 7 Second hand smoke exposure: Yes Alcohol intake: never Substance/Drug Use: current Household members: spouse Marital status: Current occupational status: disabled Vitals/I&O/Wt Last Vital Signs Temp 97.5 F L 09/16/23 11:49 Pulse 90 09/16/23 11:49 Resp 18 09/16/23 11:49 BP 130/80 09/16/23 12:48 Pulse Ox 97 09/16/23 14:45 O2 Del Method Room Air 09/16/23 14:45 09/16/23 09/16/23 09/16/23 06:59 14:59 22:59 Intake Total 1000 / 1000 Balance 1000 / 1000 Physical Exam 2 Narrative: Patient is a from delusional disorder Delirium Able to follow commands Tangential thoughts Able to make eye contact Moving her extremities Unkept appearance Extremities covered with feces Foul-smelling close S1, S2 tachycardia Abdomen nontender nondistended Currently on room air Data 09/16/23 12:25 09/16/23 12:25 Micro: Microbiology 09/16/23 14:45 Blood Culture - Preliminary Blood SPECIMEN COLLECTED 09/16/23 14:40 Blood Culture - Preliminary Blood SPECIMEN COLLECTED A&P Assessment and plan (1) Urinary tract infection: (2) Dehydration: (3) Acidosis, lactic: (4) Altered mental status: (5) Metabolic encephalopathy: (6) Peripheral neuropathy: (7) Diabetic gastroparesis: (8) Delusional disorder: (9) Acute delirium: Plan Acute delirium with underlying depression Patient is also delusional I will continue her antipsychotic medications Treat reversible causes such as UTI and dehydration Check TSH and B12 Opiate agreement will continue her Suboxone UTI: Requested CT renal protocol Start ceftriaxone Dehydration: That would explain lactic acidosis as well I do not see any active signs of sepsis Start IV fluids Diabetic check A1c level start insulin with sliding scale History of thromboembolic phenomenon continue Eliquis Full code Consistent carb diet Attestations 2 Medical Necessity Statement*: More than 2 midnights anticipated Diagnoses Urinary tract infection N39.0 Dehydration E86.0 Acidosis, lactic E87.2 Altered mental status R41.82 Metabolic encephalopathy G93.41 Peripheral neuropathy G62.9 Diabetic gastroparesis E11.43; K31.84 Delusional disorder F22 Acute delirium R41.0
--- NOTE | 2023-09-16 15:26 | CT_ITS ---
WS: [id number] CT ABDOMEN AND PELVIS NONCONTRAST HISTORY: UTI TECHNIQUE: Imaging performed through the abdomen and pelvis. Coronal and sagittal reformats are submi tted. All CT scans at [facility] use at least one of these dose optimization techniques: auto mated exposure control; mA and/or kV adjustment per patient size (includes targeted exams where dose is matched to clinical indication); or iterative reconstruction. DLP: 837.20 mGy.cm COMPARISON: 03/26/2022 Lower thorax: Motion artifact from breathing at the lung bases. Heart is normal size. Small hiatal he rnia. Liver: Normal size liver. No mass or bile duct dilatation. Gallbladder: Mildly hydropic. No adjacent inflammation. Pancreas: Normal size and attenuation. Normal pancreatic duct. No pancreatitis or mass. Spleen: Normal. Adrenal glands: Normal. No mass. Right kidney: Motion artifact. Nonobstructing calcification lower pole. Left kidney: Motion artifact. Previously described cyst in the lower pole is not as well visualized o n today's study due to motion. Aorta: Moderate to severe atherosclerosis abdominal aorta. No aneurysm. Atherosclerosis continues int o the common iliac arteries. Aortoiliac stents. No free fluid, intraperitoneal air or significant lymphadenopathy. GI tract: Nondistended stomach. No small bowel obstruction. There is mild hazy attenuation in the dixie tral mesentery but this is related to motion. No colon obstruction. Constipation. Abdominal wall: Negative. No hernia. Pelvis: Well-distended urinary bladder. Osseous structures: Unremarkable. CT/CT kidney stone [id number] IMPRESSION: 1. Quality of this examination is compromised by motion artifact and breathing . 2. No renal obstruction. 3. No GI tract obstruction. 4. Aortic iliac stents. 5. Small hiatal hernia.
[2023-09-16 15:59] LABS: Reflex Lactate Order REFLEX LACTIC ORDERD
[2023-09-16] MEDS: sodium chloride 0.9% 1,000 ML 75 ML IV (16:37)
[2023-09-16 16:49] LABS: Estmated Average Glucose 140; Hemoglobin A1C 6.5 % (4.0-6.0)
[2023-09-16 17:09] LABS: Vitamin B12 500 pg/mL (232-1245)
[2023-09-16 17:17] LABS: Glucose Point of Care 140 mg/dL (70-110)
[2023-09-16 17:23] LABS: Lactic Acid level (Lactate) 2.4 mmol/L (0.5-2.2)
[2023-09-16] MEDS: apixaban 5 mg Tablet PO (17:34)
[2023-09-16] MEDS: sucralfate 1 gm Tablet PO (17:34)
[2023-09-16] MEDS: quetiapine 300 mg Tablet PO (19:31)
--- NOTE | 2023-09-16 20:10 | PC.NURSE ---
Addendum entered by Jana Rosas RN 09/16/23 21:26: states that patient's wound to right foot used to be gangrene. Original Note: called asking for update. notified that patient is still confused. He states well, when she gets like this, she usually gets better when she gets some sleep, so you guys may have to give her something to knock her out. notified that patient was given Seroquel.
[2023-09-16 20:23] LABS: Glucose Point of Care 177 mg/dL (70-110)
[2023-09-17] VITALS: BP 151/68; PULSE 82; RESP 18; TEMP 36.6; O2SAT 94
[2023-09-17 04:00] VITALS: BP 169/62; PULSE 76; RESP 17; TEMP 36.8; O2SAT 100
[2023-09-17] MEDS: sodium chloride 0.9% 1,000 ML 75 ML IV ×2 (05:21→17:59)
[2023-09-17 07:34] LABS: Basophils # 0.1 10^3/uL (0.0-0.1); Basophils % 0.5 %; Eosinophils # 0.2 10^3/uL (0.0-0.8); Eosinophils % 1.1 %; Hematocrit 41.6 % (36-47); Lymphocytes # 2.8 10^3/uL (0.8-4.8); Lymphocytes % 18.5 %; Mean Corpuscular HGB Conc 31.5 g/dL (30-55); Mean Corpuscular Hemoglobin 27.1 pg (27-33); Mean Corpuscular Volume 86.1 fl (85-98); Mean Platelet Volume 9.1 fL (7.4-10.4); Monocytes # 0.8 10^3/uL (0.2-0.9); Monocytes % 5.1 %; Neutrophils # 11.14 10^3/uL (1.8-7.7); Neutrophils % 74.4 %; Nucleated Red Blood Cells % 0 %; Platelet Count 330 10^3/cmm (157-399); Red Blood Count 4.83 10^6/uL (3.85-5.65); Red Cell Distribution Width 15.6 % (12.1-15.1); White Blood Count 14.97 10^3/uL (3.29-11.43)
[2023-09-17 07:55] LABS: Alanine Aminotransferase 15 U/L (0-33); Albumin Level 3.4 g/dL (3.5-5.2); Alkaline Phosphatase 95 U/L (35-105); Anion Gap 15.4 (5-19); Aspartate Amino Transferase 21 U/L (0-32); Blood Urea Nitrogen 12 mg/dL (8-23); C Reactive Protein 16.3 mg/L (0.0-4.9); Calcium 8.6 mg/dL (8.5-10.5); Carbon Dioxide 17 mmol/L (22-29); Chloride 106 mmol/L (98-107); Creatinine Clr Calc Pharmacy 101.7903; Globulin 2.9 g/dL (1.3-4.6); Glucose 139 mg/dL (65-115); Magnesium 1.8 mg/dL (1.7-2.3); Osmolality Calculated 282 mOsm/kg (285-295); Phosphorus 2.9 mg/dL (2.5-4.5); Potassium 3.4 mmol/L (3.5-5.1); Sodium 135 mmol/L (136-145); Total Bilirubin 0.7 mg/dL (0.15-1.2); Total Protein 6.3 g/dL (6.6-8.7)
[2023-09-17 08:00] VITALS: BP 154/82; PULSE 67; PULSE 99; RESP 17; RESP 18; TEMP 36.9; O2SAT 94; O2SAT 97
[2023-09-17] MEDS: insulin lispro 100 unit/1 mL SUBCUT (08:36)
[2023-09-17] MEDS: sucralfate 1 gm Tablet PO ×2 (08:37→17:55)
[2023-09-17] MEDS: sennosides-docusate Tablet 1 TAB PO (08:37)
[2023-09-17] MEDS: clopidogrel 75 mg Tablet PO (08:37)
[2023-09-17] MEDS: apixaban 5 mg Tablet PO ×2 (08:37→17:55)
[2023-09-17] MEDS: cefTRIAXone 1,000 MG in sodium chloride 0.9% (plus) 50 ML 100 MG IV (08:37)
[2023-09-17] MEDS: levothyroxine 25 mcg Tablet PO (08:40)
--- NOTE | 2023-09-17 09:46 | P.PN_ITS ---
Subjective 2 Subjective: Patient is able to make her needs known Mild improvement in her anxiety and mentation However she is still very anxious, suffering from akathisia Able to answer questions appropriately She is able to tell me name of her and a phone number Leukocytosis improving, afebrile, BMP normal, low potassium noted Lactic acid improved slightly Acidosis improving B12 TSH normal CT abdomen pelvis unremarkable, polysubstance abuse and marijuana Vitals/I&O/Wt Last Vital Signs Temp 98.4 F 09/17/23 08:00 Pulse 99 09/17/23 08:00 Resp 18 09/17/23 08:00 BP 154/82 09/17/23 08:00 Pulse Ox 94 09/17/23 08:00 O2 Del Method Room Air 09/17/23 08:00 09/16/23 09/17/23 09/17/23 22:59 06:59 14:59 Intake Total 1920 / 2920 955 / 3875 Balance 1920 / 2920 955 / 3875 Weight last 48 hrs Weight 72.717 kg Weight 70.715 kg Physical Exam 2 Narrative: Pleasant cooperative Nonfocal neuroexam GCS 15 Dehydration Patient looks slightly better than yesterday Akathisia Nonfocal neuroexam Able to answer questions S1, S2 Currently on room air Patient is endorsing feeling hungry and wanting to eat Data 09/17/23 07:27 09/17/23 07:27 Micro: Microbiology 09/16/23 12:45 Urine Culture - Preliminary Urine,Clean Catch 09/16/23 14:45 Blood Culture - Preliminary Blood SPECIMEN COLLECTED 09/16/23 14:40 Blood Culture - Preliminary Blood SPECIMEN COLLECTED A&P Assessment and plan (1) Chronic post-traumatic stress disorder (PTSD): (2) Delusional disorder: (3) Acidosis, lactic: (4) Dehydration: (5) UTI (urinary tract infection): (6) Altered mental status: (7) Metabolic encephalopathy: (8) Acute delirium: (9) Peripheral neuropathy: (10) Diabetic gastroparesis: Plan Hyperactive delirium with delusional disorder Likely polypharmacy UTI dehydration related IV fluids to be continued Conjunctivitis for UTI CT abdomen pelvis unremarkable Patient is hypertensive Adjust hypertensive regimen Akathisia with hyperactive delirium Judicious use of antipsychotic Gastroparesis history of will give her 1 dose of Reglan History of DVT, continue Eliquis Hypertension antihypertensive regimen I will add lisinopril Consistent carb diet Continue Lantus at a lower dose Full code called overnight and asked and checked on his Attestations 2 Medical Necessity Statement*: Continue hospitalization Diagnoses Chronic post-traumatic stress disorder (PTSD) F43.12 Delusional disorder F22 Acidosis, lactic E87.2 Dehydration E86.0 UTI (urinary tract infection) N39.0 Altered mental status R41.82 Metabolic encephalopathy G93.41 Acute delirium R41.0 Peripheral neuropathy G62.9 Diabetic gastroparesis E11.43; K31.84
[2023-09-17] MEDS: duloxetine 60 mg Capsule 120 MG PO (11:17)
[2023-09-17] MEDS: metoclopramide 5 mg/mL SDV 2 mL IVP (11:17)
[2023-09-17] MEDS: lisinopril 10 mg Tablet PO (11:17)
[2023-09-17 11:24] VITALS: BP 146/63; PULSE 76; RESP 16; TEMP 36.8; O2SAT 96
[2023-09-17 11:29] LABS: Glucose Point of Care 84 mg/dL (70-110)
[2023-09-17 17:19] LABS: Glucose Point of Care 89 mg/dL (70-110)
[2023-09-17 20:00] VITALS: BP 162/87; PULSE 88; RESP 19; TEMP 37.2; O2SAT 98
[2023-09-17 20:48] LABS: Glucose Point of Care 231 mg/dL (70-110)
[2023-09-17] MEDS: quetiapine 300 mg Tablet PO (21:48)
[2023-09-17 23:36] VITALS: BP 147/73; PULSE 90; RESP 18; TEMP 37.1; O2SAT 95
[2023-09-18] VITALS (7 sets, daily range): BP systolic 110–131; BP diastolic 65–75; PULSE 84–118; RESP 16–20; TEMP -12.3–37.1; O2SAT 93–96
[2023-09-18] MEDS: quetiapine 100 mg Tablet 150 MG PO (05:21)
[2023-09-18 06:52] LABS: Glucose Point of Care 185 mg/dL (70-110)
[2023-09-18 06:57] LABS: Basophils # 0.1 10^3/uL (0.0-0.1); Basophils % 0.5 %; Eosinophils # 0.3 10^3/uL (0.0-0.8); Eosinophils % 3.1 %; Hematocrit 40.9 % (36-47); Lymphocytes # 3.1 10^3/uL (0.8-4.8); Lymphocytes % 32.8 %; Mean Corpuscular HGB Conc 31.8 g/dL (30-55); Mean Corpuscular Hemoglobin 26.8 pg (27-33); Mean Corpuscular Volume 84.3 fl (85-98); Mean Platelet Volume 9.3 fL (7.4-10.4); Monocytes # 0.6 10^3/uL (0.2-0.9); Monocytes % 6.1 %; Neutrophils # 5.43 10^3/uL (1.8-7.7); Neutrophils % 56.9 %; Nucleated Red Blood Cells % 0 %; Platelet Count 337 10^3/cmm (157-399); Red Blood Count 4.85 10^6/uL (3.85-5.65); Red Cell Distribution Width 15.6 % (12.1-15.1); White Blood Count 9.55 10^3/uL (3.29-11.43)
[2023-09-18 07:13] LABS: Blood Urea Nitrogen 10 mg/dL (8-23); Calcium 8.8 mg/dL (8.5-10.5); Carbon Dioxide 16 mmol/L (22-29); Chloride 108 mmol/L (98-107); Creatinine Clr Calc Pharmacy 86.7561; Glomerular Filtration Rate 85.4 mL/min (90-130); Glucose 139 mg/dL (65-115); Osmolality Calculated 285 mOsm/kg (285-295); Sodium 137 mmol/L (136-145)
[2023-09-18 07:16] LABS: Anion Gap 16.3 (5-19); Potassium 3.3 mmol/L (3.5-5.1)
[2023-09-18] MEDS: insulin glargine 100 units/1 mL 10 UNIT SUBCUT (08:19)
[2023-09-18] MEDS: insulin lispro 100 unit/1 mL SUBCUT (08:19)
[2023-09-18] MEDS: duloxetine 60 mg Capsule 120 MG PO (08:20)
[2023-09-18] MEDS: sucralfate 1 gm Tablet PO ×2 (08:20→17:33)
[2023-09-18] MEDS: clopidogrel 75 mg Tablet PO (08:20)
[2023-09-18] MEDS: sennosides-docusate Tablet 1 TAB PO (08:20)
[2023-09-18] MEDS: cefTRIAXone 1,000 MG in sodium chloride 0.9% (plus) 50 ML 100 MG IV (08:20)
[2023-09-18] MEDS: levothyroxine 25 mcg Tablet PO (08:20)
[2023-09-18] MEDS: apixaban 5 mg Tablet PO ×2 (08:20→17:33)
[2023-09-18] MEDS: lisinopril 10 mg Tablet PO (08:20)
[2023-09-18] MEDS: tamsulosin 0.4 mg Capsule 0.400000000000000022 MG PO (08:20)
[2023-09-18] MEDS: sodium chloride 0.9% 1,000 ML 75 ML IV (08:21)
[2023-09-18 11:41] LABS: Glucose Point of Care 51 mg/dL (70-110)
[2023-09-18] MEDS: amlodipine 10 mg Tablet PO (11:43)
[2023-09-18] MEDS: gabapentin 100 mg Capsule PO (11:44)
[2023-09-18] MEDS: acetaminophen 500 mg Tablet PO (11:44)
[2023-09-18 16:57] LABS: Glucose Point of Care 118 mg/dL (70-110)
--- NOTE | 2023-09-18 18:06 | P.PN_ITS ---
Subjective 2 Subjective: Urinary retention yesterday 1300ml received in the bag as soon as Sanchez catheter was placed No significant overnight events Still agitated Redirectable Still hypertensive On room air Vitals/I&O/Wt Last Vital Signs Temp 99.0 F 09/17/23 20:00 Pulse 88 09/17/23 20:00 Resp 19 H 09/17/23 20:00 BP 162/87 09/17/23 20:00 Pulse Ox 98 09/17/23 20:00 O2 Del Method Room Air 09/17/23 11:24 09/17/23 09/17/23 09/17/23 06:59 14:59 22:59 Intake Total 955 / 3875 50 / 50 1187.5 / 1237.5 Output Total 1350 / 1350 Balance 955 / 3875 50 / 50 -162.5 / -112.5 Weight last 48 hrs Weight 72.717 kg Weight 70.715 kg Physical Exam 2 Narrative: Verbally redirectable Nonfocal neuroexam Signs of dehydration improving Hypertensive Currently on room air Abdomen soft Urinary Catheter Management: Sanchez: Cath Placed During This Visit: yes Reason for Continuing Indwelling Catheter: Acute Urinary Retention or Obstruction Urinary Catheter Date of Insertion: 09/17/23 Urinary Catheter Time of Insertion: 17:47 Data 09/18/23 05:52 09/18/23 05:52 Micro: Microbiology 09/16/23 14:45 Blood Culture - Preliminary Blood NEGATIVE TO DATE 09/16/23 14:40 Blood Culture - Preliminary Blood NEGATIVE TO DATE 09/16/23 12:45 Urine Culture - Preliminary Urine,Clean Catch A&P Assessment and plan (1) Chronic post-traumatic stress disorder (PTSD): (2) Delusional disorder: (3) Acidosis, lactic: (4) Dehydration: (5) UTI (urinary tract infection): (6) Altered mental status: (7) Metabolic encephalopathy: (8) Acute delirium: (9) Peripheral neuropathy: (10) Diabetic gastroparesis: Plan Hyperactive delirium with delusional disorder Urine retention, Sanchez catheter placed, 1300 ml normal urine at the bedside, stating that he thinks that his is returning back to normal self He is okay with taking her home on Wednesday if she remains stable Patient is hypertensive optimize hypertensive regimen, increase the dose of antihypertensive agent Akathisia with hyperactive delirium Judicious use of antipsychotic Gastroparesis history of will give her 1 dose of Reglan No active nausea vomiting History of DVT, continue Eliquis Consistent carb diet Continue Lantus at a lower dose Full code Attestations 2 Medical Necessity Statement*: Patient will stay until Wednesday most likely Diagnoses Chronic post-traumatic stress disorder (PTSD) F43.12 Delusional disorder F22 Acidosis, lactic E87.2 Dehydration E86.0 UTI (urinary tract infection) N39.0 Altered mental status R41.82 Metabolic encephalopathy G93.41 Acute delirium R41.0 Peripheral neuropathy G62.9 Diabetic gastroparesis E11.43; K31.84
[2023-09-18] MEDS: potassium chloride ER 20 mEq Tablet 40 MEQ PO (18:57)
[2023-09-18] MEDS: quetiapine 300 mg Tablet PO (20:06)
[2023-09-18 20:35] LABS: Glucose Point of Care 166 mg/dL (70-110)
[2023-09-19 03:19] VITALS: BP 107/64; PULSE 104; RESP 18; O2SAT 94
[2023-09-19] MEDS: lanolin oint 7 gm 1 APPLIC TOPICAL (05:15)
[2023-09-19] MEDS: sodium chloride 0.9% 1,000 ML 75 ML IV (05:19)
[2023-09-19] MEDS: quetiapine 100 mg Tablet 150 MG PO (05:19)
[2023-09-19 06:51] LABS: Glucose Point of Care 118 mg/dL (70-110)
[2023-09-19 07:33] VITALS: PULSE 103; RESP 18; O2SAT 96
[2023-09-19 07:50] LABS: Anion Gap 15.3 (5-19); Blood Urea Nitrogen 8 mg/dL (8-23); Calcium 8.6 mg/dL (8.5-10.5); Carbon Dioxide 13 mmol/L (22-29); Chloride 111 mmol/L (98-107); Creatinine Clr Calc Pharmacy 102.1114; Glucose 115 mg/dL (65-115); Osmolality Calculated 281 mOsm/kg (285-295); Potassium 3.3 mmol/L (3.5-5.1); Sodium 136 mmol/L (136-145)
[2023-09-19 08:41] VITALS: BP 118/59; PULSE 90; RESP 20; TEMP 36.6; O2SAT 96
[2023-09-19] MEDS: insulin glargine 100 units/1 mL 10 UNIT SUBCUT (10:00)
[2023-09-19] MEDS: lisinopril 10 mg Tablet PO (10:00)
[2023-09-19] MEDS: clopidogrel 75 mg Tablet PO (10:00)
[2023-09-19] MEDS: duloxetine 60 mg Capsule 120 MG PO (10:00)
[2023-09-19] MEDS: potassium chloride ER 20 mEq Tablet 40 MEQ PO (10:00)
[2023-09-19] MEDS: tamsulosin 0.4 mg Capsule 0.400000000000000022 MG PO (10:00)
[2023-09-19] MEDS: sennosides-docusate Tablet 1 TAB PO (10:00)
[2023-09-19] MEDS: sucralfate 1 gm Tablet PO (10:00)
[2023-09-19] MEDS: levothyroxine 25 mcg Tablet PO (10:00)
[2023-09-19] MEDS: amlodipine 10 mg Tablet PO (10:00)
[2023-09-19] MEDS: cefTRIAXone 1,000 MG in sodium chloride 0.9% (plus) 50 ML 100 MG IV (10:01)
[2023-09-19] MEDS: apixaban 5 mg Tablet PO (10:01)
--- NOTE | 2023-09-19 11:20 | P.PN_ITS ---
Subjective 2 Subjective: Patient is calm and resting comfortably No significant overnight events Wednesday, Wednesday. If she is completely back to baseline As per the she is improving going back to her normal self Vitals/I&O/Wt Last Vital Signs Temp 97.8 F 09/19/23 08:41 Pulse 90 09/19/23 08:41 Resp 20 H 09/19/23 08:41 BP 118/59 09/19/23 08:41 Pulse Ox 96 09/19/23 08:41 O2 Del Method Room Air 09/19/23 08:41 09/18/23 09/19/23 09/19/23 22:59 06:59 14:59 Intake Total 780 / 2790 678.75 / 3468.75 530 / 530 Output Total 2800 / 4200 1600 / 1600 Balance 780 / 1390 -2121.25 / -731.25 -1070 / -1070 Weight last 48 hrs Weight 73.227 kg Weight 71.804 kg Physical Exam 2 Narrative: Patient resting comfortably No new focal deficit Psychotic behavior changes improving S1, S2 Signs of dehydration improving Sanchez catheter in place Currently on room air Urinary Catheter Management: Sanchez: Cath Placed During This Visit: yes Reason for Continuing Indwelling Catheter: Acute Urinary Retention or Obstruction Urinary Catheter Date of Insertion: 09/17/23 Urinary Catheter Time of Insertion: 17:47 Data 09/18/23 05:52 09/19/23 06:30 Micro: Microbiology 09/16/23 12:45 Urine Culture - Final Urine,Clean Catch A&P Assessment and plan (1) Delusional disorder: (2) Dehydration: (3) UTI (urinary tract infection): (4) Altered mental status: (5) Metabolic encephalopathy: (6) Acute delirium: (7) Diabetic gastroparesis: Plan Psychotic behavior improving Delusional disorder improving as well Continue antipsychotic medication Full code Discontinue Sanchez catheter today, voiding trial Continue IV antibiotics Replace potassium Plan to discharge on Wednesday back home will pick her up Patient follows up with behavioral health clinic As per the patient was not able to sleep for days before she went into psychotic episode Attestations 2 Medical Necessity Statement*: Discharge on Wednesday Diagnoses Delusional disorder F22 Dehydration E86.0 UTI (urinary tract infection) N39.0 Altered mental status R41.82 Metabolic encephalopathy G93.41 Acute delirium R41.0 Diabetic gastroparesis E11.43; K31.84
[2023-09-19 11:29] LABS: Glucose Point of Care 174 mg/dL (70-110)
[2023-09-19 11:47] VITALS: BP 145/76; PULSE 86; RESP 18; TEMP 36.4; O2SAT 95
[2023-09-19] MEDS: acetaminophen 500 mg Tablet PO (12:51)
[2023-09-19] MEDS: insulin lispro 100 unit/1 mL SUBCUT (12:51)
[2023-09-19 13:54] VITALS: BP 145/76; PULSE 86; RESP 18; TEMP 36.4; O2SAT 95
--- NOTE | 2023-09-19 13:57 | P.DS_ITS ---
Discharge Providers Date of Admission: 09/16/23 14:33 Date of Discharge: September 19, 2023 Attending Provider at Admission: Paulina Samuels MD Attending Provider at Discharge: Joesph Garcia MD Primary Care Provider: Marichuy Hopper NP Diagnoses at Discharge Discharge Diagnosis (1) Delusional disorder: Status: Acute (2) UTI (urinary tract infection): Status: Acute (3) Altered mental status: Status: Acute (4) Metabolic encephalopathy: Status: Acute (5) Acute delirium: Status: Acute (6) Diabetic gastroparesis: Status: Acute Reason for Visit Reason for Visit: ams Hospital Course Hospital Course 66 female who presented to the hospital chief complaint of delusional disorder visual hallucination, inability to sleep at home, she was diagnosed with UTI, she was extremely dehydrated and unkept appearance, she was able to get some sleep her mentation improved significantly, her is at her here, stated that she is back to baseline and wanted to take her home, I have prescribed her cefpodoxime for UTI, she remained hemodynamically stable, she was retaining urine for 30 and mL urine was collected on placement of Sanchez catheter, she did well with voiding trial on the day of discharge, cultures remain negative. Signs of dehydration improved with aggressive fluid hydration. She follows up with [facility] Physical Exam Narrative: Patient resting comfortably No new focal deficit Psychotic behavior changes improving S1, S2 Signs of dehydration improving Sanchez catheter in place Currently on room air Urinary Catheter Management: Sanchez: Cath Placed During This Visit: yes Reason for Continuing Indwelling Catheter: Acute Urinary Retention or Obstruction Urinary Catheter Date of Insertion: 09/17/23 Urinary Catheter Time of Insertion: 17:47 Discharge Data Studies Completed and Pending Completed Studies During Hospitalization Category Date Time Status CT abdomen renal stone [CT kidney stone [id number]] Routine Cat Scan 09/16/23 15:[address] head wo con* [id number] Stat Cat Scan 09/16/23 14:20 Completed XR chest 1V [id number] Stat Exams 09/16/23 14:29 Completed Pending at discharge Category Date Time Status Basic Metabolic Panel AM LABS Lab 09/20/23 04:00 Ordered Blood Culture Stat Lab 09/16/23 14:45 Results Radiology Impressions Head CT 09/16/23 14:20 IMPRESSION: 1. Technically limited evaluation of the brain. Motion artifact. 2. No large areas of hemorrhage or edema. 3. Very mild small vessel ischemic disease. No acute findings. Chest X-Ray 09/16/23 14:29 Impression: Negative chest. Abdomen/Pelvis CT 09/16/23 15:26 IMPRESSION: 1. Quality of this examination is compromised by motion artifact and breathing. 2. No renal obstruction. 3. No GI tract obstruction. 4. Aortic iliac stents. 5. Small hiatal hernia. Laboratory Results WBC 9.55 10^3/uL (3.29-11.43) 09/18/23 05:52 Corrected WBC Cancelled 09/17/23 05:25 RBC 4.85 10^6/uL (3.85-5.65) 09/18/23 05:52 Hgb 13.00 g/dL (11.27-16.99) 09/18/23 05:52 Hct 40.9 % (36-47) 09/18/23 05:52 MCV 84.3 fl (85-98) L 09/18/23 05:52 MCH 26.8 pg (27-33) L 09/18/23 05:52 MCHC 31.8 g/dL (30-55) 09/18/23 05:52 RDW 15.6 % (12.1-15.1) H 09/18/23 05:52 Plt Count 337 10^3/cmm (157-399) 09/18/23 05:52 MPV 9.3 fL (7.4-10.4) 09/18/23 05:52 Gran % Cancelled 09/17/23 05:25 Neut % (Auto) 56.9 % 09/18/23 05:52 Lymph % (Auto) 32.8 % 09/18/23 05:52 Dare % (Auto) 6.1 % 09/18/23 05:52 Eos % (Auto) 3.1 % 09/18/23 05:52 Baso % (Auto) 0.5 % 09/18/23 05:52 Neut # (Auto) 5.43 10^3/uL (1.8-7.7) 09/18/23 05:52 Lymph # (Auto) 3.1 10^3/uL (0.8-4.8) 09/18/23 05:52 Dare # (Auto) 0.6 10^3/uL (0.2-0.9) 09/18/23 05:52 Eos # (Auto) 0.3 10^3/uL (0.0-0.8) 09/18/23 05:52 Baso # (Auto) 0.1 10^3/uL (0.0-0.1) 09/18/23 05:52 Absolute Gran (auto) Cancelled 09/17/23 05:25 Nucleated RBC % (auto) 0 % 09/18/23 05:52 Nucleated RBCs # 0.0 /100WBC 09/18/23 05:52 Specimen Type Arterial 09/16/23 12:37 Sample Site Radial, left 09/16/23 12:37 ABG pH 7.45 (7.35-7.45) 09/16/23 12:37 ABG pCO2 27.0 mmHg (35-45) L 09/16/23 12:37 ABG pO2 75.3 mmHg (80.0-100.0) L 09/16/23 12:37 ABG PO2/FiO2 Ratio 0 09/16/23 12:37 ABG HCO3 18.9 mmol/L (22-26) L 09/16/23 12:37 ABG O2 Saturation 93.0 09/16/23 12:37 ABG Base Excess -3.5 mmol/L (-2.0-2.0) L 09/16/23 12:37 Mohsen Test Pos 09/16/23 12:37 A-a O2 Gradient 5.0 mmHg (5-10) 09/16/23 12:37 Hematocrit 46.0 % (37-47) 09/16/23 12:37 Hgb O2 Saturation 91.8 % (95-100) L 09/16/23 12:37 Carboxyhemoglobin 1.1 %THgb (0.4-20.1) 09/16/23 12:37 Methemoglobin 0.1 % (0.4-1.5) L 09/16/23 12:37 Total Hemoglobin 15.0 g/dL (12-16) 09/16/23 12:37 Sodium 142.0 mmol/L (131-143) 09/16/23 12:37 Potassium 3.3 mmol/L (3.5-5.0) L 09/16/23 12:37 Glucose 186.0 mg/dL (70-115) H 09/16/23 12:37 Ionized Calcium 1.2 mmol/L (1.1-1.4) 09/16/23 12:37 O2 Delivery Device Room air 09/16/23 12:37 FiO2 21.0 % 09/16/23 12:37 [employer] ID Cak 09/16/23 12:37 Sodium 136 mmol/L (136-145) 09/19/23 06:30 Potassium 3.3 mmol/L (3.5-5.1) L 09/19/23 06:30 Chloride 111 mmol/L (98-107) H 09/19/23 06:30 Carbon Dioxide 13 mmol/L (22-29) L 09/19/23 06:30 Anion Gap 15.3 (5-19) 09/19/23 06:30 BUN 8 mg/dL (8-23) 09/19/23 06:30 Creatinine 0.6 mg/dL (0.5-0.9) 09/19/23 06:30 GFR Calculation 102.0 mL/min (90-130) 09/19/23 06:30 Glucose 115 mg/dL (65-115) 09/19/23 06:30 POC Glucose 174 mg/dL (70-110) H 09/19/23 11:03 Estimat Average Glucose 140 09/16/23 12:25 Hemoglobin A1c 6.5 % (4.0-6.0) H 09/16/23 12:25 Calculated Osmolality 281 mOsm/kg (285-295) L 09/19/23 06:30 Lactic Acid 2.7 mmol/L (0.5-2.2) H 09/16/23 12:25 Lactic Acid (Sepsis) 2.4 mmol/L (0.5-2.2) H 09/16/23 16:50 Calcium 8.6 mg/dL (8.5-10.5) 09/19/23 06:30 Phosphorus 2.9 mg/dL (2.5-4.5) 09/17/23 07:27 Magnesium 1.8 mg/dL (1.7-2.3) 09/17/23 07:27 Total Bilirubin 0.7 mg/dL (0.15-1.2) 09/17/23 07:27 AST 21 U/L (0-32) 09/17/23 07:27 ALT 15 U/L (0-33) 09/17/23 07: Alkaline Phosphatase 95 U/L (35-105) 09/17/23 07: C-Reactive Protein 16.3 mg/L (0.0-4.9) H 09/17/23 07: Total Protein 6.3 g/dL (6.6-8.7) L 09/17/23 07: Albumin 3.4 g/dL (3.5-5.2) L 09/17/23 07: Globulin 2.9 g/dL (1.3-4.6) 09/17/23 07: Vitamin B12 500 pg/mL (232-1245) 09/16/23 12:25 TSH 0.71 uIU/mL (0.27-4.20) 09/16/23 12:25 Ser , Semi-Qnt 1.00 mIU/mL 09/16/23 12:25 Urine Color Yellow (Yellow) 09/16/23 12:45 Urine Appearance Sl hazy (CLEAR) A 09/16/23 12:45 Urine pH 6.5 (5-7) 09/16/23 12:45 Ur Specific Lamar 1.015 (1.005-1.030) 09/16/23 12:45 Urine Protein 1+ (Negative) H 09/16/23 12:45 Urine Glucose (UA) Norm (Normal) 09/16/23 12:45 Urine Ketones 1+ (Negative) H 09/16/23 12:45 Urine Blood Neg (Negative) 09/16/23 12:45 Urine Nitrate Negative (Negative) 09/16/23 12:45 Urine Bilirubin 1+ (Negative) H 09/16/23 12:45 Urine Urobilinogen 8 mg/dL (Negative) H 09/16/23 12:45 Ur Leukocyte Esterase 1+ (Negative) H 09/16/23 12:45 Urine RBC 0-4 /hpf (0-2) H 09/16/23 12:45 Urine WBC 40-55 /hpf (0-5) H 09/16/23 12:45 Ur Squamous Epith Cells 0-4 /hpf (0-5) H 09/16/23 12:45 Ur Transition Epith Cell 0-4 /hpf 09/16/23 12:45 Ur Renal Epithelial Cell 0-4 /hpf 09/16/23 12:45 Amorphous Sediment Not Reportable 09/16/23 12:45 Urine Bacteria None /hpf (NONE) 09/16/23 12:45 Urine Mucus 1+ /hpf 09/16/23 12:45 Salicylates < 0.3 mg/dL (3-10) L 09/16/23 12:25 Urine Opiates Screen Positive ng/mL (Negative) H 09/16/23 12:45 Acetaminophen < 5.0 ug/mL (10-30) L 09/16/23 12:25 Ur Barbiturates Screen Negative ng/mL (Negative) 09/16/23 12:45 Ur Phencyclidine Scrn Negative ng/mL (Negative) 09/16/23 12:45 Ur Amphetamines Screen Negative ng/mL (Negative) 09/16/23 12:45 U Benzodiazepines Scrn Negative ng/mL (Negative) 09/16/23 12:45 Urine Cocaine Screen Negative ng/mL (Negative) 09/16/23 12:45 U Marijuana (THC) Screen Positive ng/mL (Negative) H 09/16/23 12:45 Ethyl Alcohol < 10 mg/dL (0-10) 09/16/23 12:25 Serum Ketones Negative (Negative) 09/16/23 12:25 Vitals Last Vital Signs Temp 97.5 F L 09/19/23 13:54 Pulse 86 09/19/23 13:54 Resp 18 09/19/23 13:54 BP 145/76 09/19/23 13:54 Pulse Ox 95 09/19/23 13:54 O2 Del Method Room Air 09/19/23 13:54 Discharge Plan Discharge Patient Disposition: Home Condition: Stable Prescriptions: New cefpodoxime 200 mg tablet 200 mg PO BID Qty: 10 0RF Rx Instructions: must administer with a meal/food Continued (DME) Diabetic Shoes See Rx Instructions .Route .MEDSUPPLY Qty: 1 0RF Rx Instructions: As directed (DME) Prevalon heel protector boot See Rx Instructions .Route .MEDSUPPLY Qty: 1 0RF Rx Instructions: As directed to HOME metoclopramide HCl [Reglan] 5 mg tablet 5 mg PO DAILY PRN (Reason: nausea and vomiting) 14 Days Qty: 14 0RF duloxetine 60 mg capsule,delayed release(DR/EC) 120 mg PO DAILY Qty: 60 2RF albuterol sulfate [ProAir HFA] 90 mcg/actuation HFA aerosol inhaler 2 puff INHALATION Q6H PRN (Reason: Shortness Of Breath) omeprazole 20 mg capsule,delayed release(DR/EC) 20 mg PO DAILY pregabalin 200 mg capsule 200 mg PO Q8H Eliquis 5 mg tablet 5 mg PO BID docusate sodium 100 mg capsule 100 mg PO BID PRN (Reason: Constipation) furosemide 20 mg tablet 20 mg PO DAILY Hold Instructions: Resume on 04/06/22. ergocalciferol (vitamin D2) 1,250 mcg (50,000 unit) capsule 1,250 mcg PO Q7D Trulicity 1.5 mg/0.5 mL Pen Injector 1.5 mg SUBCUT Q7D pantoprazole 40 mg Tablet,Delayed Release (Dr/Ec) 40 mg PO DAILY fenofibrate nanocrystallized 48 mg Tablet 48 mg PO DAILY Januvia 100 mg Tablet 100 mg PO DAILY insulin glargine [Lantus Solostar U-100 Insulin] 100 unit/mL (3 mL) insulin pen 15 unit SUBCUT DAILY Qty: 15 3RF buprenorphine HCl 2 mg Tablet, Sublingual 2 mg SUBLINGUAL Q8H quetiapine 300 mg tablet 300 mg PO BEDTIME sucralfate 1 gram tablet 1 g PO BID clopidogrel 75 mg tablet 75 mg PO DAILY levothyroxine 25 mcg tablet 25 mcg PO DAILY tamsulosin 0.4 mg capsule 0.4 mg PO DAILY ondansetron 4 mg tablet,disintegrating See Rx Instructions .ROUTE .COMPLEX Rx Instructions: DISSOLVE ONE TABLET ON TOP OF TONGUE, THEN SWALLOW WITH SALIVA EVERY 8 HOURS NEEDED FOR NAUSEA AND VOMITING loratadine 10 mg tablet 10 mg PO DAILY quetiapine 50 mg tablet 150 mg PO QAM Symbicort 160-4.5 mcg/actuation HFA aerosol inhaler 2 puff INHALATION BID Narcan 4 mg/actuation spray,non-aerosol See Rx Instructions .ROUTE .COMPLEX Rx Instructions: ADMINISTER 1 SPRAY (4 MG) IN ONE NOSTRIL (ALTERNATE NOSTRIL WITH EACH DOSE) ONE TIME NEEDED FOR OVERDOSE. CALL 911 IMMEDIATELY. CAN REPEAT IN ALTERNATING NOSTRILS EVERY 3 MINUTES UNTIL RESPONSIVE OR HELP ARRIVES Discharge Orders: Discharge Order (Routine); Ordered 09/19/23 Ordered By: Joesph Garcia Referrals: Marichuy Hopper NP [Primary Care Provider] - (Please contact primary care physician Wednesday to schedule a hospital follow up within 1 week of discharge.) Patient Instructions: Cefpodoxime Proxetil (By mouth), Altered Mental Status (ED), Opioid Safety Discharge Attestations Time Spent in Discharge Care*: less than 30 min Status at Discharge: Cognitive status at discharge: cognitively intact , Behavioral status at discharge: cooperative , Quality Metrics Clinical Quality Measures [ No reported AMI, CVA or VTE this stay] Coding Level of Care Code Acute Code for Chg Fwd Diagnoses Delusional disorder F22 UTI (urinary tract infection) N39.0 Altered mental status R41.82 Metabolic encephalopathy G93.41 Acute delirium R41.0 Diabetic gastroparesis E11.43; K31.84
== END 2023-09-19 15:27 | disposition home or self-care (01) | DRG 689 ==
LOC: ER 14:11 → MEDSURG 14:33
PROVIDERS: Admitting Provider Internal Medicine; Emergency Provider Emergency Medicine; PCP Nurse Practitioner Family; Visit Provider Internal Medicine
DX: N39.0 Urinary tract infection, site not specified (principal); G93.41 Metabolic encephalopathy; F03.93 Unspecified dementia, unspecified severity, with mood disturbance; F05 Delirium due to known physiological condition; E46 Unspecified protein-calorie malnutrition; F31.81 Bipolar II disorder; E87.20 Acidosis, unspecified; E86.0 Dehydration; F12.10 Cannabis abuse, uncomplicated; F41.1 Generalized anxiety disorder; F43.12 Post-traumatic stress disorder, chronic; F17.210 Nicotine dependence, cigarettes, uncomplicated; G62.9 Polyneuropathy, unspecified; E11.43 Type 2 diabetes mellitus with diabetic autonomic (poly)neuropathy; K31.84 Gastroparesis; Z79.4 Long term (current) use of insulin; Z68.26 Body mass index [BMI] 26.0-26.9, adult; Z79.01 Long term (current) use of anticoagulants; Z79.02 Long term (current) use of antithrombotics/antiplatelets; Z79.85 Long-term (current) use of injectable non-insulin antidiabetic drugs
CPT/HCPCS: 36415; 36416; 36600; 51702; 70450; 71045; 74176; 80048; 80051; 80053; 80306; 80307; 81001; 82009; 82330; 82607; 82805; 82962; 83036; 83605; 83735; 84100; 84443; 84702; 85025; 86140; 87040; 87086; 93005; 96365; 96372; 96375; 99285; J0696; J0744; J1815; J2060; J2765; J7030